=== PATIENT | female | born 1990 | race Caucasian/White ===

== ENCOUNTER 2018-10-13 06:15 | Emergency (ER) | payer OTHER ==
--- OUTSIDE RECORDS SUMMARY | 2018-10-13 06:16 | XMS REPORT | Encounter Summary ---
:1990 Author Reason for Visit Nurse Visit; Confirmation of Instructions 1. Urine test positive test, urine 2. screening CBC w/ auto diff HIV (1+2) Ab screen, serum culture, urine abo group + rh type, blood HBsAg (hepatitis B surface Ag), serum rubella Ab, titer, serum RPR (rapid plasma reagin), serum antibody screen, serum or plasma urinalysis, dipstick US, obstetric, maternal evaluation + anatomy 3. Uterine scar from previous surgery in , childbirth and the puerperium with problem Discussion Note: None recorded.Patient educational handouts: No information available. Plan of Care Reminders Provider Appointments OB Sono Sonogram 10/22/2018 3:30PM Lab In-House Results Test, Urine 10/06/2018 CBC W/ Auto [place] Diff 10/06/2018 [facility] (Lab) HIV (1+2) Ab [place] Screen, Serum 10/06/2018 [facility] (Lab) Culture, Urine [place] 10/06/2018 [facility] (Lab) Abo Group + Rh [place] Type, Blood 10/06/2018 [facility] (Lab) HBsAg [place] (Hepatitis B Surface 10/06/2018 [facility] Ag), [facility] (Lab) Rubella Ab, [place] Titer, Serum 10/06/2018 [facility] (Lab) RPR (Rapid [place] Plasma Reagin), Serum 10/06/2018 [facility] (Lab) Antibody [place] Screen, Serum or Plasma 10/06/2018 [facility] (Lab) Urinalysis, In-House Results Dipstick 10/06/2018 Referral None recorded. Procedures None recorded. Surgeries None recorded. Imaging US, Obstetric, In-House Results Maternal 10/06/2018 Evaluation + Anatomy Medications Name Start Date collagen (bovine) melatonin Medications Administered None recorded. Vitals Height Weight BMI Blood Pressure 5 ft 1 in 144 lbs 27.2 kg/m2 128/74 mm[Hg] Lab Results Date Name Specimen Result Interpretation Description Value Range Status Address 10/06/2018 Urinalysis, Leukocytes Negative In-House Dipstick Results: For Internal Use Only Nitrite negative In-House Results: For Internal Use Only Urobilinogen .2 In-House Results: For Internal Use Only Protein Negative In-House Results: For Internal Use Only Ph 5.5 In-House Results: For Internal Use Only Blood Negative In-House Results: For Internal Use Only Specific 1.020 In-House [place] Results: For Internal Use Only Ketone Negative In-House Results: For Internal Use Only Bilirubin Negative In-House Results: For Internal Use Only Glucose Negative In-House Results: For Internal Use Only Appearance Clear In-House Results: For Internal Use Only Color Yellow In-House Results: For Internal Use Only US, Obstetric, No observation In-House Maternal recorded. Results: Evaluation + For Anatomy Internal Use Only Test, Test positive In-House Urine Results: For Internal Use Only Allergies Code Code System Name Reaction Severity Status Onset 7052 RxNorm Morphine Hives Active Problems Name Status Onset Date Source Active 10/06/2018 Uterine Scar from Previous Surgery in , Active 10/07/2018 Childbirth and the Puerperium with Problem Procedures Date Name Performed by Remove Tonsils and Adenoids Information not available 10/06/2018 US, Obstetric, Maternal In-House Results Evaluation + Anatomy For Internal Use Only 34381 Vaccine List None recorded. Social History Smoking Status Former Smoker Past Encounters 10/06/2018 Urine Test Positive; Screening; Uterine Scar from Previous Surgery in , Childbirth and the Puerperium with Problem German Lucas MD: [address] [place] [address], [address], [place] [address], Ph. [phone] History of Present Illness None recorded. 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: Patient Constitutional: Constitutional: no fatigue, no fever, no significant weight gain, no significant weight loss Skin: Skin: no abnormal moles, no rashes Eyes: Eyes: no irritation, no vision changes ENMT: ENMT: no hearing loss, no ear pain, no nose/sinus problems, no sore throat, no snoring, no dry mouth, no mouth ulcers Respiratory: Respiratory: no dyspnea / shortness of breath, no cough, no sputum production, no hemoptysis, no wheezing Cardiovascular: Cardiovascular: no chest pain, no palpitations, no orthopnea Gastrointestinal: Gastrointestinal: no heartburn, no dysphagia, no nausea, no vomiting, no abdominal pain, no bowel movement changes, no diarrhea, no constipation, no rectal bleeding Genitourinary: Genitourinary: no hematuria, no abnormal bleeding, no flank pain, no trouble urinating, no incontinence, no rash, no lesion, no discharge, no vaginal odor, no vaginal itching Endocrine: Menstrual: no menstrual problems, no PMDD symptoms. Menopausal: no menopausal symptoms. Sexual: no sexual problems Musculoskeletal: Musculoskeletal: no muscle aches, no muscle weakness, no arthralgias/joint pain, no back pain Neurological: Neurologic: no headaches, no dizziness, no LOC, no weakness, no numbness, no seizures Psychological: Psych: no depression, no alcoholism, no sleep disturbances Physical Exam None recorded.
--- NOTE | 2018-10-13 07:35 | ER ---
Nurse's Notes [facility] Name: Hailee Guy Age: 28 yrs Sex: Female : 1990 Arrival Date: 10/13/2018 Time: 06:17 Bed 13 Private MD: Ashlyn Vences C Diagnosis: Pain in left ankle and joints of left foot; state Presentation: 10/13 06:28 Presenting complaint: Patient states: left ankle pain X1 day. swelling noted to left ak1 ankle. pt denies injury. Transition of care: patient was not received from another setting of care. Onset of symptoms was October 12, 2018. Risk Assessment: Do you want to hurt yourself or someone else? Patient reports no desire to harm self or others. Care prior to arrival: bin bandage applied to left ankle by [facility] prior to arrival. 06:28 Method Of Arrival: Wheelchair ak1 06:28 Acuity: TANISHA 4 ak1 06:32 Initial Sepsis Screen: Does the patient meet any 2 criteria? No. Patient's initial ak1 sepsis screen is negative. Does the patient have a suspected source of infection? No. Patient's initial sepsis screen is negative. Triage Assessment: 06:30 General: Appears uncomfortable, Behavior is calm, cooperative. Pain: Complains of pain ak1 in left lateral malleolus and left medial malleolus. EENT: No signs and/or symptoms were reported regarding the EENT system. Neuro: No deficits noted. Cardiovascular: No deficits noted. Respiratory: No deficits noted. GI: No signs and/or symptoms were reported involving the gastrointestinal system. : No signs and/or symptoms were reported regarding the genitourinary system. Derm: No signs and/or symptoms reported regarding the dermatologic system. Musculoskeletal: Range of motion: limited in left ankle. 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 - Social history:: Smoking status: Patient/guardian denies using tobacco. - Ebola Screening: : No symptoms or risks identified at this time. Screenin:32 Abuse screen: Denies threats or abuse. Denies injuries from another. Nutritional ak1 screening: No deficits noted. Tuberculosis screening: No symptoms or risk factors identified. Fall Risk None identified. Assessment: 06:28 General: Appears in no apparent distress. uncomfortable, Behavior is calm, cooperative, jb4 appropriate for age. Pain: Complains of pain in left lateral ankle, left medial ankle and anterior aspect of left ankle Pain radiates to left knee Pain currently is 10 out of 10 on a pain scale. Quality of pain is described as aching, sharp, shooting, stabbing, throbbing, Pain began 2 years ago Is intermittent. Neuro: Level of Consciousness is awake, alert, obeys commands, Oriented to person, place, time, situation. Cardiovascular: Patient's skin is warm and dry. Respiratory: Airway is patent Respiratory effort is even, unlabored, Respiratory pattern is regular, symmetrical. GI: No signs and/or symptoms were reported involving the gastrointestinal system. : No signs and/or symptoms were reported regarding the genitourinary system. EENT: No signs and/or symptoms were reported regarding the EENT system. Derm: Skin is intact, Skin is pink, warm \T\ dry. Musculoskeletal: Circulation, motion, and sensation intact. Range of motion: intact in left ankle Swelling present in left lateral ankle, left medial ankle and anterior aspect of left ankle. 08:21 Reassessment: PT D/C HOME VIA W/C WITH FAMILY, DX WITH SOFT TISSUE SWELLING OF LEFT bp ANKLE. Vital Signs: 06:30 BP 114 / 70; Pulse 85; Resp 16; Pulse Ox 99% on R/A; Weight 65.32 kg (R); Height 5 ft. ak1 4 in. (162.56 cm) (R); Pain 10/10; 06:30 Body Mass Index 24.72 (65.32 kg, 162.56 cm) ak1 ED Course: 06:17 Patient arrived in ED. am2 06:18 Ashlyn Vences FNP is Private Physician. am2 06:21 Praful Perez, RN is Primary Nurse. jb4 06:29 Triage completed. ak1 06:30 Arm band placed on Patient placed in an exam room, on a stretcher, on pulse oximetry, ak1 Patient notified of wait time. 06:32 Patient has correct armband on for positive identification. Bed in low position. Call ak1 light in reach. Side rails up X 1. Adult w/ patient. Pulse ox on. NIBP on. 06:33 Emily Stoddard FNP-C [facility]. snw 06:33 Richard Gordon MD is Attending Physician. snw 07:21 Extremity Venous Uni Ltd US In Process Unspecified. EDMS 07:50 Bin wrap to left ankle. bp 08:21 No provider procedures requiring assistance completed. Patient did not have IV access bp during this emergency room visit. Administered Medications: 07:42 CANCELLED (other intervention): Tylenol 650 mg PO once snw 07:55 Drug: Tylenol #3 (300 mg-30 mg) 1 tablet Route: PO; bp 08:10 Follow up: Response: Medication administered at discharge. bp Outcome: 07:34 Discharge ordered by . snw 08:22 Discharged to home via wheelchair, with family. bp 08:22 Condition: stable 08:22 Discharge instructions given to patient, Instructed on discharge instructions, follow up and referral plans. Demonstrated understanding of instructions, follow-up care, medications. 08:22 Patient left the ED. bp Signatures: Dispatcher [employer] EDMO Emily Stoddard FNP-C SHOE STAMPER-Csnw Tracy Rodrigez RN RN ak1 Praful Perez, RN RN [email or web address] Celestina Augustin Brian, RN RN bp
--- NOTE | 2018-10-13 07:35 | EDPHYS ---
Physician Documentation [facility] Name: Hailee Guy Age: 28 yrs Sex: Female : 1990 Arrival Date: 10/13/2018 Time: 06:17 Bed 13 Private MD: Ashlyn Vences C ED Physician Richard Gordon HPI: 10/13 06:40 This 28 yrs old Female presents to ER via Wheelchair with complaints of Ankle snw pain. 06:40 The patient presents with decreased range of motion, pain, swelling. The complaints snw affect the left medial ankle, anterior aspect of left ankle and dorsum of left foot. Context: The problem was sustained at home, resulted from an unknown cause, the patient can partially bear weight, the patient is able to ambulate, pt states area swelling is pretty normal for her x 3 years. Onset: The symptoms/episode began/occurred gradually, 3 year(s) ago, and became worse this morning. Associated signs and symptoms: Pertinent positives: swelling. 06:40 Modifying factors: the symptoms are aggravated by state. Treatment prior to snw arrival includes: no previous treatment. Severity of symptoms: At their worst the symptoms were moderate. The patient has experienced similar episodes in the past. It is unknown whether or not the patient has recently seen a physician. 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 - Social history:: Smoking status: Patient/guardian denies using tobacco. - Ebola Screening: : No symptoms or risks identified at this time. ROS: 06:40 Constitutional: Negative for fever, chills, and weight loss, Eyes: Negative for injury, snw pain, redness, and discharge, ENT: Negative for injury, pain, and discharge, Neck: Negative for injury, pain, and swelling, Cardiovascular: Negative for chest pain, palpitations, and edema, Respiratory: Negative for shortness of breath, cough, wheezing, and pleuritic chest pain, Abdomen/GI: Negative for abdominal pain, nausea, vomiting, diarrhea, and constipation, Back: Negative for injury and pain, : Negative for injury, bleeding, discharge, and swelling, Skin: Negative for injury, rash, and discoloration, Neuro: Negative for headache, weakness, numbness, tingling, and seizure. 06:40 MS/extremity: Positive for decreased range of motion, pain, swelling, of the left medial ankle, anterior aspect of left ankle and dorsum of left foot. Exam: 06:37 Constitutional: This is a well developed, well nourished patient who is awake, alert, snw and in no acute distress. Head/Face: Normocephalic, atraumatic. Eyes: Pupils equal round and reactive to light, extra-ocular motions intact. Lids and lashes normal. Conjunctiva and sclera are non-icteric and not injected. Cornea within normal limits. Periorbital areas with no swelling, redness, or edema. ENT: Nares patent. No nasal discharge, no septal abnormalities noted. Tympanic membranes are normal and external auditory canals are clear. Oropharynx with no redness, swelling, or masses, exudates, or evidence of obstruction, uvula midline. Mucous membranes moist. Neck: Trachea midline, no thyromegaly or masses palpated, and no cervical lymphadenopathy. Supple, full range of motion without nuchal rigidity, or vertebral point tenderness. No Meningismus. Chest/axilla: Normal chest wall appearance and motion. Nontender with no deformity. No lesions are appreciated. Cardiovascular: Regular rate and rhythm with a normal S1 and S2. No gallops, murmurs, or rubs. Normal PMI, no JVD. No pulse deficits. Respiratory: Lungs have equal breath sounds bilaterally, clear to auscultation and percussion. No rales, rhonchi or wheezes noted. No increased work of breathing, no retractions or nasal flaring. Abdomen/GI: Soft, non-tender, with normal bowel sounds. No distension or tympany. No guarding or rebound. No evidence of tenderness throughout. Gravid Back: No spinal tenderness. No costovertebral tenderness. Full range of motion. Skin: Warm, dry with normal turgor. Normal color with no rashes, no lesions, and no evidence of cellulitis. MS/ Extremity: Pulses equal, no cyanosis. Neurovascular intact. Full, range of motion except to left ankle. Ankle edematous, minimally pink in coloration to medial aspect. Tender on range of motion. (pt in second trimester of ) Neuro: Awake and alert, GCS 15, oriented to person, place, time, and situation. Cranial nerves II-XII grossly intact. Motor strength 5/5 in all extremities. Sensory grossly intact. Cerebellar exam normal. Normal gait. Vital Signs: 06:30 BP 114 / 70; Pulse 85; Resp 16; Pulse Ox 99% on R/A; Weight 65.32 kg (R); Height 5 ft. ak1 4 in. (162.56 cm) (R); Pain 10/10; 06:30 Body Mass Index 24.72 (65.32 kg, 162.56 cm) ak1 MDM: 06:43 Patient medically screened. snw 07:39 Data reviewed: vital signs, nurses notes. Data interpreted: Pulse oximetry: on room air snw is 99 %. Interpretation: normal. Counseling: I had a detailed discussion with the patient and/or guardian regarding: the historical points, exam findings, and any diagnostic results supporting the discharge/admit diagnosis, radiology results, the need for outpatient follow up, to return to the emergency department if symptoms worsen or persist or if there are any questions or concerns that arise at home. Special discussion: Based on the history and exam findings, there is no indication for further emergent testing or inpatient evaluation. I discussed with the patient/guardian the need to see the orthopedic surgeon for further evaluation of the symptoms. I discussed with the patient/guardian the need to see the primary care provider for further evaluation of the symptoms. 07:42 ED course: pt and family request pt be given narcotic. Discussed chronicity of problem snw and state. Pt states she just wants one dose now and will continue tylenol prn. 10/13 06:37 Order name: Extremity Venous Uni Ltd ; Complete Time: 08:18 snw 10/13 07:34 Order name: Bin wrap-joint; Complete Time: 08:10 snw Administered Medications: 07:42 CANCELLED (other intervention): Tylenol 650 mg PO once snw 07:55 Drug: Tylenol #3 (300 mg-30 mg) 1 tablet Route: PO; bp 08:10 Follow up: Response: Medication administered at discharge. bp Disposition: 10/13/18 07:35 Discharged to Home. Impression: Pain in left ankle and joints of left foot, state. - Condition is Stable. - Discharge Instructions: Joint Pain, Musculoskeletal Pain, Ankle Pain, Cryotherapy, Heat Therapy. - Medication Reconciliation Form, Thank You Letter, Antibiotic Education, Prescription Opioid Use, Family Work Release form. - Follow up: Private Physician; When: 1 - 2 days; Reason: Recheck today's complaints, Continuance of care, Re-evaluation by your physician. Follow up: Emergency Department; When: As needed; Reason: Worsening of condition. Signatures: Dispatcher [employer] EDEmily Loomis FNP-C MAJOR LEAGUE BASEBALL PLAYER-Tracy Wilkins, RN RN ak1 Darci Nicholas RN RN bp Corrections: (The following items were deleted from the chart) 07:42 07:34 Tylenol 650 mg PO once ordered. snw snw 08:22 07:35 10/13/2018 07:35 Discharged to Home. Impression: Pain in left ankle and joints of bp left foot; state. Condition is Stable. Forms are Medication Reconciliation Form, Thank You Letter, Antibiotic Education, Prescription Opioid Use. Follow up: Private Physician; When: 1 - 2 days; Reason: Recheck today's complaints, Continuance of care, Re-evaluation by your physician. Follow up: Emergency Department; When: As needed; Reason: Worsening of condition. snw
--- NOTE | 2018-10-13 08:16 | RAD REPORT ---
EXAM DESCRIPTION: US - Extremity Venous Uni Ltd - 10/13/2018 7:20 am CLINICAL HISTORY: SWELLING Leg swelling and edema. COMPARISON: No comparisons FINDINGS: Left lower extremity venous system was interrogated with Doppler technique. Normal flow, c ompressibility and augmentation was noted. There is no DVT present. IMPRESSION: No evidence of left lower extremity deep venous thrombosis.
[2018-10-13] MEDS ORDERED: CODEINE 30MG/APAP 300MG TAB ONE (08:17)
[2018-10-13 08:26] VITALS: BP 114/70; O2SAT 99
== END 2018-10-13 08:22 | disposition home or self-care (01) ==
LOC: ER 06:15
DX: O26.892 Other specified pregnancy related conditions, second trimester (principal); M25.572 Pain in left ankle and joints of left foot; Z3A.23 23 weeks gestation of pregnancy; Z88.5 Allergy status to narcotic agent
CPT/HCPCS: 93971; 99284

== ENCOUNTER 2021-04-30 17:12 | Emergency (ER) | payer OTHER ==
[2021-04-30 17:55] LABS: Absolute Lymphocytes (CBC) 2.1 K/uL (0.7-4.9); Basophils % 0.6 % (0-1.3); Hematocrit 37.8 % (36.0-45.0); MPV 7.4 fL (7.6-11.3); RBC Red Blood Cell Count 4.24 M/uL (3.86-4.86)
[2021-04-30] MEDS ORDERED: ONDANSETRON 4 MG/2 ML VIAL ONE (18:09)
[2021-04-30 18:14] LABS: ALT/SGPT 19 U/L (12-78); AST/SGOT 10 U/L (15-37); Albumin 4.6 g/dL (3.4-5.0); Alkaline Phosphatase 55 U/L (45-117); BUN Blood Urea Nitrogen 9 mg/dL (7-18); Bicarbonate 28 mmol/L (21-32); Bilirubin Direct < 0.1 mg/dL (0-0.2); Bilirubin Total 0.4 mg/dL (0.2-1.0); Glucose Level 85 mg/dL (74-106); Lipase 164 U/L (73-393); Potassium 3.7 mmol/L (3.5-5.1); Protein, Total 8.1 g/dL (6.4-8.2); Sodium Level 142 mmol/L (136-145)
[2021-04-30 18:14] LABS: Urine Blood Negative (Negative); Urine Glucose Negative (Negative); Urine Protein Negative (Negative); Urine Specific Gravity 1.025 (1.005-1.030)
--- NOTE | 2021-04-30 18:40 | RAD REPORT ---
EXAM DESCRIPTION: CTAbdomen Pelvis W Contrast - 04/30/2021 6:30 pm CLINICAL HISTORY: Abdominal pain. ABD PAIN COMPARISON: CT ABD PELVIS W CONTRAST dated 01/31/2015 TECHNIQUE: Biphasic CT imaging of the abdomen and pelvis was performed with 100 ml non-ionic IV cont rast. All CT scans are performed using dose optimization technique as appropriate and may include automated exposure control or mA/KV adjustment according to patient size. FINDINGS: The lung bases are clear. The liver, spleen, pancreas, adrenal glands and kidneys are within normal limits. No bowel obstruction, free air, free fluid or abscess. Mild sigmoid diverticulosis without diverticul itis. The appendix is normal. No evidence of significant lymphadenopathy. No suspicious bony findings. IMPRESSION: No acute intra-abdominal or pelvic finding.
--- NOTE | 2021-04-30 18:49 | ER ---
Nurse's Notes [facility] Name: Hailee Guy Age: 30 yrs Sex: Female : 1990 Arrival Date: 04/30/2021 Time: 17:13 Bed 12 Private MD: Adelfo Li Diagnosis: Abdominal pain, Generalized Presentation: 04/30 17:18 Chief complaint: Patient states: I have been nauseous, constipated, unable to urinate ld1 and feeling a lot of pain and pressure in the left side of my abdomen X 1 week. Coronavirus screen: At this time, the client does not indicate any symptoms associated with coronavirus-19. Ebola Screen: No symptoms or risks identified at this time. Initial Sepsis Screen: Does the patient meet any 2 criteria? No. Patient's initial sepsis screen is negative. Does the patient have a suspected source of infection? No. Patient's initial sepsis screen is negative. Risk Assessment: Do you want to hurt yourself or someone else? Patient reports no desire to harm self or others. Onset of symptoms was April 30, 2021. 17:18 Method Of Arrival: Ambulatory ld1 17:18 Acuity: TANISHA 3 ld1 Triage Assessment: 17:20 General: Appears in no apparent distress. comfortable, Behavior is calm, cooperative, ld1 appropriate for age. Pain: Complains of pain in left upper quadrant and left lower quadrant Pain does not radiate. Pain currently is 7 out of 10 on a pain scale. Quality of pain is described as burning, pressure, throbbing, Pain began X 1 week Is continuous. Neuro: Level of Consciousness is awake, alert, obeys commands, Oriented to person, place, time, situation. Cardiovascular: Capillary refill < 3 seconds Patient's skin is warm and dry. Respiratory: Airway is patent Respiratory effort is even, unlabored, Respiratory pattern is regular, symmetrical. GI: Abdomen is flat, non-distended, Reports lower abdominal pain, upper abdominal pain, nausea. CARDIAC CATH TECH: 17:20 LMP N/A - Tubal ligation ld1 Historical: - Allergies: 17:20 Morphine; ld1 17:20 [place]; ld1 - Home Meds: 17:20 Omeprazole Oral [Active]; ld1 - PMHx: 17:20 Sinusitis; ld1 - PSHx: 17:20 Tonsillectomy; Adenoid excision; ld1 - Immunization history:: Adult Immunizations up to date, Client reports receiving the 1st dose of the Covid vaccine. - Social history:: Smoking status: Patient denies any tobacco usage or history of. Patient/guardian denies using alcohol. Screenin:03 Abuse screen: Denies threats or abuse. Nutritional screening: Has had N/V for 3 or more ap3 days. Tuberculosis screening: No symptoms or risk factors identified. Fall Risk None identified. Assessment: 18:02 General: Appears in no apparent distress. Behavior is calm, cooperative. Pain: ap3 Complains of pain in abdomen. Neuro: Level of Consciousness is awake, alert, obeys commands, Oriented to person, place, time, situation, Appropriate for age. Cardiovascular: Patient's skin is warm and dry. Respiratory: Airway is patent Respiratory effort is even, unlabored, Respiratory pattern is regular, symmetrical. GI: Bowel sounds present X 4 quads. Abd is non tender Reports lower abdominal pain, upper abdominal pain, nausea. Vital Signs: 17:18 BP 124 / 91; Pulse 75; Resp 18; Temp 98.5(TE); Pulse Ox 100% on R/A; Weight 54.43 kg; ld1 Height 5 ft. 6 in. (167.64 cm); Pain 7/10; 18:18 BP 126 / 84; Pulse 73; Pulse Ox 100% on R/A; ap3 17:18 Body Mass Index 19.37 (54.43 kg, 167.64 cm) ld1 ED Course: 17:13 Patient arrived in ED. as 17:13 Adelfo Li DO is Private Physician. as 17:17 Apoorva Phelps FNP-C [facility]. kb 17:17 Jose Martin Avelar MD is Attending Physician. kb 17:20 Triage completed. ld1 17:20 Arm band placed on right wrist. EKG completed in triage. Results shown to . ld1 17:58 Celestina Lomas, [place] is Primary Nurse. ap3 18:03 Patient has correct armband on for positive identification. Bed in low position. Call ap3 light in reach. Pulse ox on. NIBP on. Door closed. Noise minimized. 18:30 CT Abd/Pelvis - IV Contrast Only In Process Unspecified. EDMS 18:54 No provider procedures requiring assistance completed. IV discontinued, intact, ap3 bleeding controlled, No redness/swelling at site. Pressure dressing applied. Administered Medications: 18:14 Drug: Zofran (Ondansetron) 4 mg Route: IVP; Site: right antecubital; ap3 05/01 18:53 Follow up: Response: No adverse reaction ap3 Outcome: 04/30 18:49 Discharge ordered by MD. mills 18:54 Discharged to home ambulatory. ap3 18:54 Condition: good 18:54 Discharge instructions given to patient, Instructed on discharge instructions, follow up and referral plans. Demonstrated understanding of instructions, follow-up care, medications, Prescriptions given X 1. 19:00 Patient left the ED. ap3 Signatures: Dispatcher [employer] EDApoorva Mccann, AIDAN-Dinh BERMUDEZ-Anna Pierre Amanda, RN RN ap3 Tricia Escamilla RN RN ld1
--- NOTE | 2021-04-30 18:50 | EDPHYS ---
Physician Documentation [facility] Name: Hailee Guy Age: 30 yrs Sex: Female : 1990 Arrival Date: 04/30/2021 Time: 17:13 Bed 12 Private MD: Guill[facility] ED Physician Jose Martin Avelar HPI: 04/30 18:47 This 30 yrs old Female presents to ER via Ambulatory with complaints of kb Abdominal Pain, Nausea. 18:47 The patient presents with abdominal pain that is diffuse. Onset: The symptoms/episode kb began/occurred 1 week(s) ago. The symptoms do not radiate. Associated signs and symptoms: Pertinent positives: nausea, Pertinent negatives: fever. The symptoms are described as constant. Modifying factors: The symptoms are alleviated by nothing, the symptoms are aggravated by nothing. Severity of pain: At its worst the pain was moderate in the emergency department the pain is unchanged. The patient has not experienced similar symptoms in the past. The patient has not recently seen a physician. 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 - Social history:: Smoking status: Patient denies any tobacco usage or history of. Patient/guardian denies using alcohol. ROS: 18:47 Constitutional: Negative for fever, chills, and weight loss. kb 18:47 Abdomen/GI: Positive for abdominal pain, nausea. 18:47 All other systems are negative. Exam: 18:47 Constitutional: This is a well developed, well nourished patient who is awake, alert, kb and in no acute distress. Head/Face: Normocephalic, atraumatic. ENT: Moist Mucous membranes Cardiovascular: Regular rate and rhythm with a normal S1 and S2. No gallops, murmurs, or rubs. No pulse deficits. Respiratory: Respirations even and unlabored. No increased work of breathing, no retractions or nasal flaring. Skin: Warm, dry with normal turgor. Normal color. MS/ Extremity: Pulses equal, no cyanosis. Neurovascular intact. Full, normal range of motion. Neuro: Awake and alert, GCS 15, oriented to person, place, time, and situation. Moves all extremities. Normal gait. Psych: Awake, alert, with orientation to person, place and time. Behavior, mood, and affect are within normal limits. 18:47 Abdomen/GI: Inspection: abdomen appears normal, Bowel sounds: normal, in all quadrants, Palpation: soft, in all quadrants, mild abdominal tenderness, in all quadrants. Vital Signs: 17:18 BP 124 / 91; Pulse 75; Resp 18; Temp 98.5(TE); Pulse Ox 100% on R/A; Weight 54.43 kg; ld1 Height 5 ft. 6 in. (167.64 cm); Pain 7/10; 18:18 BP 126 / 84; Pulse 73; Pulse Ox 100% on R/A; ap3 17:18 Body Mass Index 19.37 (54.43 kg, 167.64 cm) ld1 MDM: 17:17 Patient medically screened. kb 18:46 Data reviewed: vital signs, nurses notes. Data interpreted: Pulse oximetry: on room air kb is 100 %. Interpretation: normal. Counseling: I had a detailed discussion with the patient and/or guardian regarding: the historical points, exam findings, and any diagnostic results supporting the discharge/admit diagnosis, lab results, radiology results, the need for outpatient follow up, a family practitioner, to return to the emergency department if symptoms worsen or persist or if there are any questions or concerns that arise at home. 04/30 17:21 Order name: Basic Metabolic Panel; Complete Time: 18:15 kb 04/30 17:21 Order name: CBC with Diff; Complete Time: 17:57 kb 04/30 17:21 Order name: Hepatic Function; Complete Time: 18:15 kb 04/30 17:21 Order name: Lipase; Complete Time: 18:15 kb 04/30 18:13 Order name: Urine Dipstick-Ancillary; Complete Time: 18:15 EDMS 04/30 18:14 Order name: Urine --Ancillary (enter results) bd 04/30 17:21 Order name: IV Saline Lock; Complete Time: 18:02 kb 04/30 17:21 Order name: Labs collected and sent; Complete Time: 18:02 kb 04/30 17:21 Order name: Urine Dipstick-Ancillary (obtain specimen); Complete Time: 18:15 kb 04/30 17:21 Order name: Urine Test (obtain specimen); Complete Time: 18:15 kb 04/30 17:21 Order name: CT Abd/Pelvis - IV Contrast Only; Complete Time: 18:46 kb 04/30 18:14 Order name: Urine --Ancillary EDMS Administered Medications: 18:14 Drug: Zofran (Ondansetron) 4 mg Route: IVP; Site: right antecubital; ap3 05/01 18:53 Follow up: Response: No adverse reaction ap3 Disposition: 04/30 23:19 Co-signature as Attending Physician, Jose Martin Avelar MD I agree with the assessment and irina plan of care. Disposition Summary: 04/30/21 18:49 Discharge Ordered Location: Home kb Condition: Stable kb Diagnosis - Abdominal pain, Generalized kb Followup: kb - With: Emergency Department - When: As needed - Reason: Worsening of condition Followup: kb - With: Private Physician - When: 2 - 3 days - Reason: Recheck today's complaints, Continuance of care, Re-evaluation by your physician Discharge Instructions: - Discharge Summary Sheet kb - Abdominal Pain, Adult, [id number] kb Forms: - Medication Reconciliation Form kb - Thank You Letter kb - Antibiotic Education kb - Prescription Opioid Use kb Prescriptions: - Zofran 4 mg Oral Tablet - take 1 tablet by ORAL route every 6 hours As needed; 20 tablet; Refills: 0, kb Product Selection Permitted Signatures: Dispatcher [employer] EDMS Apoorva Phelps, AIDAN-C MANAGER ENGAGEMENT-Jose Martin Mosqueda MD MD cha Prokisch, Amanda, RN RN ap3 Tricia Escamilla, RN RN ld1
[2021-04-30 18:56] LABS: Urine Specific Gravity/Preg 1.025 (1.005-1.030)
[2021-04-30 19:04] VITALS: TEMP 98.5; O2SAT 100
[2021-04-30 19:05] VITALS: BP 126/84
== END 2021-04-30 19:00 | disposition home or self-care (01) ==
LOC: ER 17:12
DX: R10.84 Generalized abdominal pain (principal); Z88.5 Allergy status to narcotic agent
CPT/HCPCS: 85025; 80048; 36415; 81025; 80076; 81003; 83690; 74177; 96374; 99284; Q9967; J2405

== ENCOUNTER 2021-09-03 11:46 | Emergency (ER) | payer OTHER ==
--- OUTSIDE RECORDS SUMMARY | 2021-09-03 11:50 | XMS REPORT | Continuity of Care Document ---
:1990 Author Organization [facility] t Address [address] [place] [address] Care Team Providers Name Role Phone John LI Primary Care Physician Unavailable LUIZ Attending Clinician Unavailable John Li Attending Clinician Unavailable Only, Test Attending Clinician Unavailable Luiz MOCTEZUMA Attending Clinician Vignesh RAMIREZ Attending Clinician Unavailable Oscar WOLFE Attending Clinician Unavailable Vignesh Ramirez MD Attending Clinician Doctor Unassigned, Name Attending Clinician Unavailable G_Shayy Attending Clinician Unavailable LUIZ Admitting Clinician Unavailable Ro_Shayy Admitting Clinician Unavailable Payers Payer Name Policy Type Policy Number Effective Date Expiration Date [facility] [id number] 2015 CHOICE MEDICAID 00:00:00 [facility] [id number] 2018 CHOICE (MEDICAID 00:00:00 REPLACEMENT - HMO) Problems Condition Condition Condition Status Onset Resolution Last Treating Co mments Source Name Details Category Date Date Treatment Clinician Date Dysphagia, Dysphagia, Disease Active Overview : Univers unspecifie unspecifie 2-17 Formattin ity of d type d type 00:00: g of this [place] 00 note Medical might be Branch different from the original. Added automatic ally from request for surgery [id number] Anemia of Anemia of Problem Active [facility] [place] 6-11 da 00:00: Medical 00 Group Gastroesop Gastroesop Problem Active M [place] hageal hageal 5-07 da reflux Reflux 00:00: Medical disease Disease 00 Group without without esophagiti Esophagiti s s Mild Mild Problem Active [place] hyperemesi Hyperemesi 11-02 da s-not s-not 00:00: Medical delivered Delivered 00 Grou p Iron Iron Problem Active [place] deficiency Deficiency 507 da anemia of Anemia of 00:00: Medi jermaine 00 Grou p Uterine Uterine Problem Active [place] scar from Scar from 4-11 da previous Previous 00:00: Medica l surgery in Surgery in 00 Gr oup , , childbirth Childbirth and the and the puerperium Puer[place] with with problem Problem Chronic Chronic Disease Active Univers sinusitis sinusitis 12 ity of 00:00: [place] 00 Medical Branch Allergic Allergic Disease Active Unive rs rhinitis rhinitis 01-07 ity of 00:00: [place] 00 Medical Branch Anxiety Anxiety Disease Active Univers and and 01-07 ity of depression [place] [facility] [place] ADHD ADHD Disease Active Univers (attention (attention 01-07 it y of deficit deficit 00:00: [place] hyperactiv hyperactiv 00 Me dical ity ity Branch disorder) disorder) PTSD PTSD Disease Active Univers (post-trau (post-trau 01-07 it y of matic matic 00:00: [place] stress stress 00 Medical disorder) disorder) Bran ch Contracept Contracept Disease Active U nivers stvee steve -08 ity of management management [place] [facility] [place] Hiatal Hiatal Problem Active [place] [facility] Allergies, Adverse Reactions, Alerts Allergy Allergy Status Severity Reaction(s) Onset Inactive Treating Comm ents Source Name Type Date Date Clinician HYDROCOD DRUG Active Rash Univers ONE-ACET 7-12 ity of AMINOPHE 00:00: [place] N 00 Medical Branch Hydrocod Propensi Active Rash Univer s one-Acet ty to 712 ity of aminophe adverse 00:00: [place] n reaction 00 Medical s Branch Morphine Allergy Active Hives [place] to da [facility] Medical e Group Social History Social Habit Start Date Stop Date Quantity Comments Source Exposure to Not sure University of SARS-CoV-2 [place] Medical (event) Branch History of Cigarette Smoker Universi ty of tobacco use [facility] Alcohol intake 2021-08-28 2021-08-28 0 /d University of 00:00:00 00:00:00 [facility] Tobacco use and 2021-07-09 2021-07-09 Never used Universit y of exposure 00:00:00 00:00:00 [facility] Sex Ass[birth year] At [birth year] Universit y of 00:00:00 00:00:00 [facility] Smoking Status Start Date Stop Date Source Former Smoker Jacquelyn Vermaa l [facility] Current some day smoker 2021-07-09 00:00:00 [facility] Never smoker [facility] Medications Ordered Filled Start Stop Current Ordering Indication Dosage Frequency Signature Comments Components Source Medication Medication Date Date Medication? Clinician (SIG) Name Name barium 2021- No [id number] 100mL 100 mL, Un [place] sulfate 08-23 Oral, ity of (E-Z-HD 18:45: 18:38 ONCE, 1 [place] BARIUM) 98 00 :00 dose, On Medic al % oral Fri Branch suspension 08/23/21 at 100 mL 1245, Routine barium 2021- No [id number] 100mL 100 mL, Un [place] sulfate 08-23 Oral, ity of (LIQUID E-Z 18:45: 18:38 ONCE, 1 [place] PAQUE) 60 % 00 :00 dose, On Medi jermaine (w/v) oral Fri Branch suspension 08/23/21 at 100 mL 1245, Routine sod 2021- No [id number] 1{packe 1 Packet, Univers bicarb-citr -23 08-25 t} Oral, ity of ic 18:45: 18:38 ONCE, 1 [place] ac-simeth 00 :00 dose, On Medica l (E-Z-GAS Fri Branch II) 08/23/21 at 2.21-1.53 1245, gram/4 gram Routine packet 1 Packet cholecalcif Yes 1000U Take 1,000 Univers liseth, 2-16 Units by ity of vitamin D3, 13:00: mouth [place] (VITAMIN 21 daily. Medical D3) 25 mcg Branch (1,000 unit) tablet dicyclomine 2022-0 Yes 10mg Take 10 mg Univers 10 mg 2-16 by mouth 4 ity of capsule 13:00: (four) [place] 21 times Medical daily. Branch OREGANO OIL 2021-0 Yes Take by Un daquan ORAL 2-16 mouth. ity of 13:00: 21 Medical Branch cholecalcif 2-0 Yes 1000U Take 1,000 Univers liseth, 2-16 Units by ity of vitamin D3, 13:00: mouth [place] (VITAMIN 21 daily. Medical D3) 25 mcg Branch (1,000 unit) tablet dicyclomine 2-0 Yes 10mg Take 10 mg Univers 10 mg 2-16 by mouth 4 ity of capsule 13:00: (four) [place] 21 times Medical daily. Branch OREGANO OIL 2021-0 Yes Take by Un daquan ORAL 2-16 mouth. ity of 13:00: [place] 21 Medical Branch cholecalcif 2-0 Yes 1000U Take 1,000 Univers liseth, 2-16 Units by ity of vitamin D3, 13:00: mouth [place] (VITAMIN 21 daily. Medical D3) 25 mcg Branch (1,000 unit) tablet dicyclomine 2-0 Yes 10mg Take 10 mg Univers 10 mg 2-16 by mouth 4 ity of capsule 13:00: ([facility]) [place] 21 times Medical daily. Branch OREGANO OIL 2021-0 Yes Take by Un daquan ORAL 2-16 mouth. ity of 13:00: [place] 21 Medical Branch cholecalcif 2-0 Yes 1000U Take 1,000 Univers liseth, 2-16 Units by ity of vitamin D3, 13:00: mouth [place] (VITAMIN 21 daily. Medical D3) 25 mcg Branch (1,000 unit) tablet dicyclomine 2-0 Yes 10mg Take 10 mg Univers 10 mg 2-16 by mouth 4 ity of capsule 13:00: ([facility]) [place] 21 times Medical daily. Branch OREGANO OIL 2-0 Yes Take by Un daquan ORAL 2-16 mouth. ity of 13:00: [place] 21 Medical Branch cholecalcif 2-0 Yes 1000U Take 1,000 Univers liseth, 2-16 Units by ity of vitamin D3, 13:00: mouth [place] (VITAMIN 21 daily. Medical D3) 25 mcg Branch (1,000 unit) tablet dicyclomine 2022-0 Yes 10mg Take 10 mg Univers 10 mg 2-16 by mouth 4 ity of capsule 13:00: (four) [place] 21 times Medical daily. Branch OREGANO OIL 0 Yes Take by Un daquan ORAL 2-16 mouth. ity of 13:00: [place] [facility] Branch buPROPion 2021-0 Yes 75mg Take 75 mg Un daquan 75 mg 1-31 by mouth ity of tablet 00:00: daily. [place] [facility] Branch buPROPion 2021-0 Yes 75mg Take 75 mg Un daquan 75 mg 1-31 by mouth ity of tablet 00:00: daily. [place] [facility] Branch buPROPion 2021-0 Yes 75mg Take 75 mg Un daquan 75 mg 1-31 by mouth ity of tablet 00:00: daily. [place] [facility] buPROPion 2021-0 Yes 75mg Take 75 mg Un daquan 75 mg 1-31 by mouth ity of tablet 00:00: daily. [place] [facility] buPROPion 2021-0 Yes 75mg Take 75 mg Un daquan 75 mg 1-31 by mouth ity of tablet 00:00: daily. [place] [facility] Branch amitriptyli 2021-0 Yes TAKE 1/4 Un daquan ne 25 mg 1-19 TABLET(S) ity of tablet 00:00: BY MOUTH [place] [id number] ONCE A DAY Medical AT [facility]. amitriptyli 2021-0 Yes TAKE 1/4 Un daquan ne 25 mg 1-19 TABLET(S) ity of tablet 00:00: BY MOUTH [place] [address] ONCE A DAY Medical AT [facility]. amitriptyli 2021-0 Yes TAKE 1/4 Un daquan ne 25 mg 1-19 TABLET(S) ity of tablet 00:00: BY MOUTH [place] [address] ONCE A DAY [facility] amitriptyli 2021-0 Yes TAKE 1/4 Un daquan ne 25 mg 1-19 TABLET(S) ity of tablet 00:00: BY MOUTH [place] [address] ONCE A DAY Medical [facility] amitriptyli 2021-0 Yes TAKE 1/4 Un daquan ne 25 mg 1-19 TABLET(S) ity of tablet 00:00: BY MOUTH [place] [address] ONCE A DAY Medical [facility] MULTIVITAMI 2016-0 Yes 1{tbl} Take 1 Un daquan N ORAL 8-30 tablet by ity of 15:08: mouth [place] 00 daily. Medical Branch MULTIVITAMI 2016 Yes 1{tbl} Take 1 Un daquan N ORAL 8-30 tablet by ity of 15:08: mouth [place] 00 daily. Medical Branch MULTIVITAMI Yes 1{tbl} Take 1 Un daquan N ORAL 8-30 tablet by ity of 15:08: mouth [place] 00 daily. Medical Branch MULTIVITAMI Yes 1{tbl} Take 1 Un daquan N ORAL 8-30 tablet by ity of 15:08: mouth [place] 00 daily. Medical Branch MULTIVITAMI Yes 1{tbl} Take 1 Un daquan N ORAL 8-30 tablet by ity of 15:08: mouth [place] 00 daily. Medical Branch MULTIVITAMI Yes 1{tbl} Take 1 Un daquan N ORAL 8-30 tablet by ity of 15:08: mouth [place] 00 daily. Medical Branch MULTIVITAMI Yes 1{tbl} Take 1 Un daquan N ORAL 8-30 tablet by ity of 15:08: mouth [place] 00 daily. Medical Branch fluticasone Yes 2{spray Use 2 Un daquan 50 8-30 } Sprays in ity of mcg/actuati 00:00: each [place] on nasal 00 nostril Medical spray daily. Branch fluticasone Yes 2{spray Use 2 Un daquan 50 8-30 } Sprays in ity of mcg/actuati 00:00: each [place] on nasal 00 nostril Medical spray daily. Branch fluticasone 0 Yes 2{spray Use 2 Un daquan 50 8-30 } Sprays in ity of mcg/actuati 00:00: each [place] on nasal 00 nostril Medical spray daily. Branch fluticasone 0 Yes 2{spray Use 2 Un daquan 50 8-30 } Sprays in ity of mcg/actuati 00:00: each [place] on nasal 00 nostril Medical spray daily. Branch fluticasone 0 Yes 2{spray Use 2 Un daquan 50 8-30 } Sprays in ity of mcg/actuati 00:00: each [place] on nasal 00 nostril Medical spray daily. Branch fluticasone 0 Yes 2{spray Use 2 Un daquan 50 8-30 } Sprays in ity of mcg/actuati 00:00: each [place] on nasal 00 nostril Medical spray daily. Branch fluticasone Yes 2{spray Use 2 Un daquan 50 8-30 } Sprays in ity of mcg/actuati 00:00: each [place] on nasal 00 nostril Medical spray daily. Branch 1 1 No 1 [place] daily daily daily [facility] Immunizations Ordered Filled Immunization Date Status Comments [facility] e Immunization Name Name Varicella 2016-01-04 Completed University of (varivax)(chicken 00:00:00 [place] M edical pox) Branch [facility] 2016-01-04 Completed University of 00:00:00 [facility] Varicella 2016-01-04 Completed University of (varivax)(chicken 00:00:00 [place] M edical pox) Branch [facility] 2016-01-04 Completed University of 00:00:00 [facility] Varicella 2016-01-04 Completed University of (varivax)(chicken 00:00:00 [place] M edical pox) Branch [facility] 2016-01-04 Completed University of 00:00:00 [facility] Varicella 2016-01-04 Completed University of (varivax)(chicken 00:00:00 [place] M edical pox) Branch [facility] 2016-01-04 Completed University of 00:00:00 [facility] Varicella 2016-01-04 Completed University of (varivax)(chicken 00:00:00 [place] M edical pox) Branch [facility] 2016-01-04 Completed University of 00:00:00 [facility] Varicella 2016-01-04 Completed University of (varivax)(chicken 00:00:00 [place] M edical pox) Branch [facility] 2016-01-04 Completed University of 00:00:00 [facility] Varicella 2016-01-04 Completed University of (varivax)(chicken 00:00:00 [place] M edical pox) Branch [facility] 2016-01-04 Completed University of 00:00:00 [facility] Varicella 2015-11-22 Completed University of (varivax)(chicken 00:00:00 [place] M edical pox) Branch Varicella 2015-11-22 Completed University of (varivax)(chicken 00:00:00 [place] M edical pox) Branch Varicella 2015-11-22 Completed University of (varivax)(chicken 00:00:00 [place] M edical pox) Branch Varicella 2015-11-22 Completed University of (varivax)(chicken 00:00:00 [place] M edical pox) Branch Varicella 2015-11-22 Completed University of (varivax)(chicken 00:00:00 [place] M edical pox) Branch Varicella 2015-11-22 Completed University of (varivax)(chicken 00:00:00 [place] M edical pox) Branch Varicella 2015-11-22 Completed University of (varivax)(chicken 00:00:00 [place] M edical pox) Branch TDAP 2015-09-21 [facility] University of 00:00:00 [facility] TDAP 2015-09-21 Completed [facility] University of 00:00:00 [facility] Vital Signs Vital Name Observation Time Observation Value Comments Source BP Diastolic 2019-03-31 00:00:00 60 mm[Hg] [facility] Height 2019-03-31 00:00:00 61 [in_i] [facility] BMI (Body Mass 2019-03-31 00:00:00 24.6 kg/m2 [facility] Group BP Systolic 2019-03-31 00:00:00 110 mm[Hg] [facility] Body Weight 2019-03-31 00:00:00 130.2 [lb_av] [facility] BP Diastolic 2019-02-08 00:00:00 58 mm[Hg] [facility] Height 2019-02-08 00:00:00 61 [in_i] [facility] BMI (Body Mass 2019-02-08 00:00:00 26.3 kg/m2 [facility]) Group BP Systolic 2019-02-08 00:00:00 77 mm[Hg] [facility] Body Weight 2019-02-08 00:00:00 139 [lb_av] [facility] BP Diastolic 2019-02-01 00:00:00 83 mm[Hg] [facility] Height 2019-02-01 00:00:00 61 [in_i] [facility] BMI (Body Mass 2019-02-01 00:00:00 26.5 kg/m2 [facility]) Group BP Systolic 2019-02-01 00:00:00 126 mm[Hg] [facility] Body Weight 2019-02-01 00:00:00 140 [lb_av] [facility] BP Diastolic 2019-01-18 00:00:00 62 mm[Hg] [facility] Height 2019-01-18 00:00:00 61 [in_i] [facility] BMI (Body Mass 2019-01-18 00:00:00 26.5 kg/m2 [facility]) Group BP Systolic 2019-01-18 00:00:00 111 mm[Hg] [facility] Body Weight 2019-01-18 00:00:00 140.5 [lb_av] [facility] BP Diastolic 2019-01-13 00:00:00 68 mm[Hg] [facility] Height 2019-01-13 00:00:00 61 [in_i] [facility] BMI (Body Mass 2019-01-13 00:00:00 26.5 kg/m2 [facility] Group BP Systolic 2019-01-13 00:00:00 132 mm[Hg] [facility] Body Weight 2019-01-13 00:00:00 140 [lb_av] [facility] BP Diastolic 2019-01-04 00:00:00 67 mm[Hg] [facility] Height 2019-01-04 00:00:00 61 [in_i] [facility] BMI (Body Mass 2019-01-04 00:00:00 26.5 kg/m2 [facility] Group BP Systolic 2019-01-04 00:00:00 125 mm[Hg] [facility] Body Weight 2019-01-04 00:00:00 140 [lb_av] [facility] BP Diastolic 2018-12-07 00:00:00 66 mm[Hg] [facility] Height 2018-12-07 00:00:00 61 [in_i] [facility] BMI (Body Mass 2018-12-07 00:00:00 27.8 kg/m2 [facility] Group BP Systolic 2018-12-07 00:00:00 119 mm[Hg] [facility] Body Weight 2018-12-07 00:00:00 147 [lb_av] [facility] BP Diastolic 2018-11-02 00:00:00 63 mm[Hg] [facility] Height 2018-11-02 00:00:00 61 [in_i] [facility] BP Systolic 2018-11-02 00:00:00 107 mm[Hg] [facility] BP Diastolic 2018-10-06 00:00:00 74 mm[Hg] [facility] Height 2018-10-06 00:00:00 61 [in_i] [facility] BMI (Body Mass 2018-10-06 00:00:00 27.2 kg/m2 [facility] Group BP Systolic 2018-10-06 00:00:00 128 mm[Hg] [facility] Body Weight 2018-10-06 00:00:00 144 [lb_av] [facility] Procedures Procedure Date / Time Performing Clinician Source Performed [place] MODIFIED BARIUM 2021-08-28 17:13:54 Brandan Dee [facility] SWALLOW Medical Branch [place] BARIUM SWALLOW 2021-08-23 18:34:54 Brandan Dee [facility] ESOPHAGUS Medical Branch REFERRAL- 2021-07-20 06:01:00 Doctor Unassigned, [facility] REQUEST/RESPONSE [place] [facility] REFERRAL- 2021-07-02 06:01:00 Doctor Unassigned, [facility] REQUEST/RESPONSE [place] [facility] unlisted imaging order 2019-03-31 00:00:00 [facility] US, obstetric, limited 2019-02-01 00:00:00 [facility] unlisted imaging order 2019-01-13 00:00:00 [facility] US, obstetric, limited 2019-01-04 00:00:00 [facility] ULTRASOUND REPEAT 2018-12-07 00:00:00 [facility] XR, ankle 2018-12-07 00:00:00 Jacquelyn Merino dical Group US, obstetric, limited 2018-11-02 00:00:00 [facility] ULTRASOUND, 2018-10-06 00:00:00 [facility] UTERUS REAL TIME WITH Group IMAGE DOC, AND MATERNAL EVAL PLUS DETAILED ANATOMIC EXAMINATION, TRANSABDOMINAL APPROACH; SINGLE OR FIRST GESTATION Section 2015-11-20 00:00:00 [facility] Section 2013-09-29 00:00:00 [facility] Remove Tonsils and [facility] Adenoids Group Encounters Start End Encounter Admission Attending Care Care Encounter Source Date/Time Date/Time Type Type Clinicians Facility Department ID 2021-08-28 Outpatient Raman [facility]EE [facility] [id number] Univers 13:40:20 [facility] 2021-08-27 Outpatient Raman DEE [facility] VALERIE [id number] Univers 08:55:34 [facility] 2021-07-24 Outpatient Li, [facility] 14[facility]:07 Adelf[facility] [id number] [facility] 2021-07-24 Outpatient Li, [facility] 14:14:28 Adelfo [id number] [facility] 2021-07-24 Outpatient Li, [facility] 14:12:42 Adelfo [id number] [facility] 2021-07-24 Outpatient Li, [facility] 14:02:16 Adelfo [id number] [facility] 2021-07-24 Outpatient Li, [facility] 14:01:57 Adelf[facility] [id number] [facility] 2021-10-30 2021-10-30 [facility] [id number] Univers 14:30:00 14:30:00 BRANDAN [id number] ity [facility] 2021-09-02 2021-09-02 Laboratory Only, Adc Test [facility] [id number] Univers 13:30:00 13:45:00 Only DeeBrandan pitts ANMOL [id number] ity [facility] [id number] [facility] [id number] [facility] [address] 2021-09-02 2021-09-02 Outpatient R [facility] [id number] Univers 13:30:00 13:30:00 [id number] [facility] 2021-09-02 2021-09-02 [facility] [id number] Univers 13:30:00 13:30:00 BRANDAN [facility] 2021-08-29 2021-08-29 Outpatient R [facility] [id number] Univers 08:00:00 08:00:00 [id number] [facility] 2021-08-28 2021-08-28 [facility] [id number] Univers 10:33:24 23:59:00 BRANDAN [facility] 2021-08-28 2021-08-28 [facility] [id number] Univers 10:00:00 23:59:00 Encounter Brandan COREA [id number] ity [facility] [id number] [facility] [id number] [facility] 807 Branch 2021-08-28 2021-08-28 Outpatient R ASHLEY [facility] [id number] Univers 11:00:00 14:48:43 [facility] 2021-08-28 2021-08-28 Ancillary Jenny Moore [facility] [id number] Univers 11:00:00 14:48:43 Visit Narciso Ramirez [id number] ity [facility] [id number] [facility] [id number] Mi dical [facility] 145 Branch BUILDING 2021-08-28 2021-08-28 Outpatient R [facility] [id number] Univers 11:00:00 11:00:00 [id number] ity of [facility] 2021-08-23 2021-08-23 [facility] [id number] Univers 11:30:00 23:59:00 Encounter Brandan [facility] [id number] ity of [place] [id number] [place] VALADEZ [id number] [facility] 807 Branch ([facility]) 2021-08-23 2021-08-23 Outpatient R [facility] [id number] Univers 11:30:00 23:59:00 BRANDAN ity [facility] 2021-08-16 2021-08-16 Patient JED Dee [id number] Univers 00:00:00 00:00:00 Secure Msg Brandan [facility] [id number] ity of CLINICS [id number] [place] [id number] [facility] 071 Branch 2021-08-13 2021-08-13 [facility] [id number] 2021-08-02 2021-08-02 [facility] [id number] [facility] 2021-08-01 2021-08-01 [facility] [id number] [facility] 2021-07-31 2021-07-31 [facility] [id number] [facility] 2021-07-20 2021-07-20 Flora BEAVER [id number] Univers 00:00:00 00:00:00 Only Unassigned, AYDIN [id number] ity of [facility] [id number] [place] [id number] [place] [address] Branch 2021-07-16 2021-07-16 ambulatory [facility] [id number] [facility] 2021-07-02 2021-07-02 Orders Doctor BEAVER [id number] Univers 00:00:00 00:00:00 Only Unassigned, AYDIN [id number] [facility] [id number] [place] [id number] [place] [address] Branch 2021-06-05 2021-06-05 ambulatory [facility] [id number] [facility] 2021-06-05 2021-06-05 ambulatory [facility] [id number] [facility] 2021-06-05 2021-06-05 ambulatory [facility] [id number] [facility] 2021-06-05 2021-06-05 ambulatory [facility] [id number] [facility] 2021-06-05 2021-06-05 ambulatory [facility] [id number] [facility] 2021-06-05 2021-06-05 ambulatory [facility] [id number] [facility] 2021-06-05 2021-06-05 ambulatory [facility] [id number] [facility] 2021-06-03 2021-06-03 ambulatory [facility] [id number] [facility] 2021-06-03 2021-06-03 ambulatory [facility] [id number] [facility] 2021-05-18 2021-05-18 ambulatory [facility] [id number] [facility] 2021-05-18 2021-05-18 ambulatory [facility] [id number] [facility] 2021-05-18 2021-05-18 ambulatory [facility] [id number] [facility] 2021-05-16 2021-05-16 ambulatory [facility] [id number] [facility] 2021-05-10 2021-05-10 ambulatory [facility] [id number] [facility] 2021-05-10 2021-05-10 ambulatory [facility] [id number] [facility] 2021-05-09 2021-05-09 ambulatory [facility] [id number] [facility] 2021-05-08 2021-05-08 ambulatory [facility] [id number] [facility] 2021-05-08 2021-05-08 ambulatory [facility] [id number] [facility] 2021-05-08 2021-05-08 ambulatory [facility] [id number] [facility] 2021-05-08 2021-05-08 ambulatory [facility] [id number] [facility] 2021-05-07 2021-05-07 ambulatory [facility] [id number] [facility] 2021-05-04 2021-05-04 ambulatory [facility] [id number] [facility] 2021-05-04 2021-05-04 ambulatory [facility] [id number] [facility] 2021-05-04 2021-05-04 ambulatory [facility] [id number] [facility] 2021-04-15 2021-04-15 Outpatient [facility] [id number] [facility] 2020-05-16 2020-05-16 Outpatient G_Papelaina [facility] [id number] [place] 02:44:00 02:44:00 George coreas [facility] 2019-03-31 2019-03-31 David [facility] [place] - [id number] [place] 00:00:00 00:00:00 Uriel Gleason MD: Medical [facility] [address], [place] [address] , Ph. [phone] 2019-02-08 2019-02-08 German [facility] [place] - [id number] [place] 00:00:00 00:00:00 Discovery lyudmila Lucas MD: [address] [place] [id number] , Ph. [phone] 2019-02-01 2019-02-01 German [facility] [place] - [id number] [place] 00:00:00 00:00:00 Discovery lyudmila Lucas MD: [address] [place] [address] [place] [address] , Ph. [phone] 2019-01-18 2019-01-18 German [place] - [id number] [place] 00:00:00 00:00:00 Discovery lyudmila Lucas MD: [address] [place] [address], [place] [address] , Ph. [phone] 2019-01-13 2019-01-13 David [place] - [id number] [place] 00:00:00 00:00:00 Uriel Gleason MD: Medical Medica vignesh [address] [place] [address], General [address], [place] [address] , Ph. [phone] 2019-01-04 2019-01-04 German [place] - [id number] [place] 00:00:00 00:00:00 Discovery lyudmila Lucas MD: [address] [place] [address] , Ph. [phone] 2018-12-07 2018-12-07 Nikia [facility] [place] - [id number] [place] 00:00:00 00:00:00 Leobardo Grider [facility] vignesh MD: [address] [place] [address] [address] [address] , Ph. [phone] 2018-11-02 2018-11-02 [place] - [id number] [place] 00:00:00 00:00:00 Discovery lyudmila Lucas MD: [address] [place] [address], [place] [address] , Ph. [phone] 2018-10-06 2018-10-06 German [place] - [id number] [place] 00:00:00 00:00:00 Discovery lyudmila Lucas MD: [address] [place] [address] , Ph. [phone] Results Test Description Test Time Test Comments Results Result Comments Source Urinalysis macro (dipstick) panel - Urine 2019-02-08 16:11:1 3 Test Item Value Reference Range Interpretation Comme nts Leukocytes (test code = Leukocytes) Negative Nitrite (test code = Nitrite) negative Urobilinogen (test code = Urobilinogen) .2 Protein (test code = Protein) Negative pH (test code = pH) 7.0 Blood (test code = Blood) Negative Specific Maroa (test code = Specific Maroa) 1.015 Ketone (test code = Ketone) Negative Bilirubin (test code = Bilirubin) Negative Glucose (test code = Glucose) Negative Appearance (test code = Appearance) Clear Color (test code = Color) Yellow [facility] - [id number] 14:59:00 Test Item Value Reference Range Interpretation Comments Leukocytes (test code = Leukocytes) Negative Nitrite (test code = Nitrite) negative Urobilinogen (test code = 1 Urobilinogen) Protein (test code = Protein) Trace pH (test code = pH) 7.0 Blood (test code = Blood) Negative Specific Maroa (test code = 1.025 Specific Maroa) Ketone (test code = Ketone) Negative Bilirubin (test code = Bilirubin) Small Glucose (test code = Glucose) Negative Appearance (test code = Appearance) Clear Color (test code = Color) Yellow [facility] - [id number] 14:59:00 Test Item Value Reference Range Interpretation Comments Leukocytes (test code = Leukocytes) Negative Nitrite (test code = Nitrite) negative Urobilinogen (test code = 1 Urobilinogen) Protein (test code = Protein) Trace pH (test code = pH) 7.0 Blood (test code = Blood) Negative Specific Maroa (test code = 1.025 Specific Maroa) Ketone (test code = Ketone) Negative Bilirubin (test code = Bilirubin) Small Glucose (test code = Glucose) Negative Appearance (test code = Appearance) Clear Color (test code = Color) Yellow [facility] ([facility]) panel - [id number] 14:30:12 Test Item Value Reference Range Interpretation Comments Leukocytes (test code = Leukocytes) Negative Nitrite (test code = Nitrite) negative Urobilinogen (test code = 1 Urobilinogen) Protein (test code = Protein) Trace pH (test code = pH) 7.5 Blood (test code = Blood) Negative Specific Maroa (test code = 1.020 Specific Maroa) Ketone (test code = Ketone) Negative Bilirubin (test code = Bilirubin) Negative Glucose (test code = Glucose) Negative Appearance (test code = Appearance) Clear Color (test code = Color) Yellow [facility] panel - [id number] 14:30:12 Test Item Value Reference Range Interpretation Comments Leukocytes (test code = Leukocytes) Negative Nitrite (test code = Nitrite) negative Urobilinogen (test code = 1 Urobilinogen) Protein (test code = Protein) Trace pH (test code = pH) 7.5 Blood (test code = Blood) Negative Specific Maroa (test code = 1.020 Specific Maroa) Ketone (test code = Ketone) Negative Bilirubin (test code = Bilirubin) Negative Glucose (test code = Glucose) Negative Appearance (test code = Appearance) Clear Color (test code = Color) Yellow [facility]) panel - [id number] 14:30:12 Test Item Value Reference Range Interpretation Comments Leukocytes (test code = Leukocytes) Negative Nitrite (test code = Nitrite) negative Urobilinogen (test code = 1 Urobilinogen) Protein (test code = Protein) Trace pH (test code = pH) 7.5 Blood (test code = Blood) Negative Specific Maroa (test code = 1.020 Specific Maroa) Ketone (test code = Ketone) Negative Bilirubin (test code = Bilirubin) Negative Glucose (test code = Glucose) Negative Appearance (test code = Appearance) Clear Color (test code = Color) Yellow [facility] panel - [id number] 14:30:12 Test Item Value Reference Range Interpretation Comments Leukocytes (test code = Leukocytes) Negative Nitrite (test code = Nitrite) negative Urobilinogen (test code = 1 Urobilinogen) Protein (test code = Protein) Trace pH (test code = pH) 7.5 Blood (test code = Blood) Negative Specific Maroa (test code = 1.020 Specific Maroa) Ketone (test code = Ketone) Negative Bilirubin (test code = Bilirubin) Negative Glucose (test code = Glucose) Negative Appearance (test code = Appearance) Clear Color (test code = Color) Yellow [facility] Auto Differential panel - [id number] 01:15:00 Test Item Value Reference Range Interpretation Comments white blood count (test code = 8.8 K/uL 4.0-11.5 white blood count) red blood count (test code = red 3.58 M/uL 3.80-5.20 L blood count) hemoglobin (test code = 10.4 g/dL 10.5-15.7 L hemoglobin) hematocrit (test code = 32.8 % 34.0-50.0 L hematocrit) Erythrocyte mean corpuscular 91.6 fL 86-100 volume [Entitic volume] (test code = 23932-2) Erythrocyte mean corpuscular 29.1 pg 26.2-33.4 hemoglobin [Entitic mass] (test code = 57293-7) mean corpuscular HGB conc (test 31.7 g/dL 30-34 code = mean corpuscular HGB conc) red cell distribution width (test 12.9 % 12.0-15.5 code = red cell distribution width) platelet count (test code = 270 K/uL 165-450 platelet count) mean platelet volume (test code = 9.4 fL 9.4-12.6 mean platelet volume) Neutrophils.segmented/100 69.9 % 44.4-80.1 leukocytes in Blood (test code = 66894-3) Ig% (test code = Ig%) 0.3 % 0.0-0.4 lymphocyte% (test code = 19.9 % 10.0-50.0 lymphocyte%) Monocytes/100 leukocytes in Blood 7.7 % 3.6-12.0 by Automated count (test code = 5905-5) Eosinophils/100 leukocytes in 1.9 % 0.0-5.4 Blood by Automated count (test code = 713-8) Basophils/100 leukocytes in 0.3 % 0.1-1.2 Unspecified specimen (test code = 16030-7) absolute neutrophil count (test 6.12 K/uL 1.56-6.13 code = absolute neutrophil count) Ig# (test code = Ig#) 0.0 K/uL 0.0-0.03 Lymphocytes [#/volume] in 1.8 K/uL 1.18-3.74 Unspecified specimen by Automated count (test code = 47969-1) mono # (test code = mono #) 0.68 K/uL 0.24-0.86 eos # (test code = eos #) 0.17 K/uL 0.04-0.36 basophil # (test code = basophil 0.03 K/uL 0.01-0.08 #) NRBC% (test code = NRBC%) 0 /100 WBC 0-0.2 NRBC# (test code = NRBC#) 0 K/uL [facility] W Auto Differential panel - [id number] 01:15:00 Test Item Value Reference Range Interpretation Comments white blood count (test code = 8.8 K/uL 4.0-11.5 white blood count) red blood count (test code = red 3.58 M/uL 3.80-5.20 L blood count) hemoglobin (test code = 10.4 g/dL 10.5-15.7 L hemoglobin) hematocrit (test code = 32.8 % 34.0-50.0 L hematocrit) Erythrocyte mean corpuscular 91.6 fL 86-100 volume [Entitic volume] (test code = 49240-1) Erythrocyte mean corpuscular 29.1 pg 26.2-33.4 hemoglobin [Entitic mass] (test code = 40713-7) mean corpuscular HGB conc (test 31.7 g/dL 30-34 code = mean corpuscular HGB conc) red cell distribution width (test 12.9 % 12.0-15.5 code = red cell distribution width) platelet count (test code = 270 K/uL 165-450 platelet count) mean platelet volume (test code = 9.4 fL 9.4-12.6 mean platelet volume) Neutrophils.segmented/100 69.9 % 44.4-80.1 leukocytes in Blood (test code = 48412-1) Ig% (test code = Ig%) 0.3 % 0.0-0.4 lymphocyte% (test code = 19.9 % 10.0-50.0 lymphocyte%) Monocytes/100 leukocytes in Blood 7.7 % 3.6-12.0 by Automated count (test code = 5905-5) Eosinophils/100 leukocytes in 1.9 % 0.0-5.4 Blood by Automated count (test code = 713-8) Basophils/100 leukocytes in 0.3 % 0.1-1.2 Unspecified specimen (test code = 91137-8) absolute neutrophil count (test 6.12 K/uL 1.56-6.13 code = absolute neutrophil count) Ig# (test code = Ig#) 0.0 K/uL 0.0-0.03 Lymphocytes [#/volume] in 1.8 K/uL 1.18-3.74 Unspecified specimen by Automated count (test code = 40156-4) mono # (test code = mono #) 0.68 K/uL 0.24-0.86 eos # (test code = eos #) 0.17 K/uL 0.04-0.36 basophil # (test code = basophil 0.03 K/uL 0.01-0.08 #) NRBC% (test code = NRBC%) 0 /100 WBC 0-0.2 NRBC# (test code = NRBC#) 0 K/uL [facility] W Auto Differential panel - [id number] 00:00:00 Test Item Value Reference Range Interpretation Comments white blood count (test code = 8.8 K/uL 4.0-11.5 white blood count) red blood count (test code = red 3.58 M/uL 3.80-5.20 L blood count) hemoglobin (test code = 10.4 g/dL 10.5-15.7 L hemoglobin) hematocrit (test code = 32.8 % 34.0-50.0 L hematocrit) Erythrocyte mean corpuscular 91.6 fL 86-100 volume [Entitic volume] (test code = 24994-6) Erythrocyte mean corpuscular 29.1 pg 26.2-33.4 hemoglobin [Entitic mass] (test code = 34757-4) mean corpuscular HGB conc (test 31.7 g/dL 30-34 code = mean corpuscular HGB conc) red cell distribution width (test 12.9 % 12.0-15.5 code = red cell distribution width) platelet count (test code = 270 K/uL 165-450 platelet count) mean platelet volume (test code = 9.4 fL 9.4-12.6 mean platelet volume) Neutrophils.segmented/100 69.9 % 44.4-80.1 leukocytes in Blood (test code = 81386-6) Ig% (test code = Ig%) 0.3 % 0.0-0.4 lymphocyte% (test code = 19.9 % 10.0-50.0 lymphocyte%) Monocytes/100 leukocytes in Blood 7.7 % 3.6-12.0 by Automated count (test code = 5905-5) Eosinophils/100 leukocytes in 1.9 % 0.0-5.4 Blood by Automated count (test code = 713-8) Basophils/100 leukocytes in 0.3 % 0.1-1.2 Unspecified specimen (test code = 29526-3) absolute neutrophil count (test 6.12 K/uL 1.56-6.13 code = absolute neutrophil count) Ig# (test code = Ig#) 0.0 K/uL 0.0-0.03 Lymphocytes [#/volume] in 1.8 K/uL 1.18-3.74 Unspecified specimen by Automated count (test code = 91486-2) mono # (test code = mono #) 0.68 K/uL 0.24-0.86 eos # (test code = eos #) 0.17 K/uL 0.04-0.36 basophil # (test code = basophil 0.03 K/uL 0.01-0.08 #) NRBC% (test code = NRBC%) 0 /100 WBC 0-0.2 NRBC# (test code = NRBC#) 0 K/uL [facility] W Auto Differential panel - [id number] 00:00:00 Test Item Value Reference Range Interpretation Comments white blood count (test code = 8.8 K/uL 4.0-11.5 white blood count) red blood count (test code = red 3.58 M/uL 3.80-5.20 L blood count) hemoglobin (test code = 10.4 g/dL 10.5-15.7 L hemoglobin) hematocrit (test code = 32.8 % 34.0-50.0 L hematocrit) Erythrocyte mean corpuscular 91.6 fL 86-100 volume [Entitic volume] (test code = 21681-7) Erythrocyte mean corpuscular 29.1 pg 26.2-33.4 hemoglobin [Entitic mass] (test code = 30136-4) mean corpuscular HGB conc (test 31.7 g/dL 30-34 code = mean corpuscular HGB conc) red cell distribution width (test 12.9 % 12.0-15.5 code = red cell distribution width) platelet count (test code = 270 K/uL 165-450 platelet count) mean platelet volume (test code = 9.4 fL 9.4-12.6 mean platelet volume) Neutrophils.segmented/100 69.9 % 44.4-80.1 leukocytes in Blood (test code = 38821-5) Ig% (test code = Ig%) 0.3 % 0.0-0.4 lymphocyte% (test code = 19.9 % 10.0-50.0 lymphocyte%) Monocytes/100 leukocytes in Blood 7.7 % 3.6-12.0 by Automated count (test code = 5905-5) Eosinophils/100 leukocytes in 1.9 % 0.0-5.4 Blood by Automated count (test code = 713-8) Basophils/100 leukocytes in 0.3 % 0.1-1.2 Unspecified specimen (test code = 85162-5) absolute neutrophil count (test 6.12 K/uL 1.56-6.13 code = absolute neutrophil count) Ig# (test code = Ig#) 0.0 K/uL 0.0-0.03 Lymphocytes [#/volume] in 1.8 K/uL 1.18-3.74 Unspecified specimen by Automated count (test code = 56259-4) mono # (test code = mono #) 0.68 K/uL 0.24-0.86 eos # (test code = eos #) 0.17 K/uL 0.04-0.36 basophil # (test code = basophil 0.03 K/uL 0.01-0.08 #) NRBC% (test code = NRBC%) 0 /100 WBC 0-0.2 NRBC# (test code = NRBC#) 0 K/uL [facility] - [id number] 10:29:43 Test Item Value Reference Range Interpretation Comments Leukocytes (test code = Leukocytes) Negative Nitrite (test code = Nitrite) negative Urobilinogen (test code = .2 Urobilinogen) Protein (test code = Protein) Negative pH (test code = pH) 7.0 Blood (test code = Blood) Negative Specific Maroa (test code = 1.015 Specific Mar[place]) Ketone (test code = Ketone) Moderate Bilirubin (test code = Bilirubin) Small Glucose (test code = Glucose) Negative Appearance (test code = Appearance) Clear Color (test code = Color) Yellow [facility] panel - [id number] 10:29:43 Test Item Value Reference Range Interpretation Comments Leukocytes (test code = Leukocytes) Negative Nitrite (test code = Nitrite) negative Urobilinogen (test code = .2 Urobilinogen) Protein (test code = Protein) Negative pH (test code = pH) 7.0 Blood (test code = Blood) Negative Specific Mar[place] (test code = 1.015 Specific Mar[place]) Ketone (test code = Ketone) Moderate Bilirubin (test code = Bilirubin) Small Glucose (test code = Glucose) Negative Appearance (test code = Appearance) Clear Color (test code = Color) Yellow [facility] panel - [id number] 10:29:43 Test Item Value Reference Range Interpretation Comments Leukocytes (test code = Leukocytes) Negative Nitrite (test code = Nitrite) negative Urobilinogen (test code = .2 Urobilinogen) Protein (test code = Protein) Negative pH (test code = pH) 7.0 Blood (test code = Blood) Negative Specific Mar[place] (test code = 1.015 Specific Mar[place]) Ketone (test code = Ketone) Moderate Bilirubin (test code = Bilirubin) Small Glucose (test code = Glucose) Negative Appearance (test code = Appearance) Clear Color (test code = Color) Yellow [facility] panel - [id number] 10:29:43 Test Item Value Reference Range Interpretation Comments Leukocytes (test code = Leukocytes) Negative Nitrite (test code = Nitrite) negative Urobilinogen (test code = .2 Urobilinogen) Protein (test code = Protein) Negative pH (test code = pH) 7.0 Blood (test code = Blood) Negative Specific Mar[place] (test code = 1.015 Specific Mar[place]) Ketone (test code = Ketone) Moderate Bilirubin (test code = Bilirubin) Small Glucose (test code = Glucose) Negative Appearance (test code = Appearance) Clear Color (test code = Color) Yellow [facility] panel - [id number] 10:29:43 Test Item Value Reference Range Interpretation Comments Leukocytes (test code = Leukocytes) Negative Nitrite (test code = Nitrite) negative Urobilinogen (test code = .2 Urobilinogen) Protein (test code = Protein) Negative pH (test code = pH) 7.0 Blood (test code = Blood) Negative Specific Maroa (test code = 1.015 Specific Mar[place]) Ketone (test code = Ketone) Moderate Bilirubin (test code = Bilirubin) Small Glucose (test code = Glucose) Negative Appearance (test code = Appearance) Clear Color (test code = Color) [facility] - [id number] 00:00:00 Test Item Value Reference Range Interpretation Comments white blood count (test code = 11.3 K/uL 4.0-11.5 white blood count) red blood count (test code = red 3.35 M/uL 3.80-5.20 L blood count) Hemoglobin [Mass/volume] in Blood 10.3 g/dL 10.5-15.7 L (test code = 718-7) hematocrit (test code = hematocrit) 31.4 % 34.0-50.0 L Erythrocyte mean corpuscular volume 94.0 fL 78-98 [Entitic volume] (test code = 35846-1) Erythrocyte mean corpuscular 30.7 pg 26.2-33.4 hemoglobin [Entitic mass] (test code = 32229-0) mean corpuscular HGB conc (test 32.7 g/dL 31.5-36.2 code = mean corpuscular HGB conc) red cell distribution width (test 12.0 % 11.5-15.5 code = red cell distribution width) Platelets [#/volume] in Blood (test 239 K/uL 137-338 code = 75098-6) Platelet mean volume [Entitic 6.6 fL 8.4-11.8 L volume] in Blood (test code = 72771-5) Neutrophils.band form/100 70.5 % 44.4-80.1 leukocytes in Blood (test code = 40941-5) Lymphocytes/100 leukocytes in Body 20.9 % 10.0-50.0 fluid (test code = 64887-8) Monocytes/100 leukocytes in Blood 5.2 % 3.6-12.0 by Automated count (test code = 5905-5) Eosinophils/100 leukocytes in Blood 2.4 % 0.0-5.4 by Automated count (test code = 713-8) Basophils/100 leukocytes in 1.0 % 0.0-0.79 H Unspecified specimen (test code = 41933-7) [facility] Serum by [id number] 00:00:00 Test Item Value Reference Range Interpretation Comments Reagin Ab [Presence] in Serum by nonreactive nonreactive RPR (test code = 09174-6) [facility] [Presence] in [id number] 00:00:00HIV P24 AgHIV-1/2 [facility] HospitalBlood [facility] screen [Presence] in Serum or [id number] 00:00:00 Test Item Value Reference Range Interpretation Comments Blood group antibody screen negative [Presence] in Serum or Plasma (test code = 890-4) [facility] W Auto Differential panel - [id number] 00:00:00 Test Item Value Reference Range Interpretation Comments white blood count (test code = 11.3 K/uL 4.0-11.5 white blood count) red blood count (test code = red 3.35 M/uL 3.80-5.20 L blood count) Hemoglobin [Mass/volume] in Blood 10.3 g/dL 10.5-15.7 L (test code = 718-7) hematocrit (test code = hematocrit) 31.4 % 34.0-50.0 L Erythrocyte mean corpuscular volume 94.0 fL 78-98 [Entitic volume] (test code = 56924-8) Erythrocyte mean corpuscular 30.7 pg 26.2-33.4 hemoglobin [Entitic mass] (test code = 10825-3) mean corpuscular HGB conc (test 32.7 g/dL 31.5-36.2 code = mean corpuscular HGB conc) red cell distribution width (test 12.0 % 11.5-15.5 code = red cell distribution width) Platelets [#/volume] in Blood (test 239 K/uL 137-338 code = 31033-6) Platelet mean volume [Entitic 6.6 fL 8.4-11.8 L volume] in Blood (test code = 22689-5) Neutrophils.band form/100 70.5 % 44.4-80.1 leukocytes in Blood (test code = 45695-7) Lymphocytes/100 leukocytes in Body 20.9 % 10.0-50.0 fluid (test code = 27679-5) Monocytes/100 leukocytes in Blood 5.2 % 3.6-12.0 by Automated count (test code = 5905-5) Eosinophils/100 leukocytes in Blood 2.4 % 0.0-5.4 by Automated count (test code = 713-8) Basophils/100 leukocytes in 1.0 % 0.0-0.79 H Unspecified specimen (test code = 39310-6) [facility] [Presence] in Serum by [id number] 00:00:00 Test Item Value Reference Range Interpretation Comments Reagin Ab [Presence] in Serum by nonreactive nonreactive RPR (test code = 74758-8) [facility] [Presence] in [id number] 00:00:00HIV P24 AgHIV-1/2 [facility]MaSouth [facility] CenterBlood [facility] antibody screen [Presence] in Serum or [id number] 00:00:00 Test Item Value Reference Range Interpretation Comments Blood group antibody screen negative [Presence] in Serum or Plasma (test code = 890-4) [facility] Center[facility]ysis macro (dipstick) panel - [id number] 16:56:26 Test Item Value Reference Range Interpretation Comments Leukocytes (test code = Leukocytes) Negative Nitrite (test code = Nitrite) negative Urobilinogen (test code = .2 Urobilinogen) Protein (test code = Protein) Negative pH (test code = pH) 7.0 Blood (test code = Blood) Negative Specific Mar[place] (test code = 1.015 Specific Mar[place]) Ketone (test code = Ketone) Negative Bilirubin (test code = Bilirubin) Negative Glucose (test code = Glucose) Negative Appearance (test code = Appearance) Clear Color (test code = Color) Yellow [facility] Center[facility]ysis macro (dipstick) panel - [id number] 13:54:59 Test Item Value Reference Range Interpretation Comments Leukocytes (test code = Leukocytes) Negative Nitrite (test code = Nitrite) negative Urobilinogen (test code = .2 Urobilinogen) Protein (test code = Protein) Negative pH (test code = pH) 5.5 Blood (test code = Blood) Negative Specific Mar[place] (test code = 1.020 Specific Mar[place]) Ketone (test code = Ketone) Negative Bilirubin (test code = Bilirubin) Negative Glucose (test code = Glucose) Negative Appearance (test code = Appearance) Clear Color (test code = Color) Yellow [facility] (dipstick) panel - [id number] 13:54:59 Test Item Value Reference Range Interpretation Comments Leukocytes (test code = Leukocytes) Negative Nitrite (test code = Nitrite) negative Urobilinogen (test code = .2 Urobilinogen) Protein (test code = Protein) Negative pH (test code = pH) 5.5 Blood (test code = Blood) Negative Specific Mar[place] (test code = 1.020 Specific Mar[place]) Ketone (test code = Ketone) Negative Bilirubin (test code = Bilirubin) Negative Glucose (test code = Glucose) Negative Appearance (test code = Appearance) Clear Color (test code = Color) [facility] W Auto Differential panel - [id number] 00:00:00 Test Item Value Reference Range Interpretation Comments white blood count (test code = 13.1 K/uL 4.0-11.5 H white blood count) red blood count (test code = red 3.23 M/uL 3.80-5.20 L blood count) Hemoglobin [Mass/volume] in Blood 10.4 g/dL 10.5-15.7 L (test code = 718-7) hematocrit (test code = hematocrit) 30.4 % 34.0-50.0 L Erythrocyte mean corpuscular volume 94.1 fL 78-98 [Entitic volume] (test code = 67999-2) Erythrocyte mean corpuscular 32.0 pg 26.2-33.4 hemoglobin [Entitic mass] (test code = 58853-9) mean corpuscular HGB conc (test 34.1 g/dL 31.5-36.2 code = mean corpuscular HGB conc) red cell distribution width (test 11.7 % 11.5-15.5 code = red cell distribution width) Platelets [#/volume] in Blood (test 226 K/uL 137-338 code = 23621-2) Platelet mean volume [Entitic 6.0 fL 8.4-11.8 L volume] in Blood (test code = 15913-2) Neutrophils.band form/100 72.8 % 44.4-80.1 leukocytes in Blood (test code = 33179-3) Lymphocytes/100 leukocytes in Body 18.5 % 10.0-50.0 fluid (test code = 14386-8) Monocytes/100 leukocytes in Blood 3.7 % 3.6-12.04 by Automated count (test code = 5905-5) Eosinophils/100 leukocytes in Blood 4.3 % 0.0-5.41 by Automated count (test code = 713-8) Basophils/100 leukocytes in Blood 0.6 % 0.0-0.79 by Automated count (test code = 706-2) [facility] [Titer] in [id number] 00:00:00 Test Item Value Reference Range Interpretation Comments Rubella virus IgG Ab 8.80 [IU]/mL [Units/volume] in Serum by Immunoassay (test code = 5334-8) [facility] & Rh group [Type] in [id number] 00:00:00 Test Item Value Reference Range Interpretation Comments Rh [Type] in Blood (test code = 4+ 83984-0) ABO and Rh group panel - Blood A positive (test code = 18189-9) [facility] antibody screen [Presence] in Serum or Plasma 2018-10-06 00:00:00 Test Item Value Reference Range Interpretation Comments Blood group antibody screen negative [Presence] in Serum or Plasma (test code = 890-4) [facility] GroupHIV 1+2 Ab [Presence] in [id number] 00:00:00HIV P24 AgHIV-1/2 AbMat[facility] GroupBacteria identified in Urine by Culture 2018-10-06 00:00:00 Test Item Value Reference Range Interpretation Comments Bacteria identified in no growth at 2 days Urine by Culture (test code = 630-4) [facility] [Presence] in Serum by [id number] 00:00:00 Test Item Value Reference Range Interpretation Comments Reagin Ab [Presence] in Serum by nonreactive nonreactive RPR (test code = 73497-1) [facility] CenterHepatitis B virus surface Ag [Presence] in Serum 2018-10-06 00:00:00 Test Item Value Reference Range Interpretation Comments .hepatitis B surface antigen (test negative negative code = .hepatitis B surface antigen) [facility]
[2021-09-03] MEDS ORDERED: MAGNESIUM HYDROXIDE 8% 30 ML ONE (12:11)
[2021-09-03] MEDS ORDERED: PANTOPRAZOLE 40 MG INJ ONE (12:11)
[2021-09-03] MEDS ORDERED: MEPERIDINE HCL 25 MG/ML SYR ONE (12:11)
[2021-09-03] MEDS ORDERED: ONDANSETRON 4 MG/2 ML VIAL ONE (12:11)
[2021-09-03] MEDS ORDERED: LIDOCAINE VISCOUS 2% SOLN 15 ML UDC ONE (12:12)
[2021-09-03 12:13] LABS: Absolute Lymphocytes (CBC) 0.3 K/uL (0.7-4.9); Hematocrit 39.2 % (36.0-45.0); Lymphocytes % 2.1 % (15.3-44.8); MPV 7.3 fL (7.6-11.3); RBC Red Blood Cell Count 4.41 M/uL (3.86-4.86)
[2021-09-03 12:28] LABS: ALT/SGPT 30 U/L (12-78); AST/SGOT 21 U/L (15-37); Albumin 4.3 g/dL (3.4-5.0); Alkaline Phosphatase 61 U/L (45-117); BUN Blood Urea Nitrogen 9 mg/dL (7-18); Bicarbonate 26 mmol/L (21-32); Bilirubin Direct 0.1 mg/dL (0-0.2); Bilirubin Total 0.6 mg/dL (0.2-1.0); Glucose Level 112 mg/dL (74-106); Lipase 117 U/L (73-393); Potassium 3.6 mmol/L (3.5-5.1); Protein, Total 7.9 g/dL (6.4-8.2); Sodium Level 138 mmol/L (136-145)
[2021-09-03] MEDS ORDERED: NA CHLORIDE 0.9% 1,000 ML ONE (12:50)
[2021-09-03 12:51] LABS: Blood Morphology Comment NOT SEEN (NOT SEEN); Platelet Estimate ADEQ; White Blood Cell Scan OK (OK)
--- NOTE | 2021-09-03 13:54 | RAD REPORT ---
EXAM DESCRIPTION: CT - Abdomen Pelvis W Contrast - 09/03/2021 1:42 pm CLINICAL HISTORY: Abdominal pain COMPARISON: 2020 TECHNIQUE: Computed axial tomography of the abdomen pelvis was obtained. 100 cc Isovue-300 was admin istered intravenously. Oral contrast was not requested which limits evaluation of bowel and appendix. All CT scans are performed using dose optimization technique as appropriate and may include automated exposure control or mA/KV adjustment according to patient size. FINDINGS: The liver, spleen, pancreas, adrenal and kidneys appear unremarkable. There is no evidence of diverticulitis. Fluid throughout nondilated bowel Appendicolith within a nondilated appendix Mild gastric distention IMPRESSION: Fluid throughout nondilated bowel may indicate an enteritis Mild gastric distention
[2021-09-03] MEDS ORDERED: MORPHINE 4 MG/ML SYR ONE (14:05)
--- NOTE | 2021-09-03 14:19 | ER ---
Nurse's Notes [facility] Name: Hailee Guy Age: 30 yrs Sex: Female : 1990 Arrival Date: 09/03/2021 Time: 11:46 Bed 18 Private MD: Diagnosis: Gastritis, unspecified, without bleeding;Noninfective gastroenteritis and colitis, unspecified Presentation: 09/03 11:46 Chief complaint: Patient states: Abd pain, possible ulcers. Coronavirus screen: Client cb5 denies travel out of the [place] in the last 14 days. Client indicates they have traveled out of the [place] in the last 14 days. Ebola Screen: Patient negative for fever greater than or equal to 101.5 degrees Fahrenheit, and additional compatible Ebola Virus Disease symptoms Patient denies exposure to infectious person. Initial Sepsis Screen: Does the patient meet any 2 criteria? No. Patient's initial sepsis screen is negative. Does the patient have a suspected source of infection? No. Patient's initial sepsis screen is negative. Risk Assessment: Do you want to hurt yourself or someone else? Patient reports no desire to harm self or others. 11:46 Method Of Arrival: EMS: [facility] cb5 11:46 Acuity: TANISHA 3 cb5 Triage Assessment: 11:46 General: Appears uncomfortable. Pain: Complains of pain in abdomen Pain currently is 5 cb5 out of 10 on a pain scale. EENT: No deficits noted. Neuro: No deficits noted. Level of Consciousness is awake, alert, obeys commands, Oriented to person, place, time, situation, Appropriate for age. Cardiovascular: No deficits noted. Respiratory: No deficits noted. GI: Reports upper abdominal pain, epigastric pain, indigestion, intolerance of food, nausea, vomiting. : No deficits noted. Derm: No deficits noted. Musculoskeletal: No deficits noted. - Family history:: not pertinent. - Hospitalizations: : No recent hospitalization is reported. Screenin:05 Abuse screen: Denies threats or abuse. Denies injuries from another. Nutritional cb5 screening: No deficits noted. Tuberculosis screening: No symptoms or risk factors identified. 14:40 Fall Risk None identified. cb5 Assessment: 12:05 General: see triage assessment. cb5 13:35 General: Pt is in CT scan. cb5 Vital Signs: 11:46 BP 117 / 71; Pulse 78; Resp 16; Temp 98.6; Pulse Ox 98% ; Pain 2/10; cb5 12:25 BP 112 / 73; Pulse 97; Resp 16; Pulse Ox 100% ; Pain 3/10; cb5 14:02 BP 103 / 72; Pulse 97; Resp 16; Temp 98.6; Pulse Ox 98% ; Pain 5/10; cb5 ED Course: 11:46 Patient arrived in ED. ll1 11:52 Rolan Doll MD is Attending Physician. rn 11:55 Carolynn Bowser RN is Primary Nurse. cb5 11:59 Triage completed. cb5 12:05 Basic Metabolic Panel Sent. cs9 12:05 CBC with Diff Sent. cs9 12:05 Hepatic Function Sent. cs9 12:05 Lipase Sent. cs9 12:05 Bed in low position. Call light in reach. Side rails up X 1. cb5 13:42 CT Abd/Pelvis - IV Contrast Only In Process Unspecified. EDMS Administered Medications: 12:10 Drug: ProTONIX (pantoprazole) 40 mg Route: IVP; Site: right antecubital; cb5 12:10 Drug: Zofran (Ondansetron) 4 mg Route: IVP; Site: right antecubital; cb5 12:10 Drug: GI Cocktail without - (Maalox Suspension 30 ml, Lidocaine Liquid 2 % 15 cb5 ml) Route: PO; 12:10 Drug: Demerol (meperidine) 25 mg Route: IVP; Site: right antecubital; cb5 12:48 Drug: NS 0.9% 1000 ml Route: IV; Rate: 1000 ml; Site: right antecubital; cb5 14:02 Drug: morphine 4 mg Route: IVP; Site: left antecubital; cb5 14:07 Drug: Phenergan (promethazine) 12.5 mg Route: IVP; Site: left antecubital; cb5 Outcome: 14:18 Discharge ordered by . rn 14:40 Discharged to home ambulatory. cb5 14:40 Condition: stable 14:40 Discharge instructions given to patient. 14:41 Patient left the ED. cb5 Signatures: Dispatcher [employer] EDMS Rolan Doll MD MD rn Lewis, Lynsay, RN RN ll Margot Bahena cs9 Carolynn Bowser, [place] RN cb5
--- NOTE | 2021-09-03 14:19 | EDPHYS ---
Physician Documentation [facility] Name: Hailee Guy Age: 30 yrs Sex: Female : 1990 Arrival Date: 09/03/2021 Time: 11:46 Bed 18 Private MD: ED Physician Rolan Doll HPI: 09/03 12:11 This 30 yrs old Female presents to ER via EMS with complaints of abd pain. rn 12:11 The patient presents with abdominal pain in the epigastric area. Onset: The rn symptoms/episode began/occurred yesterday. The symptoms do not radiate. Associated signs and symptoms: Pertinent positives: nausea and vomiting, Pertinent negatives: blood in stools, fever, vomiting blood. The symptoms are described as sharp. Modifying factors: The symptoms are alleviated by nothing, the symptoms are aggravated by touching the area. Severity of pain: At its worst the pain was moderate in the emergency department the pain has improved. The patient has experienced similar episodes in the past. The patient has been recently seen by a physician:. Pt reports epigastric abd pain, has been going on for weeks but worse yesterday, + hx of gastritis/ulcer, takes omeprazole, has EGD scheduled for 2 days from now in [place]. No fever. No blood in emesis or stool. REports pain worse earlier after eating banana, now getting better. . - Family history:: not pertinent. - Hospitalizations: : No recent hospitalization is reported. ROS: 12:11 Constitutional: Negative for fever, chills, and weight loss, Eyes: Negative for injury, rn pain, redness, and discharge, Neck: Negative for injury, pain, and swelling, Cardiovascular: Negative for chest pain, palpitations, and edema, Respiratory: Negative for shortness of breath, cough, wheezing, and pleuritic chest pain, Abdomen/GI: + abd pain and vomiting Back: Negative for injury and pain, : Negative for injury, bleeding, discharge, and swelling, MS/Extremity: Negative for injury and deformity, Skin: Negative for injury, rash, and discoloration, Neuro: Negative for headache, weakness, numbness, tingling, and seizure. Exam: 12:11 Constitutional: This is a well developed, well nourished patient who is awake, alert, rn appears in pain Head/Face: Normocephalic, atraumatic. Eyes: Periorbital areas with no swelling, redness, or edema. Cardiovascular: Regular rate and rhythm. No pulse deficits. Respiratory: No increased work of breathing, no retractions or nasal flaring. Abdomen/GI: soft, + epigastric tenderness, no rebound, no masses Skin: Warm, dry MS/ Extremity: Pulses equal, no cyanosis. Neuro: Awake and alert, GCS 15 Vital Signs: 11:46 BP 117 / 71; Pulse 78; Resp 16; Temp 98.6; Pulse Ox 98% ; Pain 2/10; cb5 12:25 BP 112 / 73; Pulse 97; Resp 16; Pulse Ox 100% ; Pain 3/10; cb5 14:02 BP 103 / 72; Pulse 97; Resp 16; Temp 98.6; Pulse Ox 98% ; Pain 5/10; cb5 MDM: 11:52 Patient medically screened. rn 13:59 ED course: Pt feeling better, CT shows signs of gastritis/enteritis, no acute surgical elastic knitter hand frame findings, bloodwork ok, normal h/h, asking for water. Will reevaluate and re-medicate with pain meds, anticipate dc home as already has GI f/u and EGD scheduled. . 14:17 Differential diagnosis: appendicitis, cholecystitis, gastritis, gastroesophageal reflux rn disease, non-specific abd pain, pancreatitis, Peptic Ulcer Disease, Perf. Duodenal Ulcer, Perf. Gastric Ulcer. Data reviewed: vital signs, nurses notes, lab test result(s), radiologic studies, CT scan, and as a result, I will discharge patient. Counseling: I had a detailed discussion with the patient and/or guardian regarding: the historical points, exam findings, and any diagnostic results supporting the discharge/admit diagnosis, lab results, radiology results, the need for outpatient follow up, to return to the emergency department if symptoms worsen or persist or if there are any questions or concerns that arise at home. Response to treatment: the patient's symptoms have mildly improved after treatment, and as a result, I will discharge patient. Special discussion: Based on the patient's Hx, exam, and Dx evaluation, there is no indication for emergent surgery or inpatient Tx. It is understood by the patient/guardian that if the Sx's persist or worsen they need to return immediately for re-evaluation. I discussed with the patient/guardian in detail that at this point there is no indication for admission to the hospital. It is understood, however, that if the symptoms persist or worsen the patient needs to return immediately for re-evaluation. 09/03 11:52 Order name: Basic Metabolic Panel; Complete Time: 12:42 rn 09/03 11:52 Order name: CBC with Diff; Complete Time: 13:55 rn 09/03 11:52 Order name: Hepatic Function; Complete Time: 12:42 rn 09/03 11:52 Order name: Lipase; Complete Time: 12:42 rn 09/03 11:53 Order name: CT Abd/Pelvis - IV Contrast Only; Complete Time: 13:55 rn 09/03 12:15 Order name: CBC Smear Scan; Complete Time: 13:55 EDMS 09/03 11:52 Order name: IV Saline Lock; Complete Time: 12:05 rn 09/03 11:52 Order name: Labs collected and sent; Complete Time: 12:05 rn 09/03 11:53 Order name: Cardiac monitoring; Complete Time: 12:05 rn Administered Medications: 12:10 Drug: ProTONIX (pantoprazole) 40 mg Route: IVP; Site: right antecubital; cb5 12:10 Drug: Zofran (Ondansetron) 4 mg Route: IVP; Site: right antecubital; cb5 12:10 Drug: GI Cocktail without - (Maalox Suspension 30 ml, Lidocaine Liquid 2 % 15 cb5 ml) Route: PO; 12:10 Drug: Demerol (meperidine) 25 mg Route: IVP; Site: right antecubital; cb5 12:48 Drug: NS 0.9% 1000 ml Route: IV; Rate: 1000 ml; Site: right antecubital; cb5 14:02 Drug: morphine 4 mg Route: IVP; Site: left antecubital; cb5 14:07 Drug: Phenergan (promethazine) 12.5 mg Route: IVP; Site: left antecubital; cb5 Disposition Summary: 09/03/21 14:18 Discharge Ordered Location: Home rn Problem: new rn Symptoms: have improved rn Condition: Stable rn Diagnosis - Gastritis, unspecified, without bleeding rn - Noninfective gastroenteritis and colitis, unspecified rn Followup: rn - With: Private Physician - When: As needed - Reason: Recheck today's complaints, Re-evaluation by your physician Discharge Instructions: - Discharge Summary Sheet rn - Gastritis, Adult rn - Viral Gastroenteritis, Adult rn Forms: - Medication Reconciliation Form rn - Thank You Letter rn - Antibiotic 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
[2021-09-03 15:11] VITALS: TEMP 98.6
[2021-09-03 15:14] VITALS: BP 103/72; O2SAT 98
== END 2021-09-03 14:41 | disposition home or self-care (01) ==
LOC: ER 11:46
DX: K29.70 Gastritis, unspecified, without bleeding (principal); K52.9 Noninfective gastroenteritis and colitis, unspecified
CPT/HCPCS: 85025; 80048; 36415; 80076; 83690; 74177; Q9967; C9113; J2175; J7030; J2405; 99284

== ENCOUNTER 2022-03-15 18:28 | Emergency (ER) | payer OTHER ==
--- OUTSIDE RECORDS SUMMARY | 2022-03-15 18:33 | XMS REPORT | Continuity of Care Document ---
:1990 Author Organization [facility] t Address [address] [place] [address] Care Team Providers Name Role Phone Adelfo Li Primary Care Physician [phone] SENIA VINES Attending Clinician Unavailable JAVI EDGAR Attending Clinician Unavailable Adelfo Li Attending Clinician Unavailable Angie Clements LVN Attending Clinician Unavailable Mayco Dee MD Attending Clinician Chandni Bob PA-C Attending Clinician JAVI EDGAR Attending Clinician Unavailable Javi Edgar Attending Clinician G_Pappas Attending Clinician Unavailable G_Pappas Admitting Clinician Unavailable Payers Payer Name Policy Type Policy Number Effective Date Expiration Date Curtis chadhenry [facility] MEDICAID STAR [id number] 2021 00:00:00 [facility] [id number] 2018 CHOICE (MEDICAID 00:00:00 REPLACEMENT - HMO) Problems Condition Condition Condition Status Onset Resolution Last Treating Co mments Source Name Details Category Date Date Treatment Clinician Date Mold Mold Disease Active Univers exposure exposure 9-12 ity of 00:00: [place] 00 Medical Branch Pelvic Pelvic Disease Active Univers pain pain 9-12 ity of 00:00: Medical Branch Petechiae Petechiae Disease Active Uni vers 9-12 ity of 00:00: Medical Branch Hutchins Hutchins Disease Active Univers hemangioma hemangioma 9- it y of 00:00: Medical Branch Pruritus Pruritus Disease Active Unive rs -12 ity of 00:00: Medical Branch Need for Need for Disease Active Unive rs vaccinatio vaccinatio 03-10 it y of n n 00:00: Medical Branch Pityriasis Pityriasis Disease Active U nivers capitis capitis 8-12 ity of 00:00: Medical Branch POST OP POST OP Diagnosis Active 2022-01-06 Memoria LEFT ANKLE LEFT ANKLE 12-24 13:28:00 l Active 08:00: [place] 12/24/2021 00 SMR Norbert [facility] UNK UNK Diagnosis Active 2021-10-02 Mem oria Active 09-27 08:49:00 l 09/27/2021 00:00: [place]de vaughn [place] [id number] [place] ANKLE ANKLE Diagnosis Active 2021-10-03 [facility] oria ARTHROSCOP ARTHROSCOP 09-27 08:42:00 l Y Y 00:00: [place] /DEBRIDEME /DEBRIDEME 00 NT, NT, EXCISION EXCISION Active 09/27/2021 [facility] PVNS PVNS Disease Active [facility] (pigmented (pigmented 09-27 He alth villonodul villonodul 00:00: ar ar 00 synovitis) synovitis) Acute left Acute left Disease Active U T ankle pain ankle pain 09-27 He alth 00:00: 00 Dysphagia, Dysphagia, Disease Active Overview : Univers unspecifie unspecifie 2-17 Formattin ity of d type d type 00:00: g of this 00 note Medical might be Branch different from the original. Added automatic ally from request for surgery [id number] Anemia of Anemia of Problem Active Mat [facility]or 6-11 da 00:00: Medical 00 Group Gastroesop Gastroesop Problem Active M atagor hageal hageal 507 da reflux Reflux 00:00: Medical disease Disease 00 Group without without esophagiti Esophagiti s s Mild Mild Problem Active [facility] hyperemesi Hyperemesi 11-02 da s-not s-not 00:00: Medical delivered Delivered 00 Grou p Iron Iron Problem Active [place] deficiency Deficiency 07 da anemia of Anemia of 00:00: Medi jermaine 00 Grou p Uterine Uterine Problem Active [place] scar from Scar from 10-07 da previous Previous 00:00: Medica l surgery in Surgery in 00 Gr oup , , childbirth Childbirth and the and the puerperium Puerperium with with problem Problem Chronic Chronic Disease Active Univers sinusitis sinusitis 12 ity of 00:00: [place] 00 Medical Branch Allergic Allergic Disease Active Unive rs rhinitis rhinitis 01-07 ity of 00:00: [place] 00 Medical Branch Anxiety Anxiety Disease Active Univers and and 01-07 ity of depression [place] [facility] [place] ADHD ADHD Disease Active Univers (attention (attention 12 it y of deficit deficit 00:00: [place] hyperactiv hyperactiv 00 Me dical ity ity Branch disorder) disorder) PTSD PTSD Disease Active Univers (post-trau (post-trau -12 it y of matic matic 00:00: [place] stress stress 00 Medical disorder) disorder) Bran ch Contracept Contracept Disease Active U nivers steve steve 7-08 ity of management management [place] [facility] [place] Hiatal Hiatal Problem Active [place] her[facility] History of Past Illness Condition Condition Condition Status Onset Resolution Last Treating Co mments Source Name Details Category Date Date Treatment Clinician Date Villonodul Villonodu Problem 2021-10-07 2021-10-07 Memoria ar lar 10-03 09:29:53 09:29:53 l synovitis synovitis 13:03: Herm prsoper (pigmented (pigmented 00 ), left ), left ankle and ankle and foot foot 10/03/2021 10/07/2021 [facility] Allergies, Adverse Reactions, Alerts Allergy Allergy Status Severity Reaction(s) Onset Inactive Treating Comm ents Source Name Type Date Date Clinician Hydrocod Propensi Active Rash 2015- Univer s one-Acet ty to 7-12 ity of aminophe adverse 00:00: [place] n reaction Medical s Branch Morphine Allergy Active Hives [place] Social History Social Habit Start Date Stop Date Quantity Comments Source History of Cigarette Smoker Universi ty of tobacco use [facility] History [facility] Health Alcohol Std Drinks History [facility] Health Alcohol Binge History [facility] Health Alcohol Comment Exposure to 2022-03-03 2022-03-13 Not sure University of SARS-CoV-2 00:00:00 13:04:00 [facility] (event) [place] Tobacco use and 2022-02-05 2022-02-05 Smokeless tobacco Un iversity of exposure 00:00:00 00:00:00 non-user [facility] Social History 2021-09-30 2021-09-[address] [facility] [place] [place] 15:26:12 15:26:12 Tobacco Comment 2021-09-25 2021-09-25 vape-CBD [facility] 00:00:00 00:00:00 Alcohol intake 2021-09-25 2021-09-25 Lif[facility] 00:00:00 00:00:00 non-drinker (finding) History [facility] 2021-09-25 2021-09-25 1 [facility] Alcohol Frequency 00:00:00 00:00:00 Sex Ass[birth year] At [birth year] [facility] 00:00:00 00:00:00 Smoking Status Start Date Stop Date Source Former Smoker [facility] Occasional tobacco smoker 2022-02-05 00:00:00 Un iversity of [facility] Never smoked tobacco [facility] Medications Ordered Filled Start Stop Current Ordering Indication Dosage Frequency Signature Comments Components Source Medication Medication Date Date Medication? Clinician (SIG) Name Name triamcinolo Yes [id number] Apply to [facility] [place] ne 9-12 area(s) 2 ity of acetonide 00:00: (two) [place] 0.1 % cream 00 times Medical daily. Branch triamcinolo Yes [id number] Apply to [facility] [place] ne 9-12 area(s) 2 ity of acetonide 00:00: (two) [place] 0.1 % cream 00 times Medical daily. Branch triamcinolo 2022-0 Yes [id number] Apply to Univers ne 9-12 area(s) 2 ity of acetonide 00:00: (two) [place] 0.1 % cream 00 times Medical daily. Branch triamcinolo 2022-0 Yes [id number] Apply to Univers ne 9-12 area(s) 2 ity of acetonide 00:00: (two) [place] 0.1 % cream 00 times Medical daily. Branch ketoconazol 2022-0 Yes [id number] Apply to Univers e 2 % 8-12 area(s) ity of shampoo 00:00: once daily [place] 00 as needed Medical for Branch Itching. ketoconazol 2-0 Yes [id number] Apply to Univers e 2 % 8-12 area(s) ity of shampoo 00:00: once daily [place] 00 as needed Medical for Branch Itching. ketoconazol 2-0 Yes [id number] Apply to Univers e 2 % 8-12 area(s) ity of shampoo 00:00: once daily [place] 00 as needed Medical for Branch Itching. ketoconazol 2022-0 Yes [id number] Apply to Univers e 2 % 8-12 area(s) ity of shampoo 00:00: once daily [place] 00 as needed Medical for Branch Itching. Methylcellu 2022-0 Yes [id number] 17g Take 17 g Univers lose, with 8-10 by mouth ity o f Sugar, 00:00: daily. [place] ([facility]UC[facility], 00 Medical SUCROSE,) Branch powder Methylcellu 2022-0 Yes [id number] 17g Take 17 g Univers lose, with 8-10 by mouth ity o f Sugar, 00:00: daily. [place] ([employer], 00 Medical SUCROSE,) Branch powder Methylcellu 2022-0 Yes [id number] 17g Take 17 g Univers lose, with 8-10 by mouth ity o f Sugar, 00:00: daily. [place] ([employer], 00 Medical SUCROSE,) Branch powder Methylcellu 2022-0 Yes [id number] 17g Take 17 g Univers lose, with 8-10 by mouth ity o f Sugar, 00:00: daily. [place] ([employer], 00 Medical SUCROSE,) Branch powder elagolix Yes [id number] 1{tbl} Take 1 U nivers (ORILISSA) 8-09 tablet by ity of 200 mg Tab 00:00: mouth 2 [place] (two) Medical times Branch daily. norelgestro 2021-0 Yes [id number] 1{patch Apply 1 Univers min-ethinyl 8-09 } Patch to ity of estradiol 00:00: skin [place] ([facility]) 00 weekly. Medical 150-35 Branch mcg/24 hr patch elagolix 2021-0 Yes [id number] 1{tbl} Take 1 U nivers (ORILISSA) 8-09 tablet by ity of 200 mg Tab 00:00: mouth 2 [place] (two) Medical times Branch daily. norelgestro 2021-0 Yes [id number] 1{patch Apply 1 Univers min-ethinyl 8-09 } Patch to ity of estradiol 00:00: skin [place] ([facility]) 00 weekly. Medical 150-35 Branch mcg/24 hr patch elagolix 2021-0 Yes [id number] 1{tbl} Take 1 U nivers (ORILISSA) 8-09 tablet by ity of 200 mg Tab 00:00: mouth 2 [place] 00 (two) Medical times Branch daily. norelgestro 2021-0 Yes [id number] 1{patch Apply 1 Univers min-ethinyl 8-09 } Patch to ity of estradiol 00:00: skin [place] ([facility]) 00 weekly. Medical 150-35 Branch mcg/24 hr patch elagolix 2021-0 Yes [id number] 1{tbl} Take 1 U nivers (ORILISSA) 8-09 tablet by ity of 200 mg Tab 00:00: mouth 2 [place] 00 (two) Medical times Branch daily. norelgestro 2021-0 Yes [id number] 1{patch Apply 1 Univers min-ethinyl 8-09 } Patch to ity of estradiol 00:00: skin [place] (LANE) 00 weekly. Medical 150-35 Branch mcg/24 hr patch ANES No Notes: Memoria fentaNYL 4-07 (Same as: l 19:21: Sublimaze) [place] 00 Preservati ve free. ANES No Notes: Memoria HYDROmorpho 4-07 Same as: l ne 19:21: Dilaudid [place] ANE No Notes: Memoria flumazenil 4-07 (Same as: l 19:21: Romazicon) [place] 00 ANE No Notes: Memoria naloxone 4-07 Same as l 19:21: Narcan [place] ANE No Notes: SEE Memoria albuterol 4-07 RT l 0.083% 19:21: DOCUMENTAT Kaylynn nn inhalation 00 ION (Same solution as: Proventil) ANE No Notes: Memoria diphenhydrA 4-07 (Same as: l MINE 19:21: Benadryl) ANE No Notes: Memoria meperidine 4-07 (Same as: l 19:21: Demerol) "Use Precaution in Elderly, Seizure disorders, and Renal impairment " ANES No Notes: Memoria ondansetron 4-07 (Same as: l 19:21: Zofran) MEDICATION WASTE Product Size: 4 mg Product Wasted: ___ mg ANES No 6.25 mg, Memoria promethazin 4-07 Route: l e 19:21: IVPB, [place] 00 ONCE, Dosing Weight 49.864, kg, PRN Nausea & Vomiting, Start date: 10/03/21 14:21:00 CDT ANES No Notes: Memoria scopolamine 4-07 Remove old l 1 mg/72 hr 19:21: patch Clyde n transdermal 00 before film, applicatio extended n of new release patch Change patch every 72 hours (Same as: Transderm- Scop) ANES No Notes: Memoria fentaNYL 4-07 (Same as: l 19:21: Sublimaze) [place] 00 Preservati ve free. ANE No Notes: Memoria HYDROmorpho 4-07 Same as: l ne 19:21: Dilaudid [place] No Notes: Memoria flumazenil 4-07 (Same as: l 19:21: Romazicon) [place] ANES No Notes: Memoria naloxone 4-07 Same as l 19:21: Narcan [place] 00 ANES No Notes: SEE Memoria albuterol 4-07 RT l 0.083% 19:21: DOCUMENTAT Kaylynn nn inhalation 00 ION (Same solution as: Proventil) ANES No Notes: Memoria diphenhydrA 4-07 (Same as: l MINE 19:21: Benadryl) [place] S No Notes: Memoria meperidine 4-07 (Same as: l 19:21: Demerol) [place] "Use Precaution in Elderly, Seizure disorders, and Renal impairment " ANES No Notes: Memoria ondansetron 4-07 (Same as: l 19:21: Zofran) [place] 00 MEDICATION WASTE Product Size: 4 mg Product Wasted: ___ mg ANES No 6.25 mg, Memoria promethazin 4-07 Route: l e 19:21: IVPB, [place] 00 ONCE, Dosing Weight 49.864, kg, PRN Nausea & Vomiting, Start date: 10/03/21 14:21:00 CDT ANES No Notes: Memoria scopolamine 4-07 Remove old l 1 mg/72 hr 19:21: patch Clyde n transdermal 00 before film, applicatio extended n of new release patch Change patch every 72 hours (Same as: Transderm- Scop) ANE No Notes: Memoria hydrALAZINE 4-07 (Same as: l 19:21: Apresoline [place] 00 ) Push over 5 minutes ANES No Notes: Memoria oxyCODONE 5 4-07 (Same as: l mg 19:21: Roxicodone [place] immediate 00 ) release tablet ANES No Notes: Memoria hydrALAZINE 4-07 (Same as: l 19:21: Apresoline [place] 00 ) Push over 5 minutes ANES No Notes: Memoria oxyCODONE 5 4-07 (Same as: l mg 19:21: Roxicodone [place] immediate 00 ) release tablet ceFAZolin No Route: IV, Me moria (ANES) 4- Drug form: l 18:23: INJ, ONCE, [place] 00 Stop date: 10/03/21 13:23:00 CDT ondansetron 0 No Route: IV, Memoria (ANES) 4- Drug form: l 18:23: INJ, ONCE, Stop date: 10/03/21 13:23:00 CDT dexamethaso 2021-0 No Route: IV, Memoria ne (ANES) - Drug form: l 18:23: INJ, ONCE, Stop date: 10/03/21 13:23:00 CDT ceFAZolin No Route: IV, Me moria (ANES) 4- Drug form: l 18:23: INJ, ONCE, Stop date: 10/03/21 13:23:00 CDT ondansetron 0 No Route: IV, Memoria (ANES) 4- Drug form: l 18:23: INJ, ONCE, Stop date: 10/03/21 13:23:00 CDT dexamethaso 0 No Route: IV, Memoria ne (ANES) - Drug form: l 18:23: INJ, ONCE, Stop date: 10/03/21 13:23:00 CDT midazolam 2021-0 No Route: IV, Me moria (ANES) 4- Drug form: l 18:13: SOLN, ONCE, Stop date: 10/03/21 13:13:00 CDT fentaNYL 2021-0 No Route: IV, Mem oria (ANES) 4- Drug form: l 18:13: INJ, ONCE, Stop date: 10/03/21 13:13:00 CDT lidocaine 2021-0 No Route: IV, Me moria (ANES) 4- Drug form: l 18:13: INJ, ONCE, Stop date: 10/03/21 13:13:00 CDT propofol 2021-0 No Route: IV, Mem oria (ANES) 4- Drug form: l 18:13: INJ, ONCE, Stop date: 10/03/21 13:13:00 CDT midazolam No Route: IV, Me moria (ANES) - Drug form: l 18:13: SOLN, [place] 00 ONCE, Stop date: 10/03/21 13:13:00 CDT fentaNYL No Route: IV, Mem oria (ANES) 10-03 Drug form: l 18:13: INJ, ONCE, Stop date: 10/03/21 13:13:00 CDT lidocaine No Route: IV, Me moria (ANES) 4- Drug form: l 18:13: INJ, ONCE, Stop date: 10/03/21 13:13:00 CDT propofol No Route: IV, Mem oria (ANES) - Drug form: l 18:13: INJ, ONCE, Stop date: 10/03/21 13:13:00 CDT Lactated No Route: IV, Mem oria Ringers -07 Total l Injection 17:27: Volume: Kaylynn nn IV (ANES) 00 1,000, 1000 mL Start date: 10/03/21 12:27:00 CDT, Stop date: 10/03/21 13:27:00 CDT Lactated No Route: IV, Mem oria Ringers 4-07 Total l Injection 17:27: Volume: Kaylynn nn IV (ANES) 00 1,000, 1000 mL Start date: 10/03/21 12:27:00 CDT, Stop date: 10/03/21 13:27:00 CDT ondansetron Yes 1998 8mg [place] ODT 10-02 Health (Zofran-ODT 17:12: ) 37 disintegrat ing tablet 8 mg fluticasone Yes BID, 0 [place] lissette 93 mcg/inh 4-04 Refill(s) l nasal spray 15:45: Clyde n 00 fluticasone Yes BID, 0 [place] lissette 93 mcg/inh 4-04 Refill(s) l nasal spray 15:45: Clyde n 00 Fish Oil Yes PO, 0 Memoria 4-04 Refill(s) l 15:44: [place] 00 Milk 2022-0 Yes 0 Memoria Thistle 4-04 Refill(s) l 15:44: [place] 00 Fish Oil 0 Yes PO, 0 Memoria 4-04 Refill(s) l 15:44: [place] Milk 0 Yes 0 Memoria Thistle 4-04 Refill(s) l 15:44: [place] 00 trazodone 2021-0 Yes PO, Memoria 4-04 Bedtime, 0 l 15:43: Refill(s) [place] 00 trazodone 2021-0 Yes PO, Memoria 4-04 Bedtime, 0 l 15:43: Refill(s) [place] 00 fluticasone 0 Yes INSTILL UT (Flonase) 3-25 TWO (2) Health 50 MCG/ACT 00:00: SPRAY(S) nasal spray 00 INTO EACH NOSTRIL ONCE DAILY. fluticasone 0 Yes INSTILL UT (Flonase) 3-25 TWO (2) Health 50 MCG/ACT 00:00: SPRAY(S) nasal spray 00 INTO EACH NOSTRIL ONCE DAILY. traZODone Yes TAKE ONE UT (Desyrel) 3-18 (1) OR TWO Heal th 50 MG 00:00: (2) tablet 00 TABLET(S) BY MOUTH AT BEDTIME NEEDED FOR INSOMNIA. traZODone 0 Yes TAKE ONE UT (Desyrel) 3-18 (1) OR TWO Heal th 50 MG 00:00: (2) tablet 00 TABLET(S) BY MOUTH AT BEDTIME NEEDED FOR INSOMNIA. buPROPion Yes 75mg Take 75 mg UT (Wellbutrin 1-31 by mouth. Hea lth ) 75 MG 00:00: tablet 00 buPROPion 0 Yes 75mg Take 75 mg UT (Wellbutrin 1-31 by mouth. Hea lth ) 75 MG 00:00: tablet 00 1 1 No 1 [place] daily daily daily [facility] Immunizations Ordered Filled Immunization Date Status Comments [facility] e Immunization Name Name Influenza Virus 2022-03-10 Completed Universit y of Vaccine Quad IM, 00:00:00 [facility] dical Preserv and ABX Branch Free 6 MO-64 YRS Influenza Virus 2022-03-10 Completed Universit y of Vaccine Quad IM, 00:00:00 [facility] dical Preserv and ABX Branch Free 6 MO-64 YRS Influenza Virus 2022-03-10 Completed Universit y of Vaccine Quad IM, 00:00:00 [place] Me dical Preserv and ABX Branch Free 6 MO-64 YRS Influenza Virus 2022-03-10 Completed Universit y of Vaccine Quad IM, 00:00:00 [facility] dical Preserv and ABX Branch Free 6 MO-64 YRS Varicella 2016-01-04 Completed University of (varivax)(chicken 00:00:00 [place] M edical pox) Branch HPV9 2016-01-04 Completed University of 00:00:00 [facility] Varicella 2016-01-04 Completed University of (varivax)(chicken 00:00:00 [place] M edical pox) Branch [facility] 2016-01-04 Completed University of 00:00:00 [facility] Varicella 2016-01-04 Completed University of (varivax)(chicken 00:00:00 [place] M [place]ical pox) Branch HPV9 2016-01-04 Completed University of 00:00:00 [facility] Varicella 2016-01-04 Completed University of (varivax)(chicken 00:00:00 [place] M edical pox) Branch HPV9 2016-01-04 Completed University of 00:00:00 [facility] Varicella 2015-11-22 Completed University of (varivax)(chicken 00:00:00 [place] M edical pox) Branch Varicella 2015-11-22 Completed University of (varivax)(chicken 00:00:00 [place] M edical pox) Branch Varicella 2015-11-22 Completed University of (varivax)(chicken 00:00:00 [place] M [facility]ical pox) Branch Varicella 2015-11-22 Completed University of (varivax)(chicken 00:00:00 [place] M edical pox) Branch TDAP 2015-09-21 Completed University of 00:00:00 [facility] TDAP 2015-09-21 Completed University of 00:00:00 [facility] TDAP 2015-09-21 Completed University of 00:00:00 [facility] TDAP 2015-09-21 Completed University of 00:00:00 [facility] Vital Signs Vital Name Observation Time Observation Value Comments Source Systolic blood 2022-03-13 18:17:00 114 mm[Hg] Univer sity of pressure [facility] Diastolic blood 2022-03-13 18:17:00 79 mm[Hg] Unive rsity of [facility] Heart rate 2022-03-13 18:17:00 66 /min [facility] Body temperature 2022-03-13 18:17:00 37.06 [facility] rate 2022-03-13 18:17:00 18 /min [facility] Body height 2022-03-13 18:17:00 160 cm [facility] Body weight 2022-03-13 18:17:00 46.72 kg [facility] BMI 2022-03-13 18:17:00 18.25 kg/m2 [facility] Body height 2021-09-25 16:20:00 [facility] 2021-09-25 16:20:00 [facility]896 [facility] BMI 2021-09-25 16:20:00 20.12 kg[facility]m2 [facility] BP Diastolic 2019-03-31 00:00:00 60 mm[Hg] [facility] Height 2019-03-31 00:00:00 61 [in_i] [facility] BMI (Body Mass 2019-03-31 00:00:00 24.6 kg/m2 [facility] BP Systolic 2019-03-31 00:00:00 110 mm[Hg] [facility] Body Weight 2019-03-31 00:00:00 130.2 [lb_av] [facility] BP Diastolic 2019-02-08 00:00:00 58 mm[Hg] [facility] Height 2019-02-08 00:00:00 61 [in_i] [facility] BMI (Body Mass 2019-02-08 00:00:00 26.3 kg/m2 [facility]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) Group BP Systolic 2019-02-08 00:00:00 77 mm[Hg] [facility] Body Weight 2019-02-08 00:00:00 139 [lb_av] [facility] BP Diastolic 2019-02-01 00:00:00 83 mm[Hg] [facility] Height 2019-02-01 00:00:00 61 [in_i] [facility] BMI (Body Mass 2019-02-01 00:00:00 26.5 kg/m2 [facility] Medical Index) Group BP Systolic 2019-02-01 00:00:00 126 mm[Hg] [facility] Body Weight 2019-02-01 00:00:00 140 [lb_av] [facility] BP Diastolic 2019-01-18 00:00:00 62 mm[Hg] [facility] Height 2019-01-18 00:00:00 61 [in_i] [facility] BMI (Body Mass 2019-01-18 00:00:00 26.5 kg/m2 [facility] Medical Index) Group BP Systolic 2019-01-18 00:00:00 111 mm[Hg] [facility] Body Weight 2019-01-18 00:00:00 140.5 [lb_av] [facility] BP Diastolic 2019-01-13 00:00:00 68 mm[Hg] [facility] Height 2019-01-13 00:00:00 61 [in_i] [facility] BMI (Body Mass 2019-01-13 00:00:00 26.5 kg/m2 [facility] Medical Index) Group BP Systolic 2019-01-13 00:00:00 132 mm[Hg] [facility] Body Weight 2019-01-13 00:00:00 140 [lb_av] [facility] BP Diastolic 2019-01-04 00:00:00 67 mm[Hg] [facility] Height 2019-01-04 00:00:00 61 [in_i] [facility] BMI (Body Mass 2019-01-04 00:00:00 26.5 kg/m2 [facility] Medical Index) Group BP Systolic 2019-01-04 00:00:00 125 mm[Hg] [facility] Body Weight 2019-01-04 00:00:00 140 [lb_av] [facility] BP Diastolic 2018-12-07 00:00:00 66 mm[Hg] [facility] Height 2018-12-07 00:00:00 61 [in_i] [facility] BMI (Body Mass 2018-12-07 00:00:00 27.8 kg/m2 [facility] Medical Index) Group BP Systolic 2018-12-07 00:00:00 [...] BMI (Body Mass 2018-10-06 00:00:00 27.2 kg/m2 [facility] Medical Index) Group BP Systolic 2018-10-06 00:00:00 128 mm[Hg] [facility] Body Weight 2018-10-06 00:00:00 144 [lb_av] [facility] Systolic (mm Hg) 2021-10-03 20:45:00 [place] rial [place] Diastolic (mm Hg) 2021-10-03 20:45:00 Mem orial [place] Respitory Rate 2021-10-03 20:45:00 Memori al [place] Respitory Rate 2021-10-03 20:15:00 Memori al [place] Systolic (mm Hg) 2021-10-03 20:15:00 [place] rial [place] Diastolic (mm Hg) 2021-10-03 20:15:00 Mem orial [place] Respitory Rate 2021-10-03 20:00:00 Memori al [place] Systolic (mm Hg) 2021-10-03 20:00:00 [place] rial [place] Diastolic (mm Hg) 2021-10-03 20:00:00 [facility] orial [place] Height 2021-10-03 13:47:00 157.48 cm [facility] Weight 2021-10-03 13:47:00 [facility] BMI Calculated 2021-10-03 13:47:00 Jonh Butler Height 2021-09-30 15:17:00 [facility] 2021-09-30 15:17:00 [facility] BMI Calculated 2021-09-30 15:17:00 Jonh Butler Procedures Procedure Date / Time Performing Source Performed Clinician unlisted imaging order 2019-03-31 [place] 00:00:00 Medical Group US, obstetric, limited 2019-02-01 [place] 00:00:00 Medical Group unlisted imaging order 2019-01-13 [place] 00:00:00 Medical Group US, obstetric, limited 2019-01-04 [facility] 00:00:00 Medical Group ULTRASOUND REPEAT 2018-12-07 [place] 00:00:00 Medical Group XR, ankle 2018-12-07 [place] 00:00:00 Medical Group US, obstetric, limited 2018-11-02 [place] 00:00:00 Medical Group ULTRASOUND, UTERUS REAL 2018-10-06 [facility] TIME WITH IMAGE DOC, AND 00:00:00 M edical Group MATERNAL EVAL PLUS DETAILED ANATOMIC EXAMINATION, TRANSABDOMINAL APPROACH; SINGLE OR FIRST GESTATION Section 2015-11-20 [place] 00:00:00 Medical Group Section 2013-09-29 [facility] 00:00:00 Medical Group Remove Tonsils and Adenoids [facility]ogastroduodenoscopy [facility] Nasal operation [facility] Tonsillectomy and adenoidectomy [facility] Encounters Start End Encounter Admission Attending Care Care Encounter Source Date/Time Date/Time Type Type Clinicians Facility Department ID 2022-01-16 Outpatient [facility] [id number] [place] 12:04:39 [id number] [facility] 2022-01-14 Outpatient VINES, [facility] [id number] [place] 12:57:05 [facility] [place] [id number] [facility] 2022-01-02 Outpatient GAUVAIN, [facility] [id number] [place] 01:04:55 JAVI [id number] [facility] 2021-12-26 Outpatient Li, STLMLC [facility] [id number] [facility] 14:59:02 [facility] 2021-12-23 Outpatient GAUVAIN, [facility] [id number] [place] 14:34:28 [facility] [id number] [facility] 2021-12-16 Outpatient GAUVAIN, [facility] [id number] [place] 14:20:45 [facility] [id number] [facility] 2021-10-02 Outpatient [facility] [id number] [place] 12:11:[address] [place] [address] 2021-09-25 Outpatient GAUVAIN, [facility] [id number] [place] 11:12:00 [facility] [id number] [facility] 2021-09-23 Outpatient Li, STLMLC STLC [id number] Common 12:45:02 [facility] 2021-09-06 Outpatient GAUVAIN, [facility] [id number] [place] 09:08:18 [facility] 2021-07-24 Outpatient Li, STLMLC STLC [id number] Common 14:21:07 [facility] [address] [facility] 2021-07-24 Outpatient Li, STLMLC STLC [id number] Common 14:14:28 [facility] 70192 [facility] 2021-07-24 Outpatient Li, STLMLC STLMLC [id number] Common 14:12:42 [facility] 00094 [facility] 2021-07-24 Outpatient Li, STLMLC STLC [id number] Common 14:02:16 [facility] 459[address] [facility] 2021-07-24 Outpatient Li, STLMLC STLC [id number] Common 14:01:57 [facility] 624[address] [facility] 2022-03-14 2022-03-14 Patient Tyree [facility] [id number] Univers 00:00:00 00:00:00 Secure Msg Adams [facility] [id number] itchacha acosta [place] [id number] [place] as LINSEY?BLEA [phone] [address] MEDICAL OFFICE BUILDING 2022-03-14 2022-03-14 Patient Luiz, [facility] [id number] Univers 00:00:00 00:00:00 Secure Msg Mayco MACKEY [id number] ity of [facility] [phone] Mt halina DALEY 072 [facility] 2022-03-13 2022-03-13 Office Lisbeth [facility] [id number] Univers 13:30:00 14:04:01 Visit Chandni COREA [id number] i ty [id number] [phone] Mt dicmalathi NAL 134 [facility] 2022-02-11 2022-02-11 ambulatory STLMLC STLMLC [id number] Common 00:00:00 00:00:00 [facility] 2022-02-10 2022-02-10 ambulatory STLMLC STLMLC [id number] Common 00:00:00 00:00:00 [facility] 2022-02-06 2022-02-06 ambulatory STLMLC STLMLC [id number] Common 00:00:00 00:00:00 [facility] 2022-02-05 2022-02-05 ambulatory STLMLC STLMLC [id number] Common 00:00:00 00:00:00 [facility] 2022-02-05 2022-02-05 ambulatory STLMLC STLMLC [id number] Common 00:00:00 00:00:00 [facility] 2022-02-01 2022-02-01 ambulatory STLMLC STLMLC [id number] Common 00:00:00 00:00:00 [facility] 2022-01-29 2022-01-29 ambulatory STLMLC STLMLC [id number] Common 00:00:00 00:00:00 [facility] 2022-01-18 2022-01-18 ambulatory STLMLC STLMLC [id number] Common 00:00:00 00:00:00 [facility] 2022-01-17 2022-01-17 ambulatory STLMLC STLMLC [id number] Common 00:00:00 00:00:00 [facility] 2022-01-16 2022-01-16 ambulatory STLMLC STLMLC [id number] Common 00:00:00 00:00:00 [facility] 2022-01-16 2022-01-16 ambulatory STLMLC STLMLC [id number] Common 00:00:00 00:00:00 [facility] 2022-01-15 2022-01-15 ambulatory STLMLC STLMLC [id number] Common 00:00:00 00:00:00 [facility] 2022-01-13 2022-01-13 ambulatory STLMLC STLMLC [id number] Common 00:00:00 00:00:00 [facility] 2022-01-11 2022-01-11 ambulatory STLMLC STLMLC [id number] Common 00:00:00 00:00:00 [facility] 2022-01-11 2022-01-11 ambulatory STLMLC STLMLC [id number] Common 00:00:00 00:00:00 [facility] 2022-01-11 2022-01-11 ambulatory STLMLC STLMLC [id number] Common 00:00:00 00:00:00 [facility] 2022-01-02 2022-01-02 ambulatory STLMLC STLMLC [id number] Common 00:00:00 00:00:00 [facility] 2022-01-02 2022-01-02 ambulatory STLMLC STLMLC [id number] Common 00:00:00 00:00:00 [facility] 2022-01-02 2022-01-02 ambulatory STLMLC STLMLC [id number] Common 00:00:00 00:00:00 [facility] 2022-01-01 2022-01-01 ambulatory STLMLC STLMLC [id number] Common 00:00:00 00:00:00 [facility] 2021-12-31 2021-12-31 ambulatory STLMLC STLMLC [id number] Common 00:00:00 00:00:00 [facility] 2021-12-31 2021-12-31 ambulatory STLMLC STLMLC [id number] Common 00:00:00 00:00:00 [facility] 2021-12-31 2021-12-31 ambulatory STLMLC STLMLC [id number] Common 00:00:00 00:00:00 [facility] 2021-12-31 2021-12-31 ambulatory STLMLC STLMLC [id number] Common 00:00:00 00:00:00 [facility] 2021-12-31 2021-12-31 ambulatory STLMLC STLMLC [id number] Common 00:00:00 00:00:00 [facility] 2021-12-31 2021-12-31 ambulatory STLMLC STLMLC [id number] Common 00:00:00 00:00:00 [facility] 2021-12-26 2021-12-26 ambulatory STLMLC STLMLC [id number] Common 00:00:00 00:00:00 [facility] 2021-12-23 2021-12-23 Office MANNIE Edgar [facility] [id number] [place] 14:30:00 14:45:00 Visit Javi [place] [id number] H [facility] [id number] [phone] 5 2021-12-20 2021-12-20 ambulatory STLMLC STLMLC [id number] Common 00:00:00 00:00:00 [facility] 2021-12-19 2021-12-19 ambulatory STLMLC STLMLC [id number] Common 00:00:00 00:00:00 [facility] 2021-12-13 2021-12-13 ambulatory STLMLC STLMLC [id number] Common 00:00:00 00:00:00 [facility] 2021-12-12 2021-12-12 ambulatory STLMLC STLMLC [id number] Common 00:00:00 00:00:00 [facility] 2021-11-20 2021-11-20 ambulatory STLMLC STLMLC [id number] Common 00:00:00 00:00:00 [facility] 2021-11-19 2021-11-19 ambulatory STLMLC STLMLC [id number] Common 00:00:00 00:00:00 [facility] 2021-11-19 2021-11-19 ambulatory STLMLC STLMLC [id number] Common 00:00:00 00:00:00 [facility] 2021-11-19 2021-11-19 ambulatory STLMLC STLMLC [id number] Common 00:00:00 00:00:00 [facility] 2021-10-24 2021-10-24 ambulatory STLMLC STLMLC [id number] Common 00:00:00 00:00:00 [facility] 2021-10-24 2021-10-24 ambulatory STLMLC STLMLC [id number] Common 00:00:00 00:00:00 [facility] 2021-10-15 2021-10-15 ambulatory STLMLC STLMLC [id number] Common 00:00:00 00:00:00 [facility] 2021-10-03 2021-10-03 Day [facility] [id number] Memoria 13:33:00 20:45:00 Surgery r Weiner 00 l [facility] 2021-10-03 2021-10-03 Day [facility] [id number] Memoria 13:33:00 20:45:00 Surgery r Weiner 00 l [facility] 2021-10-03 2021-10-03 Outpatient GAUVAIN, MHBL MHBL [id number] MHBL 08:33:00 15:45:00 JAVI 2021-10-03 2021-10-03 Outpatient Gauvain, [facility]PL [facility]PL [id number] 08:33:00 15:45:00 Javi Almonte 2021-10-03 2021-10-03 Outpatient Gauvain, [facility] [id number] 08:33:00 15:45:00 Javi Almonte 2021-09-25 2021-09-25 Office MANNIE Edgar [facility] [id number] [place] 11:00:00 12:09:37 Visit Javi GRANDA [id number] H [facility] [id number] GUILLERMINA 0 [phone] 5 2021-09-20 2021-09-20 ambulatory STLMLC STLMLC [id number] Common 00:00:00 00:00:00 [facility] 2021-09-14 2021-09-14 ambulatory STLMLC STLMLC [id number] Common 00:00:00 00:00:00 [facility] 2021-09-14 2021-09-14 ambulatory STLMLC STLMLC [id number] Common 00:00:00 00:00:00 [facility] 2021-09-13 2021-09-13 ambulatory STLMLC STLMLC [id number] Common 00:00:00 00:00:00 [facility] 2021-09-12 2021-09-12 ambulatory STLMLC STLMLC [id number] Common 00:00:00 00:00:00 [facility] 2021-09-05 2021-09-05 ambulatory STLMLC STLMLC [id number] Common 00:00:00 00:00:00 [facility] 2021-09-03 2021-09-03 ambulatory STLMLC STLMLC [id number] Common 00:00:00 00:00:00 [facility] 2021-08-26 2021-08-26 ambulatory STLMLC STLMLC [id number] Common 00:00:00 00:00:00 [facility] 2021-08-13 2021-08-13 ambulatory STLMLC STLMLC [id number] Common 00:00:00 00:00:00 [facility] 2021-08-02 2021-08-02 ambulatory STLMLC STLMLC [id number] Common 00:00:00 00:00:00 [facility] 2021-08-01 2021-08-01 ambulatory STLMLC STLMLC [id number] Common 00:00:00 00:00:00 [facility] 2021-07-31 2021-07-31 ambulatory STLMLC STLMLC [id number] Common 00:00:00 00:00:00 [facility] 2021-07-16 2021-07-16 ambulatory STLMLC STLMLC [id number] Common 00:00:00 00:00:00 [facility] 2021-06-05 2021-06-05 ambulatory STLMLC STLMLC [id number] Common 00:00:00 00:00:00 [facility] 2021-06-05 2021-06-05 ambulatory STLMLC STLMLC [id number] Common 00:00:00 00:00:00 [facility] 2021-06-05 2021-06-05 ambulatory STLMLC STLMLC [id number] Common 00:00:00 00:00:00 [facility] 2021-06-05 2021-06-05 ambulatory STLMLC STLMLC [id number] Common 00:00:00 00:00:00 [facility] 2021-06-05 2021-06-05 ambulatory STLMLC STLMLC [id number] Common 00:00:00 00:00:00 [facility] 2021-06-05 2021-06-05 ambulatory STLMLC STLMLC [id number] Common 00:00:00 00:00:00 [facility] 2021-06-05 2021-06-05 ambulatory STLMLC STLMLC [id number] Common 00:00:00 00:00:00 [facility] 2021-06-03 2021-06-03 ambulatory STLMLC STLMLC [id number] Common 00:00:00 00:00:00 [facility] 2021-06-03 2021-06-03 ambulatory STLMLC STLMLC [id number] Common 00:00:00 00:00:00 [facility] 2021-05-182021-05-18 ambulatory STLMLC STLMLC [id number] Common 00:00:00 00:00:00 [facility] 2021-05-18 2021-05-18 ambulatory STLMLC STLMLC [id number] Common 00:00:00 00:00:00 [facility] 2021-05-18 2021-05-18 ambulatory STLMLC STLMLC [id number] Common 00:00:00 00:00:00 [facility] 2021-05-16 2021-05-16 ambulatory STLMLC STLMLC [id number] Common 00:00:00 00:00:00 [facility] 2021-05-10 2021-05-10 ambulatory STLMLC STLMLC [id number] Common 00:00:00 00:00:00 [facility] 2021-05-10 2021-05-10 ambulatory STLMLC STLMLC [id number] Common 00:00:00 00:00:00 [facility] 2021-05-09 2021-05-09 ambulatory STLMLC STLMLC [id number] Common 00:00:00 00:00:00 [facility] 2021-05-08 2021-05-08 ambulatory STLMLC STLMLC [id number] Common 00:00:00 00:00:00 [facility] 2021-05-08 2021-05-08 ambulatory STLMLC STLMLC [id number] Common 00:00:00 00:00:00 [facility] 2021-05-08 2021-05-08 ambulatory STLMLC STLMLC [id number] Common 00:00:00 00:00:00 [facility] 2021-05-08 2021-05-08 ambulatory STLMLC STLMLC [id number] Common 00:00:00 00:00:00 [facility] 2021-05-07 2021-05-07 ambulatory STLMLC STLMLC [id number] Common 00:00:00 00:00:00 [facility] 2021-05-04 2021-05-04 ambulatory STLMLC STLMLC [id number] Common 00:00:00 00:00:00 [facility] 2021-05-04 2021-05-04 ambulatory STLMLC STLMLC [id number] Common 00:00:00 00:00:00 [facility] 2021-05-04 2021-05-04 ambulatory STLMLC STLMLC [id number] Common 00:00:00 00:00:00 [facility] 2021-04-15 2021-04-15 Outpatient STLMLC STLMLC [id number] Common 00:00:00 00:00:00 [facility] 2020-05-16 2020-05-16 Outpatient G_Shayy [facility] [id number] [place] 02:44:00 02:44:00 1118 lyudmila [facility] 2019-03-31 2019-03-31 [place] [facility] [place] - [id number] [place] 00:00:00 00:00:00 Uriel Gleason MD: Medical Medica [address], [place] [address] , Ph. [phone] 2019-02-08 2019-02-08 German [facility] [place] - [id number] [place] 00:00:00 00:00:00 Discovery Shayy 0813 lyudmila MD: [address] [place] [address] [address], [place] [address] , Ph. [phone] 2019-02-01 2019-02-01 [place] - [id number] [place] 00:00:00 00:00:00 Discovery Shayy 0806 lyudmila MOCTEZUMA: [address] [place] [address] [address], [place] [address] , Ph. [phone] 2019-01-18 2019-01-18 [place] - [address] [place] 00:00:00 00:00:00 Discovery Shayy 0723 lyudmila MOCTEZUMA: [address] [place] [address] [address] [address] , Ph. [phone] 2019-01-13 2019-01-13 David [facility] [place] - [address] [place] 00:00:00 00:00:00 Uriel Cordova 0718 lyudmila Mcclendon MD: Medical Medica vignesh [address] [place] [address], General [address], [place] [address] , Ph. [phone] 2019-01-04 2019-01-04 German [facility] [place] - [address] [place] 00:00:00 00:00:00 Discovery Shayy 0709 lyudmila MD: [address] [place] [address] [address], [place] [address] , Ph. [phone] 2018-12-07 2018-12-07 Nikia [facility] [place] [place] [place] - [address] [place] 00:00:00 00:00:00 Leobardo Cordova 0611 Mario Grider [place] medellin MD: [address] [place] [address], [facility] [address] [address] , Ph. [phone] 2018-11-02 2018-11-02 German [facility] [place] - [address] [place] 00:00:00 00:00:00 Discovery Shayy 0507 da MD: [address] [place] [address] , Ph. [phone] 2018-10-06 2018-10-06 German [facility] [place] - [address] [place] 00:00:00 00:00:00 Discovery Shayy 0410 da MD: [address] [place] [address] , Ph. [phone] Results Test Description Test Time Test Comments Results Result Comments Source URINE CHEM 2021-10-03 15:05:00 Test Item Value Reference Range Interpretation Comme nts U Preg (test code = U Preg) Negative (10/03/21 10:05 AM) [facility] [id number] 15:05:00 Test Item Value Reference Range Interpretation Comments U Preg (test code = U Negative (10/03/21 10:05 Preg) AM) [id number] 13:47:00 Test Item Value Reference Range Interpretation Comments Coronavirus (COVID-19) Not Detected (10/03/21 JOANNE (test code = 8:47 AM) Coronavirus (COVID-19) JOANNE) [facility] [id number] 13:47:00 Test Item Value Reference Range Interpretation Comments Coronavirus (COVID-19) Not Detected (10/03/21 JOANNE (test code = 8:47 AM) Coronavirus (COVID-19) JOANNE) [facility] (dipstick) panel - [id number] 16:11:13 Test Item Value Reference Range Interpretation Comments Leukocytes (test code = Leukocytes) Negative Nitrite (test code = Nitrite) negative Urobilinogen (test code = .2 Urobilinogen) Protein (test code = Protein) Negative pH (test code = pH) 7.0 Blood (test code = Blood) Negative Specific [place] (test code = 1.015 Specific [place]) Ketone (test code = Ketone) Negative Bilirubin (test code = Bilirubin) Negative Glucose (test code = Glucose) Negative Appearance (test code = Appearance) Clear Color (test code = Color) Yellow [facility] (dipstick) panel - [id number] 14:59:00 Test Item Value Reference Range Interpretation Comments Leukocytes (test code = Leukocytes) Negative Nitrite (test code = Nitrite) negative Urobilinogen (test code = 1 Urobilinogen) Protein (test code = Protein) Trace pH (test code = pH) 7.0 Blood (test code = Blood) Negative Specific [place] (test code = 1.025 Specific [place]) Ketone (test code = Ketone) Negative Bilirubin (test code = Bilirubin) Small Glucose (test code = Glucose) Negative Appearance (test code = Appearance) Clear Color (test code = Color) Yellow [facility] panel - [id number] 14:59:00 Test Item Value Reference Range Interpretation Comments Leukocytes (test code = Leukocytes) Negative Nitrite (test code = Nitrite) negative Urobilinogen (test code = 1 Urobilinogen) Protein (test code = Protein) Trace pH (test code = pH) 7.0 Blood (test code = Blood) Negative Specific [place] (test code = 1.025 Specific [place]) Ketone (test code = Ketone) Negative Bilirubin (test code = Bilirubin) Small Glucose (test code = Glucose) Negative Appearance (test code = Appearance) Clear Color (test code = Color) Yellow [facility] (dipstick) panel - [id number] 14:30:12 Test Item Value Reference Range Interpretation Comments Leukocytes (test code = Leukocytes) Negative Nitrite (test code = Nitrite) negative Urobilinogen (test code = 1 Urobilinogen) Protein (test code = Protein) Trace pH (test code = pH) 7.5 Blood (test code = Blood) Negative Specific [place] (test code = 1.020 Specific [place]) Ketone (test code = Ketone) Negative Bilirubin (test code = Bilirubin) Negative Glucose (test code = Glucose) Negative Appearance (test code = Appearance) Clear Color (test code = Color) Yellow [facility] (dipstick) panel - [id number] 14:30:12 Test Item Value Reference Range Interpretation Comments Leukocytes (test code = Leukocytes) Negative Nitrite (test code = Nitrite) negative Urobilinogen (test code = 1 Urobilinogen) Protein (test code = Protein) Trace pH (test code = pH) 7.5 Blood (test code = Blood) Negative Specific [place] (test code = 1.020 Specific [place]) Ketone (test code = Ketone) Negative Bilirubin (test code = Bilirubin) Negative Glucose (test code = Glucose) Negative Appearance (test code = Appearance) Clear Color (test code = Color) Yellow [facility] (dipstick) panel - [id number] 14:30:12 Test Item Value Reference Range Interpretation Comments Leukocytes (test code = Leukocytes) Negative Nitrite (test code = Nitrite) negative Urobilinogen (test code = 1 Urobilinogen) Protein (test code = Protein) Trace pH (test code = pH) 7.5 Blood (test code = Blood) Negative Specific [place] (test code = 1.020 Specific [place]) Ketone (test code = Ketone) Negative Bilirubin (test code = Bilirubin) Negative Glucose (test code = Glucose) Negative Appearance (test code = Appearance) Clear Color (test code = Color) Yellow [facility] (dipstick) panel - [id number] 14:30:12 Test Item Value Reference Range Interpretation Comments Leukocytes (test code = Leukocytes) Negative Nitrite (test code = Nitrite) negative Urobilinogen (test code = 1 Urobilinogen) Protein (test code = Protein) Trace pH (test code = pH) 7.5 Blood (test code = Blood) Negative Specific [place] (test code = 1.020 Specific [place]) Ketone (test code = Ketone) Negative Bilirubin (test code = Bilirubin) Negative Glucose (test code = Glucose) Negative Appearance (test code = Appearance) Clear Color (test code = Color) [facility] - [id number] 01:15:00 Test Item Value Reference Range Interpretation Comments white blood count (test code = 8.8 K/uL 4.0-11.5 white blood count) red blood count (test code = red 3.58 M/uL 3.80-5.20 L blood count) hemoglobin (test code = 10.4 g/dL 10.5-15.7 L hemoglobin) hematocrit (test code = 32.8 % 34.0-50.0 L hematocrit) Erythrocyte mean corpuscular 91.6 fL 86-100 volume [Entitic volume] (test code = 80049-7) Erythrocyte mean corpuscular 29.1 pg 26.2-33.4 hemoglobin [Entitic mass] (test code = 36668-9) mean corpuscular HGB conc (test 31.7 g/dL 30-34 code = mean corpuscular HGB conc) red cell distribution width (test 12.9 % 12.0-15.5 code = red cell distribution width) platelet count (test code = 270 K/uL 165-450 platelet count) mean platelet volume (test code = 9.4 fL 9.4-12.6 mean platelet volume) Neutrophils.segmented/100 69.9 % 44.4-80.1 leukocytes in Blood (test code = 96191-5) Ig% (test code = Ig%) 0.3 % 0.0-0.4 lymphocyte% (test code = 19.9 % 10.0-50.0 lymphocyte%) Monocytes/100 leukocytes in Blood 7.7 % 3.6-12.0 by Automated count (test code = 5905-5) Eosinophils/100 leukocytes in 1.9 % 0.0-5.4 Blood by Automated count (test code = 713-8) Basophils/100 leukocytes in 0.3 % 0.1-1.2 Unspecified specimen (test code = 01786-0) absolute neutrophil count (test 6.12 K/uL 1.56-6.13 code = absolute neutrophil count) Ig# (test code = Ig#) 0.0 K/uL 0.0-0.03 Lymphocytes [#/volume] in 1.8 K/uL 1.18-3.74 Unspecified specimen by Automated count (test code = 98231-6) mono # (test code = mono #) 0.68 K/uL 0.24-0.86 eos # (test code = eos #) 0.17 K/uL 0.04-0.36 basophil # (test code = basophil 0.03 K/uL 0.01-0.08 #) NRBC% (test code = NRBC%) 0 /100 WBC 0-0.2 NRBC# (test code = NRBC#) 0 K/uL [facility] W Auto Differential panel - [id number] 01:15:00 Test Item Value Reference Range Interpretation Comments white blood count (test code = 8.8 K/uL 4.0-11.5 white blood count) red blood count (test code = red 3.58 M/uL 3.80-5.20 L blood count) hemoglobin (test code = 10.4 g/dL 10.5-15.7 L hemoglobin) hematocrit (test code = 32.8 % 34.0-50.0 L hematocrit) Erythrocyte mean corpuscular 91.6 fL 86-100 volume [Entitic volume] (test code = 23747-1) Erythrocyte mean corpuscular 29.1 pg 26.2-33.4 hemoglobin [Entitic mass] (test code = 66465-3) mean corpuscular HGB conc (test 31.7 g/dL 30-34 code = mean corpuscular HGB conc) red cell distribution width (test 12.9 % 12.0-15.5 code = red cell distribution width) platelet count (test code = 270 K/uL 165-450 platelet count) mean platelet volume (test code = 9.4 fL 9.4-12.6 mean platelet volume) Neutrophils.segmented/100 69.9 % 44.4-80.1 leukocytes in Blood (test code = 24492-7) Ig% (test code = Ig%) 0.3 % 0.0-0.4 lymphocyte% (test code = 19.9 % 10.0-50.0 lymphocyte%) Monocytes/100 leukocytes in Blood 7.7 % 3.6-12.0 by Automated count (test code = 5905-5) Eosinophils/100 leukocytes in 1.9 % 0.0-5.4 Blood by Automated count (test code = 713-8) Basophils/100 leukocytes in 0.3 % 0.1-1.2 Unspecified specimen (test code = 35098-6) absolute neutrophil count (test 6.12 K/uL 1.56-6.13 code = absolute neutrophil count) Ig# (test code = Ig#) 0.0 K/uL 0.0-0.03 Lymphocytes [#/volume] in 1.8 K/uL 1.18-3.74 Unspecified specimen by Automated count (test code = 04361-3) mono # (test code = mono #) 0.68 K/uL 0.24-0.86 eos # (test code = eos #) 0.17 K/uL 0.04-0.36 basophil # (test code = basophil 0.03 K/uL 0.01-0.08 #) NRBC% (test code = NRBC%) 0 /100 WBC 0-0.2 NRBC# (test code = NRBC#) 0 K/uL [facility] W Auto Differential panel - [id number] 00:00:00 Test Item Value Reference Range Interpretation Comments white blood count (test code = 8.8 K/uL 4.0-11.5 white blood count) red blood count (test code = red 3.58 M/uL 3.80-5.20 L blood count) hemoglobin (test code = 10.4 g/dL 10.5-15.7 L hemoglobin) hematocrit (test code = 32.8 % 34.0-50.0 L hematocrit) Erythrocyte mean corpuscular 91.6 fL 86-100 volume [Entitic volume] (test code = 95139-2) Erythrocyte mean corpuscular 29.1 pg 26.2-33.4 hemoglobin [Entitic mass] (test code = 97256-9) mean corpuscular HGB conc (test 31.7 g/dL 30-34 code = mean corpuscular HGB conc) red cell distribution width (test 12.9 % 12.0-15.5 code = red cell distribution width) platelet count (test code = 270 K/uL 165-450 platelet count) mean platelet volume (test code = 9.4 fL 9.4-12.6 mean platelet volume) Neutrophils.segmented/100 69.9 % 44.4-80.1 leukocytes in Blood (test code = 88925-7) Ig% (test code = Ig%) 0.3 % 0.0-0.4 lymphocyte% (test code = 19.9 % 10.0-50.0 lymphocyte%) Monocytes/100 leukocytes in Blood 7.7 % 3.6-12.0 by Automated count (test code = 5905-5) Eosinophils/100 leukocytes in 1.9 % 0.0-5.4 Blood by Automated count (test code = 713-8) Basophils/100 leukocytes in 0.3 % 0.1-1.2 Unspecified specimen (test code = 68830-9) absolute neutrophil count (test 6.12 K/uL 1.56-6.13 code = absolute neutrophil count) Ig# (test code = Ig#) 0.0 K/uL 0.0-0.03 Lymphocytes [#/volume] in 1.8 K/uL 1.18-3.74 Unspecified specimen by Automated count (test code = 24476-6) mono # (test code = mono #) 0.68 K/uL 0.24-0.86 eos # (test code = eos #) 0.17 K/uL 0.04-0.36 basophil # (test code = basophil 0.03 K/uL 0.01-0.08 #) NRBC% (test code = NRBC%) 0 /100 WBC 0-0.2 NRBC# (test code = NRBC#) 0 K/uL [facility] W Auto Differential panel - [id number] 00:00:00 Test Item Value Reference Range Interpretation Comments white blood count (test code = 8.8 K/uL 4.0-11.5 white blood count) red blood count (test code = red 3.58 M/uL 3.80-5.20 L blood count) hemoglobin (test code = 10.4 g/dL 10.5-15.7 L hemoglobin) hematocrit (test code = 32.8 % 34.0-50.0 L hematocrit) Erythrocyte mean corpuscular 91.6 fL 86-100 volume [Entitic volume] (test code = 46602-4) Erythrocyte mean corpuscular 29.1 pg 26.2-33.4 hemoglobin [Entitic mass] (test code = 28151-2) mean corpuscular HGB conc (test 31.7 g/dL 30-34 code = mean corpuscular HGB conc) red cell distribution width (test 12.9 % 12.0-15.5 code = red cell distribution width) platelet count (test code = 270 K/uL 165-450 platelet count) mean platelet volume (test code = 9.4 fL 9.4-12.6 mean platelet volume) Neutrophils.segmented/100 69.9 % 44.4-80.1 leukocytes in Blood (test code = 91161-1) Ig% (test code = Ig%) 0.3 % 0.0-0.4 lymphocyte% (test code = 19.9 % 10.0-50.0 lymphocyte%) Monocytes/100 leukocytes in Blood 7.7 % 3.6-12.0 by Automated count (test code = 5905-5) Eosinophils/100 leukocytes in 1.9 % 0.0-5.4 Blood by Automated count (test code = 713-8) Basophils/100 leukocytes in 0.3 % 0.1-1.2 Unspecified specimen (test code = 12587-5) absolute neutrophil count (test 6.12 K/uL 1.56-6.13 code = absolute neutrophil count) Ig# (test code = Ig#) 0.0 K/uL 0.0-0.03 Lymphocytes [#/volume] in 1.8 K/uL 1.18-3.74 Unspecified specimen by Automated count (test code = 29016-5) mono # (test code = mono #) 0.68 K/uL 0.24-0.86 eos # (test code = eos #) 0.17 K/uL 0.04-0.36 basophil # (test code = basophil 0.03 K/uL 0.01-0.08 #) NRBC% (test code = NRBC%) 0 /100 WBC 0-0.2 NRBC# (test code = NRBC#) 0 [facility] - [id number] 10:29:43 Test Item Value Reference Range Interpretation Comments Leukocytes (test code = Leukocytes) Negative Nitrite (test code = Nitrite) negative Urobilinogen (test code = .2 Urobilinogen) Protein (test code = Protein) Negative pH (test code = pH) 7.0 Blood (test code = Blood) Negative Specific [place] (test code = 1.015 Specific [place]) Ketone (test code = Ketone) Moderate Bilirubin (test code = Bilirubin) Small Glucose (test code = Glucose) Negative Appearance (test code = Appearance) Clear Color (test code = Color) Yellow [facility]dip[facility] panel - [id number] 10:29:43 Test Item Value Reference Range Interpretation Comments Leukocytes (test code = Leukocytes) Negative Nitrite (test code = Nitrite) negative Urobilinogen (test code = .2 Urobilinogen) Protein (test code = Protein) Negative pH (test code = pH) 7.0 Blood (test code = Blood) Negative Specific [place] (test code = 1.015 Specific [place]) Ketone (test code = Ketone) Moderate Bilirubin (test code = Bilirubin) Small Glucose (test code = Glucose) Negative Appearance (test code = Appearance) Clear Color (test code = Color) Yellow [facility]dip[facility] panel - [id number] 10:29:43 Test Item Value Reference Range Interpretation Comments Leukocytes (test code = Leukocytes) Negative Nitrite (test code = Nitrite) negative Urobilinogen (test code = .2 Urobilinogen) Protein (test code = Protein) Negative pH (test code = pH) 7.0 Blood (test code = Blood) Negative Specific [place] (test code = 1.015 Specific [place]) Ketone (test code = Ketone) Moderate Bilirubin (test code = Bilirubin) Small Glucose (test code = Glucose) Negative Appearance (test code = Appearance) Clear Color (test code = Color) Yellow [facility]dipstick) panel - [id number] 10:29:43 Test Item Value Reference Range Interpretation Comments Leukocytes (test code = Leukocytes) Negative Nitrite (test code = Nitrite) negative Urobilinogen (test code = .2 Urobilinogen) Protein (test code = Protein) Negative pH (test code = pH) 7.0 Blood (test code = Blood) Negative Specific [place] (test code = 1.015 Specific [place]) Ketone (test code = Ketone) Moderate Bilirubin (test code = Bilirubin) Small Glucose (test code = Glucose) Negative Appearance (test code = Appearance) Clear Color (test code = Color) Yellow [facility]dipstick) panel - [id number] 10:29:43 Test Item Value Reference Range Interpretation Comments Leukocytes (test code = Leukocytes) Negative Nitrite (test code = Nitrite) negative Urobilinogen (test code = .2 Urobilinogen) Protein (test code = Protein) Negative pH (test code = pH) 7.0 Blood (test code = Blood) Negative Specific [place] (test code = 1.015 Specific [place]) Ketone (test code = Ketone) Moderate Bilirubin (test code = Bilirubin) Small Glucose (test code = Glucose) Negative Appearance (test code = Appearance) Clear Color (test code = Color) [facility] W Auto Differential panel - [id number] 00:00:00 Test Item Value Reference Range Interpretation [...] fL 78-98 [Entitic volume] (test code = 89724-0) Erythrocyte mean corpuscular 30.7 pg 26.2-33.4 hemoglobin [Entitic mass] (test code = 01916-7) mean corpuscular HGB conc (test 32.7 g/dL 31.5-36.2 code = mean corpuscular HGB conc) red cell distribution width (test 12.0 % 11.5-15.5 code = red cell distribution width) Platelets [#/volume] in Blood (test 239 K/uL 137-338 code = 82474-4) Platelet mean volume [Entitic 6.6 fL 8.4-11.8 L volume] in Blood (test code = 04142-5) Neutrophils.band form/100 70.5 % 44.4-80.1 leukocytes in Blood (test code = 42741-6) Lymphocytes/100 leukocytes in Body 20.9 % 10.0-50.0 fluid (test code = 74877-3) Monocytes/100 leukocytes in Blood 5.2 % 3.6-12.0 by Automated count (test code = 5905-5) Eosinophils/100 leukocytes in Blood 2.4 % 0.0-5.4 by Automated count (test code = 713-8) Basophils/100 leukocytes in 1.0 % 0.0-0.79 H Unspecified specimen (test code = 11011-4) [facility] HospitalReagin [facility] [Presence] in Serum by [id number] 00:00:00 Test Item Value Reference Range Interpretation Comments Reagin Ab [Presence] in Serum by nonreactive nonreactive RPR (test code = 36572-1) [facility] HospitalHIV 1+2 Ab [Presence] in [id number] 00:00:00HIV P24 AgHIV-1/2 AbMataYalobusha [facility] HospitalBlood group antibody screen [Presence] in Serum or [id number] 00:00:00 Test Item Value Reference Range Interpretation Comments Blood group antibody screen negative [Presence] in Serum or Plasma (test code = 890-4) [facility] HospitalCB [facility] Auto Differential panel - [id number] 00:00:00 Test Item Value Reference Range Interpretation [...] fL 78-98 [Entitic volume] (test code = 68285-5) Erythrocyte mean corpuscular 30.7 pg 26.2-33.4 hemoglobin [Entitic mass] (test code = 27348-3) mean corpuscular HGB conc (test 32.7 g/dL 31.5-36.2 code = mean corpuscular HGB conc) red cell distribution width (test 12.0 % 11.5-15.5 code = red cell distribution width) Platelets [#/volume] in Blood (test 239 K/uL 137-338 code = 99264-8) Platelet mean volume [Entitic 6.6 fL 8.4-11.8 L volume] in Blood (test code = 52949-4) Neutrophils.band form/100 70.5 % 44.4-80.1 leukocytes in Blood (test code = 58134-8) Lymphocytes/100 leukocytes in Body 20.9 % 10.0-50.0 fluid (test code = 40533-2) Monocytes/100 leukocytes in Blood 5.2 % 3.6-12.0 by Automated count (test code = 5905-5) Eosinophils/100 leukocytes in Blood 2.4 % 0.0-5.4 by Automated count (test code = 713-8) Basophils/100 leukocytes in 1.0 % 0.0-0.79 H Unspecified specimen (test code = 26701-6) [facility] GroupReagin Ab [Presence] in Serum by [id number] 00:00:00 Test Item Value Reference Range Interpretation Comments Reagin Ab [Presence] in Serum by nonreactive nonreactive RPR (test code = 37447-0) [facility] GroupHIV 1+2 Ab [Presence] in [id number] 00:00:00HIV P24 AgHIV-1/2 AbMataYalobusha General HospitalBlood group antibody screen [Presence] in Serum or [id number] 00:00:00 Test Item Value Reference Range Interpretation Comments Blood group antibody screen negative [Presence] in Serum or Plasma (test code = 890-4) [facility] HospitalUr[facility]ysis macro (dipstick) panel - [id number] 16:56:26 Test Item Value Reference Range Interpretation Comments Leukocytes (test code = Leukocytes) Negative Nitrite (test code = Nitrite) negative Urobilinogen (test code = .2 Urobilinogen) Protein (test code = Protein) Negative pH (test code = pH) 7.0 Blood (test code = Blood) Negative Specific [place] (test code = 1.015 Specific [place]) Ketone (test code = Ketone) Negative Bilirubin (test code = Bilirubin) Negative Glucose (test code = Glucose) Negative Appearance (test code = Appearance) Clear Color (test code = Color) Yellow [facility] HospitalUrinalysis macro (dipstick) panel - [id number] 13:54:59 Test Item Value Reference Range Interpretation Comments Leukocytes (test code = Leukocytes) Negative Nitrite (test code = Nitrite) negative Urobilinogen (test code = .2 Urobilinogen) Protein (test code = Protein) Negative pH (test code = pH) 5.5 Blood (test code = Blood) Negative Specific [place] (test code = 1.020 Specific [place]) Ketone (test code = Ketone) Negative Bilirubin (test code = Bilirubin) Negative Glucose (test code = Glucose) Negative Appearance (test code = Appearance) Clear Color (test code = Color) Yellow [facility] HospitalUrinalysis macro (dipstick) panel - [id number] 13:54:59 Test Item Value Reference Range Interpretation Comments Leukocytes (test code = Leukocytes) Negative Nitrite (test code = Nitrite) negative Urobilinogen (test code = .2 Urobilinogen) Protein (test code = Protein) Negative pH (test code = pH) 5.5 Blood (test code = Blood) Negative Specific [place] (test code = 1.020 Specific [place]) Ketone (test code = Ketone) Negative Bilirubin (test code = Bilirubin) Negative Glucose (test code = Glucose) Negative Appearance (test code = Appearance) Clear Color (test code = Color) Yellow [facility] W Auto Differential panel - [id number] 00:00:00 Test Item Value Reference Range Interpretation [...] fL 78-98 [Entitic volume] (test code = 89895-1) Erythrocyte mean corpuscular 32.0 pg 26.2-33.4 hemoglobin [Entitic mass] (test code = 99583-4) mean corpuscular HGB conc (test 34.1 g/dL 31.5-36.2 code = mean corpuscular HGB conc) red cell distribution width (test 11.7 % 11.5-15.5 code = red cell distribution width) Platelets [#/volume] in Blood (test 226 K/uL 137-338 code = 96608-1) Platelet mean volume [Entitic 6.0 fL 8.4-11.8 L volume] in Blood (test code = 46720-2) Neutrophils.band form/100 72.8 % 44.4-80.1 leukocytes in Blood (test code = 55953-6) Lymphocytes/100 leukocytes in Body 18.5 % 10.0-50.0 fluid (test code = 41019-1) Monocytes/100 leukocytes in Blood 3.7 % 3.6-12.04 by Automated count (test code = 5905-5) Eosinophils/100 leukocytes in Blood 4.3 % 0.0-5.41 by Automated count (test code = 713-8) Basophils/100 leukocytes in Blood 0.6 % 0.0-0.79 by Automated count (test code = 706-2) [facility] HospitalRubella virus Ab [Titer] in [id number] 00:00:00 Test Item Value Reference Range Interpretation Comments Rubella virus IgG Ab 8.80 [IU]/mL [Units/volume] in Serum by Immunoassay (test code = 5334-8) [facility] GroupABO & Rh group [Type] in [id number] 00:00:00 Test Item Value Reference Range Interpretation Comments Rh [Type] in Blood (test code = 4+ 33462-3) ABO and Rh group panel - Blood A positive (test code = 65162-7) [facility] HospitalBlood [facility] antibody screen [Presence] in Serum or Plasma 2018-10-06 00:00:00 Test Item Value Reference Range Interpretation Comments Blood group antibody screen negative [Presence] in Serum or Plasma (test code = 890-4) [facility] HospitalHIV 1+2 Ab [Presence] in [id number] 00:00:00HIV P24 AgHIV-1/2 AbMataYalobusha General HospitalBacteria identified in Urine by Culture 2018-10-06 00:00:00 Test Item Value Reference Range Interpretation Comments Bacteria identified in no growth at 2 days Urine by Culture (test code = 630-4) [facility] HospitalReagin Ab [Presence] in Serum by [id number] 00:00:00 Test Item Value Reference Range Interpretation Comments Reagin Ab [Presence] in Serum by nonreactive nonreactive RPR (test code = 48136-2) [facility] HospitalHepatitis B virus surface Ag [Presence] in Serum 2018-10-06 00:00:00 Test Item Value Reference Range Interpretation Comments .hepatitis B surface antigen (test negative negative code = .hepatitis B surface antigen) [facility]
[2022-03-15 19:43] LABS: Urine Blood Negative (Negative); Urine Glucose Negative (Negative); Urine Protein Negative (Negative); Urine Specific Gravity >=1.030 (1.005-1.030); Urine pH 5.5 (5.0-7.0)
[2022-03-15 19:45] LABS: Absolute Lymphocytes (CBC) 2.2 K/uL (0.7-4.9); Hematocrit 35.2 % (36.0-45.0); Lymphocytes % 32.2 % (15.3-44.8); MCV 87.9 fL (80-100); MPV 7.5 fL (7.6-11.3)
--- NOTE | 2022-03-15 20:03 | RAD REPORT ---
EXAM DESCRIPTION: Nicol Single View03/15/2022 7:49 pm CLINICAL HISTORY: Chest pain COMPARISON: none FINDINGS: The lungs appear clear of acute infiltrate. The heart is normal size IMPRESSION: No acute abnormalities displayed
[2022-03-15 20:12] LABS: ALT/SGPT 22 U/L (12-78); Albumin 4.3 g/dL (3.4-5.0); Alkaline Phosphatase 46 U/L (45-117); BUN Blood Urea Nitrogen 7 mg/dL (7-18); Bicarbonate 28 mmol/L (21-32); Bilirubin Total 0.6 mg/dL (0.2-1.0); Glomerular Filtration Rate 120 ml/min (=/>90); Glucose Level 84 mg/dL (74-106); Sodium Level 139 mmol/L (136-145)
[2022-03-15 20:13] LABS: AST/SGOT 34 U/L (15-37); Bilirubin Direct < 0.1 mg/dL (0-0.2); Magnesium 2.1 mg/dL (1.8-2.4); Potassium 4.6 mmol/L (3.5-5.1); Troponin High Sensitivity < 3.0 pg/mL (<58.9)
[2022-03-15] MEDS ORDERED: KETOROLAC 30 MG/ML INJ ONE (21:02)
[2022-03-15] MEDS ORDERED: ALBUTEROL 2.5 MG/3 ML NEB SOL ONE (22:20)
--- NOTE | 2022-03-15 22:55 | ER ---
Nurse's Notes [facility] Name: Hailee Guy Age: 31 yrs Sex: Female : 1990 Arrival Date: 03/15/2022 Time: 18:29 Bed 6 Private MD: Diagnosis: Chest pain, unspecified Presentation: 03/15 18:34 Chief complaint: SOB and intermittent left sided chest pain x 1 week. Coronavirus hb screen: Client presents with at least one sign or symptom that may indicate coronavirus-19. Standard/surgical mask placed on the client. Provider contacted for isolation considerations. Ebola Screen: No symptoms or risks identified at this time. Initial Sepsis Screen: Does the patient meet any 2 criteria? No. Patient's initial sepsis screen is negative. Does the patient have a suspected source of infection? No. Patient's initial sepsis screen is negative. Risk Assessment: Do you want to hurt yourself or someone else? Patient reports no desire to harm self or others. Onset of symptoms was March 09, 2022. 18:34 Method Of Arrival: Ambulatory hb 18:34 Acuity: TANISHA 3 hb Triage Assessment: 22:58 General: Appears uncomfortable, Behavior is calm, cooperative. Pain: Denies pain. ll3 Cardiovascular: Patient's skin is warm and dry. Rhythm is sinus rhythm. Respiratory: Reports shortness of breath the patient has mild shortness of breath. Respiratory: Reports shortness of breath cough that is Respiratory effort is even, unlabored, Respiratory pattern is regular, symmetrical. Historical: - Allergies: 18:36 Morphine; hb 18:36 [place]; hb - PMHx: 18:36 Sinusitis; hb - PSHx: 18:36 Adenoid excision; Tonsillectomy; hb Screenin:57 Abuse screen: Denies threats or abuse. Denies injuries from another. Nutritional ll3 screening: No deficits noted. Tuberculosis screening: No symptoms or risk factors identified. Fall Risk None identified. Assessment: 22:56 Reassessment: No changes from previously documented assessment. Patient and/or family ll3 updated on plan of care and expected duration. Pain level reassessed. Patient is alert, oriented x 3, equal unlabored respirations, skin warm/dry/pink. 22:57 Pain: Denies pain. Pain: Pain began. Cardiovascular: Rhythm is sinus rhythm. ll3 Respiratory: Airway is patent Respiratory effort is even, unlabored, Respiratory pattern is regular, symmetrical, Vital Signs: 18:34 BP 134 / 91; Pulse 78; Resp 18; Temp 97.8; Pulse Ox 100% on R/A; Pain 3/10; hb 22:56 BP 120 / 82; Pulse 82; Resp 16; Pulse Ox 100% on R/A; ll3 ED Course: 18:29 Patient arrived in ED. as 18:36 Triage completed. hb 18:36 Arm band placed on. hb 18:50 Jose Martin Thomson PA is PHCP. cp 18:50 Savita Ward MD is Attending Physician. cp 19:32 Inserted saline lock: 20 gauge in right antecubital area, using aseptic technique. oe Blood collected. 19:51 XRAY Chest (1 view) In Process Unspecified. EDMS 22:57 Patient has correct armband on for positive identification. Bed in low position. Call ll3 light in reach. Side rails up X 1. Client placed on continuous cardiac and pulse oximetry monitoring. NIBP monitoring applied. 22:57 No provider procedures requiring assistance completed. Patient maintains SpO2 ll3 saturation greater than 95% on room air. 23:29 IV discontinued, intact, bleeding controlled, No redness/swelling at site. Pressure ll3 dressing applied. Administered Medications: 21:00 Drug: Ketorolac 15 mg Route: IVP; Site: right antecubital; kl 23:30 Follow up: Response: No adverse reaction ll3 22:15 Drug: Albuterol 2.5 mg Route: Inhalation; ll3 23:30 Follow up: Response: No adverse reaction; Marked relief of symptoms ll3 Medication: 22:58 VIS not applicable for this client. ll3 Outcome: 22:54 Discharge ordered by . cp 23:29 Discharged to home ambulatory. ll3 23:29 Condition: stable 23:29 Discharge instructions given to patient, Instructed on discharge instructions, follow up and referral plans. medication usage, Demonstrated understanding of instructions, follow-up care, medications, Prescriptions given X 2. 23:31 Patient left the ED. ll3 Signatures: Dispatcher [employer] EDMS Mary Jorge RN RN kl Martinez, Amelia as Jose Martin Thomson PA PA cp Baxter, Heather, RN RN Tam Almanza oe Loubet, Lynsea, RN RN ll3 Corrections: (The following items were deleted from the chart) 18:45 18:34 BP 134 / 91; Pulse 78bpm; Resp 06bpm; Pulse Ox 100% RA; Temp 97.8F; Pain 3/10; hb hb
--- NOTE | 2022-03-15 22:55 | EDPHYS ---
Physician Documentation [facility] Name: Hailee Guy Age: 31 yrs Sex: Female : 1990 Arrival Date: 03/15/2022 Time: 18:29 Bed 6 Private MD: ED Physician Savita Ward HPI: 03/15 19:00 This 31 yrs old Female presents to ER via Ambulatory with complaints of Shortness Of cp Breath. 19:00 The patient or guardian reports chest pain that is located primarily in the anterior cp chest wall, left. 19:00 The pain does not radiate. Associated signs and symptoms: Pertinent positives: cp shortness of breath, Pertinent negatives: productive cough, diaphoresis, dizziness, fever, vomiting. Severity of symptoms: in the emergency department the symptoms are unchanged despite home interventions. The chest pain is described as sharp. Duration: The patient or guardian reports a single episode, that is still ongoing, and unchanged. Historical: - Allergies: 18:36 Morphine; hb 18:36 Downing; hb - PMHx: 18:36 Sinusitis; hb - PSHx: 18:36 Adenoid excision; Tonsillectomy; hb ROS: 19:05 Constitutional: Negative for body aches, chills, fever, poor PO intake. cp 19:05 Cardiovascular: Positive for chest pain, of the left side of chest, palpitations, cp Negative for edema. 19:05 Respiratory: Positive for shortness of breath, Negative for cough, wheezing. 19:05 Abdomen/GI: Negative for abdominal pain, nausea, vomiting, and diarrhea. cp 19:05 Eyes: Negative for injury, pain, redness, and discharge. cp 19:05 Back: Negative for pain at rest, pain with movement. cp 19:05 Neuro: Negative for altered mental status, headache, numbness, syncope, weakness. 19:05 All other systems are negative. cp Exam: 19:10 Constitutional: The patient appears in no acute distress, alert, awake, non-toxic, well cp developed, well nourished. 19:10 Head/Face: Normocephalic, atraumatic. cp 19:10 Eyes: Periorbital structures: appear normal, Conjunctiva: normal, no exudate, no injection, Sclera: no appreciated abnormality, Lids and lashes: appear normal, bilaterally. 19:10 ENT: External ear(s): are unremarkable, Nose: is normal, Mouth: Lips: moist, Oral mucosa: pink and intact, moist, Posterior pharynx: Airway: no evidence of obstruction, patent, swelling, is not appreciated, erythema, is not appreciated, exudate, is not appreciated. 19:10 Neck: ROM/movement: is normal, is supple, without pain, no range of motions limitations. 19:10 Chest/axilla: Inspection: normal. 19:10 Cardiovascular: Rate: normal, Rhythm: regular, Heart sounds: murmur, not appreciated, Edema: is not appreciated, JVD: is not appreciated. 19:10 Respiratory: the patient does not display signs of respiratory distress, Respirations: normal, no use of accessory muscles, no retractions, labored breathing, is not present, Breath sounds: are clear throughout, decreased breath sounds, are not appreciated, stridor, is not appreciated, wheezing: is not appreciated. 19:10 Abdomen/GI: Inspection: abdomen appears normal, Palpation: abdomen is soft and non-tender, in all quadrants. 19:10 Back: pain, is absent, ROM is normal. 19:10 Skin: no rash present. 19:10 Neuro: Orientation: to person, place \T\ time. Mentation: is normal, Motor: moves all fours, strength is normal, Sensation: is normal. 19:18 ECG was reviewed by the Attending Physician. Vital Signs: 18:34 BP 134 / 91; Pulse 78; Resp 18; Temp 97.8; Pulse Ox 100% on R/A; Pain 3/10; hb 22:56 BP 120 / 82; Pulse 82; Resp 16; Pulse Ox 100% on R/A; ll3 MDM: 18:52 Patient medically screened. cp 19:00 Differential diagnosis: asthma, Bronchitis abnormal EKG, acute pericarditis, anxiety, cp chest wall pain, cholecystitis, Cholelithiasis costochondritis, pleurisy, Myocardial Infarction pneumonia, Pneumothorax. 22:54 Data reviewed: vital signs, nurses notes, lab test result(s), EKG, radiologic studies, cp plain films. 22:54 Test interpretation: by ED physician or midlevel provider: ECG, plain radiologic cp studies. Special discussion: Based on the patient's history, exam, and Dx evaluation, there is no indication for emergent intervention or inpatient Tx. It is understood by the patient/guardian that if the Sx's persist or worsen they need to return immediately for re-evaluation. ED course: VSS. Patient reports symptoms improved after breathing treatment. Reports concern about mold exposure at home. Patient appears non-toxic and no signs of respiratory distress. Will discharge to home and recommend f/u with pcp. 03/15 18:57 Order name: Basic Metabolic Panel; Complete Time: 20:22 cp 03/15 18:57 Order name: CBC with Diff; Complete Time: 20:13 cp 03/15 20:13 Interpretation: Normal except: HCT 35.2; MPV 7.5. cp 03/15 18:57 Order name: D-Dimer; Complete Time: 20:13 cp 03/15 18:57 Order name: LFT's; Complete Time: 20:22 cp 03/15 20:22 Interpretation: Normal except: GLOB 3.7. cp 03/15 18:57 Order name: Magnesium; Complete Time: 20:22 cp 03/15 18:57 Order name: Troponin HS; Complete Time: 20:22 cp 03/15 20:22 Interpretation: Reviewed. cp 03/15 18:57 Order name: XRAY Chest (1 view); Complete Time: 20:13 cp 03/15 18:57 Order name: EKG; Complete Time: 18:58 cp 03/15 18:57 Order name: Cardiac monitoring; Complete Time: 19:32 cp 03/15 18:57 Order name: EKG - Nurse/Tech; Complete Time: 19:32 cp 03/15 19:43 Order name: Urine Dipstick-Ancillary; Complete Time: 20:13 EDMS 03/15 18:57 Order name: IV Saline Lock; Complete Time: 19:32 cp 03/15 18:57 Order name: Labs collected and sent; Complete Time: 19:33 cp 03/15 18:57 Order name: O2 Per Protocol; Complete Time: 20:11 cp 03/15 18:57 Order name: O2 Sat Monitoring; Complete Time: 20:11 cp 03/15 18:57 Order name: Urine Dipstick-Ancillary (obtain specimen); Complete Time: 20:11 cp 03/15 18:57 Order name: Urine Test (obtain specimen); Complete Time: 20:11 cp EC:18 Rate is 61 beats/min. Rhythm is regular. ND interval is normal. QRS interval is normal. cp QT interval is normal. T waves are Inverted in lead aVR. Interpreted by me. Reviewed by me. Administered Medications: 21:00 Drug: Ketorolac 15 mg Route: IVP; Site: right antecubital; 23:30 Follow up: Response: No adverse reaction 3 22:15 Drug: Albuterol 2.5 mg Route: Inhalation; 3 23:30 Follow up: Response: No adverse reaction; Marked relief of symptoms ll3 Disposition Summary: 03/15/22 22:54 Discharge Ordered Location: Home cp Problem: new cp Symptoms: have improved cp Condition: Stable cp Diagnosis - Chest pain, unspecified cp Followup: cp - With: Private Physician - When: 2 - 3 days - Reason: Recheck today's complaints Discharge Instructions: - Discharge Summary Sheet cp - Nonspecific Chest Pain, Adult cp Forms: - Medication Reconciliation Form cp - Thank You Letter cp - Antibiotic Education cp - Prescription Opioid Use cp Prescriptions: - Xopenex HFA 45 mcg/actuation Inhalation HFA aerosol inhaler - inhale 1 puff by INHALATION route every 4 hours; 1 Inhaler; Refills: 0, Product cp Selection Permitted - Medrol (Ulises) 4 mg Oral Tablets, Dose Pack - take 1 tablet by ORAL route as directed - follow package instructions; 1 cp packet; Refills: 0, Product Selection Permitted Addendum: 03/17/2022 15:32 STAFF ATTESTATION STATEMENT: I was immediately available onsite in the emergency s d2 department for consultation in the care of this patient. I did not see or examine this patient. Savita Ward MD. Signatures: Dispatcher [employer] Mary Wyatt RN RN Jose Martin Flores PA PA cp Baxter, Heather, RN RN hb Loubet, Lynsea, RN RN ll3 Savita Ward MD MD sd2
--- NOTE | 2022-03-16 15:55 | EKG ---
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
[2022-03-17 09:29] VITALS: TEMP 97.8; O2SAT 100
[2022-03-17 09:31] VITALS: BP 120/82
== END 2022-03-15 23:31 | disposition home or self-care (01) ==
LOC: ER 18:28
DX: R07.89 Other chest pain (principal); R06.02 Shortness of breath
CPT/HCPCS: 36415; 71045; 80048; 80076; 81003; 83735; 84484; 85025; 85379; 93005; 96374; 99285

== ENCOUNTER 2023-03-18 08:19 | Emergency (ER) | payer OTHER ==
--- OUTSIDE RECORDS SUMMARY | 2023-03-18 08:32 | XMS REPORT | Continuity of Care Document ---
:1990 Author Organization [facility] t Address [address] [place] [place] [address] Care Team Providers Name Role Phone Adelfo Li Primary Care Physician [phone] Adelfo Li Attending Clinician Unavailable JAVI EDGAR Attending Clinician Unavailable BRANDAN DE LA GARZA Attending Clinician Unavailable MARIANELA PANIAGUA Attending Clinician Unavailable MARIANELA PANIAGUA Attending Clinician Unavailable EMMANUELLE COLBERT Attending Clinician Unavailable BALTAZAR ALEXANDRA Attending Clinician Unavailable AJCKY VINES Attending Clinician Unavailable MATT RAJPUT Attending Clinician Unavailable ANUPAMA HURLEY Attending Clinician Unavailable MADALYN FALLON Attending Clinician Unavailable Madalyn Baker Attending Clinician Doctor Unassigned, [place] Attending Clinician Unavailable Matt Ward Attending Clinician [facility] Attending Clinician Unavailable DEL BROWNING Attending Clinician Unavailable Jacky Vines MD Attending Clinician Brandan De La Garza MD Attending Clinician Draw, Clc-Bls Lab Attending Clinician Unavailable Call, Clc Apa Phone Attending Clinician Unavailable UYEN CORBIN Attending Clinician Unavailable SERGIO STEINER Attending Clinician Unavailable LASHELL LANDRY Attending Clinician Unavailable Lashell Landry PA-C Attending Clinician TAO KHAN Attending Clinician Unavailable NARCISO RAMIREZ Attending Clinician Unavailable Angie Clements LVN Attending Clinician Unavailable KENDRICK GATES Attending Clinician Unavailable Jolene Davila RN Attending Clinician Unavailable Adina Philip PT Attending Clinician Unavailable Narciso Ramirez MD Attending Clinician Pob, Adc Lab Main Attending Clinician Unavailable Del Ribeiro MD Attending Clinician DEL RIBEIRO Attending Clinician Unavailable Too Raphael MD Attending Clinician TOO RAPHAEL Attending Clinician Unavailable POP JOHN Attending Clinician Unavailable Avril Avila Attending Clinician Manny Oleary MD Attending Clinician BHAKTI NARAYANAN Attending Clinician Unavailable Bhakti Zuleta Attending Clinician Mirella Barbosa Attending Clinician Unavailable JELENA KING Attending Clinician Unavailable Enid Perez MD Attending Clinician Jelena King MD Attending Clinician JAVI EDGAR Attending Clinician Unavailable Javi Edgar Attending Clinician Only, [facility] Test Attending Clinician Unavailable DEBBIE ARNDT Attending Clinician Unavailable Debbie Arndt MD Attending Clinician Ronda Sandhu MD Attending Clinician CAYDEN SEBASTIAN Attending Clinician Unavailable CAYDEN SEBASTIAN Attending Clinician Unavailable Cayden Sebastian DO Attending Clinician Only, [facility] Test Attending Clinician Unavailable Jenny Jacob Attending Clinician Unavailable Lanny Whitmore RN Attending Clinician Unavailable Uyen Corbin MD Attending Clinician Romaine Lifadi Lopez Attending Clinician LAINE WELLER Attending Clinician Unavailable Rohit Attending Clinician Unavailable BRANDAN DE LA GARZA Admitting Clinician Unavailable MATT RAJPUT Admitting Clinician Unavailable JACKY VINES Admitting Clinician Unavailable Jacky Vines MD Admitting Clinician LASHELL LANDRY Admitting Clinician Unavailable DEL RIBEIRO Admitting Clinician Unavailable Brandan De La Garza MD Admitting Clinician DEBBIE ARNDT Admitting Clinician Unavailable CAYDEN SEBASTIAN Admitting Clinician Unavailable Rohit Admitting Clinician Unavailable Payers Payer Name Policy Type Policy Number Effective Date Expiration Date S delmy [facility] MEDICAID STAR [id number] 2021 00:00:00 [facility] [id number] 2015 [facility] MEDICAID 00:00:00 MEDICAID MC [id number] 2021 Common 00:00:[address] [facility] MEDICAID MC [id number] 2021 Common 00:00:[address] [facility] MEDICAID MC [id number] 2021 Common 00:00:[address] [facility] MEDICAID MC [id number] 2021 Common 00:00:[address] [facility] MEDICAID MC [id number] 2021 Common 00:00:[address] [facility] MEDICAID MC [id number] 2021 Common 00:00:[address] [facility] MEDICAID MC [id number] 2021 Common 00:00:[address] [facility] MEDICAID MC [id number] 2021 Common 00:00:[address] [facility] MEDICAID MC [id number] 2021 Common 00:00:[address] [facility] MEDICAID MC [id number] 2021 Common 00:00:[address] [facility] MEDICAID MC [id number] 2021 Common 00:00:[address] [facility] MEDICAID MC [id number] 2021 Common 00:00:[address] [facility] MEDICAID MC [id number] 2021 Common 00:00: [facility] MEDICAID MC [id number] 2021 Common 00:00:[address] [facility] MEDICAID MC [id number] 2021 Common 00:00: [facility] MEDICAID MC [id number] 2021 Common 00:00:00 [facility] [id number] 2018 CHOICE (MEDICAID 00:00:00 REPLACEMENT - HMO) Problems Condition Condition Condition Status Onset Resolution Last Treating Co mments Source Name Details Category Date Date Treatment Clinician Date Cervicalgi Cervicalgi Disease Active 2021-06 U nivers a a 1-02 ity of 00:00: [place] 00 Medical Branch Urethral Urethral Disease Active 2021-06 Unive rs pain pain 0-26 ity of 00:00: 00 Medical Branch Dysuria Dysuria Disease Active 2021-06 Univers 0-26 ity of 00:00: 00 Medical Branch Concern Concern Disease Active 2021-06 Univers about about 0-26 [place] infectious [place] disease disease 00 Medical without without Branch diagnosis diagnosis Abdominal Abdominal Disease Active 2021-06 Overview: Univers pain, pain, 0-21 Formattin ity of right right 00:00: g of this [place] lower lower 00 note Medical quadrant quadrant might be Bran ch different from the original. Added automatic ally from request for surgery [id number] Abdominal Abdominal Disease Active 2021-06 Overview: Univers pain, pain, 0-21 Formattin ity of right right 00:00: g of this [place] upper upper 00 note Medical quadrant quadrant might be Bran ch different from the original. Added automatic ally from request for surgery [id number] Mold Mold Disease Active Univers exposure exposure 9-12 ity of 00:00: [place] 00 Medical Branch Pelvic Pelvic Disease Active Univers pain pain 9-12 ity of 00:00: 00 Medical Branch Petechiae Petechiae Disease Active Uni vers 9-12 ity of 00:00: 00 Medical Branch Hutchins Hutchins Disease Active Univers hemangioma hemangioma 03-10 it y of 00:00: 00 Medical Branch Pruritus Pruritus Disease Active Unive rs 9-12 ity of 00:00: Medical Branch Need for Need for Disease Active Unive rs vaccinatio vaccinatio 12 it y of n n 00:00: Medical Branch Pityriasis Pityriasis Disease Active U nivers capitis capitis 12 ity of 00:00: Medical Branch POST OP POST OP Diagnosis Active 2022-01-06 Memoria LEFT ANKLE LEFT ANKLE 12-24 13:28:00 l Active 08:00: [place] 12/24/2021 00 SMR [facility] PVNS PVNS Disease Active [place] (pigmented (pigmented 09-27 He alth villonodul villonodul 00:00: ar ar 00 synovitis) synovitis) Acute left Acute left Disease Active U T ankle pain ankle pain 09-27 He alth 00:00: 00 UNK UNK Diagnosis Active 2021-10-02 Mem oria Active 09-27 08:49:00 l 09/27/2021 00:00: [place] [address] [place] ANKLE ANKLE Diagnosis Active 2021-10-03 [facility] oria ARTHROSCOP ARTHROSCOP 09-27 08:42:00 l Y Y 00:00: [place] /DEBRIDEME /DEBRIDEME 00 NT, NT, EXCISION EXCISION Active 09/27/2021 [facility] [place] Anemia of Anemia of Problem Active [place] 6 da 00:00: Medical 00 Group Mild Mild Problem Active [place] hyperemesi Hyperemesi 507 da s-not s-not 00:00: Medical delivered Delivered 00 Grou p Iron Iron Problem Active [place] deficiency Deficiency 5-07 da anemia of Anemia of 00:00: Medi jermaine 00 Grou p Uterine Uterine Problem Active [place] scar from Scar from 4-11 da previous Previous 00:00: Medica l surgery in Surgery in 00 Gr oup , , childbirth Childbirth and the and the puerperium [place] with with problem Problem Chronic Chronic Disease Active Univers sinusitis sinusitis 01-07 ity of 00:00: [place] 00 Medical Branch Anxiety Anxiety Disease Active Univers and and 01-07 it[place] of depression depression [place] ADHD ADHD Disease Active Univers (attention (attention 01-07 it y of deficit deficit 00:00: [place] hyperactiv hyperactiv 00 Me dical ity ity Branch disorder) disorder) PTSD PTSD Disease Active Univers (post-trau (post-trau 01-07 it y of matic matic 00:00: [place] stress stress 00 Medical disorder) disorder) Bran ch Contracept Contracept Disease Active U nivers steve steve 01-03 ity of management management [place] [id number] SANAM Problem Common (generaliz Spirit ed anxiety - CHI disorder) [facility] [id number] Moderate Problem Commo n major Spirit depression - CHI , single [facility] [id number] Dysphagia, Problem Com mon unspecifie Spirit d type - CHI [facility] [id number] GERD Problem Common without Spirit esophagiti - CHI s [facility] [id number] Unable to Problem Comm on concentrat Spirit e - [facility] [id number] Mixed Problem Common hyperlipid Spirit emia - CH[facility] 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 - CH[facility] [id number] Anxiety Problem Common Spirit - [facility] [id number] Allergic Problem Commo n rhinitis, Spirit [facility] y, Medical unspecifie Center d trigger Hiatal Hiatal Problem Active [place] hernia [facility] History of Past Illness Condition Condition Condition Status Onset Resolution Last Treating Co mments Source Name Details Category Date Date Treatment Clinician Date Villonodul Villonodu Problem 2021-10-07 2021-10-07 Memoria ar lar 10-03 09:29:53 09:29:53 l synovitis synovitis 13:03: Herm prosper (pigmented (pigmented 00 ), left ), left ankle and ankle and foot foot 10/03/2021 10/07/2021 [facility] Allergies, Adverse Reactions, Alerts Allergy Allergy Status Severity Reaction(s) Onset Inactive Treating Comm ents Source Name Type Date Date Clinician HYDROCOD DRUG Active Rash 2015-0 Univers ONE-ACET 7-12 ity of AMINOPHE 00:00: [place] N 00 Medical Branch Hydrocod Propensi Active Rash 2015-0 Univer s one-Acet ty to 12 ity of aminophe adverse 00:00: [place] n reaction 00 Medical s Branch NO KNOWN Drug Active Univers ALLERGIE Class ity of S [facility] Morphine Allergy Active Hives [place] to [facility] Medical e Group morphine morphine Active Unknown Commo n Spirit - [facility] Social History Social Habit Start Date Stop Date Quantity Comments Source Sex Assigned At Common Sp betsey - [facility] History of Cigarette Smoker [facility] ty of tobacco use [facility] History [facility] Alcohol Std Drinks History [facility] Alcohol Binge Exposure to 2022-07-22 2022-08-01 Not sure University SARS-CoV-2 00:00:00 11:31:00 [facility] (event) Branch Tobacco use and 2022-05-07 2022-05-07 Smokeless tobacco Un iversity of exposure 00:00:00 00:00:00 non-user [facility] Alcohol Comment 2022-03-26 2022-03-26 Drank when I was [facility] 00:00:00 00:00:00 younger. Don't drink at all now. Tobacco Comment 2022-03-26 2022-03-26 Grew up with many [facility] 00:00:00 00:00:00 smoking family members Alcohol intake 2022-03-26 2022-03-26 Ex-drinker [facility] 00:00:00 00:00:00 (finding) Social History 2021-09-30 2021-09-30 [facility] shima 15:26:12 15:26:12 History SDMN 2021-09-25 2021-09-25 1 [facility] Alcohol Frequency 00:00:00 00:00:00 Smoking Status Start Date Stop Date Source Ex-smoker 2022-05-07 00:00:00 2022-05-07 [facility] 00:00:00 Medical Branch Occasional tobacco 2022-02-05 00:00:00 [facility] [place] smoker Medical Branch Never smoked tobacco [facility] Medications Ordered Filled Start Stop Current Ordering Indication Dosage Frequency Signature Comments Components Source Medication Medication Date Date Medication? Clinician (SIG) Name Name tiZANidine Yes [id number] 2mg Take 1 U nivers 2 mg 2-03 capsule by ity of capsule 00:00: mouth in [place] 00 the Medical morning Branch and 1 capsule at noon and 1 capsule in the evening. tiZANidine Yes [id number] 2mg Take 1 U nivers 2 mg 2-03 capsule by ity of capsule 00:00: mouth in [place] 00 the Medical morning Branch and 1 capsule at noon and 1 capsule in the evening. No known 2021-06 No No known Unive rs medications 2-28 medication it y of 14:02: s [place] 10 [facility] No known 2021-06 No No known Unive rs medications 2-19 medication it y of 16:44: s [address] ONDANSETRON 2021-06 Yes [id number] TAKE ONE Univers 4 mg tablet 2-15 (1) ity of 00:00: TABLET(S) [place] BY MOUTH Medical EVERY Branch EIGHT HOURS NEEDED FOR NAUSEA AND VOMITING OR IF UNRESPONSI VE TO PROMETHAZI NE. ONDANSETRON 2021-06 Yes [id number] TAKE ONE Univers 4 mg tablet 2-15 (1) ity of 00:00: TABLET(S) [place] BY MOUTH Medical EVERY Branch EIGHT HOURS NEEDED FOR NAUSEA AND VOMITING OR IF UNRESPONSI VE TO PROMETHAZI NE. ONDANSETRON 2021-06 Yes [id number] TAKE ONE Univers 4 mg tablet 2-15 (1) ity of 00:00: TABLET(S) [place] BY MOUTH [facility] EVERY Branch EIGHT HOURS NEEDED FOR NAUSEA AND VOMITING OR IF UNRESPONSI VE TO PROMETHAZI NE. ONDANSETRON 2021-06 Yes [id number] TAKE ONE Univers 4 mg tablet 2-15 (1) ity of 00:00: TABLET(S) [place] 00 BY MOUTH Medical EVERY Branch EIGHT HOURS NEEDED FOR NAUSEA AND VOMITING OR IF UNRESPONSI VE TO PROMETHAZI NE. ONDANSETRON 2021-06 Yes [id number] TAKE ONE Univers 4 mg tablet 2-15 (1) ity of 00:00: TABLET(S) [place] BY MOUTH Medical EVERY Branch EIGHT HOURS NEEDED FOR NAUSEA AND VOMITING OR IF UNRESPONSI VE TO PROMETHAZI NE. ONDANSETRON 2021-06 Yes [id number] TAKE ONE Univers 4 mg tablet 2-15 (1) ity of 00:00: TABLET(S) [place] 00 BY MOUTH Medical EVERY Branch EIGHT HOURS NEEDED FOR NAUSEA AND VOMITING OR IF UNRESPONSI VE TO PROMETHAZI NE. ONDANSETRON 2021-06 Yes [id number] TAKE ONE Univers 4 mg tablet 2-15 (1) ity of 00:00: TABLET(S) [place] 00 BY MOUTH Medical EVERY Branch EIGHT HOURS NEEDED FOR NAUSEA AND VOMITING OR IF UNRESPONSI VE TO PROMETHAZI NE. ONDANSETRON 2021-06 Yes [id number] TAKE ONE Univers 4 mg tablet 2-15 (1) ity of 00:00: TABLET(S) [place] 00 BY MOUTH Medical EVERY Branch EIGHT HOURS NEEDED FOR NAUSEA AND VOMITING OR IF UNRESPONSI VE TO PROMETHAZI NE. ONDANSETRON 2021-06 Yes [id number] TAKE ONE Univers 4 mg tablet 2-15 (1) ity of 00:00: TABLET(S) [place] 00 BY MOUTH Medical EVERY Branch EIGHT HOURS NEEDED FOR NAUSEA AND VOMITING OR IF UNRESPONSI VE TO PROMETHAZI NE. ONDANSETRON 2021-06 Yes [id number] TAKE ONE Univers 4 mg tablet 2-15 (1) ity of 00:00: TABLET(S) [place] 00 BY MOUTH Medical EVERY Branch EIGHT HOURS NEEDED FOR NAUSEA AND VOMITING OR IF UNRESPONSI VE TO PROMETHAZI NE. ONDANSETRON 2021-06 Yes [id number] TAKE ONE Univers 4 mg tablet 2-15 (1) ity of 00:00: TABLET(S) [place] 00 BY MOUTH Medical EVERY Branch EIGHT HOURS NEEDED FOR NAUSEA AND VOMITING OR IF UNRESPONSI VE TO PROMETHAZI NE. ONDANSETRON 2021-06 Yes [id number] TAKE ONE Univers 4 mg tablet 2-15 (1) ity of 00:00: TABLET(S) [place] 00 BY MOUTH Medical EVERY Branch EIGHT HOURS NEEDED FOR NAUSEA AND VOMITING OR IF UNRESPONSI VE TO PROMETHAZI NE. ONDANSETRON 2021-06 Yes [id number] TAKE ONE Univers 4 mg tablet 2-15 (1) ity of 00:00: TABLET(S) [place] 00 BY MOUTH Medical EVERY Branch EIGHT HOURS NEEDED FOR NAUSEA AND VOMITING OR IF UNRESPONSI VE TO PROMETHAZI NE. ONDANSETRON 2021-06 Yes [id number] TAKE ONE Univers 4 mg tablet 2-15 (1) ity of 00:00: TABLET(S) [place] 00 BY MOUTH Medical EVERY Branch EIGHT HOURS NEEDED FOR NAUSEA AND VOMITING OR IF UNRESPONSI VE TO PROMETHAZI NE. ONDANSETRON 2021-06 Yes [id number] TAKE ONE Univers 4 mg tablet 2-15 (1) ity of 00:00: TABLET(S) [place] 00 BY MOUTH Medical EVERY Branch EIGHT HOURS NEEDED FOR NAUSEA AND VOMITING OR IF UNRESPONSI VE TO PROMETHAZI NE. ONDANSETRON 2021-06 Yes [id number] TAKE ONE Univers 4 mg tablet 2-15 (1) ity of 00:00: TABLET(S) [place] 00 BY MOUTH Medical EVERY Branch EIGHT HOURS NEEDED FOR NAUSEA AND VOMITING OR IF UNRESPONSI VE TO PROMETHAZI NE. ONDANSETRON 2021-06 Yes [id number] TAKE ONE Univers 4 mg tablet 2-15 (1) ity of 00:00: TABLET(S) [place] 00 BY MOUTH Medical EVERY Branch EIGHT HOURS NEEDED FOR NAUSEA AND VOMITING OR IF UNRESPONSI VE TO PROMETHAZI NE. ONDANSETRON 2021-06 Yes [id number] TAKE ONE Univers 4 mg tablet 2-15 (1) ity of 00:00: TABLET(S) [place] 00 BY MOUTH Medical EVERY Branch EIGHT HOURS NEEDED FOR NAUSEA AND VOMITING OR IF UNRESPONSI VE TO PROMETHAZI NE. ONDANSETRON 2021-06 Yes [id number] TAKE ONE Univers 4 mg tablet 2-15 (1) ity of 00:00: TABLET(S) [place] 00 BY MOUTH Medical EVERY Branch EIGHT HOURS NEEDED FOR NAUSEA AND VOMITING OR IF UNRESPONSI VE TO PROMETHAZI NE. lactated 2021-06 Yes 1000mL at 75 Univer s ringers IV 2-06 mL/hr, ity of infusion 15:30: 1,000 mL, [place] 1,000 [place] 00 IV Medical Infusion, Branch CONTINUOUS , Starting on Thu06/03/22 at 0930, Until Discontinu ed, Routine, PACU HYDROcodone 2021-06- No 1{tbl} 1 tablet, Univers -acetaminop 2-12 08- Oral, ity of hen (NORCO 15:30: 15:36 ONCE, 1 [place] 5) 5-325 mg 00 :00 dose, On Medi jermaine tablet 1 Thu Branch tablet 06/03/22 at 0930, Routine, PACU HYDROcodone 2021-06 1{tbl} 1 tablet, Univers -acetaminop 2-06 12-06 Oral, ity of hen (NORCO 15:30: 15:36 ONCE, 1 [place] 5) 5-325 mg 00 :00 dose, On Medi jermaine tablet 1 Tue Branch tablet 06/03/22 at 0930, Routine, PACU lactated 2021-06 No 1000mL at 75 Unive rs ringers IV 2-06 12-06 mL/hr, ity of infusion 15:30: 19:15 1,000 mL, [place] as 1,000 mL 00 :05 IV Medical Infusion, Branch CONTINUOUS , Starting on Thu06/03/22 at 0930, Until Thu06/03/22 at 1315, Routine, PACU HYDROcodone 2021-06 Yes 1{tbl} 1 tablet, Univers -acetaminop 2-06 Oral, PRN, it y of hen (NORCO) 15:15: 1 dose, [place] 10-325 mg 36 Starting Medica l tablet 1 on Tue Branch tablet 06/03/22 at 0915, Until Discontinu ed, Routine, Pain (scale 7-10), DSU Recovery HYDROcodone 2021-06 Yes 1{tbl} 1 tablet, Univers -acetaminop 2-06 Oral, PRN, it y of hen (NORCO 15:15: 1 dose, [place] 5) 5-325 mg 36 Starting Medi jermaine tablet 1 on e Branch tablet 06/03/22 at 0915, Until Discontinu ed, Routine, Pain (scale 4-6), DSU Recovery ibuprofen 2021-06 Yes 800mg 800 mg, Univ ers (IBU) 2-06 Oral, PRN, ity of tablet 800 15:15: 1 dose, [place] mg 36 Starting Medical on Tue Branch 06/03/22 at 0915, Until Discontinu ed, Routine, Pain (scale 1-3), DSU Recovery HYDROcodone 2021-06 1{tbl} 1 tablet, Univers -acetaminop 2-06 12-06 Oral, PRN, i ty of hen (NORCO) 15:15: 19:15 1 dose, [place] 10-325 mg 36 :05 Starting Medica [facility]22 at 0915, Until Thu06/03/22 at 1315, Routine, Pain (scale 7-10), DSU Recovery HYDROcodone 2021-06 1{tbl} 1 tablet, Univers -acetaminop 2 12-06 Oral, PRN, i ty of hen (NORCO 15:15: 19:15 1 dose, [place] 5) 5-325 mg 36 :05 Starting Medi jermaine tablet [address] [facility] tablet 06/03/22 at 0915, Until Thu06/03/22 at 1315, Routine, Pain (scale 4-6), DSU Recovery ibuprofen 2021-06 No 800mg 800 mg, Uni vers (IBU) 08-04 Oral, PRN, ity of tablet 800 15:15: 19:15 1 dose, [place] mg 36 :05 Starting Medical on Thu Branch 06/03/22 at 0915, Until Thu06/03/22 at 1315, Routine, Pain (scale 1-3), DSU Recovery morpHINE (4 2021-06 Yes 4mg 4 mg, Slow Univers mg/mL) 2 IV Push, ity of injection 4 15:15: Q5MIN PRN, [place] mg 33 2 doses, Medical Starting Branch on Thu06/03/22 at 0915, Until Discontinu ed, Routine, Pain (scale 7-10), PACU FENTanyl PF 2021-06 Yes 25ug 25 mcg, Uni vers (SUBLIMAZE 2- Slow IV ity of (PF)) 15:15: Push, [place] injection 33 Q5MIN PRN, Medi jermaine 25 mcg 4 doses, Branch Starting on Thu06/03/22 at 0915, Until Discontinu ed, Routine, Pain (scale 4-6), PACU ondansetron 2021-06 No 4mg 4 mg, Slow Univers (ZOFRAN 08-04 12-06 IV Push, ity of (PF)) 15:15: 15:36 PRN, 1 [place] injection 4 33 :00 dose, Medical mg Starting Branch on Thu06/03/22 at 0915, Until Thu06/03/22 at 0936, Routine, Nausea and Vomiting (N/V), PACU morpHINE (4 2021-06- No 4mg 4 mg, Slow Univers mg/mL) 08-04 IV Push, ity of injection 4 15:15: 19:15 Q5MIN PRN, [place] mg 33 :05 2 doses, Medical Starting Branch on Thu06/03/22 at 0915, Until Thu06/03/22 at 1315, Routine, Pain (scale 7-10), PACU FENTanyl PF 2021-06 No 25ug 25 mcg, Un da[place] (SUBLIMAZE 08-04 Slow IV ity o f (PF)) 15:15: 19:15 Push, [place] injection 33 :05 Q5MIN PRN, Medi jermaine 25 mcg 4 doses, Branch Starting on Thu06/03/22 at 0915, Until Thu06/03/22 at 1315, Routine, Pain (scale 4-6), PACU ondansetron 2021-06 No 4mg 4 mg, Slow Univers (ZOFRAN 08-04 IV Push, ity of (PF)) 15:15: 15:36 PRN, 1 [place] injection 4 33 :00 dose, Medical mg Starting Branch on Thu06/03/22 at 0915, Until Thu06/03/22 at 0936, Routine, Nausea and Vomiting (N/V), PACU bupivacaine 2021-06 No PRN, Unive rs (preserv 08-04 Starting ity of free) 14:10: 15:13 on Thu [place] (SENSORCAIN 00 :20 06/03/22 at [place] dicct E MPF) 0.25 0810, Branch % (2.5 Until Tue mg/mL) 06/03/22 at injection 0913, Routine, Intra-op gabapentin 2021-06 No 300mg 300 mg, Un [place] (NEURONTIN) 08-04 Oral, ity of capsule 300 12:00: 12:19 ONCE, 1 [place] mg 00 :00 dose, On Medical Tue Branch 06/03/22 at 0600, Routine, DSU Pre-op celecoxib 2021-06- No 400mg 400 mg, Uni vers (CELEBREX) 08-04 Oral, ity of capsule 400 12:00: 12:19 ONCE, 1 [place] mg 00 :00 dose, On Medical Tue Branch 06/03/22 at 0600, Routine, DSU Pre-op acetaminoph 2021-06- No 1000mg 1,000 mg, Univers en 08-04 Oral, ity of (TYLENOL) 12:00: 12:19 ONCE, 1 [place] tablet 00 :00 dose, On Medical 1,000 mg e Branch 06/03/22 at 0600, Routine, DSU Pre-op gabapentin 2021-06- No 300mg 300 mg, Un [place] (NEURONTIN) 08-04 Oral, ity of capsule 300 12:00: 12:19 ONCE, 1 [place] mg 00 :00 dose, On Medical [facility] 06/03/22 at 0600, Routine, DSU Pre-op celecoxib 2021-06- No 400mg 400 mg, Uni vers (CELEBREX) 08-04 Oral, ity of capsule 400 12:00: 12:19 ONCE, 1 [place] mg 00 :00 dose, On Medical [facility] 06/03/22 at 0600, Routine, DSU Pre-op acetaminoph 2021-06- No 1000mg 1,000 mg, Univers en 08-04 Oral, ity of (TYLENOL) 12:00: 12:19 ONCE, 1 [place] tablet 00 :00 dose, On Medical 1,000 mg [facility] 06/03/22 at 0600, Routine, DSU Pre-op No known 2021-06 No No known Unive rs medications 2-06 medication it y of 07:05: [address] No known 2021-06 No No known Unive rs medications 2-06 medication it y of 07:05: [address] No known 2021-06 No No known Unive rs medications 2-06 medication it y of 07:05: [address] No known 2021-06 No No known Unive rs medications 2-06 medication it y of 07:05: [address] Magnesium 2021-06 Yes 330mg Take 330 Uni vers 250 mg Tab 2-02 mg by ity of 11:35: mouth. [address] Magnesium 2021-06 Yes 330mg Take 330 Uni vers 250 mg Tab 2-02 mg by ity of 11:35: mouth. [place] [address] Medical Branch Magnesium 2021-06 Yes 330mg Take 330 Uni vers 250 mg Tab 2-02 mg by ity of 11:35: mouth. [place] [address] Medical [place] Magnesium 2021-06 Yes 330mg Take 330 Uni vers 250 mg Tab 2-02 mg by ity of 11:35: mouth. [address] Branch chlorhexidi 2021-06 Yes [id number] Apply to Univers ne 4 % 2-02 area(s) ity of external 00:00: once daily [place] liquid 00 as needed Medical for Wound Branch care. ondansetron 2021-06 Yes [id number] 4mg Take 1 Univers (ZOFRAN) 4 2-02 tablet by ity of mg tablet 00:00: mouth [place] 00 every 8 Medical (eight) Branch hours as needed for Nausea and Vomiting (N/V) or N/V unresponsi ve to [facility]. docusate 2021-06 Yes [id number] 100mg Take 1 U nivers (COLACE) 2-02 capsule by ity o f 100 mg 00:00: mouth in [place] capsule 00 the Medical morning Branch and 1 capsule in the evening. chlorhexidi 2021-06 Yes [id number] Apply to [facility] ne 4 % 2-02 area(s) ity of external 00:00: once daily [place] as liquid 00 as needed Medical for Wound Branch care. ondansetron 2021-06 Yes [id number] 4mg Take 1 [facility] (ZOFRAN) 4 2-02 tablet by ity of mg tablet 00:00: mouth [place] 00 every 8 Medical (eight) Branch hours as needed for Nausea and Vomiting (N/V) or N/V unresponsi ve to [facility]. docusate 2021-06 Yes [id number] 100mg Take 1 [facility] (COLACE) 2-02 capsule by ity o f 100 mg 00:00: mouth in [place] capsule 00 the Medical morning Branch and 1 capsule in the evening. chlorhexidi 2021-06 Yes [id number] Apply to [facility] ne 4 % 2-02 area(s) ity of external 00:00: once daily [place] liquid 00 as needed Medical for Wound Branch care. ondansetron 2021-06 Yes [id number] 4mg Take 1 [facility] (ZOFRAN) 4 2-02 tablet by ity of mg tablet 00:00: mouth [place] 00 every 8 Medical (eight) Branch hours as needed for Nausea and Vomiting (N/V) or N/V unresponsi ve to [facility]. docusate 2021-06 Yes [id number] 100mg Take 1 [facility] (COLACE) 2-02 capsule by ity o f 100 mg 00:00: mouth in [place] capsule 00 the Medical morning Branch and 1 capsule in the evening. chlorhexidi 2021-06 Yes [id number] Apply to [facility] 4 % 2-02 area(s) ity of external 00:00: once daily [place] liquid 00 as needed Medical for Wound Branch care. ondansetron 2021-06 Yes [id number] 4mg Take 1 [facility] (ZOFRAN) 4 2-02 tablet by ity of mg tablet 00:00: mouth [place] 00 every 8 Medical (eight) Branch hours as needed for Nausea and Vomiting (N/V) or N/V unresponsi ve to [facility]. docusate 2021-06 Yes [id number] 100mg Take 1 [facility] (COLACE) 2-02 capsule by ity o f 100 mg 00:00: mouth in [place] capsule 00 the Medical morning Branch and 1 capsule in the evening. traMADoL 50 2021-06- No [id number] 50mg Take 1 [facility] vers mg tablet 2- 12-10 tablet by ity of 00:00: 05:59 mouth [place] 00 :00 every 6 Medical (six) Branch hours as needed for Pain (scale 4-6) for up to 7 days. Indication s: acute pain acetaminoph 2021-06- No 4647 1{tbl} Take 1 [facility] en-codeine 2- 12-10 tablet by ity of (TYLENOL-CO 00:00: 05:59 [place] DEINE #3) 00 :00 every 4 Medical 300-30 mg (four) Branch tablet hours as needed for Pain (scale 7-10) for up to 7 days. Indication s: acute pain traMADoL 50 2021-06- No 4647 50mg Take 1 [facility] vers mg tablet 2- 12-10 tablet by ity of 00:00: 05:59 mouth [place] 00 :00 every 6 Medical (six) Branch hours as needed for Pain (scale 4-6) for up to 7 days. Indication s: acute pain acetaminoph 2021-06 No 4647 1{tbl} Take 1 [facility] en-codeine 2-02 12-10 tablet by ity of (TYLENOL-CO 00:00: 05:59 [place] DE[place] #3) 00 :00 every 4 Medical 300-30 mg (four) Branch tablet hours as needed for Pain (scale 7-10) for up to 7 days. Indication s: acute pain traMADoL 50 2021-06 No 4647 50mg Take 1 [facility] vers mg tablet 2- 12-10 tablet by ity of 00:00: 05:59 mouth [place] 00 :00 every 6 Medical (six) Branch hours as needed for Pain (scale 4-6) for up to 7 days. Indication s: acute pain acetaminoph 2021-06 No 4647 1{tbl} Take 1 [facility] en-codeine 2-02 12-10 tablet by ity of (TYLENOL-CO 00:00: 05:59 [place] DEINE #3) 00 :00 every 4 Medical 300-30 mg (four) Branch tablet hours as needed for Pain (scale 7-10) for up to 7 days. Indication s: acute pain traMADoL 50 2021-06 No 4647 50mg Take 1 [facility] vers mg tablet 2- 12-10 tablet by ity of 00:00: 05:59 mouth [place] 00 :00 every 6 Medical (six) Branch hours as needed for Pain (scale 4-6) for up to 7 days. Indication s: acute pain acetaminoph 2021-06 No 4647 1{tbl} Take 1 [facility] en-codeine 2-02 12-10 tablet by ity of (TYLENOL-CO 00:00: 05:59 mouth [place] DEINE #3) 00 :00 every 4 Medical 300-30 mg (four) Branch tablet hours as needed for Pain (scale 7-10) for up to 7 days. Indication s: acute pain ketoconazol 2021-06 Yes [id number] Apply to [facility] e 2 % 06-30 area(s) ity of shampoo 00:00: once daily [place] 00 as needed Medical for Branch Itching. ketoconazol 2021-06 Yes [id number] Apply to [facility] e 2 % 1-02 area(s) ity of shampoo 00:00: once daily [place] 00 as needed Medical for Branch Itching. ketoconazol 2021-06 Yes [id number] Apply to [facility] e 2 % 1-02 area(s) ity of shampoo 00:00: once daily [place] 00 as needed Medical for Branch Itching. ketoconazol 2021-06 Yes [id number] Apply to [facility] e 2 % 1-02 area(s) ity of shampoo 00:00: once daily [place] 00 as needed Medical for Branch Itching. ketoconazol 2021-06 Yes [id number] Apply to [facility] e 2 % 1-02 area(s) ity of shampoo 00:00: once daily [place] 00 as needed Medical for Branch Itching. ketoconazol 2021-06 Yes [id number] Apply to [facility] e 2 % 1-02 area(s) ity of shampoo 00:00: once daily [place] 00 as needed Medical for Branch Itching. ketoconazol 2021-06 Yes [id number] Apply to [facility] e 2 % 1-02 area(s) ity of shampoo 00:00: once daily [place] 00 as needed Medical for Branch Itching. ketoconazol 2021-06 Yes [id number] Apply to [facility] e 2 % 1-02 area(s) ity of shampoo 00:00: once daily [place] 00 as needed Medical for Branch Itching. ketoconazol 2021-06 Yes [id number] Apply to [facility] e 2 % 1-02 area(s) ity of shampoo 00:00: once daily [place] 00 as needed Medical for Branch Itching. ketoconazol 2021-06 Yes [id number] Apply to [facility] e 2 % 1-02 area(s) ity of shampoo 00:00: once daily [place] 00 as needed Medical for Branch Itching. ketoconazol 2021-06 Yes [id number] Apply to [facility] e 2 % 1-02 area(s) ity of shampoo 00:00: once daily [place] 00 as needed Medical for Branch Itching. ketoconazol 2021-06 Yes [id number] Apply to [facility] e 2 % 1-02 area(s) ity of shampoo 00:00: once daily [place] 00 as needed Medical for Branch Itching. ketoconazol 2021-06 Yes [id number] Apply to [facility] e 2 % 1-02 area(s) ity of shampoo 00:00: once daily [place] 00 as needed Medical for Branch Itching. ketoconazol 2021-06 Yes [id number] Apply to [facility] e 2 % 1-02 area(s) ity of shampoo 00:00: once daily [place] 00 as needed Medical for Branch Itching. ketoconazol 2021-06 Yes [id number] Apply to [facility] e 2 % 1-02 area(s) ity of shampoo 00:00: once daily [place] 00 as needed Medical for Branch Itching. ketoconazol 2021-06 Yes [id number] Apply to [facility] e 2 % 1-02 area(s) ity of shampoo 00:00: once daily [place] 00 as needed Medical for Branch Itching. ketoconazol 2021-06 Yes [id number] Apply to [facility] e 2 % 1-02 area(s) ity of shampoo 00:00: once daily [place] 00 as needed Medical for Branch Itching. ketoconazol 2021-06 Yes [id number] Apply to [facility] e 2 % 1-02 area(s) ity of shampoo 00:00: once daily [place] 00 as needed Medical for Branch Itching. ketoconazol 2021-06 Yes [id number] Apply to [facility] e 2 % 1-02 area(s) ity of shampoo 00:00: once daily [place] 00 as needed Medical for Branch Itching. ketoconazol 2021-06 Yes [id number] Apply to [facility] e 2 % 1-02 area(s) ity of shampoo 00:00: once daily [place] 00 as needed Medical for Branch Itching. ketoconazol 2021-06 Yes [id number] Apply to [facility] e 2 % 1-02 area(s) ity of shampoo 00:00: once daily [place] 00 as needed Medical for Branch Itching. ketoconazol 2021-06 Yes [id number] Apply to [facility] e 2 % -02 area(s) ity of shampoo 00:00: once daily [place] 00 as needed Medical for Branch Itching. ketoconazol 2021-06 Yes [id number] Apply to [facility] e 2 % 02 area(s) ity of shampoo 00:00: once daily [place] 00 as needed Medical for Branch Itching. ketoconazol 2021-06- No [id number] Apply to [facility] e 2 % -02 - area(s) ity of shampoo 00:00: 00:00 once daily [place] 00 :00 as needed Medical for Branch Itching. buPROPion 0 Yes 75mg 75 mg. Univer s 75 mg 9-27 ity of tablet 00:00: [place] [facility] buPROPion 0 Yes 75mg 75 mg. Univer s 75 mg 9-27 ity of tablet 00:00: [place] [facility] buPROPion 2021-0 Yes 75mg 75 mg. Univer s 75 mg 9-27 ity of tablet 00:00: [place] 00 Medical Branch buPROPion 2021-0 Yes 75mg 75 mg. Univer s 75 mg 9-27 ity of tablet 00:00: [place] 00 Medical Branch buPROPion 2021-0 Yes 75mg 75 mg. Univer s 75 mg 9-27 ity of tablet 00:00: [place] 00 Medical Branch buPROPion 2021-0 Yes 75mg 75 mg. Univer s 75 mg 9-27 ity of tablet 00:00: [place] 00 Medical Branch buPROPion 2021-0 Yes 75mg 75 mg. Univer s 75 mg 9-27 ity of tablet 00:00: [place] 00 Medical Branch buPROPion 2021-0 Yes 75mg 75 mg. Univer s 75 mg 9-27 ity of tablet 00:00: [place] 00 Medical Branch buPROPion 2021-0 2021- No 75mg 75 mg. Unive rs 75 mg 9-27 06-03 ity of tablet 00:00: 00:00 [place] 00 :00 Medical Branch triamcinolo 2021-0 Yes [id number] Apply to [facility] ne 9-12 area(s) 2 ity of acetonide 00:00: (two) [place] 0.1 % cream 00 times Medical daily. Branch triamcinolo 2022-0 Yes [id number] Apply to [facility] ne 9-12 area(s) 2 ity of acetonide 00:00: (two) [place] 0.1 % cream 00 times Medical daily. Branch triamcinolo 2022-0 Yes [id number] Apply to [facility] ne 9-12 area(s) 2 ity of acetonide 00:00: (two) [place] 0.1 % cream 00 times Medical daily. Branch triamcinolo 2022-0 Yes [id number] Apply to [facility] ne 9-12 area(s) 2 ity of acetonide 00:00: (two) [place] 0.1 % cream 00 times Medical daily. Branch triamcinolo 2022-0 Yes [id number] Apply to [facility] ne 9-12 area(s) 2 ity of acetonide 00:00: (two) [place] 0.1 % cream 00 times Medical daily. Branch triamcinolo 2022-0 Yes [id number] Apply to [facility] ne 9-12 area(s) 2 ity of acetonide 00:00: (two) [place] 0.1 % cream 00 times Medical daily. Branch triamcinolo 2022-0 Yes [id number] Apply to [facility] ne 9-12 area(s) 2 ity of acetonide 00:00: (two) [place] 0.1 % cream 00 times Medical daily. Branch triamcinolo 2022-0 Yes [id number] Apply to [facility] ne 9-12 area(s) 2 ity of acetonide 00:00: (two) [place] 0.1 % cream 00 times Medical daily. Branch triamcinolo 2022-0 Yes [id number] Apply to [facility] ne 9-12 area(s) 2 ity of acetonide 00:00: (two) [place] 0.1 % cream 00 times Medical daily. Branch triamcinolo 2022-0 Yes [id number] Apply to [facility] ne 9-12 area(s) 2 ity of acetonide 00:00: (two) [place] 0.1 % cream 00 times Medical daily. Branch triamcinolo 2022-0 Yes [id number] Apply to [facility] ne 9-12 area(s) 2 ity of acetonide 00:00: (two) [place] 0.1 % cream 00 times Medical daily. Branch triamcinolo 2022-0 Yes [id number] Apply to [facility] ne 9-12 area(s) 2 ity of acetonide 00:00: (two) [place] 0.1 % cream 00 times Medical daily. Branch triamcinolo 2022-0 Yes [id number] Apply to [facility] ne 9-12 area(s) 2 ity of acetonide 00:00: (two) [place] 0.1 % cream 00 times Medical daily. Branch triamcinolo 2022-0 Yes [id number] Apply to [facility] ne 9-12 area(s) 2 ity of acetonide 00:00: (two) [place] 0.1 % cream 00 times Medical daily. Branch triamcinolo 2022-0 Yes [id number] Apply to [facility] ne 9-12 area(s) 2 ity of acetonide 00:00: (two) [place] 0.1 % cream 00 times Medical daily. Branch triamcinolo 2022-0 Yes [id number] Apply to [facility] ne 9-12 area(s) 2 ity of acetonide 00:00: (two) [place] 0.1 % cream 00 times Medical daily. Branch triamcinolo 2022-0 Yes [id number] Apply to [facility] ne 9-12 area(s) 2 ity of acetonide 00:00: (two) [place] 0.1 % cream 00 times Medical daily. Branch triamcinolo 2022-0 Yes [id number] Apply to [facility] ne 9-12 area(s) 2 ity of acetonide 00:00: (two) [place] 0.1 % cream 00 times Medical daily. Branch triamcinolo 2022-0 Yes [id number] Apply to [facility] ne 9-12 area(s) 2 ity of acetonide 00:00: (two) [place] 0.1 % cream 00 times Medical daily. Branch triamcinolo 2022-0 Yes [id number] Apply to [facility] ne 9-12 area(s) 2 ity of acetonide 00:00: (two) [place] 0.1 % cream 00 times Medical daily. Branch triamcinolo 2022-0 Yes [id number] Apply to [facility] ne 9-12 area(s) 2 ity of acetonide 00:00: (two) [place] 0.1 % cream 00 times Medical daily. Branch triamcinolo 2022-0 Yes [id number] Apply to [facility] ne 9-12 area(s) 2 ity of acetonide 00:00: (two) [place] 0.1 % cream 00 times Medical daily. Branch triamcinolo 2022-0 Yes [id number] Apply to [facility] ne 9-12 area(s) 2 ity of acetonide 00:00: (two) [place] 0.1 % cream 00 times Medical daily. Branch triamcinolo 2022-0 Yes [id number] Apply to [facility] ne 9-12 area(s) 2 ity of acetonide 00:00: (two) [place] 0.1 % cream 00 times Medical daily. Branch triamcinolo 2022-0 Yes [id number] Apply to [facility] ne 9-12 area(s) 2 ity of acetonide 00:00: (two) [place] 0.1 % cream 00 times Medical daily. Branch triamcinolo 2022-0 Yes [id number] Apply to [facility] ne 9-12 area(s) 2 ity of acetonide 00:00: (two) [place] 0.1 % cream 00 times Medical daily. Branch triamcinolo 2022-0 Yes [id number] Apply to [facility] ne 9-12 area(s) 2 ity of acetonide 00:00: (two) [place] 0.1 % cream 00 times Medical daily. Branch triamcinolo 2022-0 Yes [id number] Apply to [facility] ne 9-12 area(s) 2 ity of acetonide 00:00: (two) [place] 0.1 % cream 00 times Medical daily. Branch triamcinolo 2022-0 Yes [id number] Apply to [facility] ne 9-12 area(s) 2 ity of acetonide 00:00: (two) [place] 0.1 % cream 00 times Medical daily. Branch triamcinolo 2022-0 Yes [id number] Apply to [facility] ne 9-12 area(s) 2 ity of acetonide 00:00: (two) [place] 0.1 % cream 00 times Medical daily. Branch triamcinolo 2022-0 Yes [id number] Apply to [facility] ne 9-12 area(s) 2 ity of acetonide 00:00: (two) [place] 0.1 % cream 00 times Medical daily. Branch triamcinolo 2022-0 Yes [id number] Apply to [facility] ne 9-12 area(s) 2 ity of acetonide 00:00: (two) [place] 0.1 % cream 00 times Medical daily. Branch triamcinolo 2022-0 Yes [id number] Apply to [facility] ne 9-12 area(s) 2 ity of acetonide 00:00: (two) [place] 0.1 % cream 00 times Medical daily. Branch triamcinolo 2022-0 Yes [id number] Apply to [facility] ne 9-12 area(s) 2 ity of acetonide 00:00: (two) [place] 0.1 % cream 00 times Medical daily. Branch triamcinolo 2022-0 Yes [id number] Apply to [facility] ne 9-12 area(s) 2 ity of acetonide 00:00: (two) [place] 0.1 % cream 00 times Medical daily. Branch triamcinolo 2022-0 Yes [id number] Apply to [facility] ne 9-12 area(s) 2 ity of acetonide 00:00: (two) [place] 0.1 % cream 00 times Medical daily. Branch triamcinolo 2022-0 Yes [id number] Apply to [facility] ne 9-12 area(s) 2 ity of acetonide 00:00: (two) [place] 0.1 % cream 00 times Medical daily. Branch triamcinolo 2022-0 Yes [id number] Apply to [facility] ne 9-12 area(s) 2 ity of acetonide 00:00: (two) [place] 0.1 % cream 00 times Medical daily. Branch triamcinolo 2022-0 Yes [id number] Apply to [facility] ne 9-12 area(s) 2 ity of acetonide 00:00: (two) [place] 0.1 % cream 00 times Medical daily. Branch triamcinolo 2022-0 Yes [id number] Apply to [facility] ne 9-12 area(s) 2 ity of acetonide 00:00: (two) [place] 0.1 % cream 00 times Medical daily. Branch triamcinolo 2022-0 Yes [id number] Apply to [facility] ne 9-12 area(s) 2 ity of acetonide 00:00: (two) [place] 0.1 % cream 00 times Medical daily. Branch triamcinolo 2022-0 Yes [id number] Apply to [facility] ne 9-12 area(s) 2 ity of acetonide 00:00: (two) [place] 0.1 % cream 00 times Medical daily. Branch triamcinolo 2022-0 Yes [id number] Apply to [facility] ne 9-12 area(s) 2 ity of acetonide 00:00: (two) [place] 0.1 % cream 00 times Medical daily. Branch triamcinolo 2022-0 Yes [id number] Apply to [facility] ne 9-12 area(s) 2 ity of acetonide 00:00: (two) [place] 0.1 % cream 00 times Medical daily. Branch triamcinolo 2022-0 Yes [id number] Apply to [facility] ne 9-12 area(s) 2 ity of acetonide 00:00: (two) [place] 0.1 % cream 00 times Medical daily. Branch triamcinolo 2022-0 Yes [id number] Apply to [facility] ne 9-12 area(s) 2 ity of acetonide 00:00: (two) [place] 0.1 % cream 00 times Medical daily. Branch triamcinolo 2022-0 Yes [id number] Apply to [facility] ne 9-12 area(s) 2 ity of acetonide 00:00: (two) [place] 0.1 % cream 00 times Medical daily. Branch triamcinolo 2022-0 Yes [id number] Apply to [facility] ne 9-12 area(s) 2 ity of acetonide 00:00: (two) [place] 0.1 % cream 00 times Medical daily. Branch triamcinolo 2022-0 Yes [id number] Apply to [facility] ne 9-12 area(s) 2 ity of acetonide 00:00: (two) [place] 0.1 % cream 00 times Medical daily. Branch triamcinolo 2022-0 Yes [id number] Apply to [facility] ne 9-12 area(s) 2 ity of acetonide 00:00: (two) [place] 0.1 % cream 00 times Medical daily. Branch triamcinolo 2022-0 Yes [id number] Apply to [facility] ne 9-12 area(s) 2 ity of acetonide 00:00: (two) [place] 0.1 % cream 00 times Medical daily. Branch triamcinolo 2022-0 Yes [id number] Apply to [facility] ne 9-12 area(s) 2 ity of acetonide 00:00: (two) [place] 0.1 % cream 00 times Medical daily. Branch triamcinolo 2022-0 Yes [id number] Apply to [facility] ne 9-12 area(s) 2 ity of acetonide 00:00: (two) [place] 0.1 % cream 00 times Medical daily. Branch triamcinolo 2022-0 Yes [id number] Apply to [facility] ne 9-12 area(s) 2 ity of acetonide 00:00: (two) [place] 0.1 % cream 00 times Medical daily. Branch triamcinolo 2022-0 Yes [id number] Apply to [facility] ne 9-12 area(s) 2 ity of acetonide 00:00: (two) [place] 0.1 % cream 00 times Medical daily. Branch triamcinolo 2022-0 Yes [id number] Apply to [facility] ne 9-12 area(s) 2 ity of acetonide 00:00: (two) [place] 0.1 % cream 00 times Medical daily. Branch triamcinolo 2022-0 Yes [id number] Apply to [facility] ne 9-12 area(s) 2 ity of acetonide 00:00: (two) [place] 0.1 % cream 00 times Medical daily. Branch triamcinolo 2022-0 Yes [id number] Apply to [facility] ne 9-12 area(s) 2 ity of acetonide 00:00: (two) [place] 0.1 % cream 00 times Medical daily. Branch triamcinolo 2022-0 Yes [id number] Apply to [facility] ne 9-12 area(s) 2 ity of acetonide 00:00: (two) [place] 0.1 % cream 00 times Medical daily. Branch triamcinolo 2022-0 Yes [id number] Apply to [facility] ne 9-12 area(s) 2 ity of acetonide 00:00: (two) [place] 0.1 % cream 00 times Medical daily. Branch triamcinolo 2022-0 Yes [id number] Apply to [facility] ne 9-12 area(s) 2 ity of acetonide 00:00: (two) [place] 0.1 % cream 00 times Medical daily. Branch triamcinolo 2022-0 Yes [id number] Apply to [facility] ne 9-12 area(s) 2 ity of acetonide 00:00: (two) [place] 0.1 % cream 00 times Medical daily. Branch triamcinolo 2-0 Yes [id number] Apply to [facility] ne 9-12 area(s) 2 ity of acetonide 00:00: (two) [place] 0.1 % cream 00 times Medical daily. Branch triamcinolo 2022-0 Yes [id number] Apply to [facility] ne 9-12 area(s) 2 ity of acetonide 00:00: (two) [place] 0.1 % cream 00 times Medical daily. Branch triamcinolo 2022-0 Yes [id number] Apply to [facility] ne 9-12 area(s) 2 ity of acetonide 00:00: (two) [place] 0.1 % cream 00 times Medical daily. Branch triamcinolo 2-0 Yes [id number] Apply to [facility] ne 9-12 area(s) 2 ity of acetonide 00:00: (two) [place] 0.1 % cream 00 times Medical daily. Branch triamcinolo 2-0 Yes [id number] Apply to [facility] ne 9-12 area(s) 2 ity of acetonide 00:00: (two) [place] 0.1 % cream 00 times Medical daily. Branch triamcinolo 2021-0 Yes [id number] Apply to [facility] ne 9-12 area(s) 2 ity of acetonide 00:00: (two) [place] 0.1 % cream 00 times Medical daily. Branch triamcinolo 2021-0 2022- No [id number] Apply to [facility] ne 9-12 12-06 area(s) 2 ity of acetonide 00:00: 00:00 (two) [place] 0.1 % cream 00 :00 times Medical daily. Branch triamcinolo 2022-0 2022- No [id number] Apply to [facility] ne 9-12 12-06 area(s) 2 ity of acetonide 00:00: 00:00 (two) [place] 0.1 % cream 00 :00 times Medical daily. Branch triamcinolo 2022-0 2022- No [id number] Apply to [facility] ne 9-12 12-06 area(s) 2 ity of acetonide 00:00: 00:00 (two) [place] 0.1 % cream 00 :00 times Medical daily. Branch ketoconazol 2-0 Yes [id number] Apply to [facility] e 2 % 8-12 area(s) ity of shampoo 00:00: once daily [place] 00 as needed [facility] for Branch Itching. ketoconazol 2021-0 Yes [id number] Apply to [facility] e 2 % 8-12 area(s) ity of shampoo 00:00: once daily [place] 00 as needed [facility] for Branch Itching. ketoconazol 2021-0 Yes [id number] Apply to [facility] e 2 % 8-12 area(s) ity of shampoo 00:00: once daily [place] 00 as needed Medical for Branch Itching. ketoconazol 2021-0 Yes [id number] Apply to [facility] e 2 % 8-12 area(s) ity of shampoo 00:00: once daily [place] 00 as needed Medical for Branch Itching. ketoconazol 2021-0 Yes [id number] Apply to [facility] e 2 % 8-12 area(s) ity of shampoo 00:00: once daily [place] 00 as needed Medical for Branch Itching. ketoconazol 2021-0 Yes [id number] Apply to [facility] e 2 % 8-12 area(s) ity of shampoo 00:00: once daily [place] 00 as needed Medical for Branch Itching. ketoconazol 2021-0 Yes [id number] Apply to [facility] e 2 % 8-12 area(s) ity of shampoo 00:00: once daily [place] 00 as needed Medical for Branch Itching. ketoconazol 2021-0 Yes [id number] Apply to [facility] e 2 % 8-12 area(s) ity of shampoo 00:00: once daily [place] 00 as needed Medical for Branch Itching. ketoconazol 2021-0 Yes [id number] Apply to [facility] e 2 % 8-12 area(s) ity of shampoo 00:00: once daily [place] 00 as needed Medical for Branch Itching. ketoconazol 202-0 Yes [id number] Apply to [facility] e 2 % 8-12 area(s) ity of shampoo 00:00: once daily [place] 00 as needed Medical for Branch Itching. ketoconazol 2022-0 Yes [id number] Apply to [facility] e 2 % 8-12 area(s) ity of shampoo 00:00: once daily [place] 00 as needed Medical for Branch Itching. ketoconazol 2021-0 Yes [id number] Apply to [facility] e 2 % 8-12 area(s) ity of shampoo 00:00: once daily [place] 00 as needed Medical for Branch Itching. ketoconazol 2021-0 Yes [id number] Apply to [facility] e 2 % 8-12 area(s) ity of shampoo 00:00: once daily [place] 00 as needed Medical for Branch Itching. ketoconazol 2021-0 Yes [id number] Apply to [facility] e 2 % 8-12 area(s) ity of shampoo 00:00: once daily [place] 00 as needed Medical for Branch Itching. ketoconazol 2021-0 Yes [id number] Apply to [facility] e 2 % 8-12 area(s) ity of shampoo 00:00: once daily [place] 00 as needed Medical for Branch Itching. ketoconazol 2021-0 Yes [id number] Apply to [facility] e 2 % 8-12 area(s) ity of shampoo 00:00: once daily [place] 00 as needed Medical for Branch Itching. ketoconazol 2021-0 Yes [id number] Apply to [facility] e 2 % 8-12 area(s) ity of shampoo 00:00: once daily [place] 00 as needed Medical for Branch Itching. ketoconazol 2021-0 Yes [id number] Apply to [facility] e 2 % 8-12 area(s) ity of shampoo 00:00: once daily [place] 00 as needed Medical for Branch Itching. ketoconazol 2021-0 Yes [id number] Apply to [facility] e 2 % 8-12 area(s) ity of shampoo 00:00: once daily [place] 00 as needed Medical for Branch Itching. ketoconazol 2021-0 Yes [id number] Apply to [facility] e 2 % 8-12 area(s) ity of shampoo 00:00: once daily [place] 00 as needed Medical for Branch Itching. ketoconazol 2021-0 Yes [id number] Apply to [facility] e 2 % 8-12 area(s) ity of shampoo 00:00: once daily [place] 00 as needed Medical for Branch Itching. ketoconazol 2021-0 Yes [id number] Apply to [facility] e 2 % 8-12 area(s) ity of shampoo 00:00: once daily [place] 00 as needed Medical for Branch Itching. ketoconazol 2021-0 Yes [id number] Apply to [facility] e 2 % 8-12 area(s) ity of shampoo 00:00: once daily [place] 00 as needed Medical for Branch Itching. ketoconazol 2021-0 Yes [id number] Apply to [facility] e 2 % 8-12 area(s) ity of shampoo 00:00: once daily [place] 00 as needed Medical for Branch Itching. ketoconazol 2021-0 Yes [id number] Apply to [facility] e 2 % 8-12 area(s) ity of shampoo 00:00: once daily [place] 00 as needed Medical for Branch Itching. ketoconazol 2021-0 Yes [id number] Apply to [facility] e 2 % 8-12 area(s) ity of shampoo 00:00: once daily [place] 00 as needed Medical for Branch Itching. ketoconazol 2021-0 Yes [id number] Apply to [facility] e 2 % 8-12 area(s) ity of shampoo 00:00: once daily [place] 00 as needed Medical for Branch Itching. ketoconazol 2021-0 Yes [id number] Apply to [facility] e 2 % 8-12 area(s) ity of shampoo 00:00: once daily [place] 00 as needed Medical for Branch Itching. ketoconazol 2021-0 Yes [id number] Apply to [facility] e 2 % 8-12 area(s) ity of shampoo 00:00: once daily [place] 00 as needed Medical for Branch Itching. ketoconazol 2021-0 Yes [id number] Apply to [facility] e 2 % 8-12 area(s) ity of shampoo 00:00: once daily [place] 00 as needed Medical for Branch Itching. ketoconazol 2021-0 Yes [id number] Apply to [facility] e 2 % 8-12 area(s) ity of shampoo 00:00: once daily [place] 00 as needed Medical for Branch Itching. ketoconazol 2021-0 Yes [id number] Apply to [facility] e 2 % 8-12 area(s) ity of shampoo 00:00: once daily [place] 00 as needed Medical for Branch Itching. ketoconazol 2021-0 Yes [id number] Apply to [facility] e 2 % 8-12 area(s) ity of shampoo 00:00: once daily [place] 00 as needed Medical for Branch Itching. ketoconazol 2021-0 Yes [id number] Apply to [facility] e 2 % 8-12 area(s) ity of shampoo 00:00: once daily [place] 00 as needed Medical for Branch Itching. ketoconazol 2021-0 Yes [id number] Apply to [facility] e 2 % 8-12 area(s) ity of shampoo 00:00: once daily [place] 00 as needed Medical for Branch Itching. ketoconazol 2021-0 Yes [id number] Apply to [facility] e 2 % 8-12 area(s) it[facility] shampoo [place] [facility] [place] [facility] for [facility] Itching. ketoconazol 2021-0 Yes [id number] Apply to [facility] e 2 % 8-12 area(s) ity of shampoo 00:00: [place] [facility] as [place] [facility] for [facility] Itching. ketoconazol 2021-0 Yes [id number] Apply to [facility] e 2 % 8-12 area(s) ity of shampoo 00:00: once daily [place] [facility] as needed [facility] for [facility] Itching. ketoconazol 2021-0 Yes [id number] Apply to [facility] e 2 % 8-12 area(s) ity of shampoo 00:00: once daily [place] [facility] as needed [facility] for [facility] Itching. ketoconazol 2021-0 Yes [id number] Apply to [facility] e 2 % 8-12 area(s) ity of shampoo 00:00: once daily [place] [facility] as needed [facility] for [facility] Itching. ketoconazol 2021-0 Yes [id number] Apply to [facility] e 2 % 8-12 area(s) ity of shampoo 00:00: once daily [place] [facility] as needed [facility] for [facility] Itching. ketoconazol 2-0 Yes [id number] Apply to [facility] e 2 % 8-12 area(s) ity of shampoo 00:00: once daily [place] [facility] as needed [facility] for [facility] Itching. ketoconazol 2-0 Yes [id number] Apply to [facility] e 2 % 8-12 area(s) ity of shampoo 00:00: once daily [place] [facility] as needed [facility] for [facility] Itching. ketoconazol 2021-0 Yes [id number] Apply to [facility] e 2 % 8-12 area(s) ity of shampoo 00:00: once daily [place] [facility] as needed [facility] for [facility] Itching. ketoconazol 2021-0 Yes [id number] Apply to [facility] e 2 % 8-12 area(s) ity of shampoo 00:00: once daily [place] [facility] as needed [facility] for [facility] Itching. ketoconazol 2021-0 Yes [id number] Apply to [facility] e 2 % 8-12 area(s) ity of shampoo 00:00: once daily [place] [facility] as needed [facility] for [facility] Itching. ketoconazol 2021-0 Yes [id number] Apply to [facility] e 2 % 8-12 area(s) ity of shampoo 00:00: once daily [place] [facility] as needed [facility] for [facility] Itching. ketoconazol 2021-0 Yes [id number] Apply to [facility] e 2 % 8-12 area(s) ity of shampoo 00:00: once daily [place] [facility] as needed [facility] for [facility] Itching. ketoconazol 2021-0 Yes [id number] Apply to [facility] e 2 % 8-12 area(s) ity of shampoo 00:00: once daily [place] 00 as needed [facility] for [facility] Itching. ketoconazol 2021-0 Yes [id number] Apply to [facility] e 2 % 8-12 area(s) ity of shampoo 00:00: once daily [place] [facility] as needed [facility] for [facility] Itching. ketoconazol 2021-0 Yes [id number] Apply to [facility] e 2 % 8-12 area(s) ity of shampoo 00:00: once daily [place] [facility] as needed [facility] for [facility] Itching. ketoconazol 2021-0 Yes [id number] Apply to [facility] e 2 % 8-12 area(s) ity of shampoo 00:00: once daily [place] [facility] as needed [facility] for [facility] Itching. ketoconazol 2021-0 Yes [id number] Apply to [facility] e 2 % 8-12 area(s) ity of shampoo 00:00: once daily [place] [facility] as needed [facility] for [facility] Itching. ketoconazol 2021-0 Yes [id number] Apply to [facility] e 2 % 8-12 area(s) ity of shampoo 00:00: once daily [place] 00 as needed [facility] for [facility] Itching. ketoconazol 2021-0 Yes [id number] Apply to [facility] e 2 % 8-12 area(s) ity of shampoo 00:00: once daily [place] [facility] as needed [facility] for [facility] Itching. ketoconazol 2021-0 Yes [id number] Apply to [facility] e 2 % 8-12 area(s) ity of shampoo 00:00: once daily [place] [facility] as needed [facility] for [facility] Itching. ketoconazol 2021-0 Yes [id number] Apply to [facility] e 2 % 8-12 area(s) ity of shampoo 00:00: once daily [place] [facility] as needed [facility] for [facility] Itching. ketoconazol 2021-0 Yes [id number] Apply to [facility] e 2 % 8-12 area(s) ity of shampoo 00:00: once daily [place] as needed [facility] for [facility] Itching. ketoconazol 2021-0 Yes [id number] Apply to [facility] e 2 % 8-12 area(s) ity of shampoo 00:00: once daily [place] 00 as needed [facility] for [facility] Itching. ketoconazol 2021-0 Yes [id number] Apply to [facility] e 2 % 8-12 area(s) ity of shampoo 00:00: once daily [place] 00 as needed [facility] for [facility] Itching. ketoconazol 2021-0 Yes [id number] Apply to [facility] e 2 % 8-12 area(s) ity of shampoo 00:00: once daily [place] [facility] as needed [facility] for [facility] Itching. ketoconazol 2021-0 Yes [id number] Apply to [facility] e 2 % 8-12 area(s) ity of shampoo 00:00: once daily [place] [facility] as needed [facility] for [facility] Itching. ketoconazol 2021-0 Yes [id number] Apply to [facility] e 2 % 8-12 area(s) ity of shampoo 00:00: once daily [place] as needed [facility] for [facility] Itching. ketoconazol 2021-0 Yes [id number] Apply to [facility] e 2 % 8-12 area(s) ity of shampoo 00:00: once daily [place] 00 as needed [facility] for [facility] Itching. ketoconazol 2021-0 Yes [id number] Apply to [facility] e 2 % 8-12 area(s) ity of shampoo 00:00: once daily [place] 00 as needed [facility] for [facility] Itching. ketoconazol 2021-0 Yes [id number] Apply to [facility] e 2 % 8-12 area(s) ity of shampoo 00:00: once daily [place] as needed [facility] for [facility] Itching. ketoconazol 2021-0 Yes [id number] Apply to [facility] e 2 % 8-12 area(s) ity of shampoo 00:00: once daily [place] as needed [facility] for [facility] Itching. ketoconazol 2021-0 Yes [id number] Apply to [facility] e 2 % 8-12 area(s) ity of shampoo 00:00: once daily [place] as needed [facility] for [facility] Itching. ketoconazol 2021-0 2021- No [id number] Apply to [facility] e 2 % 8-12 12-06 area(s) ity of shampoo 00:00: 00:00 once daily [place] 00 :00 as needed Medical for Branch Itching. ketoconazol 2021-0 2022- No [id number] Apply to [facility] e 2 % 8-12 12-06 area(s) ity of shampoo 00:00: 00:00 once daily [place] 00 :00 as needed Medical for Branch Itching. ketoconazol 2021-0 2022- No [id number] Apply to [facility] e 2 % 8-12 12-06 area(s) ity of shampoo 00:00: 00:00 once daily [place] 00 :00 as needed Medical for Branch Itching. Methylcellu 2021-0 Yes [id number] 17g Take 17 g Univers lose, with 8-10 by mouth ity o f Sugar, 00:00: daily. [place] ([facility], 00 Medical SUCROSE,) Branch powder Methylcellu 2-0 Yes [id number] 17g Take 17 g Univers lose, with 8-10 by mouth ity o f Sugar, 00:00: daily. [place] ([facility], 00 Medical SUCROSE,) Branch powder Methylcellu 2022-0 Yes [id number] 17g Take 17 g [facility] lose, with 8-10 by mouth ity o f Sugar, 00:00: daily. [place] ([facility], 00 Medical SUCROSE,) Branch powder Methylcellu 2022-0 Yes [id number] 17g Take 17 g [facility] lose, with 8-10 by mouth ity o f Sugar, 00:00: daily. [place] ([facility], 00 Medical SUCROSE,) Branch powder Methylcellu 2022-0 Yes [id number] 17g Take 17 g [facility] lose, with 8-10 by mouth ity o f Sugar, 00:00: daily. [place] ([facility], 00 Medical SUCROSE,) Branch powder Methylcellu 2022-0 Yes [id number] 17g Take 17 g Univers lose, with 8-10 by mouth ity o f Sugar, 00:00: daily. [place] ([facility], 00 Medical SUCROSE,) Branch powder Methylcellu 2022-0 Yes [id number] 17g Take 17 g Univers lose, with 8-10 by mouth ity o f Sugar, 00:00: daily. [place] ([facility], 00 Medical SUCROSE,) Branch powder Methylcellu 2022-0 Yes [id number] 17g Take 17 g Univers lose, with 8-10 by mouth ity o f Sugar, 00:00: daily. [place] ([facility], 00 Medical SUCROSE,) Branch powder Methylcellu 2022-0 Yes [id number] 17g Take 17 g Univers lose, with 8-10 by mouth ity o f Sugar, 00:00: daily. [place] ([facility], 00 Medical SUCROSE,) Branch powder Methylcellu 2022-0 Yes [id number] 17g Take 17 g Univers lose, with 8-10 by mouth ity o f Sugar, 00:00: daily. [place] ([facility], 00 Medical SUCROSE,) Branch powder Methylcellu 2022-0 Yes [id number] 17g Take 17 g [facility] lose, with 8-10 by mouth ity o f Sugar, 00:00: daily. [place] ([facility], 00 Medical SUCROSE,) Branch powder Methylcellu 2022-0 Yes [id number] 17g Take 17 g [facility] lose, with 8-10 by mouth ity o f Sugar, 00:00: daily. [place] ([facility], 00 Medical SUCROSE,) Branch powder Methylcellu 2022-0 Yes [id number] 17g Take 17 g [facility] lose, with 8-10 by mouth ity o f Sugar, 00:00: daily. [place] ([facility], 00 Medical SUCROSE,) Branch powder Methylcellu 2022-0 Yes [id number] 17g Take 17 g [facility] lose, with 8-10 by mouth ity o f Sugar, 00:00: daily. [place] ([facility], 00 Medical SUCROSE,) Branch powder Methylcellu 2022-0 Yes [id number] 17g Take 17 g [facility] lose, with 8-10 by mouth ity o f Sugar, 00:00: daily. [place] ([facility], 00 Medical SUCROSE,) Branch powder Methylcellu 2022-0 Yes [id number] 17g Take 17 g [facility] lose, with 8-10 by mouth ity o f Sugar, 00:00: daily. [place] ([facility], 00 Medical SUCROSE,) Branch powder Methylcellu 2022-0 Yes [id number] 17g Take 17 g [facility] lose, with 8-10 by mouth ity o f Sugar, 00:00: daily. [place] ([facility], 00 Medical SUCROSE,) Branch powder Methylcellu 2022-0 Yes [id number] 17g Take 17 g [facility] lose, with 8-10 by mouth ity o f Sugar, 00:00: daily. [place] ([facility], 00 Medical SUCROSE,) Branch powder Methylcellu 2022-0 Yes [id number] 17g Take 17 g Univers lose, with 8-10 by mouth ity o f Sugar, 00:00: daily. [place] ([facility], 00 Medical SUCROSE,) Branch powder Methylcellu 2022-0 Yes [id number] 17g Take 17 g Univers lose, with 8-10 by mouth ity o f Sugar, 00:00: daily. [place] ([facility], 00 Medical SUCROSE,) Branch powder Methylcellu 2022-0 Yes [id number] 17g Take 17 g Univers lose, with 8-10 by mouth ity o f Sugar, 00:00: daily. [place] ([facility], 00 Medical SUCROSE,) Branch powder Methylcellu 2022-0 Yes [id number] 17g Take 17 g [facility] lose, with 8-10 by mouth ity o f Sugar, 00:00: daily. [place] ([facility], 00 Medical SUCROSE,) Branch powder Methylcellu 2022-0 Yes [id number] 17g Take 17 g [facility] lose, with 8-10 by mouth ity o f Sugar, 00:00: daily. [place] ([facility], 00 Medical SUCROSE,) Branch powder Methylcellu 2022-0 Yes [id number] 17g Take 17 g [facility] lose, with 8-10 by mouth ity o f Sugar, 00:00: daily. [place] ([facility], 00 Medical SUCROSE,) Branch powder Methylcellu 2022-0 Yes [id number] 17g Take 17 g [facility] lose, with 8-10 by mouth ity o f Sugar, 00:00: daily. [place] ([facility], 00 Medical SUCROSE,) Branch powder Methylcellu 2022-0 Yes [id number] 17g Take 17 g [facility] lose, with 8-10 by mouth ity o f Sugar, 00:00: daily. [place] ([facility], 00 Medical SUCROSE,) Branch powder Methylcellu 2022-0 Yes [id number] 17g Take 17 g [facility] lose, with 8-10 by mouth ity o f Sugar, 00:00: daily. [place] ([facility], 00 Medical SUCROSE,) Branch powder Methylcellu 2022-0 Yes [id number] 17g Take 17 g [facility] lose, with 8-10 by mouth ity o f Sugar, 00:00: daily. [place] ([facility], 00 Medical SUCROSE,) Branch powder Methylcellu 2022-0 Yes [id number] 17g Take 17 g Univers lose, with 8-10 by mouth ity o f Sugar, 00:00: daily. [place] ([facility], 00 Medical SUCROSE,) Branch powder Methylcellu 2022-0 Yes [id number] 17g Take 17 g [facility] lose, with 8-10 by mouth ity o f Sugar, 00:00: daily. [place] ([facility], 00 Medical SUCROSE,) Branch powder Methylcellu 2022-0 Yes [id number] 17g Take 17 g Univers lose, with 8-10 by mouth ity o f Sugar, 00:00: daily. [place] ([facility], 00 Medical SUCROSE,) Branch powder Methylcellu 2022-0 Yes [id number] 17g Take 17 g Univers lose, with 8-10 by mouth ity o f Sugar, 00:00: daily. [place] ([facility], 00 Medical SUCROSE,) Branch powder Methylcellu 2022-0 Yes [id number] 17g Take 17 g [facility] lose, with 8-10 by mouth ity o f Sugar, 00:00: daily. [place] ([facility], 00 Medical SUCROSE,) Branch powder Methylcellu 2022-0 Yes [id number] 17g Take 17 g Univers lose, with 8-10 by mouth ity o f Sugar, 00:00: daily. [place] ([facility], 00 Medical SUCROSE,) Branch powder Methylcellu 2022-0 Yes [id number] 17g Take 17 g Univers lose, with 8-10 by mouth ity o f Sugar, 00:00: daily. [place] ([facility], 00 Medical SUCROSE,) Branch powder Methylcellu 2022-0 Yes [id number] 17g Take 17 g Univers lose, with 8-10 by mouth ity o f Sugar, 00:00: daily. [place] ([facility], 00 Medical SUCROSE,) Branch powder Methylcellu 2022-0 Yes [id number] 17g Take 17 g [facility] lose, with 8-10 by mouth ity o f Sugar, 00:00: daily. [place] ([facility], 00 Medical SUCROSE,) Branch powder Methylcellu 2022-0 Yes [id number] 17g Take 17 g Univers lose, with 8-10 by mouth ity o f Sugar, 00:00: daily. [place] ([facility], 00 Medical SUCROSE,) Branch powder Methylcellu 2022-0 Yes [id number] 17g Take 17 g [facility] lose, with 8-10 by mouth ity o f Sugar, 00:00: daily. [place] ([facility], 00 Medical SUCROSE,) Branch powder Methylcellu 2022-0 Yes [id number] 17g Take 17 g [facility] lose, with 8-10 by mouth ity o f Sugar, 00:00: daily. [place] ([facility], 00 Medical SUCROSE,) Branch powder Methylcellu 2022-0 Yes [id number] 17g Take 17 g Univers lose, with 8-10 by mouth ity o f Sugar, 00:00: daily. [place] ([facility], 00 Medical SUCROSE,) Branch powder Methylcellu 2022-0 Yes [id number] 17g Take 17 g Univers lose, with 8-10 by mouth ity o f Sugar, 00:00: daily. [place] ([facility], 00 Medical SUCROSE,) Branch powder Methylcellu 2022-0 Yes [id number] 17g Take 17 g [facility] lose, with 8-10 by mouth ity o f Sugar, 00:00: daily. [place] ([facility], 00 Medical SUCROSE,) Branch powder Methylcellu 2022-0 Yes [id number] 17g Take 17 g Univers lose, with 8-10 by mouth ity o f Sugar, 00:00: daily. [place] ([facility], 00 Medical SUCROSE,) Branch powder Methylcellu 2022-0 Yes [id number] 17g Take 17 g Univers lose, with 8-10 by mouth ity o f Sugar, 00:00: daily. [place] ([facility], 00 Medical SUCROSE,) Branch powder Methylcellu 2022-0 Yes [id number] 17g Take 17 g Univers lose, with 8-10 by mouth ity o f Sugar, 00:00: daily. [place] ([facility], 00 Medical SUCROSE,) Branch powder Methylcellu 2022-0 Yes [id number] 17g Take 17 g Univers lose, with 8-10 by mouth ity o f Sugar, 00:00: daily. [place] ([facility], 00 Medical SUCROSE,) Branch powder Methylcellu 2022-0 Yes [id number] 17g Take 17 g Univers lose, with 8-10 by mouth ity o f Sugar, 00:00: daily. [place] ([facility], 00 Medical SUCROSE,) Branch powder Methylcellu 2022-0 Yes [id number] 17g Take 17 g Univers lose, with 8-10 by mouth ity o f Sugar, 00:00: daily. [place] ([facility], 00 Medical SUCROSE,) Branch powder Methylcellu 2022-0 Yes [id number] 17g Take 17 g Univers lose, with 8-10 by mouth ity o f Sugar, 00:00: daily. [place] ([facility], 00 Medical SUCROSE,) Branch powder Methylcellu 2022-0 Yes [id number] 17g Take 17 g Univers lose, with 8-10 by mouth ity o f Sugar, 00:00: daily. [place] ([facility], 00 Medical SUCROSE,) Branch powder Methylcellu 2022-0 Yes [id number] 17g Take 17 g Univers lose, with 8-10 by mouth ity o f Sugar, 00:00: daily. [place] ([facility], 00 Medical SUCROSE,) Branch powder Methylcellu 2022-0 Yes [id number] 17g Take 17 g Univers lose, with 8-10 by mouth ity o f Sugar, 00:00: daily. [place] ([facility], 00 Medical SUCROSE,) Branch powder Methylcellu 2022-0 Yes [id number] 17g Take 17 g Univers lose, with 8-10 by mouth ity o f Sugar, 00:00: daily. [place] ([facility], 00 Medical SUCROSE,) Branch powder Methylcellu 2022-0 Yes [id number] 17g Take 17 g Univers lose, with 8-10 by mouth ity o f Sugar, 00:00: daily. [place] ([facility], 00 Medical SUCROSE,) Branch powder Methylcellu 2022-0 Yes [id number] 17g Take 17 g Univers lose, with 8-10 by mouth ity o f Sugar, 00:00: daily. [place] ([facility], 00 Medical SUCROSE,) Branch powder Methylcellu 2022-0 Yes [id number] 17g Take 17 g Univers lose, with 8-10 by mouth ity o f Sugar, 00:00: daily. [place] ([facility], 00 Medical SUCROSE,) Branch powder Methylcellu 2022-0 Yes [id number] 17g Take 17 g Univers lose, with 8-10 by mouth ity o f Sugar, 00:00: daily. [place] ([facility], 00 Medical SUCROSE,) Branch powder Methylcellu 2022-0 Yes [id number] 17g Take 17 g Univers lose, with 8-10 by mouth ity o f Sugar, 00:00: daily. [place] ([facility], 00 Medical SUCROSE,) Branch powder Methylcellu 2022-0 Yes [id number] 17g Take 17 g Univers lose, with 8-10 by mouth ity o f Sugar, 00:00: daily. [place] ([facility], 00 Medical SUCROSE,) Branch powder Methylcellu 2022-0 Yes [id number] 17g Take 17 g Univers lose, with 8-10 by mouth ity o f Sugar, 00:00: daily. [place] ([facility], 00 Medical SUCROSE,) Branch powder Methylcellu 2022-0 Yes [id number] 17g Take 17 g Univers lose, with 8-10 by mouth ity o f Sugar, 00:00: daily. [place] ([facility], 00 Medical SUCROSE,) Branch powder Methylcellu 2022-0 Yes [id number] 17g Take 17 g Univers lose, with 8-10 by mouth ity o f Sugar, 00:00: daily. [place] ([facility], 00 Medical SUCROSE,) Branch powder Methylcellu 2022-0 Yes [id number] 17g Take 17 g Univers lose, with 8-10 by mouth ity o f Sugar, 00:00: daily. [place] ([facility], 00 Medical SUCROSE,) Branch powder Methylcellu 2022-0 Yes [id number] 17g Take 17 g Univers lose, with 8-10 by mouth ity o f Sugar, 00:00: daily. [place] ([facility], 00 Medical SUCROSE,) Branch powder Methylcellu 2022-0 Yes [id number] 17g Take 17 g Univers lose, with 8-10 by mouth ity o f Sugar, 00:00: daily. [place] ([facility], 00 Medical SUCROSE,) Branch powder Methylcellu 2022-0 Yes [id number] 17g Take 17 g Univers lose, with 8-10 by mouth ity o f Sugar, 00:00: daily. [place] ([facility], 00 Medical SUCROSE,) Branch powder Methylcellu 2022-0 Yes [id number] 17g Take 17 g Univers lose, with 8-10 by mouth ity o f Sugar, 00:00: daily. [place] ([facility], 00 Medical SUCROSE,) Branch powder Methylcellu 2022-0 2022- No [id number] 17g Take 17 g Univers lose, with 8-10 12-06 by mouth ity of Sugar, 00:00: 00:00 daily. [place] ([facility], 00 :00 Medical SUCROSE,) Branch powder Methylcellu 2022-0 2022- No [id number] 17g Take 17 g Univers lose, with 8-10 12-06 by mouth ity of Sugar, 00:00: 00:00 daily. [place] ([facility], 00 :00 Medical SUCROSE,) Branch powder Methylcellu 2021- No [id number] 17g Take 17 g Univers lose, with 8-10 12-06 by mouth ity of Sugar, 00:00: 00:00 daily. [place] ([facility], 00 :00 Medical SUCROSE,) Branch powder elagolix 0 Yes [id number] 1{tbl} Take 1 [facility] ([facility]) 8-09 tablet by ity of 200 mg Tab 00:00: mouth 2 [place] (two) Medical times Branch daily. norelgestro Yes [id number] 1{patch Apply 1 [facility] min-ethinyl 8-09 } Patch to ity of estradiol 00:00: skin [place] ([facility]) 00 weekly. Medical 150-35 Branch mcg/24 hr patch elagolix 0 Yes [id number] 1{tbl} Take 1 [facility] ([facility]) 8-09 tablet by ity of 200 mg Tab 00:00: mouth 2 [place] 00 (two) Medical times Branch daily. norelgestro 2021- Yes [id number] 1{patch Apply 1 [facility] min-ethinyl 8-09 } Patch to ity of estradiol 00:00: skin [place] ([facility]) 00 weekly. Medical 150-35 Branch mcg/24 hr patch elagolix 2021-0 Yes [id number] 1{tbl} Take 1 [facility] ([facility]) 8-09 tablet by ity of 200 mg Tab 00:00: mouth 2 [place] 00 (two) Medical times Branch daily. norelgestro 2021-0 Yes [id number] 1{patch Apply 1 [facility] min-ethinyl 8-09 } Patch to ity of estradiol 00:00: skin [place] ([facility]) 00 weekly. Medical 150-35 Branch mcg/24 hr patch elagolix 2021-0 Yes [id number] 1{tbl} Take 1 [facility] ([facility]) 8-09 tablet by ity of 200 mg Tab 00:00: mouth 2 [place] 00 (two) Medical times Branch daily. norelgestro 2021-0 Yes [id number] 1{patch Apply 1 [facility] min-ethinyl 8-09 } Patch to ity of estradiol 00:00: skin [place] ([facility]) weekly. Medical 150-35 Branch mcg/24 hr patch elagolix 2022-0 Yes [id number] 1{tbl} Take 1 [facility] ([facility]) 8-09 tablet by ity of 200 mg Tab 00:00: mouth 2 [place] 00 (two) Medical times Branch daily. norelgestro 2022-0 Yes [id number] 1{patch Apply 1 [facility] min-ethinyl 8-09 } Patch to ity of estradiol 00:00: skin [place] ([facility]) 00 weekly. Medical 150-35 Branch mcg/24 hr patch elagolix 2022-0 Yes [id number] 1{tbl} Take 1 [facility] ([facility]) 8-09 tablet by ity of 200 mg Tab 00:00: mouth 2 [place] 00 (two) Medical times Branch daily. norelgestro 2022-0 Yes [id number] 1{patch Apply 1 [facility] min-ethinyl 8-09 } Patch to ity of estradiol 00:00: [facility] ([facility]) 00 weekly. Medical 150-35 Branch mcg/24 hr patch elagolix 2022-0 Yes [id number] 1{tbl} Take 1 [facility] ([facility]ISSA) 8-09 tablet by ity of 200 mg Tab 00:00: mouth 2 [place] 00 (two) Medical times Branch daily. norelgestro 2022-0 Yes [id number] 1{patch Apply 1 [facility] min-ethinyl 8-09 } Patch to ity of estradiol 00:00: skin [place] ([facility]) weekly. Medical 150-35 Branch mcg/24 hr patch elagolix 2022-0 Yes [id number] 1{tbl} Take 1 [facility] ([facility]ISSA) 8-09 tablet by ity of 200 mg Tab 00:00: mouth 2 [place] 00 (two) Medical times Branch daily. norelgestro 2022-0 Yes [id number] 1{patch Apply 1 [facility] min-ethinyl 8-09 } Patch to ity of estradiol 00:00: skin [place] ([facility]) 00 weekly. Medical 150-35 Branch mcg/24 hr patch elagolix 2022-0 Yes [id number] 1{tbl} Take 1 [facility] ([facility]ISSA) 8-09 tablet by ity of 200 mg Tab 00:00: mouth 2 [place] 00 (two) Medical times Branch daily. norelgestro 2022-0 Yes [id number] 1{patch Apply 1 [facility] min-ethinyl 8-09 } Patch to ity of estradiol 00:00: skin [place] ([facility]) 00 weekly. Medical 150-35 Branch mcg/24 hr patch elagolix 2022-0 Yes [id number] 1{tbl} Take 1 [facility] ([facility]ISSA) 8-09 tablet by ity of 200 mg Tab 00:00: mouth 2 [place] (two) Medical times Branch daily. norelgestro 2022-0 Yes [id number] 1{patch Apply 1 [facility] min-ethinyl 8-09 } Patch to ity of estradiol 00:00: skin [place] ([facility]) 00 weekly. Medical 150-35 Branch mcg/24 hr patch elagolix 202-0 Yes [id number] 1{tbl} Take 1 [facility] ([facility]ISSA) 8-09 tablet by ity of 200 mg Tab 00:00: mouth [place] 00 (two) Medical times Branch daily. norelgestro 2022-0 Yes [id number] 1{patch Apply 1 [facility] min-ethinyl 8-09 } Patch to ity of estradiol 00:00: skin [place] ([facility]) 00 weekly. Medical 150-35 Branch mcg/24 hr patch elagolix 2022-0 Yes [id number] 1{tbl} Take 1 [facility] ([facility]ISSA) 8-09 tablet by ity of 200 mg Tab 00:00: mouth 2 [place] 00 (two) Medical times Branch daily. norelgestro 2022-0 Yes [id number] 1{patch Apply 1 [facility] min-ethinyl 8-09 } Patch to ity of estradiol 00:00: skin [place] ([facility]) 00 weekly. Medical 150-35 Branch mcg/24 hr patch elagolix 2022-0 Yes [id number] 1{tbl} Take 1 [facility] ([facility]ISSA) 8-09 tablet by ity of 200 mg Tab 00:00: mouth 2 [place] (two) Medical times Branch daily. norelgestro 2022-0 Yes [id number] 1{patch Apply 1 [facility] min-ethinyl 8-09 } Patch to ity of estradiol 00:00: skin [place] ([facility]) 00 weekly. Medical 150-35 Branch mcg/24 hr patch elagolix 2022-0 Yes [id number] 1{tbl} Take 1 [facility] ([facility]ISSA) 8-09 tablet by ity of 200 mg Tab 00:00: mouth [place] (two) Medical times Branch daily. norelgestro 2022-0 Yes [id number] 1{patch Apply 1 [facility] min-ethinyl 8-09 } Patch to ity of estradiol 00:00: skin [place] ([facility]) 00 weekly. Medical 150-35 Branch mcg/24 hr patch elagolix 2022-0 Yes [id number] 1{tbl} Take 1 [facility] ([facility]ISSA) 8-09 tablet by ity of 200 mg Tab 00:00: mouth [place] (two) Medical times Branch daily. norelgestro 2-0 Yes [id number] 1{patch Apply 1 [facility] min-ethinyl 8-09 } Patch to ity of estradiol 00:00: skin [place] ([facility]) 00 weekly. Medical 150-35 Branch mcg/24 hr patch elagolix 2021-0 Yes [id number] 1{tbl} Take 1 [facility] ([facility]ISSA) 8-09 tablet by ity of 200 mg Tab 00:00: mouth [place] (two) Medical times Branch daily. norelgestro 2022-0 Yes [id number] 1{patch Apply 1 [facility] min-ethinyl 8-09 } Patch to ity of estradiol 00:00: skin [place] ([facility]) 00 weekly. Medical 150-35 Branch mcg/24 hr patch elagolix 2022-0 Yes [id number] 1{tbl} Take 1 [facility] (ORILISSA) 8-09 tablet by ity of 200 mg Tab 00:00: mouth [place] (two) Medical times Branch daily. norelgestro 2022-0 Yes [id number] 1{patch Apply 1 [facility] min-ethinyl 8-09 } Patch to ity of estradiol 00:00: skin [place] ([facility]) weekly. Medical 150-35 Branch mcg/24 hr patch elagolix 2022-0 Yes [id number] 1{tbl} Take 1 [facility] ([facility]ILISSA) 8-09 tablet by ity of 200 mg Tab 00:00: mouth [place] (two) Medical times Branch daily. norelgestro 2022-0 Yes [id number] 1{patch Apply 1 [facility] min-ethinyl 8-09 } Patch to ity of estradiol 00:00: skin [place] ([facility]) weekly. Medical 150-35 Branch mcg/24 hr patch elagolix 2022-0 Yes [id number] 1{tbl} Take 1 [facility] ([facility]ISSA) 8-09 tablet by ity of 200 mg Tab 00:00: mouth [place] (two) Medical times Branch daily. norelgestro 2022-0 Yes [id number] 1{patch Apply 1 [facility] min-ethinyl 8-09 } Patch to ity of estradiol 00:00: skin [place] ([facility]) weekly. Medical 150-35 Branch mcg/24 hr patch elagolix 2022-0 Yes [id number] 1{tbl} Take 1 [facility] ([facility]ISSA) 8-09 tablet by ity of 200 mg Tab 00:00: mouth [place] (two) Medical times Branch daily. norelgestro 2022-0 Yes [id number] 1{patch Apply 1 [facility] min-ethinyl 8-09 } Patch to ity of estradiol 00:00: skin [place] ([facility]) weekly. Medical 150-35 Branch mcg/24 hr patch elagolix 2022-0 Yes [id number] 1{tbl} Take 1 [facility] ([facility]ILISSA) 8-09 tablet by ity of 200 mg Tab 00:00: mouth [place] (two) Medical times Branch daily. norelgestro 2022-0 Yes [id number] 1{patch Apply 1 [facility] min-ethinyl 8-09 } Patch to ity of estradiol 00:00: skin [place] ([facility]) 00 weekly. Medical 150-35 Branch mcg/24 hr patch elagolix 2022-0 Yes [id number] 1{tbl} Take 1 [facility] (ORILISSA) 8-09 tablet by ity of 200 mg Tab 00:00[place] [facility] times [facility] daily. norelgestro 2022-0 Yes [id number] 1{patch Apply 1 [facility] min-ethinyl 8-09 } Patch to ity of estradiol 00:00: skin [place] (LANE) 00 weekly. Medical 150-35 Branch mcg/24 hr patch elagolix 2022-0 Yes [id number] 1{tbl} Take 1 [facility] (ORILISSA) 8-09 tablet by ity of 200 mg Tab 00:00: [place] (two) Medical times [facility] daily. norelgestro 2022-0 Yes [id number] 1{patch Apply 1 [facility] min-ethinyl 8-09 } Patch to ity of estradiol 00:00: skin [place] (LAN) 00 weekly. Medical 150-35 Branch mcg/24 hr patch elagolix 2022-0 Yes [id number] 1{tbl} Take 1 [facility] (ORILISSA) 8-09 tablet by ity of 200 mg Tab 00:00: [place] (two) Medical times Branch daily. norelgestro 2022-0 Yes [id number] 1{patch Apply 1 [facility] min-ethinyl 8-09 } Patch to ity of estradiol 00:00: skin [place] (LANE) 00 weekly. Medical 150-35 Branch mcg/24 hr patch elagolix 2022-0 Yes [id number] 1{tbl} Take 1 [facility] (ORILISSA) 8-09 tablet by ity of 200 mg Tab 00:00: [place] (two) Medical times Branch daily. norelgestro 2022-0 Yes [id number] 1{patch Apply 1 [facility] min-ethinyl 8-09 } Patch to ity of estradiol 00:00: skin [place] (LANE) 00 weekly. Medical 150-35 Branch mcg/24 hr patch elagolix 2022-0 Yes [id number] 1{tbl} Take 1 [facility] (ORILISSA) 8-09 tablet by ity of 200 mg Tab 00:00: [place] (two) Medical times Branch daily. norelgestro 2022-0 Yes [id number] 1{patch Apply 1 [facility] min-ethinyl 8-09 } Patch to ity of estradiol 00:00: skin [place] () 00 weekly. Medical 150-35 Branch mcg/24 hr patch elagolix 2022-0 Yes [id number] 1{tbl} Take 1 [facility] (ORILISSA) 8-09 tablet by ity of 200 mg Tab 00:00: [place] (two) Medical times Branch daily. norelgestro 2022-0 Yes [id number] 1{patch Apply 1 [facility] min-ethinyl 8-09 } Patch to ity of estradiol 00:00: skin [place] () 00 weekly. Medical 150-35 Branch mcg/24 hr patch elagolix 2021-0 Yes [id number] 1{tbl} Take 1 [facility] (ORILISSA) 8-09 tablet by ity of 200 mg Tab 00:00: [place] (two) Medical times Branch daily. norelgestro 2-0 Yes [id number] 1{patch Apply 1 [facility] min-ethinyl 8-09 } Patch to ity of estradiol 00:00: skin [place] ([facility]) 00 weekly. Medical 150-35 Branch mcg/24 hr patch elagolix 2021-0 Yes [id number] 1{tbl} Take 1 [facility] (ORILISSA) 8-09 tablet by ity of 200 mg Tab 00:00: [place] (two) Medical times Branch daily. norelgestro 2022-0 Yes [id number] 1{patch Apply 1 [facility] min-ethinyl 8-09 } Patch to ity of estradiol 00:00: skin [place] (LAN) 00 weekly. Medical 150-35 Branch mcg/24 hr patch elagolix 2022-0 Yes [id number] 1{tbl} Take 1 [facility] (ORILISSA) 8-09 tablet by ity of 200 mg Tab 00:00: [place] (two) Medical times Branch daily. norelgestro 2022-0 Yes [id number] 1{patch Apply 1 [facility] min-ethinyl 8-09 } Patch to ity of estradiol 00:00: skin [place] ([facility]) 00 weekly. Medical 150-35 Branch mcg/24 hr patch elagolix 2022-0 Yes [id number] 1{tbl} Take 1 [facility] (ORILISSA) 8-09 tablet by ity of 200 mg Tab 00:00: [place] (two) Medical times Branch daily. norelgestro 2022-0 Yes [id number] 1{patch Apply 1 [facility] min-ethinyl 8-09 } Patch to ity of estradiol 00:00: skin [place] ([facility]) weekly. Medical 150-35 Branch mcg/24 hr patch elagolix 2022-0 Yes [id number] 1{tbl} Take 1 [facility] nivers (ORILISSA) 8-09 tablet by ity of 200 mg Tab 00:00: [place] (two) Medical times Branch daily. norelgestro 2022-0 Yes [id number] 1{patch Apply 1 [facility] min-ethinyl 8-09 } Patch to ity of estradiol 00:00: [facility] ([facility]) weekly. Medical 150-35 Branch mcg/24 hr patch elagolix 2022-0 Yes [id number] 1{tbl} Take 1 [facility] nivers (ORILISSA) 8-09 tablet by ity of 200 mg Tab 00:00: [place] (two) Medical times Branch daily. norelgestro 2022-0 Yes [id number] 1{patch Apply 1 [facility] min-ethinyl 8-09 } Patch to ity of estradiol 00:00: [facility] ([facility]) weekly. Medical 150-35 Branch mcg/24 hr patch elagolix 2022-0 Yes [id number] 1{tbl} Take 1 [facility] nivers (ORILISSA) 8-09 tablet by ity of 200 mg Tab 00:00: [place] (two) Medical times Branch daily. norelgestro 2022-0 Yes [id number] 1{patch Apply 1 [facility] min-ethinyl 8-09 } Patch to ity of estradiol 00:00: skin [place] ([facility]) 00 weekly. Medical 150-35 Branch mcg/24 hr patch elagolix 2022-0 Yes [id number] 1{tbl} Take 1 [facility] (ORILISSA) 8-09 tablet by ity of 200 mg Tab 00:00: [place] (two) Medical times Branch daily. norelgestro 2022-0 Yes [id number] 1{patch Apply 1 [facility] min-ethinyl 8-09 } Patch to ity of estradiol 00:00: skin [place] (LAN) 00 weekly. Medical 150-35 Branch mcg/24 hr patch elagolix 2022-0 Yes [id number] 1{tbl} Take 1 [facility] (ORILISSA) 8-09 tablet by ity of 200 mg Tab 00:00: [place] (two) Medical times Branch daily. norelgestro 2022-0 Yes [id number] 1{patch Apply 1 [facility] min-ethinyl 8-09 } Patch to ity of estradiol 00:00: skin [place] (LANE) 00 weekly. Medical 150-35 Branch mcg/24 hr patch elagolix 2022-0 Yes [id number] 1{tbl} Take 1 [facility] (ORILISSA) 8-09 tablet by ity of 200 mg Tab 00:00: [place] (two) Medical times Branch daily. norelgestro 2022-0 Yes [id number] 1{patch Apply 1 [facility] min-ethinyl 8-09 } Patch to ity of estradiol 00:00: skin [place] (LANE) 00 weekly. Medical 150-35 Branch mcg/24 hr patch elagolix 2022-0 Yes [id number] 1{tbl} Take 1 [facility] (ORILISSA) 8-09 tablet by ity of 200 mg Tab 00:00: [place] (two) Medical times Branch daily. norelgestro 2022-0 Yes [id number] 1{patch Apply 1 [facility] min-ethinyl 8-09 } Patch to ity of estradiol 00:00: skin [place] (LANE) 00 weekly. Medical 150-35 Branch mcg/24 hr patch elagolix 2022-0 Yes [id number] 1{tbl} Take 1 [facility] (ORILISSA) 8-09 tablet by ity of 200 mg Tab 00:00: [place] 00 (two) Medical times Branch daily. norelgestro 2022-0 Yes [id number] 1{patch Apply 1 [facility] min-ethinyl 8-09 } Patch to ity of estradiol 00:00: skin [place] ([facility]) 00 weekly. Medical 150-35 Branch mcg/24 hr patch elagolix Yes [id number] 1{tbl} Take 1 [facility] (ORILISSA) 8-09 tablet by ity of 200 mg Tab 00:00: [place] 00 (two) Medical times Branch daily. elagolix Yes [id number] 1{tbl} Take 1 [facility] (ORILISSA) 8-09 tablet by ity of 200 mg Tab 00:00: [place] 00 (two) Medical times Branch daily. elagolix Yes [id number] 1{tbl} Take 1 [facility] (ORILISSA) 8-09 tablet by ity of 200 mg Tab 00:00: [place] 00 (two) Medical times Branch daily. elagolix Yes [id number] 1{tbl} Take 1 [facility] (ORILISSA) 8-09 tablet by ity of 200 mg Tab 00:00: [place] 00 (two) Medical times Branch daily. elagolix Yes [id number] 1{tbl} Take 1 [facility] (ORILISSA) 8-09 tablet by ity of 200 mg Tab 00:00: [place] 00 (two) Medical times Branch daily. elagolix Yes [id number] 1{tbl} Take 1 [facility] (ORILISSA) 8-09 tablet by ity of 200 mg Tab 00:00: [place] 00 (two) Medical times Branch daily. elagolix Yes [id number] 1{tbl} Take 1 [facility] (ORILISSA) 8-09 tablet by ity of 200 mg Tab 00:00: mouth [place] 00 (two) Medical times Branch daily. elagolix Yes [id number] 1{tbl} Take 1 [facility] (ORILISSA) 8-09 tablet by ity of 200 mg Tab 00:00: [place] 00 (two) Medical times Branch daily. elagolix Yes [id number] 1{tbl} Take 1 [facility] (ORILISSA) 8-09 tablet by ity of 200 mg Tab 00:00: [place] 00 (two) Medical times Branch daily. elagolix Yes [id number] 1{tbl} Take 1 [facility] (ORILISSA) 8-09 tablet by ity of 200 mg Tab 00:00: [place] 00 (two) Medical times Branch daily. elagolix Yes [id number] 1{tbl} Take 1 [facility] (ORILISSA) 8-09 tablet by ity of 200 mg Tab 00:00: [place] 00 (two) Medical times Branch daily. elagolix Yes [id number] 1{tbl} Take 1 [facility] (ORILISSA) 8-09 tablet by ity of 200 mg Tab 00:00: [place] 00 (two) Medical times Branch daily. elagolix Yes [id number] 1{tbl} Take 1 [facility] (ORILISSA) 8-09 tablet by ity of 200 mg Tab 00:00: mouth [place] 00 (two) Medical times Branch daily. elagolix Yes [id number] 1{tbl} Take 1 [facility] (ORILISSA) 8-09 tablet by ity of 200 mg Tab 00:00: mouth [place] 00 (two) Medical times Branch daily. elagolix Yes [id number] 1{tbl} Take 1 [facility] (ORILISSA) 8-09 tablet by ity of 200 mg Tab 00:00: mouth [place] 00 (two) Medical times Branch daily. elagolix Yes [id number] 1{tbl} Take 1 [facility] (ORILISSA) 8-09 tablet by ity of 200 mg Tab 00:00: [place] 00 (two) Medical times Branch daily. elagolix Yes [id number] 1{tbl} Take 1 [facility] (ORILISSA) 8-09 tablet by ity of 200 mg Tab 00:00: [place] 00 (two) Medical times Branch daily. elagolix Yes [id number] 1{tbl} Take 1 [facility] (ORILISSA) 8-09 tablet by ity of 200 mg Tab 00:00: mouth [place] 00 (two) Medical times Branch daily. elagolix Yes [id number] 1{tbl} Take 1 [facility] (ORILISSA) 8-09 tablet by ity of 200 mg Tab 00:00: [place] 00 (two) Medical times Branch daily. elagolix Yes [id number] 1{tbl} Take 1 [facility] (ORILISSA) 8-09 tablet by ity of 200 mg Tab 00:00: [place] 00 (two) Medical times Branch daily. elagolix Yes [id number] 1{tbl} Take 1 [facility] (ORILISSA) 8-09 tablet by ity of 200 mg Tab 00:00: mouth [place] 00 (two) Medical times Branch daily. elagolix Yes [id number] 1{tbl} Take 1 [facility] (ORILISSA) 8-09 tablet by ity of 200 mg Tab 00:00: mouth [place] 00 (two) Medical times Branch daily. elagolix Yes [id number] 1{tbl} Take 1 [facility] (ORILISSA) 8-09 tablet by ity of 200 mg Tab 00:00: mouth [place] 00 (two) Medical times Branch daily. elagolix Yes [id number] 1{tbl} Take 1 [facility] (ORILISSA) 8-09 tablet by ity of 200 mg Tab 00:00: mouth [place] 00 (two) Medical times Branch daily. elagolix Yes [id number] 1{tbl} Take 1 [facility] (ORILISSA) 8-09 tablet by ity of 200 mg Tab 00:00: [place] 00 (two) Medical times Branch daily. elagolix Yes [id number] 1{tbl} Take 1 [facility] (ORILISSA) 8-09 tablet by ity of 200 mg Tab 00:00: [place] 00 (two) Medical times Branch daily. elagolix Yes [id number] 1{tbl} Take 1 [facility] (ORILISSA) - tablet by ity of 200 mg Tab 00:00: [place] 00 (two) Medical times Branch daily. elagolix Yes [id number] 1{tbl} Take 1 [facility] (ORILISSA) - tablet by ity of 200 mg Tab 00:00: mouth [place] 00 (two) Medical times Branch daily. elagolix Yes [id number] 1{tbl} Take 1 [facility] (ORILISSA) - tablet by ity of 200 mg Tab 00:00: [place] 00 (two) Medical times Branch daily. elagolix 2021- No [id number] 1{tbl} Take 1 [facility] (ORILISSA) 02-04 tablet by ity of 200 mg Tab 00:00: 00:00 mouth [place] 00 :00 (two) Medical times Branch daily. elagolix 2021- No [id number] 1{tbl} Take 1 [facility] (ORILISSA) 02-04 tablet by ity of 200 mg Tab 00:00: 00:00 mouth [place] 00 :00 (two) Medical times Branch daily. elagolix 2021- No [id number] 1{tbl} Take 1 [facility] (ORILISSA) 02-04 tablet by ity of 200 mg Tab 00:00: 00:00 mouth 2 [place] 00 :00 (two) Medical times Branch daily. norelgestro 2021- No [id number] 1{patch Apply 1 [facility] min-ethinyl 02-04 } Patch to ity of estradiol 00:00: 00:00 skin [place] ([facility]) 00 :00 weekly. Medical 150-35 Branch mcg/24 hr patch norelgestro 2021- No [id number] 1{patch Apply 1 [facility] min-ethinyl 02-04 } Patch to ity of estradiol 00:00: 00:00 [facility] [place] [facility] 00 :00 weekly. Medical 150-35 Branch mcg/24 hr patch norelgestro 2021-0 2021- No [id number] 1{patch Apply 1 [facility] min-ethinyl 02-04 } Patch to ity of estradiol 00:00: 00:00 [facility] [place] [facility] 00 :00 weekly. Medical 150-35 Branch mcg/24 hr patch norelgestro 2021-0 2021- No [id number] 1{patch Apply 1 [facility] min-ethinyl 02-04 } Patch to ity of estradiol 00:00: 00:00 [facility] [place] [facility] 00 :00 weekly. Medical 150-35 Branch mcg/24 hr patch norelgestro 2021-0 2021- No [id number] 1{patch Apply 1 [facility] min-ethinyl 02-04 } Patch to ity of estradiol 00:00: 00:00 [facility] [place] [facility] 00 :00 weekly. Medical 150-35 Branch mcg/24 hr patch norelgestro 2021-0 2021- No [id number] 1{patch Apply 1 [facility] min-ethinyl 02-04 } Patch to ity of estradiol 00:00: 00:00 [facility] [place] [facility] 00 :00 weekly. Medical 150-35 Branch mcg/24 hr patch Cyclobenzap Cyclobenzap 2021- No 1{table QD Cyclobenza rine HCl 5 rine HCl 5 10-25 t_at_be darion HCl MG MG 00:00: 00:00 dtime_a 5 MG 00 :00 s_neede d} Cyclobenzap Cyclobenzap 2021- No 1{table QD Cyclobenza rine HCl 5 rine HCl 5 10-25- t_at_be darion HCl MG MG 00:00: 00:00 dtime_a 5 MG 00 :00 s_neede d} Cyclobenzap Cyclobenzap 2021- No 1{table QD Cyclobenza rine HCl 5 rine HCl 5 10-25 t_at_be darion HCl MG MG 00:00: 00:00 dtime_a 5 MG 00 :00 s_neede d} Cyclobenzap Cyclobenzap 2021- No 1{table QD Cyclobenza rine HCl 5 rine HCl 5 10-25- t_at_be darion HCl MG MG 00:00: 00:00 dtime_a 5 MG 00 :00 s_neede d} Cyclobenzap Cyclobenzap 2021- No 1{table QD Cyclobenza rine HCl 5 rine HCl 5 10-25 t_at_be darion HCl MG MG 00:00: 00:00 dtime_a 5 MG 00 :00 s_neede d} Cyclobenzap Cyclobenzap 2021- No 1{table QD Cyclobenza rine HCl 5 rine HCl 5 10-25 t_at_be darion HCl MG MG 00:00: 00:00 dtime_a 5 MG 00 :00 s_neede d} Cyclobenzap Cyclobenzap 2021- No 1{table QD Cyclobenza rine HCl 5 rine HCl 5 10-25 t_at_be darion HCl MG MG 00:00: 00:00 dtime_a 5 MG 00 :00 s_neede d} Cyclobenzap Cyclobenzap 2021- No 1{table QD Cyclobenza rine HCl 5 rine HCl 5 10-25 t_at_be darion HCl MG MG 00:00: 00:00 dtime_a 5 MG 00 :00 s_neede d} ANE No Notes: [facility] fentaNYL 4-07 (Same as: l 19:21: Sublimaze) Preservati ve free. No Notes: [facility] HYDROmorpho 4-07 Same as: l ne 19:21: Dilaudid No Notes: [facility] flumazenil 4-07 (Same as: l 19:21: Romazicon) No Notes: [facility] naloxone 4-07 Same as l 19:21: Narcan No Notes: SEE [facility] albuterol 4-07 RT l 0.083% 19:21: DOCUMENTAT [place] inhalation 00 ION (Same solution as: Proventil) ANES No Notes: [facility] diphenhydrA 4-07 (Same as: l MINE 19:21: Benadryl) No Notes: [facility] meperidine 4-07 (Same as: l 19:21: Demerol) "Use Precaution in Elderly, Seizure disorders, and Renal impairment " ANES No Notes: [facility] ondansetron 4-07 (Same as: l 19:21: Zofran) MEDICATION WASTE Product Size: 4 mg Product Wasted: ___ mg ANES No 6.25 mg, [facility] promethazin 4-07 Route: l e 19:21: IVPB, 00 ONCE, Dosing Weight 49.864, kg, PRN Nausea & Vomiting, Start date: 10/03/21 14:21:00 CDT ANES No Notes: [facility] scopolamine 4-07 Remove old l 1 mg/72 hr 19:21: patch [place] transdermal 00 before film, applicatio extended n of new release patch Change patch every 72 hours (Same as: Transderm- Scop) ANE No Notes: [facility] hydrALAZINE 4-07 (Same as: l 19:21: Apresoline ) Push over 5 minutes ANES No Notes: [facility] oxyCODONE 5 4-07 (Same as: l mg 19:21: Roxicodone [place] immediate ) release tablet ANES No Notes: [facility] fentaNYL 4-07 (Same as: l 19:21: Sublimaze) Preservati ve free. ANE No Notes: [facility] HYDROmorpho 4-07 Same as: l ne 19:21: Dilaudid [place] No Notes: [facility] flumazenil 4-07 (Same as: l 19:21: Romazicon) 00 ANES No Notes: [facility] naloxone 4-07 Same as l 19:21: Narcan ANE No Notes: SEE [facility] albuterol 4-07 RT l 0.083% 19:21: DOCUMENTAT [place] inhalation 00 ION (Same solution as: Proventil) ANES No Notes: [facility] diphenhydrA 4-07 (Same as: l MINE 19:21: Benadryl) [place] 00 S No Notes: [facility] meperidine 4-07 (Same as: l 19:21: Demerol) "Use Precaution in Elderly, Seizure disorders, and Renal impairment " ANES No Notes: [facility] ondansetron 4-07 (Same as: l 19:21: Zofran) MEDICATION WASTE Product Size: 4 mg Product Wasted: ___ mg ANES No 6.25 mg, [facility] promethazin 4-07 Route: l e 19:21: IVPB, 00 ONCE, Dosing Weight 49.864, kg, PRN Nausea & Vomiting, Start date: 10/03/21 14:21:00 CDT ANES No Notes: [facility] scopolamine 4-07 Remove old l 1 mg/72 hr 19:21: patch [place] transdermal 00 before film, applicatio extended n of new release patch Change patch every 72 hours (Same as: Transderm- Scop) ANE No Notes: [facility] hydrALAZINE 4-07 (Same as: l 19:21: Apresoline ) Push over 5 minutes ANES No Notes: [facility] oxyCODONE 5 4-07 (Same as: l mg 19:21: Roxicodone [place] immediate 00 ) release tablet ANES No Notes: [facility] fentaNYL 4-07 (Same as: l 19:21: Sublimaze) 00 Preservati ve free. ANE No Notes: [facility] HYDROmorpho 4-07 Same as: l ne 19:21: Dilaudid [place] 00 No Notes: [facility] flumazenil 4-07 (Same as: l 19:21: Romazicon) [place] 00 ANES No Notes: [facility] naloxone 4-07 Same as l 19:21: Narcan [place] 00 S No Notes: SEE [facility] albuterol 4-07 RT l 0.083% 19:21: DOCUMENTAT [place] inhalation 00 ION (Same solution as: Proventil) ANES No Notes: [facility] diphenhydrA 4-07 (Same as: l MINE 19:21: Benadryl) [place] ANES No Notes: [facility] meperidine 4-07 (Same as: l 19:21: Demerol) "Use Precaution in Elderly, Seizure disorders, and Renal impairment " ANES No Notes: [facility] ondansetron 4-07 (Same as: l 19:21: Zofran) MEDICATION WASTE Product Size: 4 mg Product Wasted: ___ mg ANES No 6.25 mg, [facility] promethazin 4-07 Route: l e 19:21: IVPB, [place] 00 ONCE, Dosing Weight 49.864, kg, PRN Nausea & Vomiting, Start date: 10/03/21 14:21:00 CDT ANES No Notes: [facility] scopolamine 4-07 Remove old l 1 mg/72 hr 19:21: patch [place] transdermal 00 before film, applicatio extended n of new release patch Change patch every 72 hours (Same as: Transderm- Scop) ANE No Notes: [facility] hydrALAZINE 4-07 (Same as: l 19:21: Apresoline ) Push over 5 minutes ANES No Notes: [facility] oxyCODONE 5 4-07 (Same as: l mg 19:21: Roxicodone immediate 00 ) release tablet ANES No Notes: [facility] fentaNYL 4-07 (Same as: l 19:21: Sublimaze) Preservati ve free. ANES No Notes: [facility] HYDROmorpho 4-07 Same as: l ne 19:21: Dilaudid [place] 00 ANES No Notes: [facility] flumazenil 4-07 (Same as: l 19:21: Romazicon) ANES No Notes: [facility] naloxone 4-07 Same as l 19:21: Narcan [place] ANES No Notes: SEE [facility] albuterol 4-07 RT l 0.083% 19:21: DOCUMENTAT [place] inhalation 00 ION (Same solution as: Proventil) ANES No Notes: [facility] diphenhydrA 4-07 (Same as: l MINE 19:21: Benadryl) [place] ANES No Notes: [facility] meperidine 4-07 (Same as: l 19:21: Demerol) "Use Precaution in Elderly, Seizure disorders, and Renal impairment " ANES No Notes: [facility] ondansetron 4-07 (Same as: l 19:21: Zofran) MEDICATION WASTE Product Size: 4 mg Product Wasted: ___ mg ANES No 6.25 mg, [facility] promethazin 4-07 Route: l e 19:21: IVPB, ONCE, Dosing Weight 49.864, kg, PRN Nausea & Vomiting, Start date: 10/03/21 14:21:00 CDT ANES No Notes: [facility] scopolamine 4-07 Remove old l 1 mg/72 hr 19:21: patch [place] transdermal 00 before film, applicatio extended n of new release patch Change patch every 72 hours (Same as: Transderm- Scop) ANE No Notes: [facility] hydrALAZINE 4-07 (Same as: l 19:21: Apresoline ) Push over 5 minutes ANES No Notes: [facility] oxyCODONE 5 4-07 (Same as: l mg 19:21: Roxicodone [place] immediate 00 ) release tablet ANES No Notes: [facility] fentaNYL 4-07 (Same as: l 19:21: Sublimaze) Preservati ve free. ANES No Notes: [facility] HYDROmorpho 4-07 Same as: l ne 19:21: Dilaudid [place] 00 ANES No Notes: [facility] flumazenil 4-07 (Same as: l 19:21: Romazicon) [place] 00 ANES No Notes: [facility] naloxone 4-07 Same as l 19:21: Narcan [place] ANES No Notes: SEE [facility] albuterol 4-07 RT l 0.083% 19:21: DOCUMENTAT [place] nn inhalation 00 ION (Same solution as: Proventil) ANES No Notes: [facility] diphenhydrA 4-07 (Same as: l MINE 19:21: Benadryl) [place] S No Notes: [facility] meperidine 4-07 (Same as: l 19:21: Demerol) "Use Precaution in Elderly, Seizure disorders, and Renal impairment " ANES No Notes: [facility] ondansetron 4-07 (Same as: l 19:21: Zofran) MEDICATION WASTE Product Size: 4 mg Product Wasted: ___ mg ANES No 6.25 mg, [facility] promethazin 4-07 Route: l e 19:21: IVPB, 00 ONCE, Dosing Weight 49.864, kg, PRN Nausea & Vomiting, Start date: 10/03/21 14:21:00 CDT ANES No Notes: [facility] scopolamine 4-07 Remove old l 1 mg/72 hr 19:21: patch [place] transdermal 00 before film, applicatio extended n of new release patch Change patch every 72 hours (Same as: Transderm- Scop) ANE No Notes: [facility] hydrALAZINE 4-07 (Same as: l 19:21: Apresoline 00 ) Push over 5 minutes ANES No Notes: [facility] oxyCODONE 5 4-07 (Same as: l mg 19:21: Roxicodone [place] immediate 00 ) release tablet ANES No Notes: [facility] fentaNYL 4-07 (Same as: l 19:21: Sublimaze) 00 Preservati ve free. ANES No Notes: [facility] HYDROmorpho 4-07 Same as: l ne 19:21: Dilaudid [place] 00 ANE No Notes: [facility] flumazenil 4-07 (Same as: l 19:21: Romazicon) ANES No Notes: [facility] naloxone 4-07 Same as l 19:21: Narcan [place] No Notes: SEE [facility] albuterol 4-07 RT l 0.083% 19:21: DOCUMENTAT [place] nn inhalation 00 ION (Same solution as: Proventil) ANES No Notes: [facility] diphenhydrA 4-07 (Same as: l MINE 19:21: Benadryl) S No Notes: [facility] meperidine 4-07 (Same as: l 19:21: Demerol) "Use Precaution in Elderly, Seizure disorders, and Renal impairment " ANES No Notes: [facility] ondansetron 4-07 (Same as: l 19:21: Zofran) MEDICATION WASTE Product Size: 4 mg Product Wasted: ___ mg ANES No 6.25 mg, [facility] promethazin 4-07 Route: l e 19:21: IVPB, ONCE, Dosing Weight 49.864, kg, PRN Nausea & Vomiting, Start date: 10/03/21 14:21:00 CDT No Notes: [facility] scopolamine 4-07 Remove old l 1 mg/72 hr 19:21: patch [place] transdermal 00 before film, applicatio extended n of new release patch Change patch every 72 hours (Same as: Transderm- Scop) ANE No Notes: [facility] fentaNYL 4-07 (Same as: l 19:21: Sublimaze) Preservati ve free. ANE No Notes: [facility] HYDROmorpho 4-07 Same as: l ne 19:21: Dilaudid No Notes: [facility] flumazenil 4-07 (Same as: l 19:21: Romazicon) ANES No Notes: [facility] naloxone 4-07 Same as l 19:21: Narcan [place] 00 ANES No Notes: SEE [facility] albuterol 4-07 RT l 0.083% 19:21: DOCUMENTAT [place] nn inhalation 00 ION (Same solution as: Proventil) ANES No Notes: [facility] diphenhydrA 4-07 (Same as: l MINE 19:21: Benadryl) [place] 00 ANES No Notes: [facility] meperidine 4-07 (Same as: l 19:21: Demerol) [place] "Use Precaution in Elderly, Seizure disorders, and Renal impairment " ANES No Notes: [facility] ondansetron 4-07 (Same as: l 19:21: Zofran) [place] 00 MEDICATION WASTE Product Size: 4 mg [...] Roxicodone [place] immediate 00 ) release tablet ANES No Notes: [facility] hydrALAZINE 4-07 (Same as: l 19:21: Apresoline [place] 00 ) Push over 5 minutes ANES No Notes: [facility] oxyCODONE 5 4-07 (Same as: l mg 19:21: Roxicodone [place] immediate 00 ) release tablet ANES No Notes: [facility] fentaNYL 4-07 (Same as: l 19:21: Sublimaze) [place] 00 Preservati ve free. ANES No Notes: [facility] HYDROmorpho 4-07 Same as: l ne 19:21: Dilaudid [place] ANE No Notes: [facility] flumazenil 4-07 (Same as: l 19:21: Romazicon) [place] ANES No Notes: [facility] naloxone 4-07 Same as l 19:21: Narcan [place] ANES No Notes: SEE [facility] albuterol 4-07 RT l 0.083% 19:21: DOCUMENTAT [place] nn inhalation 00 ION (Same solution as: Proventil) ANES No Notes: [facility] diphenhydrA 4-07 (Same as: l MINE 19:21: Benadryl) [place] No Notes: [facility] meperidine 4-07 (Same as: [...] as: Transderm- Scop) ANES No Notes: [facility] hydrALAZINE 4-07 (Same as: l 19:21: Apresoline ) Push over 5 minutes ANES No Notes: Memoria oxyCODONE 5 4-07 (Same as: l mg 19:21: Roxicodone [place] immediate ) release tablet ANES No Notes: Memoria fentaNYL 4-07 (Same as: l 19:21: Sublimaze) [place] 00 Preservati ve free. ANES No Notes: [facility]oria HYDROmorpho 4-07 Same as: l ne 19:21: Dilaudid [place] No Notes: Memoria flumazenil 4-07 (Same as: l 19:21: Romazicon) [place] 00 ANES No Notes: Memoria naloxone 4-07 Same as l 19:21: Narcan [place] No Notes: SEE [facility] albuterol 4-07 RT l 0.083% 19:21: DOCUMENTAT Kaylynn nn inhalation 00 ION (Same solution as: Proventil) ANES No Notes: [facility] diphenhydrA 4-07 (Same as: l MINE 19:21: Benadryl) [place] No Notes: Memoria meperidine 4-07 (Same as: l 19:21: Demerol) "Use Precaution in Elderly, Seizure disorders, and Renal impairment " ANES No Notes: [facility] ondansetron 4-07 (Same as: l 19:21: Zofran) MEDICATION WASTE Product Size: 4 mg Product Wasted: ___ mg ANES No 6.25 mg, [facility] promethazin 4-07 Route: l e 19:21: IVPB, [place] 00 ONCE, Dosing Weight 49.864, kg, PRN Nausea & Vomiting, Start date: 10/03/21 14:21:00 CDT ANES No Notes: [facility] scopolamine 4-07 Remove old l 1 mg/72 hr 19:21: patch [place] transdermal 00 before film, applicatio extended n of new release patch Change patch every 72 hours (Same as: Transderm- [place]) ANES No Notes: [facility] hydrALAZINE 4-07 (Same as: l 19:21: Apresoline [place] 00 ) Push over 5 minutes ANES No Notes: [facility] oxyCODONE 5 4-07 (Same as: l mg 19:21: Roxicodone [place] immediate 00 ) release tablet ANES No Notes: [facility] fentaNYL 4-07 (Same as: l 19:21: Sublimaze) [place] 00 Preservati ve free. ANES No Notes: [facility] HYDROmorpho 4-07 Same as: l ne 19:21: Dilaudid [place] ANES No Notes: [facility] flumazenil 4-07 (Same as: l 19:21: Romazicon) [place] ANES No Notes: [facility] naloxone 4-07 Same as l 19:21: Narcan [place] S No Notes: SEE [facility] albuterol 4-07 RT l 0.083% 19:21: DOCUMENTAT [place] nn inhalation 00 ION (Same solution as: Proventil) ANES No Notes: [facility] diphenhydrA 4-07 (Same as: l MINE 19:21: Benadryl) [place] ANES No Notes: [facility] meperidine 4-07 (Same as: l 19:21: Demerol) "Use Precaution in Elderly, Seizure disorders, and Renal impairment " ANES No Notes: [facility] ondansetron 4-07 (Same as: l 19:21: Zofran) MEDICATION WASTE Product Size: 4 mg Product Wasted: ___ mg ANES No 6.25 mg, [facility] promethazin 4-07 Route: l e 19:21: IVPB, [place] 00 ONCE, Dosing Weight 49.864, kg, PRN Nausea & Vomiting, Start date: 10/03/21 14:21:00 CDT ANES No Notes: [facility] scopolamine 4-07 Remove old l 1 mg/72 hr 19:21: patch [place] transdermal 00 before film, applicatio extended n of new release patch Change patch every 72 hours (Same as: Transderm- [place]) ANES No Notes: [facility] hydrALAZINE 4-07 (Same as: l 19:21: Apresoline [place] ) Push over 5 minutes ANES No Notes: [facility] oxyCODONE 5 4-07 (Same as: l mg 19:21: Roxicodone [place] immediate ) release tablet ceFAZolin No Route: IV, Me moria (ANES) 10-03 Drug form: l 18:23: INJ, ONCE, Stop date: 10/03/21 13:23:00 CDT ondansetron No Route: IV, [facility] (ANES) 10-03 Drug form: l 18:23: INJ, ONCE, Stop date: 10/03/21 13:23:00 CDT dexamethaso 2021-0 No Route: IV, Memoria ne (ANES) 10-03 Drug form: l 18:23: INJ, ONCE, Stop date: 10/03/21 13:23:00 CDT ceFAZolin 2021-0 No Route: IV, Me moria (ANES) 10-03 Drug form: l 18:23: INJ, ONCE, Stop date: 10/03/21 13:23:00 CDT ondansetron 0 No Route: IV, [facility] (ANES) 10-03 Drug form: l 18:23: INJ, ONCE, Stop date: 10/03/21 13:23:00 CDT dexamethaso 2021-0 No Route: IV, Memoria ne (ANES) 10-03 Drug form: l 18:23: INJ, ONCE, Stop date: 10/03/21 13:23:00 CDT ceFAZolin 2021-0 No Route: IV, Me moria (ANES) 10-03 Drug form: l 18:23: INJ, ONCE, Stop date: 10/03/21 13:23:00 CDT ondansetron 2021-0 No Route: IV, [facility] (ANES) 10-03 Drug form: l 18:23: INJ, ONCE, Stop date: 10/03/21 13:23:00 CDT dexamethaso 2021-0 No Route: IV, Memoria ne (ANES) 10-03 Drug form: l 18:23: INJ, ONCE, Stop date: 10/03/21 13:23:00 CDT ceFAZolin 2021-0 No Route: IV, Me moria (ANES) - Drug form: l 18:23: INJ, ONCE, Stop date: 10/03/21 13:23:00 CDT ondansetron 2021-0 No Route: IV, [facility] (ANES) 10-03 Drug form: l 18:23: INJ, ONCE, Stop date: 10/03/21 13:23:00 CDT dexamethaso 2021-0 No Route: IV, Memoria ne (ANES) 10-03 Drug form: l 18:23: INJ, ONCE, Stop date: 10/03/21 13:23:00 CDT ceFAZolin 2021-0 No Route: IV, Me moria (ANES) 10-03 Drug form: l 18:23: INJ, ONCE, Stop date: 10/03/21 13:23:00 CDT ondansetron 2021-0 No Route: IV, [facility] (ANES) 10-03 Drug form: l 18:23: INJ, ONCE, Stop date: 10/03/21 13:23:00 CDT dexamethaso 2021-0 No Route: IV, Memoria ne (ANES) 10-03 Drug form: l 18:23: INJ, ONCE, Stop date: 10/03/21 13:23:00 CDT ceFAZolin 2021-0 No Route: IV, Me moria (ANES) 10-03 Drug form: l 18:23: INJ, ONCE, Stop date: 10/03/21 13:23:00 CDT ondansetron 2021-0 No Route: IV, [facility] (ANES) 4 Drug form: l 18:23: INJ, ONCE, Stop date: 10/03/21 13:23:00 CDT dexamethaso 2021-0 No Route: IV, Memoria ne (ANES) 10-03 Drug form: l 18:23: INJ, ONCE, Stop date: 10/03/21 13:23:00 CDT ceFAZolin 2021-0 No Route: IV, Me moria (ANES) 4- Drug form: l 18:23: INJ, ONCE, Stop date: 10/03/21 13:23:00 CDT ondansetron 2021-0 No Route: IV, [facility] (ANES) - Drug form: l 18:23: INJ, ONCE, Stop date: 10/03/21 13:23:00 CDT dexamethaso 2021-0 No Route: IV, Memoria ne (ANES) 10-03 Drug form: l 18:23: INJ, ONCE, Stop date: 10/03/21 13:23:00 CDT ceFAZolin 2021-0 No Route: IV, Me moria (ANES) 10-03 Drug form: l 18:23: INJ, ONCE, Stop date: 10/03/21 13:23:00 CDT ondansetron 2021-0 No Route: IV, [facility] (ANES) 10-03 Drug form: l 18:23: INJ, ONCE, Stop date: 10/03/21 13:23:00 CDT dexamethaso 2021-0 No Route: IV, Memoria ne (ANES) 10-03 Drug form: l 18:23: INJ, ONCE, Stop date: 10/03/21 13:23:00 CDT ceFAZolin 2021-0 No Route: IV, Me moria (ANES) 10-03 Drug form: l 18:23: INJ, ONCE, Stop date: 10/03/21 13:23:00 CDT ondansetron 2021-0 No Route: IV, [facility] (ANES) 4- Drug form: l 18:23: INJ, ONCE, Stop date: 10/03/21 13:23:00 CDT dexamethaso 2021-0 No Route: IV, Memoria ne (ANES) - Drug form: l 18:23: INJ, ONCE, Stop date: 10/03/21 13:23:00 CDT ceFAZolin 2021-0 No Route: IV, Me moria (ANES) - Drug form: l 18:23: INJ, ONCE, Stop date: 10/03/21 13:23:00 CDT ondansetron 2021-0 No Route: IV, [facility] (ANES) 4- Drug form: l 18:23: INJ, ONCE, [place] 00 Stop date: 10/03/21 13:23:00 CDT dexamethaso 2021-0 No Route: IV, Memoria ne (ANES) - Drug form: l 18:23: INJ, ONCE, Stop date: 10/03/21 13:23:00 CDT midazolam 2021-0 No Route: IV, Me moria (ANES) 4- Drug form: l 18:13: SOLN, [place] ONCE, Stop date: 10/03/21 13:13:00 CDT fentaNYL 2021-0 No Route: IV, Mem oria (ANES) - Drug form: l 18:13: INJ, ONCE, Stop date: 10/03/21 13:13:00 CDT lidocaine 2021-0 No Route: IV, Me moria (ANES) 4- Drug form: l 18:13: INJ, ONCE, [place] 00 Stop date: 10/03/21 13:13:00 CDT propofol 2021-0 No Route: IV, Mem oria (ANES) 10-03 Drug form: l 18:13: INJ, ONCE, Stop date: 10/03/21 13:13:00 CDT midazolam 2021-0 No Route: IV, Me moria (ANES) 4- Drug form: l 18:13: SOLN, [place] ONCE, Stop date: 10/03/21 13:13:00 CDT fentaNYL 2021-0 No Route: IV, Mem oria (ANES) 4- Drug form: l 18:13: INJ, ONCE, [place] 00 Stop date: 10/03/21 13:13:00 CDT lidocaine 2021-0 No Route: IV, Me moria (ANES) 4- Drug form: l 18:13: INJ, ONCE, [place] 00 Stop date: 10/03/21 13:13:00 CDT propofol 2021-0 No Route: IV, Mem oria (ANES) 4- Drug form: l 18:13: INJ, ONCE, [place] 00 Stop date: 10/03/21 13:13:00 CDT midazolam 2021-0 No Route: IV, Me moria (ANES) 4- Drug form: l 18:13: SOLN, [place] 00 ONCE, Stop date: 10/03/21 13:13:00 CDT fentaNYL 2021-0 No Route: IV, Mem oria (ANES) 4- Drug form: l 18:13: INJ, ONCE, [place] 00 Stop date: 10/03/21 13:13:00 CDT lidocaine 2-0 No Route: IV, Me moria (ANES) 4- Drug form: l 18:13: INJ, ONCE, [place] 00 Stop date: 10/03/21 13:13:00 CDT propofol 2-0 No Route: IV, Mem oria (ANES) 4- Drug form: l 18:13: INJ, ONCE, [place] 00 Stop date: 10/03/21 13:13:00 CDT midazolam 202-0 No Route: IV, Me moria (ANES) 4- Drug form: l 18:13: SOLN, [place] 00 ONCE, Stop date: 10/03/21 13:13:00 CDT fentaNYL 2021-0 No Route: IV, Mem o[facility] (ANES) 4- Drug form: l 18:13: INJ, ONCE, [place] 00 Stop date: 10/03/21 13:13:00 CDT lidocaine 2021-0 No Route: IV, Me moria (ANES) 4- Drug form: l 18:13: INJ, ONCE, [place] 00 Stop date: 10/03/21 13:13:00 CDT propofol 2022-0 No Route: IV, Mem oria (ANES) 4- Drug form: l 18:13: INJ, ONCE, [place] 00 Stop date: 10/03/21 13:13:00 CDT midazolam 2022-0 No Route: IV, Me moria (ANES) 4-07 Drug form: l 18:13: SOLN, [place] 00 ONCE, Stop date: 10/03/21 13:13:00 CDT midazolam 2022-0 No Route: IV, Me moria (ANES) 4-07 Drug form: l 18:13: SOLN, [place] 00 ONCE, Stop date: 10/03/21 13:13:00 CDT fentaNYL 202-0 No Route: IV, Mem oria (ANES) 4- Drug form: l 18:13: INJ, ONCE, [place] 00 Stop date: 10/03/21 13:13:00 CDT lidocaine 2-0 No Route: IV, Me moria (ANES) 4- Drug form: l 18:13: INJ, ONCE, [place] 00 Stop date: 10/03/21 13:13:00 CDT propofol 2-0 No Route: IV, Mem oria (ANES) 4- Drug form: l 18:13: INJ, ONCE, [place] 00 Stop date: 10/03/21 13:13:00 CDT fentaNYL 2022-0 No Route: IV, Mem oria (ANES) 4- Drug form: l 18:13: INJ, ONCE, [place] 00 Stop date: 10/03/21 13:13:00 CDT lidocaine 2022-0 No Route: IV, Me mor[place] (ANES) 4- Drug form: l 18:13: INJ, ONCE, Stop date: 10/03/21 13:13:00 CDT propofol 2022-0 No Route: IV, Mem oria (ANES) 4- Drug form: l 18:13: INJ, ONCE, Stop date: 10/03/21 13:13:00 CDT midazolam 2-0 No Route: IV, Me moria (ANES) 4-07 Drug form: l 18:13: SOLN, ONCE, Stop date: 10/03/21 13:13:00 CDT fentaNYL 2-0 No Route: IV, Mem oria (ANES) 4- Drug form: l 18:13: INJ, ONCE, [place] 00 Stop date: 10/03/21 13:13:00 CDT lidocaine 2022-0 No Route: IV, Me moria (ANES) 4-07 Drug form: l 18:13: INJ, ONCE, [place] 00 Stop date: 10/03/21 13:13:00 CDT propofol 2022-0 No Route: IV, Mem oria (ANES) 4-07 Drug form: l 18:13: INJ, ONCE, [place] 00 Stop date: 10/03/21 13:13:00 CDT midazolam 2022-0 No Route: IV, Me moria (ANES) 4- Drug form: l 18:13: SOLN, [place] 00 ONCE, Stop date: 10/03/21 13:13:00 CDT fentaNYL 2022-0 No Route: IV, Mem oria (ANES) 4- Drug form: l 18:13: INJ, ONCE, [place] 00 Stop date: 10/03/21 13:13:00 CDT lidocaine 2022-0 No Route: IV, Me moria (ANES) 4- Drug form: l 18:13: INJ, ONCE, [place] 00 Stop date: 10/03/21 13:13:00 CDT propofol 2022-0 No Route: IV, Mem oria (ANES) 4- Drug form: l 18:13: INJ, ONCE, [place] 00 Stop date: 10/03/21 13:13:00 CDT midazolam 2022-0 No Route: IV, Me mor[place] (ANES) 4- Drug form: l 18:13: SOLN, [place] 00 ONCE, Stop date: 10/03/21 13:13:00 CDT fentaNYL 2022-0 No Route: IV, Mem o[facility] (ANES) 4- Drug form: l 18:13: INJ, ONCE, [place] 00 Stop date: 10/03/21 13:13:00 CDT lidocaine 2022-0 No Route: IV, Me moria (ANES) 4-07 Drug form: l 18:13: INJ, ONCE, [place] Stop date: 10/03/21 13:13:00 CDT propofol 2022-0 No Route: IV, Mem oria (ANES) 4- Drug form: l 18:13: INJ, ONCE, [place] Stop date: 10/03/21 13:13:00 CDT midazolam 2022-0 No Route: IV, Me mor[place] (ANES) 4-07 Drug form: l 18:13: SOLN, [place] 00 ONCE, Stop date: 10/03/21 13:13:00 CDT fentaNYL 2022-0 No Route: IV, Mem oria (ANES) 4-07 Drug form: l 18:13: INJ, ONCE, [place] 00 Stop date: 10/03/21 13:13:00 CDT lidocaine 2021-0 No Route: IV, Me mor[place] (ANES) 4-07 Drug form: l 18:13: INJ, ONCE, Stop date: 10/03/21 13:13:00 CDT propofol 2021-0 No Route: IV, Mem oria (ANES) 4-07 Drug form: l 18:13: INJ, ONCE, [place] 00 Stop date: 10/03/21 13:13:00 CDT Lactated 2021-0 No Route: IV, Mem oria [place] 4-07 Total l Injection 17:27: Volume: Kaylynn nn IV (ANES) 00 1,000, 1000 mL Start date: 10/03/21 12:27:00 CDT, Stop date: 10/03/21 13:27:00 CDT Lactated 2021-0 No Route: IV, Mem oria [place] 4-07 Total l Injection 17:27: Volume: Kaylynn nn IV (ANES) 00 1,000, 1000 mL Start date: 10/03/21 12:27:00 CDT, Stop date: 10/03/21 13:27:00 CDT Lactated 2021-0 No Route: IV, Mem oria [place] 4-07 Total l Injection 17:27: Volume: Kaylynn nn IV (ANES) 00 1,000, 1000 mL Start date: 10/03/21 12:27:00 CDT, Stop date: 10/03/21 13:27:00 CDT Lactated 2021-0 No Route: IV, Mem oria [place] 4-07 Total l Injection 17:27: Volume: Kaylynn nn IV (ANES) 00 1,000, 1000 mL Start date: 10/03/21 12:27:00 CDT, Stop date: 10/03/21 13:27:00 CDT Lactated 2021-0 No Route: IV, Mem oria [place] 4-07 Total l Injection 17:27: Volume: Kaylynn nn IV (ANES) 00 1,000, 1000 mL Start date: 10/03/21 12:27:00 CDT, Stop date: 10/03/21 13:27:00 CDT Lactated 2021-0 No Route: IV, Mem oria [place] 4-07 Total l Injection 17:27: Volume: Kaylynn nn IV (ANES) 00 1,000, 1000 mL Start date: 10/03/21 12:27:00 CDT, Stop date: 10/03/21 13:27:00 CDT Lactated 2021-0 No Route: IV, Mem oria [place] 4-07 Total l Injection 17:27: Volume: Kaylynn nn IV (ANES) 00 1,000, 1000 mL Start date: 10/03/21 12:27:00 CDT, Stop date: 10/03/21 13:27:00 CDT Lactated 2021-0 No Route: IV, Mem oria [place] 4-07 Total l Injection 17:27: Volume: Kaylynn nn IV (ANES) 00 1,000, 1000 mL Start date: 10/03/21 12:27:00 CDT, Stop date: 10/03/21 13:27:00 CDT Lactated 2021-0 No Route: IV, Mem oria [place] 4-07 Total l Injection 17:27: Volume: Kaylynn nn IV (ANES) 00 1,000, 1000 mL Start date: 10/03/21 12:27:00 CDT, Stop date: 10/03/21 13:27:00 CDT Lactated 2021-0 No Route: IV, Mem oria Ring[place] 4-07 Total l Injection 17:27: Volume: Kaylynn nn IV (ANES) 00 1,000, 1000 mL Start date: 10/03/21 12:27:00 CDT, Stop date: 10/03/21 13:27:00 CDT ondansetron 2021-0 Yes 1997 8mg [facility] ODT 4-06 [facility] (Zofran-ODT 17:12: ) 37 disintegrat ing tablet 8 mg ondansetron 2021-0 Yes 1997 8mg [facility] ODT 4-06 [facility] (Zofran-ODT 17:12: ) 37 disintegrat ing tablet 8 mg fluticasone 2021-0 Yes BID, 0 [place] lissette 93 mcg/inh 4-04 Refill(s) l nasal spray 15:45: [place] 00 fluticasone 2-0 Yes BID, 0 [place] lissette 93 mcg/inh 4-04 Refill(s) l nasal spray 15:45: [place] 00 fluticasone 2-0 Yes BID, 0 [place] lissette 93 mcg/inh 4-04 Refill(s) l nasal spray 15:45: [place] 00 fluticasone 2-0 Yes BID, 0 [place] lissette 93 mcg/inh 4-04 Refill(s) l nasal spray 15:45: [place] 00 fluticasone 2021-0 Yes BID, 0 [place] lissette 93 mcg/inh 4-04 Refill(s) l nasal spray 15:45: [place] 00 fluticasone 2-0 Yes BID, 0 [place] lissette 93 mcg/inh 4-04 Refill(s) l nasal spray 15:45: [place] 00 fluticasone 2021-0 Yes BID, 0 [place] lissette 93 mcg/inh 4-04 Refill(s) l nasal spray 15:45: [place] 00 fluticasone 2021-0 Yes BID, 0 [place] lissette 93 mcg/inh 4-04 Refill(s) l nasal spray 15:45: [place] 00 fluticasone 2021-0 Yes BID, 0 [place] lissette 93 mcg/inh 4-04 Refill(s) l nasal spray 15:45: [place] 00 fluticasone 2021-0 Yes BID, 0 [place] lissette 93 mcg/inh 4-04 Refill(s) l nasal spray 15:45: [place] 00 Fish Oil 2021-0 Yes PO, 0 [facility] 4-04 Refill(s) l 15:44: [place] 00 Milk 2021-0 Yes 0 [facility] Thistle 4-04 Refill(s) l 15:44: [place] 00 Fish Oil 2021-0 Yes PO, 0 [facility] 4-04 Refill(s) l 15:44: [place] 00 Milk 2021-0 Yes 0 [facility] Thistle 4-04 Refill(s) l 15:44: [place] 00 Fish Oil 2021-0 Yes PO, 0 [facility] 4-04 Refill(s) l 15:44: [place] 00 Milk 2021-0 Yes 0 [facility] Thistle 4-04 Refill(s) l 15:44: [place] 00 Fish Oil 2021-0 Yes PO, 0 [facility] 4-04 Refill(s) l 15:44: [place] 00 Milk 2022-0 Yes 0 [facility] Thistle 4-04 Refill(s) l 15:44: [place] 00 Fish Oil 0 Yes PO, 0 [facility] 4-04 Refill(s) l 15:44: [place] 00 Milk 0 Yes 0 [facility] Thistle 4-04 Refill(s) l 15:44: [place] 00 Fish Oil 0 Yes PO, 0 [facility] 4-04 Refill(s) l 15:44: [place] 00 Milk 0 Yes 0 [facility] Thistle 4-04 Refill(s) l 15:44: [place] 00 Fish Oil 0 Yes PO, 0 [facility] 4-04 Refill(s) l 15:44: [place] Milk 0 Yes 0 [facility] Thistle 4-04 Refill(s) l 15:44: [place] Fish Oil 0 Yes PO, 0 [facility] 4-04 Refill(s) l 15:44: [place] Milk 0 Yes 0 [facility] Thistle 4-04 Refill(s) l 15:44: [place] Fish Oil 0 Yes PO, 0 [facility] 4-04 Refill(s) l 15:44: [place] Milk 0 Yes 0 [facility] Thistle 4-04 Refill(s) l 15:44: [place] 00 Fish Oil 0 Yes PO, 0 [facility] 4-04 Refill(s) l 15:44: [place] Milk 0 Yes 0 [facility] Thistle 4-04 Refill(s) l 15:44: [place] trazodone 2021-0 Yes PO, [facility] 4-04 Bedtime, 0 l 15:43: Refill(s) [place] trazodone 2021-0 Yes PO, [facility] 4-04 Bedtime, 0 l 15:43: Refill(s) [place] trazodone 2021-0 Yes PO, [facility] 4-04 Bedtime, 0 l 15:43: Refill(s) [place] trazodone 2021-0 Yes PO, [facility] 4-04 Bedtime, 0 l 15:43: Refill(s) [place] trazodone 2021-0 Yes PO, [facility] 4-04 Bedtime, 0 l 15:43: Refill(s) [place] 00 trazodone 2021-0 Yes PO, [facility] 4-04 Bedtime, 0 l 15:43: Refill(s) [place] trazodone 2021-0 Yes PO, [facility] 4-04 Bedtime, 0 l 15:43: Refill(s) [place] 00 trazodone 2021-0 Yes PO, [facility] 4-04 Bedtime, 0 l 15:43: Refill(s) [place] 00 trazodone 2021-0 Yes PO, [facility] 4-04 Bedtime, 0 l 15:43: Refill(s) [place] 00 trazodone 2021-0 Yes PO, [facility] 4-04 Bedtime, 0 l 15:43: Refill(s) [place] 00 fluticasone 0 Yes INSTILL [facility] (Flonase) 3-25 TWO (2) Health 50 MCG/ACT 00:00: SPRAY(S) nasal spray 00 INTO EACH NOSTRIL ONCE DAILY. fluticasone 0 Yes INSTILL [facility] (Flonase) 3-25 TWO (2) Health 50 MCG/ACT 00:00: SPRAY(S) nasal spray 00 INTO EACH NOSTRIL ONCE DAILY. fluticasone 2021-0 Yes INSTILL [facility] (Flonase) 3-25 TWO (2) [...] ) 75 MG 00:00: tablet 00 buPROPion 2021-0 Yes 75mg Take 75 mg [facility] (Wellbutrin 1-31 by mouth. Hea lth ) 75 MG 00:00: tablet 00 buPROPion 2-0 Yes 75mg Take 75 mg UT (Wellbutrin 1-31 by mouth. Hea lth ) 75 MG 00:00: tablet 00 Amitriptyli Amitriptyli 2020-06 No QD Amitriptyl ne HCl 25 ne HCl 25 1-21 ine HCl 25 MG MG 00:00: MG 00 Amitriptyli Amitriptyli 2020-06 No QD Amitriptyl ne HCl 25 ne HCl 25 1-21 ine HCl 25 MG MG 00:00: MG 00 Amitriptyli Amitriptyli 2020-06 No QD Amitriptyl ne HCl 25 ne HCl 25 1-21 ine HCl 25 MG MG 00:00: MG 00 Amitriptyli Amitriptyli 2020-06 No QD Amitriptyl ne HCl 25 ne HCl 25 1-21 ine HCl 25 MG MG 00:00: MG 00 Amitriptyli Amitriptyli 2020-06 No QD Amitriptyl ne HCl 25 ne HCl 25 1-21 ine HCl 25 MG MG 00:00: MG 00 Amitriptyli Amitriptyli 2020-06 No QD Amitriptyl ne HCl 25 ne HCl 25 1-21 ine HCl 25 MG MG 00:00: MG 00 Amitriptyli Amitriptyli 2020-06 No QD Amitriptyl ne HCl 25 ne HCl 25 1-21 ine HCl 25 MG MG 00:00: MG 00 Amitriptyli Amitriptyli 2020-06 No QD Amitriptyl ne HCl 25 ne HCl 25 1-21 ine HCl 25 MG MG 00:00: MG 00 Amitriptyli Amitriptyli 2020-06 No QD Amitriptyl ne HCl 25 ne HCl 25 1-21 ine HCl 25 MG MG 00:00: MG 00 Amitriptyli Amitriptyli 2020-06 No QD Amitriptyl ne HCl 25 ne HCl 25 1-21 ine HCl 25 MG MG 00:00: MG 00 Amitriptyli Amitriptyli 2020-06 No QD Amitriptyl ne HCl 25 ne HCl 25 1-21 ine HCl 25 MG MG 00:00: MG 00 Amitriptyli Amitriptyli 2020-06 No QD Amitriptyl ne HCl 25 ne HCl 25 1-21 ine HCl 25 MG MG 00:00: MG 00 Amitriptyli Amitriptyli 2020-06 No QD Amitriptyl ne HCl 25 ne HCl 25 1-21 ine HCl 25 MG MG 00:00: MG 00 Amitriptyli Amitriptyli 2020-06 No QD Amitriptyl ne HCl 25 ne HCl 25 1-21 ine HCl 25 MG MG 00:00: MG 00 Amitriptyli Amitriptyli 2020-06 No QD Amitriptyl ne HCl 25 ne HCl 25 1-21 ine HCl 25 MG MG 00:00: MG 00 Amitriptyli Amitriptyli 2020-06 No QD Amitriptyl ne HCl 25 ne HCl 25 1-21 ine HCl 25 MG MG 00:00: MG 00 Amitriptyli Amitriptyli 2020-06 No QD Amitriptyl ne HCl 25 ne HCl 25 1-21 ine HCl 25 MG MG 00:00: MG 00 Amitriptyli Amitriptyli 2020-06 No QD Amitriptyl ne HCl 25 ne HCl 25 1-21 ine HCl 25 MG MG 00:00: MG 00 Amitriptyli Amitriptyli 2020-06 No QD Amitriptyl ne HCl 25 ne HCl 25 1-21 ine HCl 25 MG MG 00:00: MG 00 Amitriptyli Amitriptyli 2020-06 No QD Amitriptyl ne HCl 25 ne HCl 25 1-21 ine HCl 25 MG MG 00:00: MG 00 Amitriptyli Amitriptyli 2020-06 No QD Amitriptyl ne HCl 25 ne HCl 25 1-21 ine HCl 25 MG MG 00:00: MG 00 Amitriptyli Amitriptyli 2020-06 No QD Amitriptyl ne HCl 25 ne HCl 25 1-21 ine HCl 25 MG MG 00:00: MG 00 Amitriptyli Amitriptyli 2020-06 No QD Amitriptyl ne HCl 25 ne HCl 25 1-21 ine HCl 25 MG MG 00:00: MG 00 Amitriptyli Amitriptyli 2020-06 No QD Amitriptyl ne HCl 25 ne HCl 25 1-21 ine HCl 25 MG MG 00:00: MG 00 Amitriptyli Amitriptyli 2020-06 No QD Amitriptyl ne HCl 25 ne HCl 25 1-21 ine HCl 25 MG MG 00:00: MG 00 Dicyclomine Dicyclomine 2020-06- No 1{capsu TID HCl 10 MG HCl 10 MG 1-10 12-10 les_as_ 00:00: 00:00 needed} 00 :00 Dicyclomine Dicyclomine 2020-06- No 1{capsu TID Dicyclomin HCl 10 MG HCl 10 MG 1-10 12-10 les_as_ e HCl 10 00:00: 00:00 needed} MG 00 :00 Dicyclomine Dicyclomine 2020-06- No 1{capsu TID Dicyclomin HCl 10 MG HCl 10 MG 1-10 12-10 les_as_ e HCl 10 00:00: 00:00 needed} MG 00 :00 Dicyclomine Dicyclomine 2020-06- No 1{capsu TID Dicyclomin HCl 10 MG HCl 10 MG 1-10 12-10 les_as_ e HCl 10 00:00: 00:00 needed} MG 00 :00 Dicyclomine Dicyclomine 2020-061- No 1{capsu TID Dicyclomin HCl 10 MG HCl 10 MG 1-10 12-10 les_as_ e HCl 10 00:00: 00:00 needed} MG 00 :00 Dicyclomine Dicyclomine 2020-061- No 1{capsu TID Dicyclomin HCl 10 MG HCl 10 MG 1-10 12-10 les_as_ e HCl 10 00:00: 00:00 needed} MG 00 :00 Dicyclomine Dicyclomine 2020-061- No 1{capsu TID HCl 10 MG HCl 10 MG 1-10 12-10 les_as_ 00:00: 00:00 needed} 00 :00 Dicyclomine Dicyclomine 2020-06- No 1{capsu TID Dicyclomin HCl 10 MG HCl 10 MG 1-10 12-10 les_as_ e HCl 10 00:00: 00:00 needed} MG 00 :00 Dicyclomine Dicyclomine 2020-06- No 1{capsu TID Dicyclomin HCl 10 MG HCl 10 MG 1-10 12-10 les_as_ e HCl 10 00:00: 00:00 needed} MG 00 :00 Dicyclomine Dicyclomine 2020-06- No 1{capsu TID Dicyclomin HCl 10 MG HCl 10 MG 1-10 12-10 les_as_ e HCl 10 00:00: 00:00 needed} MG 00 :00 Dicyclomine Dicyclomine 2020-06- No 1{capsu TID Dicyclomin HCl 10 MG HCl 10 MG 1-10 12-10 les_as_ e HCl 10 00:00: 00:00 needed} MG 00 :00 Dicyclomine Dicyclomine 2020-06- No 1{capsu TID Dicyclomin HCl 10 MG HCl 10 MG 1-10 12-10 les_as_ e HCl 10 00:00: 00:00 needed} MG 00 :00 Dicyclomine Dicyclomine 2020-06- No 1{capsu TID Dicyclomin HCl 10 MG HCl 10 MG 1-10 12-10 les_as_ e HCl 10 00:00: 00:00 needed} MG 00 :00 Dicyclomine Dicyclomine 2020-06- No 1{capsu TID Dicyclomin HCl 10 MG HCl 10 MG 1-10 12-10 les_as_ e HCl 10 00:00: 00:00 needed} MG 00 :00 Dicyclomine Dicyclomine 2020-06- No 1{capsu TID Dicyclomin HCl 10 MG HCl 10 MG 1-10 12-10 les_as_ e HCl 10 00:00: 00:00 needed} MG 00 :00 Dicyclomine Dicyclomine 2020-06- No 1{capsu TID Dicyclomin HCl 10 MG HCl 10 MG 1-10 12-10 les_as_ e HCl 10 00:00: 00:00 needed} MG 00 :00 Dicyclomine Dicyclomine 2020-06- No 1{capsu TID Dicyclomin HCl 10 MG HCl 10 MG 10 12 les_as_ e HCl 10 00:00: 00:00 needed} MG 00 :00 Dicyclomine Dicyclomine 2020-06- No 1{capsu TID Dicyclomin HCl 10 MG HCl 10 MG 10 12-10 les_as_ e HCl 10 00:00: 00:00 needed} MG 00 :00 Dicyclomine Dicyclomine 2020-06- No 1{capsu TID Dicyclomin HCl 10 MG HCl 10 MG 07-08 12 les_as_ e HCl 10 00:00: 00:00 needed} MG 00 :00 Ondansetron Ondansetron 2020-06 No 1{table QD Ondansetro 4 MG 4 MG 07-07 t_ n 4 MG 00:00: e_tongu e_and_a llow_to _dissol ve} Ondansetron Ondansetron 2020-06 No 1{table Ondansetro 4 MG 4 MG 07-07 t_ n 4 MG 00:00: e_tongu e_and_a llow_to _dissol ve} Ondansetron Ondansetron 2020-06 No 1{table 4 MG 4 MG 07-07 t 00:00: e_tongu e_and_a llow_to _dissol ve} Ondansetron Ondansetron 2020-06 No 1{table 4 MG 4 MG 07-07 t_ 00:00: e_tongu 00 e_and_a llow_to _dissol ve} Ondansetron Ondansetron 2020-06 No 1{table Ondansetro 4 MG 4 MG 07-07 t_ n 4 MG 00:00: e_tongu 00 e_and_a llow_to _dissol ve} Ondansetron Ondansetron 2020-06 No 1{table Ondansetro 4 MG 4 MG 07-07 t_ n 4 MG 00:00: e_tongu 00 e_and_a llow_to _dissol ve} Ondansetron Ondansetron 2020-06 No 1{table Ondansetro 4 MG 4 MG - t_ n 4 MG 00:00: e_tongu 00 e_and_a llow_to _dissol ve} Ondansetron Ondansetron 2020-06 No 1{table Ondansetro 4 MG 4 MG 07-07 t_ n 4 MG 00:00: e_tongu 00 e_and_a llow_to _dissol ve} Ondansetron Ondansetron 2020-06 No 1{table Ondansetro 4 MG 4 MG 07-07 t n 4 MG 00:00: e_tongu 00 e_and_a llow_to _dissol ve} Ondansetron Ondansetron 2020-06 No 1{table 4 MG 4 MG 07-07 t 00:00: e_tongu 00 e_and_a llow_to _dissol ve} Ondansetron Ondansetron 2020-06 No 1{table Ondansetro 4 MG 4 MG 07-07 t n 4 MG 00:00: e_tongu 00 e_and_a llow_to _dissol ve} Ondansetron Ondansetron 2020-06 No 1{table QD Ondansetro 4 MG 4 MG 07-07 t n 4 MG 00:00: e_tongu 00 e_and_a llow_to _dissol ve} Ondansetron Ondansetron 2020-06 No 1{table QD Ondansetro 4 MG 4 MG 07-07 t n 4 MG 00:00: e_tongu 00 e_and_a llow_to _dissol ve} Ondansetron Ondansetron 2020-06 No 1{table QD Ondansetro 4 MG 4 MG 07-07 t n 4 MG 00:00: e_tongu 00 e_and_a llow_to _dissol ve} Ondansetron Ondansetron 2020-06 No 1{table QD Ondansetro 4 MG 4 MG 07-07 t_on n 4 MG 00:00: e_tongu 00 e_and_a llow_to _dissol ve} Ondansetron Ondansetron 2020-06 No 1{table QD Ondansetro 4 MG 4 MG 07-07 t_ n 4 MG 00:00: e_tongu 00 e_and_a llow_to _dissol ve} Ondansetron Ondansetron 2020-06 No 1{table QD Ondansetro 4 MG 4 MG 07-07 t_ n 4 MG 00:00: e_tongu 00 e_and_a llow_to _dissol ve} Ondansetron Ondansetron 2020-06 No 1{table QD Ondansetro 4 MG 4 MG 07-07 t_ n 4 MG 00:00: e_tongu 00 e_and_a llow_to _dissol ve} Ondansetron Ondansetron 2020-06 No 1{table QD Ondansetro 4 MG 4 MG 07-07 t_ n 4 MG 00:00: e_tongu 00 e_and_a llow_to _dissol ve} Ondansetron Ondansetron 2020-06 No 1{table QD Ondansetro 4 MG 4 MG 07-07 t n 4 MG 00:00: e_tongu 00 e_and_a llow_to _dissol ve} Ondansetron Ondansetron 2020-06 No 1{table QD Ondansetro 4 MG 4 MG 07-07 t_on n 4 MG 00:00: e_tongu 00 e_and_a llow_to _dissol ve} Ondansetron Ondansetron 2020-06 No 1{table QD Ondansetro 4 MG 4 MG 07-07 t_onth n 4 MG 00:00: e_tongu 00 e_and_a llow_to _dissol ve} Ondansetron Ondansetron 2020-06 No 1{table QD Ondansetro 4 MG 4 MG 07-07 t_on_th n 4 MG 00:00: e_tongu 00 e_and_a llow_to _dissol ve} Ondansetron Ondansetron 2020-06 No 1{table QD Ondansetro 4 MG 4 MG 07-07 t_on_th n 4 MG 00:00: e_tongu 00 e_and_a llow_to _dissol ve} Ondansetron Ondansetron 2020-06 No 1{table QD Ondansetro 4 MG 4 MG 07-07 t_on_th n 4 MG 00:00: e_tongu 00 e_and_a llow_to _dissol ve} Ondansetron Ondansetron 2020-06 No 1{table QD Ondansetro 4 MG 4 MG 07-07 t_on n 4 MG 00:00: e_tongu 00 e_and_a llow_to _dissol ve} Ondansetron Ondansetron 2020-06 No 1{table QD Ondansetro 4 MG 4 MG 07-07 t_on n 4 MG 00:00: e_tongu 00 e_and_a llow_to _dissol ve} Ondansetron Ondansetron 2020-06 No 1{table QD Ondansetro 4 MG 4 MG 07-07 t_on n 4 MG 00:00: e_tongu 00 e_and_a llow_to _dissol ve} Ondansetron Ondansetron 2020-06 No 1{table QD Ondansetro 4 MG 4 MG 07-07 t_onth n 4 MG 00:00: e_tongu 00 e_and_a llow_to _dissol ve} Ondansetron Ondansetron 2020-06 No 1{table QD Ondansetro 4 MG 4 MG 07-07 t_on_th n 4 MG 00:00: e_tongu 00 e_and_a llow_to _dissol ve} Ondansetron Ondansetron 2020-06 No 1{table QD Ondansetro 4 MG 4 MG 07-07 t_on_th n 4 MG 00:00: e_tongu 00 e_and_a llow_to _dissol ve} Ondansetron Ondansetron 2020-06 No 1{table QD Ondansetro 4 MG 4 MG - t_on n 4 MG 00:00: e_tongu 00 e_and_a llow_to _dissol ve} Ondansetron Ondansetron 2020-06 No 1{table QD Ondansetro 4 MG 4 MG - t_ n 4 MG 00:00: e_tongu 00 e_and_a llow_to _dissol ve} Ondansetron Ondansetron 2020-06 No 1{table QD Ondansetro 4 MG 4 MG 07-07 t_ n 4 MG 00:00: e_tongu 00 e_and_a llow_to _dissol ve} Ondansetron Ondansetron 2020-06 No 1{table QD Ondansetro 4 MG 4 MG 07-07 t_ n 4 MG 00:00: e_tongu 00 e_and_a llow_to _dissol ve} Ondansetron Ondansetron 2020-06 No 1{table QD Ondansetro 4 MG 4 MG 07-07 t_ n 4 MG 00:00: e_tongu 00 e_and_a llow_to _dissol ve} Ondansetron Ondansetron 2020-06 No 1{table QD Ondansetro 4 MG 4 MG 07-07 t_ n 4 MG 00:00: e_tongu 00 e_and_a llow_to _dissol ve} Ondansetron Ondansetron 2020-06 No 1{table QD Ondansetro 4 MG 4 MG - t_onth n 4 MG 00:00: e_tongu 00 e_and_a llow_to _dissol ve} Ondansetron Ondansetron 2020-06 No 1{table QD Ondansetro 4 MG 4 MG - t_on n 4 MG 00:00: e_tongu 00 e_and_a llow_to _dissol ve} Ondansetron Ondansetron 2020-06 No 1{table QD Ondansetro 4 MG 4 MG 07-07 t_on n 4 MG 00:00: e_tongu 00 e_and_a llow_to _dissol ve} Ondansetron Ondansetron 2020-06 No 1{table QD Ondansetro 4 MG 4 MG 07-07 t_ n 4 MG 00:00: e_tongu 00 e_and_a llow_to _dissol ve} Ondansetron Ondansetron 2020-06 No 1{table QD Ondansetro 4 MG 4 MG 07-07 t_ n 4 MG 00:00: e_tongu 00 e_and_a llow_to _dissol ve} Ondansetron Ondansetron 2020-06 No 1{table QD Ondansetro 4 MG 4 MG 07-07 t_ n 4 MG 00:00: e_tongu 00 e_and_a llow_to _dissol ve} Ondansetron Ondansetron 2020-06 No 1{table QD Ondansetro 4 MG 4 MG 07-07 t_ n 4 MG 00:00: e_tongu 00 e_and_a llow_to _dissol ve} Ondansetron Ondansetron 2020-06 No 1{table QD Ondansetro 4 MG 4 MG 07-07 t n 4 MG 00:00: e_tongu 00 e_and_a llow_to _dissol ve} Ondansetron Ondansetron 2020-06 No 1{table QD Ondansetro 4 MG 4 MG 07-07 t_on n 4 MG 00:00: e_tongu 00 e_and_a llow_to _dissol ve} Ondansetron Ondansetron 2020-06 No 1{table QD Ondansetro 4 MG 4 MG 07-07 t_onth n 4 MG 00:00: e_tongu 00 e_and_a llow_to _dissol ve} Ondansetron Ondansetron 2020-06 No 1{table QD Ondansetro 4 MG 4 MG 07-07 t_on_th n 4 MG 00:00: e_tongu 00 e_and_a llow_to _dissol ve} Ondansetron Ondansetron 2020-06 No 1{table QD Ondansetro 4 MG 4 MG 07-07 t_on_th n 4 MG 00:00: e_tongu 00 e_and_a llow_to _dissol ve} Ondansetron Ondansetron 2020-06 No 1{table QD Ondansetro 4 MG 4 MG 07-07 t_on_th n 4 MG 00:00: e_tongu 00 e_and_a llow_to _dissol ve} Ondansetron Ondansetron 2020-06 No 1{table QD Ondansetro 4 MG 4 MG 07-07 t_on n 4 MG 00:00: e_tongu 00 e_and_a llow_to _dissol ve} Ondansetron Ondansetron 2020-06 No 1{table QD Ondansetro 4 MG 4 MG 07-07 t_on n 4 MG 00:00: e_tongu 00 e_and_a llow_to _dissol ve} Ondansetron Ondansetron 2020-06 No 1{table QD Ondansetro 4 MG 4 MG 07-07 t_on n 4 MG 00:00: e_tongu 00 e_and_a llow_to _dissol ve} Ondansetron Ondansetron 2020-06 No 1{table QD Ondansetro 4 MG 4 MG 07-07 t_onth n 4 MG 00:00: e_tongu 00 e_and_a llow_to _dissol ve} Ondansetron Ondansetron 2020-06 No 1{table QD Ondansetro 4 MG 4 MG 07-07 t_on_th n 4 MG 00:00: e_tongu 00 e_and_a llow_to _dissol ve} Ondansetron Ondansetron 2020-06 No 1{table QD Ondansetro 4 MG 4 MG 07-07 t_on_th n 4 MG 00:00: e_tongu 00 e_and_a llow_to _dissol ve} Ondansetron Ondansetron 2020-06 No 1{table QD Ondansetro 4 MG 4 MG - t_on n 4 MG 00:00: e_tongu 00 e_and_a llow_to _dissol ve} Ondansetron Ondansetron 2020-06 No 1{table QD Ondansetro 4 MG 4 MG - t_ n 4 MG 00:00: e_tongu 00 e_and_a llow_to _dissol ve} Ondansetron Ondansetron 2020-06 No 1{table QD Ondansetro 4 MG 4 MG 07-07 t_ n 4 MG 00:00: e_tongu 00 e_and_a llow_to _dissol ve} Ondansetron Ondansetron 2020-06 No 1{table QD Ondansetro 4 MG 4 MG 07-07 t_ n 4 MG 00:00: e_tongu 00 e_and_a llow_to _dissol ve} Ondansetron Ondansetron 2020-06 No 1{table QD Ondansetro 4 MG 4 MG 07-07 t_ n 4 MG 00:00: e_tongu 00 e_and_a llow_to _dissol ve} Ondansetron Ondansetron 2020-06 No 1{table QD Ondansetro 4 MG 4 MG 07-07 t_ n 4 MG 00:00: e_tongu 00 e_and_a llow_to _dissol ve} Ondansetron Ondansetron 2020-06 No 1{table QD Ondansetro 4 MG 4 MG - t_onth n 4 MG 00:00: e_tongu 00 e_and_a llow_to _dissol ve} Ondansetron Ondansetron 2020-06 No 1{table QD Ondansetro 4 MG 4 MG - t_on n 4 MG 00:00: e_tongu 00 e_and_a llow_to _dissol ve} Ondansetron Ondansetron 2020-06 No 1{table QD Ondansetro 4 MG 4 MG 07-07 t_on n 4 MG 00:00: e_tongu 00 e_and_a llow_to _dissol ve} Ondansetron Ondansetron 2020-06 No 1{table QD Ondansetro 4 MG 4 MG 07-07 t_ n 4 MG 00:00: e_tongu 00 e_and_a llow_to _dissol ve} Ondansetron Ondansetron 2020-06 No 1{table QD Ondansetro 4 MG 4 MG 07-07 t_ n 4 MG 00:00: e_tongu 00 e_and_a llow_to _dissol ve} Ondansetron Ondansetron 2020-06 No 1{table QD Ondansetro 4 MG 4 MG 07-07 t_ n 4 MG 00:00: e_tongu 00 e_and_a llow_to _dissol ve} Ondansetron Ondansetron 2020-06 No 1{table QD Ondansetro 4 MG 4 MG 07-07 t_ n 4 MG 00:00: e_tongu 00 e_and_a llow_to _dissol ve} Ondansetron Ondansetron 2020-06 No 1{table QD Ondansetro 4 MG 4 MG 07-07 t n 4 MG 00:00: e_tongu 00 e_and_a llow_to _dissol ve} Ondansetron Ondansetron 2020-06 No 1{table QD Ondansetro 4 MG 4 MG 07-07 t_on n 4 MG 00:00: e_tongu 00 e_and_a llow_to _dissol ve} Ondansetron Ondansetron 2020-06 No 1{table QD Ondansetro 4 MG 4 MG 07-07 t_onth n 4 MG 00:00: e_tongu 00 e_and_a llow_to _dissol ve} Ondansetron Ondansetron 2020-06 No 1{table QD Ondansetro 4 MG 4 MG 07-07 t_on_th n 4 MG 00:00: e_tong 00 e_and_a llow_to _dissol ve} Ondansetron Ondansetron 2020-06 No 1{table QD Ondansetro 4 MG 4 MG 07-07 t_on_th n 4 MG 00:00: e_tong 00 e_and_a llow_to _dissol ve} Ondansetron Ondansetron 2020-06 No 1{table QD Ondansetro 4 MG 4 MG 07-07 t_on_th n 4 MG 00:00: e_tong 00 e_and_a llow_to _dissol ve} Buprenorphi Buprenorphi No Buprenorph ne ne ine Omeprazole Omeprazole No Omeprazole 1 1 No 1 [place] daily daily daily [facility] Vitamin D Vitamin D No Vitamin D Buprenorphi Buprenorphi No Buprenorph ne ne ine Omeprazole Omeprazole No Omeprazole Omeprazole Omeprazole No Omeprazole Vitamin D Vitamin D No Vitamin D Omeprazole Omeprazole No Omeprazole Vitamin D Vitamin D No Vitamin D Omeprazole Omeprazole No Omeprazole Vitamin D Vitamin D No Vitamin D Vitamin D Vitamin D No Vitamin D Omeprazole Omeprazole No Omeprazole Vitamin D Vitamin D No Omeprazole Omeprazole No Vitamin D Vitamin D No Omeprazole Omeprazole No Vitamin D Vitamin D No Vitamin D Omeprazole Omeprazole No Omeprazole Vitamin D Vitamin D No Vitamin D Omeprazole Omeprazole No Omeprazole Vitamin D Vitamin D No Vitamin D Omeprazole Omeprazole No Omeprazole Vitamin D Vitamin D No Vitamin D Omeprazole Omeprazole No Omeprazole Vitamin D Vitamin D No Vitamin D Omeprazole Omeprazole No Omeprazole Vitamin D Vitamin D No Omeprazole Omeprazole No Omeprazole Omeprazole No Omeprazole Vitamin D Vitamin D No Vitamin D Vitamin D Vitamin D No Vitamin D Omeprazole Omeprazole No Omeprazole Vitamin D Vitamin D No Vitamin D Omeprazole Omeprazole No Omeprazole Vitamin D Vitamin D No Vitamin D Omeprazole Omeprazole No Omeprazole Vitamin D Vitamin D No Vitamin D Omeprazole Omeprazole No Omeprazole Vitamin D Vitamin D No Vitamin D Omeprazole Omeprazole No Omeprazole Vitamin D Vitamin D No Vitamin D Omeprazole Omeprazole No Omeprazole Vitamin D Vitamin D No Vitamin D Omeprazole Omeprazole No Omeprazole Vitamin D Vitamin D No Vitamin D Omeprazole Omeprazole No Omeprazole Vitamin D Vitamin D No Vitamin D Omeprazole Omeprazole No Omeprazole Vitamin D Vitamin D No Vitamin D Omeprazole Omeprazole No Omeprazole Vitamin D Vitamin D No Vitamin D Omeprazole Omeprazole No Omeprazole Omeprazole Omeprazole No Omeprazole Vitamin D Vitamin D No Vitamin D Omeprazole Omeprazole No Omeprazole Vitamin D Vitamin D No Vitamin D Omeprazole Omeprazole No Omeprazole Vitamin D Vitamin D No Vitamin D Omeprazole Omeprazole No Omeprazole Vitamin D Vitamin D No Vitamin D Omeprazole Omeprazole No Omeprazole Vitamin D Vitamin D No Vitamin D Omeprazole Omeprazole No Omeprazole Vitamin D Vitamin D No Vitamin D Buprenorphi Buprenorphi No Buprenorph ne ne ine Omeprazole Omeprazole No Omeprazole Vitamin D Vitamin D No Vitamin D Buprenorphi Buprenorphi No Buprenorph ne ne ine Omeprazole Omeprazole No Omeprazole Vitamin D Vitamin D No Vitamin D Buprenorphi Buprenorphi No Buprenorph ne ne ine Omeprazole Omeprazole No Omeprazole Vitamin D Vitamin D No Vitamin D Buprenorphi Buprenorphi No Buprenorph ne ne ine Omeprazole Omeprazole No Omeprazole Vitamin D Vitamin D No Vitamin D Buprenorphi Buprenorphi No Buprenorph ne ne ine Omeprazole Omeprazole No Omeprazole Vitamin D Vitamin D No Vitamin D Buprenorphi Buprenorphi No Buprenorph ne ne ine Omeprazole Omeprazole No Omeprazole Vitamin D Vitamin D No Vitamin D Buprenorphi Buprenorphi No Buprenorph ne ne ine Omeprazole Omeprazole No Omeprazole Vitamin D Vitamin D No Vitamin D Buprenorphi Buprenorphi No Buprenorph ne ne ine Omeprazole Omeprazole No Omeprazole Vitamin D Vitamin D No Vitamin D Omeprazole Omeprazole No Omeprazole Vitamin D Vitamin D No Vitamin D Buprenorphi Buprenorphi No Buprenorph ne ne ine Vitamin D Vitamin D No Vitamin D Omeprazole Omeprazole No Omeprazole Buprenorphi Buprenorphi No Buprenorph ne ne ine Vitamin D Vitamin D No Vitamin D Omeprazole Omeprazole No Omeprazole Buprenorphi Buprenorphi No Buprenorph ne ne ine Vitamin D Vitamin D No Vitamin D Buprenorphi Buprenorphi No Buprenorph ne ne ine Omeprazole Omeprazole No Omeprazole Vitamin D Vitamin D No Vitamin D Buprenorphi Buprenorphi No Buprenorph ne ne ine Omeprazole Omeprazole No Omeprazole Vitamin D Vitamin D No Vitamin D Buprenorphi Buprenorphi No Buprenorph ne ne ine Omeprazole Omeprazole No Omeprazole Vitamin D Vitamin D No Vitamin D Buprenorphi Buprenorphi No Buprenorph ne ne ine Omeprazole Omeprazole No Omeprazole Vitamin D Vitamin D No Vitamin D Buprenorphi Buprenorphi No Buprenorph ne ne ine Omeprazole Omeprazole No Omeprazole Vitamin D Vitamin D No Vitamin D Buprenorphi Buprenorphi No Buprenorph ne ne ine Omeprazole Omeprazole No Omeprazole Vitamin D Vitamin D No Vitamin D Buprenorphi Buprenorphi No Buprenorph ne ne ine Omeprazole Omeprazole No Omeprazole Vitamin D Vitamin D No Vitamin D Buprenorphi Buprenorphi No Buprenorph ne ne ine Omeprazole Omeprazole No Omeprazole Vitamin D Vitamin D No Vitamin D Buprenorphi Buprenorphi No Buprenorph ne ne ine Omeprazole Omeprazole No Omeprazole Vitamin D Vitamin D No Vitamin D Buprenorphi Buprenorphi No Buprenorph ne ne ine Omeprazole Omeprazole No Omeprazole Vitamin D Vitamin D No Vitamin D Buprenorphi Buprenorphi No Buprenorph ne ne ine Omeprazole Omeprazole No Omeprazole Vitamin D Vitamin D No Vitamin D Buprenorphi Buprenorphi No Buprenorph ne ne ine Omeprazole Omeprazole No Omeprazole Vitamin D Vitamin D No Vitamin D Buprenorphi Buprenorphi No Buprenorph ne ne ine Omeprazole Omeprazole No Omeprazole Vitamin D Vitamin D No Vitamin D Buprenorphi Buprenorphi No Buprenorph ne ne ine Omeprazole Omeprazole No Omeprazole Vitamin D Vitamin D No Vitamin D Buprenorphi Buprenorphi No Buprenorph ne ne ine Omeprazole Omeprazole No Omeprazole Vitamin D Vitamin D No Vitamin D Buprenorphi Buprenorphi No Buprenorph ne ne ine Omeprazole Omeprazole No Omeprazole Vitamin D Vitamin D No Vitamin D Buprenorphi Buprenorphi No Buprenorph ne ne ine Omeprazole Omeprazole No Omeprazole Vitamin D Vitamin D No Vitamin D Buprenorphi Buprenorphi No Buprenorph ne ne ine Omeprazole Omeprazole No Omeprazole Vitamin D Vitamin D No Vitamin D Buprenorphi Buprenorphi No Buprenorph ne ne ine Omeprazole Omeprazole No Omeprazole Vitamin D Vitamin D No Vitamin D Buprenorphi Buprenorphi No Buprenorph ne ne ine Omeprazole Omeprazole No Omeprazole Vitamin D Vitamin D No Vitamin D Buprenorphi Buprenorphi No Buprenorph ne ne ine Omeprazole Omeprazole No Omeprazole Vitamin D Vitamin D No Vitamin D Buprenorphi Buprenorphi No Buprenorph ne ne ine Omeprazole Omeprazole No Omeprazole Vitamin D Vitamin D No Vitamin D Buprenorphi Buprenorphi No Buprenorph ne ne ine Omeprazole Omeprazole No Omeprazole Vitamin D Vitamin D No Vitamin D Buprenorphi Buprenorphi No Buprenorph ne ne ine Omeprazole Omeprazole No Omeprazole Vitamin D Vitamin D No Vitamin D Buprenorphi Buprenorphi No Buprenorph ne ne ine Omeprazole Omeprazole No Omeprazole Vitamin D Vitamin D No Vitamin D Buprenorphi Buprenorphi No Buprenorph ne ne ine Omeprazole Omeprazole No Omeprazole Vitamin D Vitamin D No Vitamin D Buprenorphi Buprenorphi No Buprenorph ne ne ine Omeprazole Omeprazole No Omeprazole Vitamin D Vitamin D No Vitamin D Buprenorphi Buprenorphi No Buprenorph ne ne ine Omeprazole Omeprazole No Omeprazole Vitamin D Vitamin D No Vitamin D Buprenorphi Buprenorphi No Buprenorph ne ne ine Omeprazole Omeprazole No Omeprazole Vitamin D Vitamin D No Vitamin D Buprenorphi Buprenorphi No Buprenorph ne ne ine Omeprazole Omeprazole No Omeprazole Vitamin D Vitamin D No Vitamin D Buprenorphi Buprenorphi No Buprenorph ne ne ine Omeprazole Omeprazole No Omeprazole Vitamin D Vitamin D No Vitamin D Buprenorphi Buprenorphi No Buprenorph ne ne ine Omeprazole Omeprazole No Omeprazole Vitamin D Vitamin D No Vitamin D Buprenorphi Buprenorphi No Buprenorph ne ne ine Omeprazole Omeprazole No Omeprazole Vitamin D Vitamin D No Vitamin D Buprenorphi Buprenorphi No Buprenorph ne ne ine Omeprazole Omeprazole No Omeprazole Vitamin D Vitamin D No Vitamin D Buprenorphi Buprenorphi No Buprenorph ne ne ine Omeprazole Omeprazole No Omeprazole Vitamin D Vitamin D No Vitamin D Vital Signs Vital Name Observation Time Observation Value Comments Source Systolic blood 2022-08-01 17:37:00 115 mm[Hg] [facility] Diastolic blood 2022-08-01 17:37:00 78 mm[Hg] [facility] Heart rate 2022-08-01 17:37:00 83 /min [facility] Body temperature 2022-08-01 17:37:00 36.72 Jennifer [facility] Body height 2022-08-01 17:37:00 160 cm [facility] Body weight 2022-08-01 17:37:00 50.485 kg [facility] BMI 2022-08-01 17:37:00 19.72 kg/m2 [facility] Oxygen saturation in 2022-08-01 17:37:00 99 /min [facility] blood by [facility]xim[facility] Systolic blood 2022-06-25 19:46:00 111 mm[Hg] [facility] Diastolic blood 2022-06-25 19:46:00 70 mm[Hg] [facility] Heart rate 2022-06-25 19:46:00 82 /min [facility] Body temperature 2022-06-25 19:46:00 36.78 Jennifer [facility] Body height 2022-06-25 19:46:00 160 cm [facility] Body weight 2022-06-25 19:46:00 48.807 kg [facility] BMI 2022-06-25 19:46:00 19.06 kg/m2 [facility] Systolic blood 2022-06-16 22:36:00 114 mm[Hg] [facility] Diastolic blood 2022-06-16 22:36:00 75 mm[Hg] [facility] Heart rate 2022-06-16 22:36:00 71 /min [facility] Body temperature 2022-06-16 22:36:00 37.06 Jennifer [facility] Body height 2022-06-16 22:36:00 160 cm [facility] Body weight 2022-06-16 22:36:00 48.535 kg [facility] BMI 2022-06-16 22:36:00 18.95 kg/m2 [facility] Respiratory rate 2022-06-03 15:22:00 16 /min [facility] Systolic blood 2022-06-03 15:07:00 111 mm[Hg] [facility] Diastolic blood 2022-06-03 15:07:00 73 mm[Hg] [facility] Heart rate 2022-06-03 15:07:00 61 /min [facility] Body temperature 2022-06-03 15:07:00 36.11 Jennifer [facility] Oxygen saturation in 2022-06-03 15:07:00 100 /min [facility] by [place] [facility] Body height 2022-06-03 12:08:00 160 cm [facility] Body weight 2022-06-03 12:08:00 48.9 kg [facility] BMI 2022-06-03 12:08:00 19.10 kg/m2 [facility] Respiratory rate 2022-06-03 15:22:00 16 /min [facility] Systolic blood 2022-06-03 15:07:00 111 mm[Hg] [facility] Diastolic blood 2022-06-03 15:07:00 73 mm[Hg] [facility] Heart rate 2022-06-03 15:07:00 61 /min [facility] Body temperature 2022-06-03 15:07:00 36.11 Jennifer [facility] Oxygen saturation in 2022-06-03 15:07:00 100 /min [facility]ial blood by [place] [facility] Body height 2022-06-03 12:08:00 160 cm [facility] Body weight 2022-06-03 12:08:00 48.9 kg [facility] BMI 2022-06-03 12:08:00 19.10 kg/m2 [facility] Systolic blood 2022-05-30 17:32:00 117 mm[Hg] [facility] Diastolic blood 2022-05-30 17:32:00 73 mm[Hg] [facility] Heart rate 2022-05-30 17:32:00 60 /min [facility] Body height 2022-05-30 17:32:00 160 cm [facility] Body weight 2022-05-30 17:32:00 48.535 kg [facility] BMI 2022-05-30 17:32:00 18.95 kg/m2 [facility] Body height 2022-05-30 13:12:00 160 cm [facility] Body weight 2022-05-30 13:12:00 48.127 kg [facility] BMI 2022-05-30 13:12:00 18.79 kg/m2 [facility] Systolic blood 2022-05-07 15:39:00 105 mm[Hg] [facility] Diastolic blood 2022-05-07 15:39:00 61 mm[Hg] [facility] Heart rate 2022-05-07 15:39:00 77 /min [facility] Body temperature 2022-05-07 15:39:00 37.17 Jennifer [facility] Body height 2022-05-07 15:39:00 160 cm [facility] Body weight 2022-05-07 15:39:00 48.127 kg [facility] BMI 2022-05-07 15:39:00 18.79 kg/m2 [facility] Systolic blood 2022-04-30 15:07:00 110 mm[Hg] [facility] Diastolic blood 2022-04-30 15:07:00 77 mm[Hg] [facility] Heart rate 2022-04-30 15:07:00 78 /min [facility] Body temperature 2022-04-30 15:07:00 36.89 Jennifer [facility] Body height 2022-04-30 15:07:00 160 cm [facility] Body weight 2022-04-30 15:07:00 46.72 kg [facility] BMI 2022-04-30 15:07:00 18.25 kg/m2 [facility] Oxygen saturation in 2022-04-30 15:07:00 100 /min [facility] Arterial blood by [facility]ermaine [facility] Branch Systolic blood 2022-04-23 19:03:00 113 mm[Hg] [facility] Diastolic blood 2022-04-23 19:03:00 73 mm[Hg] [facility] Heart rate 2022-04-23 19:03:00 72 /min [facility] Body temperature 2022-04-23 19:03:00 36.56 Jennifer [facility] Body height 2022-04-23 19:03:00 160 cm [facility] Body weight 2022-04-23 19:03:00 46.539 kg [facility] BMI 2022-04-23 19:03:00 18.17 kg/m2 [facility] Oxygen saturation in 2022-04-23 19:03:00 97 /min [facility] Arterial blood by [facility] Systolic blood 2022-04-18 15:00:00 120 mm[Hg] [facility] Diastolic blood 2022-04-18 15:00:00 82 mm[Hg] [facility] Heart rate 2022-04-18 15:00:00 75 /min [facility] Body height 2022-04-18 15:00:00 160 cm [facility] Body weight 2022-04-18 15:00:00 46.267 kg [facility] BMI 2022-04-18 15:00:00 18.07 kg/m2 [facility] Systolic blood 2022-03-24 15:26:00 110 mm[Hg] [facility] Diastolic blood 2022-03-24 15:26:00 72 mm[Hg] [facility] Heart rate 2022-03-24 15:26:00 96 /min [facility] Body temperature 2022-03-24 15:26:00 36.67 Jennifer [facility] Respiratory rate 2022-03-24 15:26:00 18 /min [facility] ersity [facility] Body height 2022-03-24 15:26:00 160 cm [facility] Body weight 2022-03-24 15:26:00 48.081 kg [facility] BMI 2022-03-24 15:26:00 18.78 kg/m2 [facility] Systolic blood 2022-03-13 18:17:00 114 mm[Hg] [facility] Diastolic blood 2022-03-13 18:17:00 79 mm[Hg] [facility] Heart rate 2022-03-13 18:17:00 66 /min [facility] Body temperature 2022-03-13 18:17:00 37.06 [facility] Respiratory rate 2022-03-13 18:17:00 18 /min [facility] 2022-03-13 18:17:00 160 cm [facility] Body weight 2022-03-13 18:17:00 46.72 kg [facility] BMI 2022-03-13 18:17:00 18.25 kg/m2 [facility] height 2021-10-15 14:00:00 66 [in_i] [facility] weight 2021-10-15 14:00:00 106 [lb_av] [facility] temperature 2021-10-15 14:00:00 98 [degF] [facility] bmi 2021-10-15 14:00:00 17.11 kg/m2 [facility] Body height 2021-09-25 16:20:00 [facility] 2021-09-25 16:20:00 49[facility]896 [facility] BMI 2021-09-25 16:20:00 20.12 kg/m2 [facility] height 2021-08-26 14:30:00 66 [in_i] [facility] weight 2021-08-26 14:30:00 114 [lb_av] [facility] temperature 2021-08-26 14:30:00 98.0 [degF] [facility] bmi 2021-08-26 14:30:00 18.4 kg/m2 [facility] blood pressure 2021-08-26 14:30:00 110 mm[Hg] [facility] blood pressure 2021-08-26 14:30:00 68 mm[Hg] [facility] height 2021-07-16 14:50:00 66 [in_i] [facility] weight 2021-07-16 14:50:00 112 [lb_av] [facility] temperature 2021-07-16 14:50:00 97 [degF] [facility] bmi 2021-07-16 14:50:00 18.08 kg/m2 [facility] height 2021-06-03 13:00:00 66 [in_i] [facility] weight 2021-06-03 13:00:00 114.7 [lb_av] [facility] temperature 2021-06-03 13:00:00 98.3 [degF] [facility] bmi 2021-06-03 13:00:00 18.51 kg/m2 [facility] blood pressure 2021-06-03 13:00:00 100 mm[Hg] [facility] blood pressure 2021-06-03 13:00:00 60 mm[Hg] [facility] height 2021-05-16 11:20:00 66 [in_i] [facility] weight 2021-05-16 11:20:00 122 [lb_av] [facility] temperature 2021-05-16 11:20:00 98 [degF] Common [facility] bmi 2021-05-16 11:20:00 19.69 kg/m2 [facility] height 2021-04-15 15:30:00 66 [in_i] [facility] weight 2021-04-15 15:30:00 121.8 [lb_av] [facility] temperature 2021-04-15 15:30:00 98.1 [degF] [facility] bmi 2021-04-15 15:30:00 19.66 kg/m2 [facility] oximetry 2021-04-15 15:30:00 99 % [facility] respiratory rate 2021-04-15 15:30:00 16 /min Comm on [facility] blood pressure 2021-04-15 15:30:00 97 mm[Hg] Common [facility] - systolic [facility] blood pressure 2021-04-15 15:30:00 54 mm[Hg] Common [facility] - diastolic [facility] BP Diastolic 2019-03-31 00:00:00 60 mm[Hg] [facility] Height 2019-03-31 00:00:00 61 [in_i] [facility] BMI (Body Mass 2019-03-31 00:00:00 24.6 kg/m2 [facility] Medical Index) Group BP Systolic 2019-03-31 00:00:00 110 mm[Hg] [facility] Body Weight 2019-03-31 00:00:00 130.2 [lb_av] [facility] BP Diastolic 2019-02-08 00:00:00 58 mm[Hg] [facility] Height 2019-02-08 00:00:00 61 [in_i] [facility] BMI (Body Mass 2019-02-08 00:00:00 26.3 kg/m2 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) Group BP Systolic 2019-02-08 00:00:00 77 mm[Hg] [facility] Body Weight 2019-02-08 00:00:00 139 [lb_av] [facility] BP Diastolic 2019-02-01 00:00:00 83 mm[Hg] [facility] Height 2019-02-01 00:00:00 61 [in_i] [facility] BMI (Body Mass 2019-02-01 00:00:00 26.5 kg/m2 [facility] Index) Group BP Systolic 2019-02-01 00:00:00 126 mm[Hg] [facility] Body Weight 2019-02-01 00:00:00 140 [lb_av] [facility] BP Diastolic 2019-01-18 00:00:00 62 mm[Hg] [facility] Height 2019-01-18 00:00:00 61 [in_i] [facility] BMI (Body Mass 2019-01-18 00:00:00 26.5 kg/m2 [facility]) Group BP Systolic 2019-01-18 00:00:00 111 mm[Hg] [facility] Body Weight 2019-01-18 00:00:00 140.5 [lb_av] [facility] BP Diastolic 2019-01-13 00:00:00 68 mm[Hg] [facility] Height 2019-01-13 00:00:00 61 [in_i] [facility] BMI (Body Mass 2019-01-13 00:00:00 26.5 kg/m2 [facility] Index) Group BP Systolic 2019-01-13 00:00:00 132 mm[Hg] [facility] Body Weight 2019-01-13 00:00:00 140 [lb_av] [facility] BP Diastolic 2019-01-04 00:00:00 67 mm[Hg] [facility] Height 2019-01-04 00:00:00 61 [in_i] [facility] BMI (Body Mass 2019-01-04 00:00:00 26.5 kg/m2 [facility]) Group BP Systolic 2019-01-04 00:00:00 125 mm[Hg] [facility] Body Weight 2019-01-04 00:00:00 140 [lb_av] [facility] BP Diastolic 2018-12-07 00:00:00 66 mm[Hg] [facility] Height 2018-12-07 00:00:00 61 [in_i] [facility] BMI (Body Mass 2018-12-07 00:00:00 27.8 kg/m2 [facility]) Group BP Systolic 2018-12-07 [...] BMI (Body Mass 2018-10-06 00:00:00 27.2 kg/m2 [facility]) Group BP Systolic 2018-10-06 00:00:00 128 mm[Hg] [facility] Body Weight 2018-10-06 00:00:00 144 [lb_av] [facility] Systolic (mm Hg) 2021-10-03 20:45:00 [place] rial [place] Diastolic (mm Hg) 2021-10-03 20:45:00 Mem orial [place] Respitory Rate 2021-10-03 20:45:00 Memori al [place] Respitory Rate 2021-10-03 20:15:00 Memori al [place] Systolic (mm Hg) 2021-10-03 20:15:00 [place] rial [place] Diastolic (mm Hg) 2021-10-03 20:15:00 Mem orial [place] Respitory Rate 2021-10-03 20:00:00 Memori al [place] Systolic (mm Hg) 2021-10-03 20:00:00 [place] rial [place] Diastolic (mm Hg) 2021-10-03 20:00:00 Mem orial [place] Height 2021-10-03 13:47:00 157.48 cm [facility] [place] Weight 2021-10-03 13:47:00 [facility] [place] BMI Calculated 2021-10-03 13:47:00 Jonh servin [place] Height 2021-09-30 15:17:00 157.48 cm [facility] [place] Weight 2021-09-30 15:17:00 [facility] [place] BMI Calculated 2021-09-30 15:17:00 Jonh al [place] Procedures Procedure Date / Time Performing Source Performed Clinician ASSIGNMENT OF BENEFITS 2022-08-01 Doctor Universit y of 17:31:56 Unassigned, No [facility] US ABDOMEN LIMITED 2022-07-04 Matt Rajput Anthony of 20:17:29 [facility] ASSIGNMENT OF BENEFITS 2022-07-04 Doctor Universit y of 19:30:18 Unassigned, No [facility] SURGICAL PATHOLOGY EXAM 2022-06-03 Jasmyn [facility] ty of 14:43:[address] [facility] DIAGNOSTIC LAPAROSCOPY 2022-06-03 Jasmyn [facility] y of 13:17:[address] [facility] [place] LAPAROSCOPIC SALPINGECTOMY 2022-06-03 Jasmyn [facility] rsity of 13:17:[address] [facility] [place] HB ABO GROUPING 2022-06-03 [facility] of 12:34:00 [facility] HB ABO GROUPING 2022-06-03 [facility] of 12:34:00 [facility] BASIC METABOLIC PANEL (NA, K, CL, 2022-06-03 Jasmyn [facility] of CO2, GLUCOSE, BUN, CREATININE, CA) 12:33:[address] [facility] [place] CBC WITH DIFF 2022-06-03 Vines, [facility] of 12:33:[address] [facility] [place] BASIC METABOLIC PANEL (NA, K, CL, 2022-06-03 Jasmyn [facility] of CO2, GLUCOSE, BUN, CREATININE, CA) 12:33:[address] [facility] [place] CBC WITH DIFF 2022-06-03 Vines, [facility] of 12:33:[address] [facility] [place] POCT TEST 2022-06-03 [facility] 12:25:00 [facility] POCT TEST 2022-06-03 [facility] of 12:25:00 [facility] DISCLOSURE AND CONSENT, MEDICAL 2022-05-30 [facility] of AND SURGICAL PROCEDURES 06:01:00 Unassigned, No [facility] Branch BI BREAST CYST ASPIRATION LEFT 2022-05-15 Lashell Landry U niversity of 19:43:00 [facility] US PELVIS COMPLETE WITH 2022-05-03 Jacky V[facility] ty of TRANSVAGINAL 16:35:[address] [facility] [place] POCT URINALYSIS 2022-04-23 Madalyn Fallon Anthony of 00:00:00 [facility] BI ULTRASOUND BREAST COMPLETE 2022-04-21 Lashell Landry Un iversity of BILATERAL 17:49:00 [facility] BI DIAGNOSTIC TOMOSYNTHESIS 2022-04-21 Lashell Landry Univ ersity of BILATERAL 17:20:00 [facility] INSURANCE CORRESPONDENCE 2022-04-16 Doctor [facility] of 05:01:00 Unassigned, No [facility] CONSENT/REFUSAL FOR DIAGNOSIS AND 2022-04-02 [facility] of TREATMENT 14:56:31 Unassigned, No [facility] ASSIGNMENT OF BENEFITS 2022-04-02 [facility] y of 14:56:19 Unassigned, No [facility] unlisted imaging order 2019-03-31 [facility] 00:00:00 Group US, obstetric, limited 2019-02-01 [facility] 00:00:00 Group unlisted imaging order 2019-01-13 [facility] 00:00:00 Group US, obstetric, limited 2019-01-04 [facility] 00:00:00 Group ULTRASOUND REPEAT 2018-12-07 [facility] jermaine 00:00:00 Group XR, ankle 2018-12-07 [facility] 00:00:00 Group US, obstetric, limited 2018-11-02 [facility] 00:00:00 Group ULTRASOUND, UTERUS REAL 2018-10-06 [facility] TIME WITH IMAGE DOC, AND 00:00:00 G roup MATERNAL EVAL PLUS DETAILED ANATOMIC EXAMINATION, TRANSABDOMINAL APPROACH; SINGLE OR FIRST GESTATION Section 2015-11-20 [facility] 00:00:00 Group Section 2013-09-29 [facility] 00:00:00 Group section Jonathan vaughn EGD - Esophagogastroduodenoscopy [facility] Nasal operation [facility] Tonsillectomy and adenoidectomy [facility] Remove Tonsils and Adenoids [facility] Encounters Start End Encounter Admission Attending Care Care Encounter Source Date/Time Date/Time Type Type Clinicians Facility Department ID 2021-12-26 Outpatient Li, [facility] [id number] Common 14:59:02 Adelfo [facility] 2021-09-23 Outpatient Li, [facility] [id number] Common 12:45:02 Adelfo [facility] 2021-09-06 Outpatient JAZLYN [facility] [id number] [place] 09:08:18 [facility] 2021-08-27 Outpatient Raman [facility] [id number] Univers 08:55:34 [facility] 2021-08-19 Outpatient Raman [facility] [id number] Univers 07:22:45 BRANDAN [facility] 2021-08-15 Outpatient Raman [facility] [id number] Univers 10:07:37 [facility] 2021-07-24 Outpatient Li, [facility] [id number] Common 14:21:07 Adelfo [id number] [facility] 2021-07-24 Outpatient Li, [facility] [id number] Common 14:14:28 Adelfo [id number] [facility] 2021-07-24 Outpatient Li, [facility] [id number] Common 14:12:42 Adelfo [id number] [facility] 2021-07-24 Outpatient Li, [facility] [id number] Common 14:02:16 Adelfo [id number] [facility] 2021-07-24 Outpatient Li, [facility] [id number] Common 14:01:57 Adelfo [id number] [facility] 2023-03-04 2023-03-04 Outpatient R MARIANELA PANIAGUA [facility] [id number] Univers 10:30:00 10:30:00 MARIANELA PANIAGUA [facility] 2022-10-13 2022-10-13 Outpatient R JASMYN [facility] [id number] Univers 11:00:00 11:00:00 RICO italia [facility] 2022-08-01 2022-08-01 Outpatient R VASYL [facility] [id number] Univers 11:30:00 12:05:01 MADALYNKIM echavarria [facility] 2022-08-01 2022-08-01 Office Vasyl [facility] 1.2.840.114 [id number] Univers 11:30:00 12:05:01 Visit MV [employer] 350.1.13.10 it y of [place] 4.2.7.2.686 Scott as LINSEY?BLEA [id number] [address] MEDICAL OFFICE BUILDING 2022-08-01 2022-08-01 Orders Doctor SARANYA 1.2.840.114 [id number] Univers 00:00:00 00:00:00 Only Unassigned, AYDIN 350.1.13.10 ity [facility] 4.2.7.2.686 [place] as [id number] [address] 2022-07-29 2022-07-29 Outpatient R VASYL [facility] [id number] Univers 13:30:00 13:30:00 MADALYN italia [facility] 2022-07-21 2022-07-21 Outpatient R MARIANELA PANIAGUA [facility] [id number] Univers 13:00:00 13:00:00 MARIANELA PANIAGUA [facility] 2022-07-21 2022-07-21 Outpatient R MARIANELA PANIAGUA [facility] [id number] Univers 10:00:00 10:00:00 MARIANELA PANIAGUA [facility] 2022-07-10 2022-07-10 [facility] 1.2.840.114 [id number] Univers 00:00:00 00:00:00 Secure Msg MV [employer] 350.1.13.10 ity of [place] [facility] 4.2.7.2.686 [place] LINSEY?BLEA [phone] [place] halina PECK [address] [place] [address] MEDICAL OFFICE BUILDING 2022-07-04 2022-07-04 Outpatient R ATIYA [facility] [id number] Univers 13:30:42 23:59:00 MATT ity [facility] 2022-07-04 2022-07-04 Hospital [facility] 1.2.840.114 [id number] Univers 13:30:42 23:59:00 Encounter Matt COREA 350.1.13.10 ity of [place].2.[place] [id number] [facility] [address] 2022-07-04 2022-07-04 Orders Doctor SARANYA 1.2.840.114 [id number] Univers 00:00:00 00:00:00 Only Unassigned, AYDIN 350.1.13.10 ity of [place] [facility] 4.2.7.2.686 [place] as [id number] [facility] [address] 2022-07-02 2022-07-02 Outpatient R MARIANELA PANIAGUA [facility] [id number] Univers 13:30:00 13:30:00 MARIANELA PANIAGUA itchacha [facility] 2022-06-25 2022-06-25 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 [facility] UNIVERSIT 1.2.840.114 [id number] Univers 15:00:00 15:15:00 Visit Matt Rajput 350.1.13.10 ity of CL[place]ICS 4[place]2.[place].2.[place] [id number] [facility] [address] 2022-06-25 2022-06-25 Office Atiya, [facility] [id number] Univers 14:00:00 15:00:00 Visit Matt MCCULLOUGH 350.1.13.10 i ty of CL[place].2.[place] [id number] [facility] [address] 2022-06-25 2022-06-25 Outpatient R ATIYA [facility] [id number] Univers 14:00:00 14:00:00 MATT [facility] 2022-06-18 2022-06-18 Outpatient [facility] [id number] Univers 09:15:00 09:15:00 DEL [facility] 2022-06-16 2022-06-[address] [facility] [id number] Univers 16:20:00 16:40:00 Visit [facility] 350.1.13.10 i ty of [facility] 4.2.7.2.[place] [id number] [address] 2022-06-16 2022-06-16 Out[facility] [id number] Univers 16:20:00 16:20:00 [facility] 2022-06-12 2022-06-12 Refill [facility] [id number] Univers 00:00:00 00:00:00 [facility] HEALTH 350.1.13.10 i ty of [facility] 4.2.7.2.[place] [id number] [address] 2022-06-12 2022-06-12 Patient Frederic [facility] 1.2.840.114 [id number] Univers 00:00:00 00:00:00 Secure [place] Brandan [facility] 350.1.13.10 ity of [facility] 4.2.7.2.[place] [id number] [place] [address] 2022-06-06 2022-06-06 Outpatient R JASMYN [facility] [id number] Univers 16:00:00 16:00:00 [facility] 2022-06-06 2022-06-[address] [facility] 1.2.840.114 [id number] Univers 00:00:00 00:00:00 [facility] HEALTH 350.1.13.10 i ty of [facility] 4.2.7.2.[place] [id number] [address] 2022-06-04 2022-06-04 Outpatient Raman BROWNING [facility] [id number] Univers 11:15:00 11:15:00 DEL ity [facility] 2022-06-04 2022-06-04 Telephone WILLIE VinesZANE 1.2.840.114 [id number] Univers 00:00:00 00:00:00 Rico Y HEALTH 350.1.13.10 i ty of [place] CLINICS 4[place]2.7.2.[place] [id number] [facility] [address] 2022-06-03 2022-06-03 Outpatient R JASMYN [facility] [id number] Univers 05:38:00 10:50:00 RICO ity [facility] 2022-06-03 2022-06-03 Hospital [facility] 1.2.840.114 [id number] Univers 05:38:00 10:50:00 Encounter Rico HEALTH 350.1.13.10 ity of [facility] [place].2.7.2.[place] [id number] [facility] [address] ([facility]) 2022-06-03 2022-06-03 Surgery [facility] 1.2.840.114 [id number] Univers 07:00:00 10:21:00 Rico HEALTH 350.1.13.10 it y of [place]2.[place].2.[place] [id number] [facility] [address] ([facility]) 2022-06-03 2022-06-03 Patient [facility] 1.2.840.114 [id number] Univers 00:00:00 00:00:00 Secure Msg Rico HEALTH 350.1.13.10 ity of [place]2.[place].2.[place] [id number] [address] ([facility]) 2022-05-30 2022-05-30 Outpatient Raman VINES [facility] [id number] Univers 15:00:00 15:00:00 RICO ity [facility] 2022-05-30 2022-05-30 Outpatient Raman VINES [facility] [id number] Univers 11:00:00 13:24:00 RICO ity of [facility] 2022-05-30 2022-05-30 Office Jasmyn [facility] 1.2.840.114 [id number] Univers 11:00:00 13:24:00 Visit [facility] HEALTH 350.1.13.10 it y of [place].2.[place].2.[place] [id number] [facility] [address] OFFICE BUILDING 2022-05-30 2022-05-30 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 Draw, [facility] 1.2.8 40.114 [id number] Univers 12:45:00 13:00:00 Visit Jacky Vinesh HEALTH 350.1.13. 10 ity of [place].2.[place].2.[place] [phone] [facility] [address] OFFICE BUILDING 2022-05-30 2022-05-30 Pre-Anesth Call, [facility] 1.2.840.114 [id number] Univers 07:15:00 07:20:00 esia Apa Phone HEALTH 350.1.13.10 ity of [place]2.7.2.686 [place] [phone] [facility] [address] ([facility]) 2022-05-30 2022-05-30 Orders Doctor SARANYA 1.2.840.114 [id number] Univers 00:00:00 00:00:00 Only Unassigned, AYDIN 350.1.13.10 ity of [place] [facility] 4.2.7.2.686 [place] as [phone] [facility] [address] 2022-05-26 2022-05-26 Outpatient R OBDULIA, [facility] [id number] Univers 10:20:00 10:20:00 SERGIO ity of [facility] 2022-05-26 2022-05-26 Telephone JED De La Garza 1.2.840.114 [id number] Univers 00:00:00 00:00:00 Brandan HEALTH 350.1.13.10 i ty of [place] [id number] [facility] [address] 2022-05-26 2022-05-26 Telephone JED De La Garza 1.2.840.114 [id number] Univers 00:00:00 00:00:00 Brandan Y HEALTH 350.1.13.10 i ty of [place] [id number] [address] 2022-05-20 2022-05-20 Outpatient [facility] [id number] Univers 14:30:00 14:30:00 LASHELL [facility] 2022-05-15 2022-05-15 [facility] 1.2.840.114 [id number] Univers 12:09:23 23:59:00 Encounter Lashell SPECIALTY 350.1.13.10 ity of C[place] 4.2.7.2.[place] CENTER AT [id number] [address] 2022-05-15 2022-05-15 Outpatient [facility] [id number] Univers 12:09:00 12:09:00 LASHELL [facility] 2022-05-15 2022-05-15 [facility] 1.2.840.114 [id number] Univers 12:09:00 12:09:00 Encounter Lashell SPECIALTY 350.1.13.10 ity of CARE 4.2.7.2.[place] CENTER AT [id number] [address] 2022-05-07 2022-05-07 Office JED De La Garza 1.2.840.114 [id number] Univers 09:30:00 10:00:00 Visit Brandan HEALTH 350.1.13.10 i ty of [place].7.2.[place] [id number] [address] 2022-05-07 2022-05-07 Outpatient R FREDERIC [facility] [id number] Univers 09:30:00 09:30:00 BRANDAN [facility] 2022-05-03 2022-05-03 Outpatient [facility] [id number] Univers 10:09:16 23:59:00 JACKY [facility] 2022-05-03 2022-05-03 [facility] 1.2.840.114 [id number] Univers 10:09:16 23:59:00 Encounter Rico ANMOL 350.1.13.10 ity of [place] 4.2.7.2.686 [place] [facility] [id number] [facility] [address] 2022-05-01 2022-05-01 Patient Vasyl [facility] 1.2.840.114 [id number] Univers 00:00:00 00:00:00 Secure Msg Madalyn HEALTH 350.1.13.10 ity of [place] 4.2.7.2.686 [place] as LINSEY?BLEA [id number] [address] OFFICE [facility] 2022-04-30 2022-04-30 Outpatient R [facility] [id number] Univers 10:00:00 10:41:39 MADALYN ity of [facility] 2022-04-30 2022-04-30 Office [facility] 1.2.840.114 [id number] Univers 10:00:00 10:41:39 Visit Madalyn HEALTH 350.1.13.10 it y of [place] 4.2.7.2.686 [place] as LINSEY?BLEA [id number] [address] OFFICE [facility] 2022-04-30 2022-04-30 Patient Vasyl [facility] 1.2.840.114 [id number] Univers 00:00:00 00:00:00 Secure Msg Madalyn HEALTH 350.1.13.10 ity of [place] 4.2.7.2.686 [place] as LINSEY?BLEA [id number] [address] OFFICE BUILDING 2022-04-30 2022-04-30 Patient Doctor [facility] 1.2.840.114 [id number] Univers 00:00:00 00:00:00 Secure Msg Unassigned, HEALTH 350.1.13.10 ity of [place].2.7.2.686 [facility] [id number] [facility] MEDICAL [address] OFFICE BUILDING 2022-04-29 2022-04-29 Outpatient [facility] [id number] Univers 13:00:00 13:00:00 RICO italia [facility] 2022-04-29 2022-04-29 Patient Vasyl [facility] 1.2.840.114 [id number] Univers 00:00:00 00:00:00 Secure Msg Madalyn HEALTH 350.1.13.10 ity of [place] [facility] 4.2.7.2.686 [place] LINSEY?BLEA [id number] [place] halina [address] MEDICAL OFFICE [facility] 2022-04-28 2022-04-28 Patient WILLIE De La GarzaIT 1.2.840.114 [id number] Univers 00:00:00 00:00:00 Secure Msg Brandan Marte HEALTH 350.1.13.10 ity of CL[place]ICS 4[place]2.[place]2.[place] [id number] [address] 2022-04-28 2022-04-28 Telephone JED De La Garza 1.2.840.114 [id number] Univers 00:00:00 00:00:00 Brandan Marte HEALTH 350.1.13.10 i ty of CL[place] 4[place]2.[place].2.[place] [id number] [address] 2022-04-23 2022-04-23 Outpatient R VASYL [facility] [id number] Univers 13:30:00 14:31:30 MADALYN echavarria [facility] 2022-04-23 2022-04-23 Office Vasyl [facility] 1.2.840.114 [id number] Univers 13:30:00 14:31:30 Visit Madalyn HEALTH [id number] it y of [facility] 4.2.7.2.686 [place] as LINSEY?BLEA [phone] [address] MEDICAL OFFICE [facility] 2022-04-22 2022-04-22 Outpatient R ASHLEY [facility] [id number] Univers 08:15:00 08:15:00 NARCISO chacha [facility] 2022-04-21 2022-04-21 [facility] 1.2.840.114 [id number] Univers 11:31:44 23:59:00 Encounter Lashell SPECIALTY [id number] ity [id number] [place] halina Conde [facility] 2022-04-21 2022-04-21 Outpatient R GRIS [facility] [id number] Univers 11:31:22 11:30:00 LASHELL ity of [facility] 2022-04-21 2022-04-21 [facility] 1.2.840.114 [id number] Univers 11:30:00 11:30:00 Encounter Lashell SPECIALTY 350.1.13.10 ity of C[place].2.[place].2.686 [place] C[place] AT [phone] [place] halina Conde [facility] 2022-04-21 2022-04-21 Patient [facility] 1.2.840.114 [id number] Univers 00:00:00 00:00:00 Secure Msg Angie Lopez HEALTH 350.1.13.10 ity of [place] 4.2.7.2.686 [place] as LINSEY?BLEA [id number] [address] MEDICAL OFFICE [facility] 2022-04-21 2022-04-21 Patient [facility] 1.2.840.114 [id number] Univers 00:00:00 00:00:00 Secure Msg Angie Lopez HEALTH 350.1.13.10 ity of [place] 4.2.7.2.686 [place] as LINSEY?BLEA [id number] [address] MEDICAL OFFICE [facility] 2022-04-21 2022-04-21 Patient Vasyl [facility] 1.2.840.114 [id number] Univers 00:00:00 00:00:00 Secure Msg Madalyn HEALTH 350.1.13.10 ity of [place] 4.2.7.2.686 [place] as LINSEY?BLEA [id number] [address] MEDICAL OFFICE [facility] 2022-04-21 2022-04-21 Patient Frederic [facility] 1.2.840.114 [id number] Univers 00:00:00 00:00:00 Secure Msg Brandan PRIMARY 350.1.13.10 it[place] of [place] [phone] [address] 2022-04-18 2022-04-18 Outpatient R JASMYN [facility] [id number] Univers 10:00:00 11:56:18 RICO ity of [facility] 2022-04-18 2022-04-18 Office [facility] 1.2.840.114 [id number] Univers 10:00:00 11:56:18 Visit [facility] 350.1.13.10 it y of [place] [id number] [address] OFFICE BUILDING 2022-04-16 2022-04-16 Outpatient R VASYL [facility] [id number] Univers 13:30:00 13:30:00 MADALYN echavarria of [facility] 2022-04-16 2022-04-16 Orders Doctor SARANYA 1.2.840.114 [id number] Univers 00:00:00 00:00:00 Only Unassigned, AYDIN 350.1.13.10 ity of [place] [facility] 4.2.7.2.686 [place] as [phone] [address] 2022-04-15 2022-04-15 Patient Vasyl [facility] 1.2.840.114 [id number] Univers 00:00:00 00:00:00 [facility] 350.1.13.10 ity of [place] 4.2.7.2.686 [place] LINSEY?BLEA [phone] [facility] 044 [facility] OFFICE BUILDING 2022-04-15 2022-04-15 Telephone Jasmyn [facility] 1.2.691.452 [id number] Univers 00:00:00 00:00:00 Rico HEALTH 350.1.13.10 it y of [place] [phone] [address] OFFICE BUILDING 2022-04-14 2022-04-14 Outpatient R MARIANELA PANIAGUA [facility] [id number] Univers 13:00:00 13:00:00 MARIANELA PANIAGUA itchacha [facility] 2022-04-14 2022-04-14 Outpatient R YAJAIRA [facility] [id number] Univers 11:45:00 11:45:00 KENDRICK itchacha [facility] 2022-04-14 2022-04-14 Patient Vasyl [facility] 1.2.840.114 [id number] Univers 00:00:00 00:00:00 Secure Msg Madalyn [facility] 350.1.13.10 ity of [place] [facility] 4.2.7.2.686 [place] LINSEY?BLEA [phone] Tx dical KNEY [address] [place] [address] 2022-04-11 2022-04-11 Patient Gris [facility] 1.2.830.254 [id number] Univers 00:00:00 00:00:00 Secure Msg Lashell WHEELERDEBBI 350.1.13.10 ity of [facility] 4.2.7.2.[place] [phone] Tx dical NAL [address] [place] [address] 2022-04-11 2022-04-11 Patient Lola [facility] 1.2.840.114 [id number] Univers 00:00:00 00:00:00 Secure Msg Jolene COREA 350.1.13.10 ity of [facility] 4.2.7.2.[place] [phone] Tx dical NAL [address] [place] [address] 2022-04-09 2022-04-09 Outpatient R GRIS [facility] [id number] Univers 00:00:00 00:00:00 LASHELL echavarria [facility] 2022-04-09 2022-04-09 Patient Gris [facility] 1.2.651.971 [id number] Univers 00:00:00 00:00:00 Secure Msg Lashell WHEELERDEBBI 350.1.13.10 ity of [facility] 4.2.7.2.[place] [id number] Tx dical NAL [address] [place] [address] 2022-04-08 2022-04-08 Patient Tyree [facility] 1.2.840.114 [id number] Univers 00:00:00 00:00:00 Secure Msg Angie M HEALTH 350.1.13.10 ity of [place] 4.2.7.2.686 [place] as LINSEY?BLEA [phone] Tx dical RAULEY 044 [facility] OFFICE [facility] 2022-04-07 2022-04-07 Ancillary Adina Philip [facility] 1.2.840. 114 [id number] Univers 13:00:00 14:03:49 Visit Narciso Ramirez 350.1.13.10 ity of [facility] 4.2.7.2.[place] [id number] Tx dicmalathi DONNELLY 179 [facility] 2022-04-07 2022-04-07 Patient Frederic, [facility] 1.2.840.114 [id number] Univers 00:00:00 00:00:00 Secure Msg Brandan Marte HEALTH 350.1.13.10 ity of CLIN[place] 4[place]2.[place].2.[place] [id number] [address] 2022-04-07 2022-04-07 Patient Frederic, [facility] 1.2.840.114 [id number] Univers 00:00:00 00:00:00 Secure Msg Brandan Marte HEALTH 350.1.13.10 ity of CL[place] 4[place]2.[place].2.[place] [phone] [address] 2022-04-07 2022-04-07 Patient Frederic, [facility] 1.2.840.114 [id number] Univers 00:00:00 00:00:00 Secure Msg Brandan Marte HEALTH 350.1.13.10 ity of CL[place] 4[place]2.[place].2.[place] [id number] [address] 2022-04-04 2022-04-04 Patient Vasyl [facility] 1.2.840.114 [id number] Univers 00:00:00 00:00:00 Secure Msg Madalyn HEALTH 350.1.13.10 ity of [place] 4.2.7.2.686 [place] LINSEY?BLEA [phone] Tx dical CISCO [address] 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 Aimee, Adc Lab Main [facility] 1.2.8 40.114 [id number] Univers 10:30:00 10:45:00 Visit Brandan De La Garza 350.1.13.10 ity [facility] 4.2.7.2.686 [place] [phone] T[place] dic[address] 2022-04-02 2022-04-02 Outpatient R FREDERIC [facility] [id number] Univers 10:30:00 10:30:00 BRANDAN chacha [facility] 2022-04-02 2022-04-02 Orders Doctor BEAVER 1.2.840.114 [id number] Univers 00:00:00 00:00:00 Only Unassigned, AYDIN 350.1.13.10 it[facility] 4.2.7.2.686 [place] as [phone] [address] 2022-03-31 2022-03-31 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 Aimee, Adc Lab Main [facility] 1.2.8 40.114 [id number] Univers 12:30:00 12:45:00 Visit Del Ribeiro 350.1.13.10 ity of [place] 4.2.7.2.[place] [phone] Tx dic[address] 2022-03-31 2022-03-31 Outpatient [facility] [id number] Univers 12:30:00 12:30:00 DEL chacha [facility] 2022-03-26 2022-03-26 Office MANNIE Edgar [facility] 1.2.840.114 [id number] [place] 11:15:00 12:52:38 Visit Javi GRANDA 350.1.13.58 H [facility] 9.2.7.2.686 [place] [address] [phone] 2022-03-25 2022-03-25 Telephone Gris [facility] 1.2.840.114 [id number] Univers 00:00:00 00:00:00 Lashell COREA 350.1.13.10 i ty of [facility] 4.2.7.2.[place] [id number] Tx dicct NAL 134 [facility] 2022-03-24 2022-03-24 Outpatient [facility] [id number] Univers 10:00:00 10:40:36 LASHELL [facility] 2022-03-24 2022-03-24 Office [facility] 1.2.347.889 [id number] Univers 10:00:00 10:40:36 Visit Lashell COREA 350.1.13.10 i ty of [place] 4.2.7.2.[place] [phone] [address] 2022-03-24 2022-03-24 Outpatient [facility] [id number] Univers 10:00:00 10:00:00 [facility]-22 2022-03-22 Outpatient R [facility] [id number] Univers 11:30:00 11:30:00 BRANDAN [facility] 2022-03-19 2022-03-19 (WEB) STLMLC STLC [id number] Co mmon 00:00:00 00:00:00 [facility] 2022-03-14 2022-03-14 Patient [facility] 1.2.840.114 [id number] Univers 00:00:00 00:00:00 Secure Msg [facility] 350.1.13.10 ity of [place] 4.2.7.2.686 [place] as LINSEY?BLEA [phone] Tx dical RAULMAGNO 044 [facility] OFFICE BUILDING 2022-03-14 2022-03-14 Patient De La Garza, [facility] 1.2.840.114 [id number] Univers 00:00:00 00:00:00 Secure Msg Brandan KEY 350.1.13.10 ity of [facility] 4.2.7.2.686 [place] CENTER AT [phone] Tx dical JOE [address] [place] [address] 2022-03-13 2022-03-13 Outpatient R [facility]AL[facility] [id number] Univers 13:30:00 14:04:01 LASHELL echavarria [facility] 2022-03-13 2022-03-13 Office [facility] 1.2.285.923 [id number] Univers 13:30:00 14:04:01 Visit Lashell COREA 350.1.13.10 i ty of [facility] 4.2.7.2.[place] [phone] Tx dical NAL [address] [place] [address] 2022-03-10 2022-03-10 Office [facility] 1.2.840.114 [id number] Univers 13:30:00 14:40:45 Visit Madalyn MCCULLOUGH 350.1.13.10 it y of [place] [facility] 4.2.7.2.686 [place] as LINSEY?BLEA [phone] Tx dicct KNEY [address] [place] [address] OFFICE [facility] 2022-03-10 2022-03-10 Outpatient R VASYL [facility] [id number] Univers 13:30:00 14:40:45 MADALYN zanechacha [facility] 2022-03-10 2022-03-10 Outpatient R VASYL [facility] [id number] Univers 13:30:00 13:30:00 MADALYN zanechacha [facility] 2022-02-20 2022-02-20 Telephone [facility] 1.2.216.694 [id number] Univers 00:00:00 00:00:00 Madalyn COREA 350.1.13.10 i ty of [facility] 4.2.7.2.[place] [phone] Tx dical NAL [address] [place] [address] 2022-02-18 2022-02-18 Patient Tyree [facility] 1.2.840.114 [id number] Univers 00:00:00 00:00:00 Secure g Angie Lopez ANMOL 350.1.13.10 ity of [facility] 4.2.7.2.[place] [phone] Tx dical NAL [address] [place] [address] 2022-02-17 2022-02-17 Outpatient [facility] [id number] Univers 13:30:00 13:30:00 MADALYN ity of [facility] 2022-02-17 2022-02-17 Orders Doctor SARANYA 1.2.840.114 [id number] Univers 00:00:00 00:00:00 Only Unassigned, AYDIN 350.1.13.10 ity of [place] [facility] 4.2.7.2.686 [place] as [phone] [facility] [address] 2022-02-13 2022-02-13 Patient WILLIE De La GarzaIT 1.2.840.114 [id number] Univers 00:00:00 00:00:00 Secure Msg Brandan Y HEALTH 350.1.13.10 ity of CL[place] 4[place]2.[place].2.[place] [id number] [place] [address] [place] 2022-02-13 2022-02-13 Patient Vasyl [facility] 1.2.840.114 [id number] Univers 00:00:00 00:00:00 Secure Msg Madalyn HEALTH 350.1.13.10 ity of [place] 4.2.7.2.686 [place] LINSEY?BLEA [phone] [address] MEDICAL OFFICE BUILDING 2022-02-13 2022-02-13 Patient WILLIE De La GarzaIT 1.2.840.114 [id number] Univers 00:00:00 00:00:00 Secure Msg Brandan Marte HEALTH 350.1.13.10 ity of [place] 4.2.7.2.[place] [phone] [facility] [address] 2022-02-12 2022-02-12 [facility] 1.2.840.114 [id number] Univers 13:28:26 23:59:00 Encounter Too [facility]a [facility] 350.1.13.10 ity of [place] 4.2.7.2.686 [place] [phone] [facility] [address] 2022-02-12 2022-02-12 Outpatient R [facility] [id number] Univers 13:28:06 13:27:00 TOO ity of [facility] 2022-02-12 2022-02-12 [facility] 1.2.840.114 [id number] Univers 13:00:00 13:27:00 Encounter Too COREA 350.1.13.10 ity of [facility] 4.2.7.2.[place] [phone] [facility] [address] 2022-02-12 2022-02-12 Outpatient [facility] [id number] Univers 10:00:00 10:00:00 MADALYN echavarria [facility] 2022-02-11 2022-02-11 (WEB) STLMLC STLMLC [id number] Co mmon 00:00:00 00:00:00 [facility] 2022-02-10 2022-02-10 (TEL) STLMLC STLMLC [id number] Co mmon 00:00:00 00:00:00 [facility] 2022-02-07 2022-02-07 Outpatient [facility] [id number] Univers 10:00:00 10:48:42 [facility] 2022-02-07 2022-02-07 Office [facility] 1.2.840.114 [id number] Univers 10:00:00 10:48:42 Visit [facility] 350.1.13.10 it y of [place] 4.2.7.2.686 [place] as LINSEY?BLEA [phone] Tx dicmalathi CARTEREY [address] MEDICAL OFFICE BUILDING 2022-02-06 2022-02-06 Patient [facility] 1.2.316.185 [id number] Univers 00:00:00 00:00:00 Secure Msg Lashell COREA 350.1.13.10 ity of [place] 4.2.7.2.686 [place] [facility] [id number] Tx dical [facility] [address] BUILDING 2022-02-06 2022-02-06 (TEL) STLMLC STLMLC [id number] Co mmon 00:00:00 00:00:00 [facility] 2022-02-05 2022-02-05 Office JED De La Garza 1.2.840.114 [id number] Univers 16:00:00 16:30:00 Visit Brandan MCCULLOUGH 350.1.13.10 i ty of [facility] 4.2.7.2.686 [place] [phone] [facility] [address] 2022-02-05 2022-02-05 Outpatient R [facility] [id number] Univers 16:00:00 16:00:00 BRANDAN [facility] 2022-02-05 2022-02-05 Outpatient R [facility] [id number] Univers 16:00:00 16:00:00 BRANDAN [facility] 2022-02-05 2022-02-05 (WEB) STLMLC STLMLC [id number] Co mmon 00:00:00 00:00:00 [facility] 2022-02-05 2022-02-05 (WEB) STLMLC STLMLC [id number] Co mmon 00:00:00 00:00:00 [facility] 2022-02-04 2022-02-04 Outpatient R [facility] [id number] Univers 14:30:00 14:55:35 LASHELL [facility] 2022-02-04 2022-02-04 Office [facility] 1..040.064 [id number] Univers 14:30:00 14:55:35 Visit Lashell COREA 350.1.13.10 i ty of [place] 4.2.7.2.686 [place] [phone] [address] 2022-02-04 2022-02-04 Outpatient R [facility] [id number] Univers 14:30:00 14:55:35 LASHELL [facility] 2022-02-04 2022-02-04 Orders Doctor BEAVER 1.2.840.114 [id number] Univers 00:00:00 00:00:00 Only Unassigned, AYDIN 350.1.13.10 ity of [place] [facility] 4.2.7.2.686 [place] as [id number] [facility] [address] 2022-02-01 2022-02-01 (WEB) STLMLC STLMLC [id number] Co mmon 00:00:00 00:00:00 [facility] 2022-01-29 2022-01-29 (WEB) STLMLC STLMLC [id number] Co mmon 00:00:00 00:00:00 [facility] 2022-01-22 2022-01-22 Outpatient R ALVARO [facility] [id number] Univers 13:30:00 13:30:00 POP ity o f [facility] 2022-01-21 2022-01-21 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 Aimee, Adc Lab Main [facility] 1.2.8 40.114 [id number] Univers 13:30:00 13:45:00 Visit De La GarzaBrandan pitts ANMOL 350.1.13.10 ity [facility] 4.2.7.2.[place] [id number] Me dical NAL 353 [facility] 2022-01-21 2022-01-21 Outpatient R FREDERIC [facility] [id number] Univers 13:30:00 13:30:00 BRANDAN itchacha [facility] 2022-01-21 2022-01-21 Orders Doctor SARANYA 1.2.840.114 [id number] Univers 00:00:00 00:00:00 Only Unassigned, AYDIN 350.1.13.10 ity of [place] [facility] 4.2.7.2.686 [place] as [id number] [address] 2022-01-18 2022-01-18 (WEB) STLMLC STLMLC [id number] Co mmon 00:00:00 00:00:00 [facility] 2022-01-17 2022-01-17 Patient Frederic [facility] 1.2.840.114 [id number] Univers 00:00:00 00:00:00 Secure Msg Avril J PRIMARY 350.1.13.10 ity of [facility] 4.2.7.2.686 [place] [phone] Me dical [address] 2022-01-17 2022-01-17 (WEB) STLMLC STLMLC [id number] Co mmon 00:00:00 00:00:00 [facility] 2022-01-16 2022-01-16 (WEB) STLMLC STLMLC [id number] Co mmon 00:00:00 00:00:00 [facility] 2022-01-16 2022-01-16 (WEB) STLMLC STLMLC [id number] Co mmon 00:00:00 00:00:00 [facility] 2022-01-15 2022-01-15 (TEL) STLMLC STLMLC [id number] Co mmon 00:00:00 00:00:00 [facility] 2022-01-13 2022-01-13 Outpatient Raman LANDRY [facility] [id number] Univers 15:00:00 15:00:00 LASHELL [facility] 2022-01-13 2022-01-13 (WEB) STLMLC STLMLC [id number] Co mmon 00:00:00 00:00:00 [facility] 2022-01-11 2022-01-11 (WEB) STLMLC STLMLC [id number] Co mmon 00:00:00 00:00:00 [facility] 2022-01-11 2022-01-11 (WEB) STLMLC STLMLC [id number] Co mmon 00:00:00 00:00:00 [facility] 2022-01-11 2022-01-11 (WEB) STLMLC STLMLC [id number] Co mmon 00:00:00 00:00:00 [facility] 2022-01-10 2022-01-10 Orders Doctor SARANYA 1.2.840.114 [id number] Univers 00:00:00 00:00:00 Only Unassigned, AYDIN 350.1.13.10 ity of [place] [facility] 4.2.7.2.686 [place] [id number] [place] [address] [address] 2022-01-06 2022-01-06 Patient Frederic [facility] 1.2.840.114 [id number] Univers 00:00:00 00:00:00 Secure Msg Brandan PRIMARY 350.1.13.10 ity of [place].2.[place] [phone] [place] dical [address] 2022-01-03 2022-01-03 Patient Manny Oleary [facility] 1.2.582.103 [id number] Univers 00:00:00 00:00:00 Secure Msg María PRIMARY 350.1.13.10 ity of [place].2.[place] [phone] Tx dical [address] 2022-01-02 2022-01-02 Patient Frederic [facility] 1.2.840.114 [id number] Univers 00:00:00 00:00:00 Secure Msg Brandan PRIMARY 350.1.13.10 ity of [place].2.[place] 425.2510600 [place] dical [address] 2022-01-02 2022-01-02 (WEB) STLMLC STLMLC [id number] Co mmon 00:00:00 00:00:00 [facility] 2022-01-02 2022-01-02 (WEB) STLMLC STLMLC [id number] Co mmon 00:00:00 00:00:00 [facility] 2022-01-02 2022-01-02 (TEL) STLMLC STLMLC [id number] Co mmon 00:00:00 00:00:00 [facility] 2022-01-01 2022-01-01 (WEB) STLMLC STLMLC [id number] Co mmon 00:00:00 00:00:00 [facility] 2021-12-31 2021-12-31 (WEB) STLMLC STLMLC [id number] Co mmon 00:00:00 00:00:00 [facility] 2021-12-31 2021-12-31 (WEB) STLMLC STLMLC [id number] Co mmon 00:00:00 00:00:00 [facility] 2021-12-31 2021-12-31 (WEB) STLMLC STLMLC [id number] Co mmon 00:00:00 00:00:00 [facility] 2021-12-31 2021-12-31 (WEB) STLMLC STLMLC [id number] Co mmon 00:00:00 00:00:00 [facility] 2021-12-31 2021-12-31 (WEB) STLMLC STLMLC [id number] Co mmon 00:00:00 00:00:00 [facility] 2021-12-31 2021-12-31 (WEB) STLMLC STLMLC [id number] Co mmon 00:00:00 00:00:00 [facility] 2021-12-29 2021-12-29 Emergency X NARAYANAN, [facility] ERT [id number] Univers 15:40:00 16:19:00 [facility] 2021-12-29 2021-12-29 Emergency Narayanan, [facility] 1.2.840.114 [id number] Univers 15:40:00 16:19:00 [facility] 350.1.13.10 i [facility] 4.2.7.2.686 [facility] [phone] [address] 2021-12-29 2021-12-29 Emergency X NARAYANAN, [facility] ERT [id number] Univers 15:40:00 16:19:00 [facility] 2021-12-26 2021-12-26 (WEB) STLMLC STLMLC [id number] Co mmon 00:00:00 00:00:00 [facility] 2021-12-23 2021-12-23 Office MANNIE Edgar [facility] 1.2.840.114 [id number] [place] 14:30:00 14:45:00 Visit Javiaaron GRANDA 350.1.13.58 H [facility] 9.2.7.2.686 [place] 9 [id number] 5 2021-12-20 2021-12-20 (WEB) STLMLC STLMLC [id number] Co mmon 00:00:00 00:00:00 [facility] 2021-12-19 2021-12-19 (WEB) STLMLC STLMLC [id number] Co mmon 00:00:00 00:00:00 [facility] 2021-12-16 2021-12-16 Telephone PierceFormerly [facility] [id number] Univers 00:00:00 00:00:00 Lashell COREA [id number] i ty [id number] [id number] [place] [address] 2021-12-13 2021-12-13 (WEB) STLMLC STLMLC [id number] Co mmon 00:00:00 00:00:00 [facility] 2021-12-12 2021-12-12 (WEB) STLMLC STLMLC [id number] Co mmon 00:00:00 00:00:00 [facility] 2021-12-11 2021-12-11 [facility] [id number] [facility] 11:30:00 11:45:10 Visit Lashell COREA [id number] i [id number] [id number] [address] 2021-12-11 2021-12-11 Outpatient Raman [facility] [id number] Univers 11:30[facility] 2021-12-11 Outpatient Raman [facility] [id number] Univers 11:30:00 11:30:[facility]-12-03 2021-12-03 Outpatient Raman [facility] [id number] Univers 16:00:00 16:00:[facility] 2021-11-22 2021-11-22 Outpatient Raman [facility] [id number] Univers 17:08:24 23:59:00 LASHELL ity [facility] 2021-11-22 2021-11-22 [facility] [id number] Univers 17:00:00 23:59:00 Encounter Lashell ANMOL [id number] ity of [place] [id number] [facility] [phone] [facility] [address] 2021-11-20 2021-11-20 SARANYA Bower [id number] Univers 00:00:00 00:00:00 Mirella LOUIEY [id number] it y of [facility] [id number] [facility] [id number] [facility] [address] 2021-11-20 2021-11-20 (WEB) STLMLC STLMLC [id number] Co mmon 00:00:00 00:00:00 [facility] 2021-11-19 2021-11-19 (WEB) STLMLC STLMLC [id number] Co mmon 00:00:00 00:00:00 [facility] 2021-11-19 2021-11-19 (WEB) STLMLC STLMLC [id number] Co mmon 00:00:00 00:00:00 [facility] 2021-11-19 2021-11-19 (WEB) STLMLC STLMLC [id number] Co mmon 00:00:00 00:00:00 [facility] 2021-11-13 2021-11-13 Outpatient Raman [facility] [id number] Univers 00:00:00 00:00:00 LASHELL echavarria [facility] 2021-11-04 2021-11-04 Outpatient Raman [facility] [id number] Univers 15:15:00 15:15:00 LASHELL echavarria [facility] 2021-11-03 2021-11-03 [facility] BOBBY Ribeiro [id number] Univers 08:52:00 23:59:00 Encounter Del Frederick [id number] ity of [facility] 4.2.7.2.686 [place] [id number] [facility] [address] 2021-11-03 2021-11-03 Outpatient Raman RIBEIRO [facility] ACO [id number] Univers 00:00:00 23:59:00 DEL [facility] 2021-10-30 2021-10-30 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 [facility] UNIVERSIT 1.2.840.114 [id number] Univers 15:30:00 15:45:00 Visit De La GarzaBrandan [facility] 350.1.13.10 ity of [facility] [place] [id number] [facility] [address] 2021-10-30 2021-10-30 Outpatient Raman DE LA GARZA [facility] [id number] Univers 15:30:00 15:30:00 BRANDAN [facility] 2021-10-30 2021-10-[address] [facility] 1.2.840.114 [id number] Univers 14:30:00 15:00:00 Visit [facility] 350.1.13.10 i ty of [facility] [place] [phone] [facility] [address] 2021-10-30 2021-10-30 Outpatient Raman DE LA GARZA [facility] [id number] Univers 14:30:00 14:30:00 BRANDAN [facility] 2021-10-28 2021-10-28 Outpatient Raman LANDRY [facility] [id number] Univers 00:00:00 00:00:00 LASHELL [facility] 2021-10-28 2021-10-28 Outpatient Raman LANDRY [facility] [id number] Univers 00:00:00 00:00:00 LASHELL [facility] 2021-10-24 2021-10-24 Office [facility] 1.2.639.949 [id number] Univers 13:30:00 14:00:00 Visit Lashell COREA 350.1.13.10 i ty of [place] [phone] [address] 2021-10-24 2021-10-24 Outpatient Raman LANDRY [facility] [id number] Univers 13:30:00 13:30:00 [facility] 2021-10-24 2021-10-24 Outpatient Raman LANDRY [facility] [id number] Univers 13:30:00 13:30:00 [facility] 2021-10-24 2021-10-24 Outpatient Raman LANDRY [facility] [id number] Univers 13:30:00 13:30:00 [facility] 2021-10-24 2021-10-24 (WEB) STLMLC STLMLC [id number] Co mmon 00:00:00 00:00:00 [facility] 2021-10-24 2021-10-24 (WEB) STLMLC STLMLC [id number] Co mmon 00:00:00 00:00:00 [facility] 2021-10-23 2021-10-23 Outpatient Raman KING [facility] [id number] Univers 13:30:00 14:06:55 JELENA silva [facility] 2021-10-23 2021-10-23 Office Enid Perez [facility] 1.2.840.11 [id number] Univers 13:30:00 14:06:55 Visit [facility]ena [facility] 350.1.13.10 Jose F 4.2.7.2.686 [facility] [phone] [address] [facility] 2021-10-15 2021-10-15 OFFICE STLMLC STLMLC [id number] Co mmon 00:00:00 00:00:00 VISIT [facility] LEVEL 4 [facility] 2021-10-07 2021-10-07 Outpatient Raman LANDRY [facility] [id number] Univers 13:45:00 14:51:02 [facility]-10-07 2021-10-07 Outpatient Rmaan LANDRY [facility] [id number] Univers 13:45:00 14:51:02 [facility] 2021-10-07 2021-10-07 Office [facility] 1.2.659.400 [id number] Univers 13:45:00 14:51:02 Visit Lashell COREA 350.1.13.10 [facility]annette [facility] [place] [phone] [place] dical [address] 2021-10-03 2021-10-03 Day nullFlavo [facility] [id number] Memoria 13:33:00 20:45:00 Surgery r [place] 00 l [facility] 2021-10-03 2021-10-03 Day nullFlavo [facility] [id number] Memoria 13:33:00 20:45:00 Surgery r [place] 00 [facility] 2021-10-03 2021-10-03 Outpatient GAUVAIN, MHBL MHBL 7500 MHBL 08:33:00 15:45:00 JAVI 2021-10-03 2021-10-03 Outpatient Gauvain, MHPL MHPL [id number] 08:33:00 15:45:00 Javi 00 [place] 2021-10-03 2021-10-03 Outpatient Gauvain, MHPL MHPL [id number] 08:33:00 15:45:00 Javi 00 [place] 2021-10-01 2021-10-01 Outpatient Raman [facility] GIE [id number] Univers 10:16:00 14:17:00 BRANDAN echavarria [facility] 2021-10-01 2021-10-01 Hospital [facility] 1.2.840.114 [id number] Univers 10:16:00 14:17:00 Encounter Brandan FOX 350.1.13.10 ity of [place]ENC[place] 4.2.7.2.686 [place] BLD[place] [id number] [address] 2021-10-01 2021-10-01 Surgery [facility] 1.2.840.114 [id number] Univers 11:45:00 12:30:00 Brandan FOX 350.1.13.10 it y of SCIENC[place] 4.2.7.2.686 [place] BLDG [phone] [facility] [address] 2021-10-01 2021-10-01 Laboratory Only, [facility] Test UNIVERSIT 1.2.84 0.114 [id number] Univers 09:30:00 09:45:00 Only De La Garza, Brandan MCCULLOUGH 350.1.13.10 ity of CL[place] [phone] [facility] [address] 2021-10-01 2021-10-01 Orders Doctor SARANYA 1.2.840.114 [id number] Univers 00:00:00 00:00:00 Only Unassigned, AYDIN 350.1.13.10 ity of [place] [facility] 4.2.7.2.686 [place] [phone] [facility] [address] 2021-09-25 2021-09-25 Office MANNIE Edgar [facility] 1.2.840.114 [id number] [place] 11:00:00 12:09:37 Visit Javi [place] 350.1.13.58 H [facility] 9.2.7.2.686 [address] 1 [id number] 5 2021-09-23 2021-09-23 Outpatient Raman LANDRY [facility] [id number] Univers 09:30:00 09:30:00 LASHELL ity [facility] 2021-09-20 2021-09-20 (WEB) STLMLC STLMLC [id number] Co mmon 00:00:00 00:00:00 [facility] 2021-09-18 2021-09-18 Prep For JED De La Garza 1.2.840.114 [id number] Univers 00:00:00 00:00:00 Surgery Brandan MCCULLOUGH 350.1.13.10 i ty of CL[place] [id number] [facility] [address] 2021-09-14 2021-09-14 (WEB) STLMLC STLMLC [id number] Co mmon 00:00:00 00:00:00 [facility] 2021-09-14 2021-09-14 (WEB) STLMLC STLMLC [id number] Co mmon 00:00:00 00:00:00 [facility] 2021-09-13 2021-09-13 Patient Frederic [facility] 1.2.840.114 [id number] Univers 00:00:00 00:00:00 Secure Msg Brandan PRIMARY 350.1.13.10 ity of C[place].2.[place] [phone] [place] dical [address] 2021-09-13 2021-09-13 (WEB) STLMLC STLC [id number] Co mmon 00:00:00 00:00:00 [facility] 2021-09-12 2021-09-12 Emergency X [facility] ERT [id number] Univers 18:42:00 21:43:00 [facility] 2021-09-12 2021-09-12 Emergency [facility] 1.2.765.364 [id number] Univers 18:42:00 21:43:00 [facility] S CAZENOVIA 350.1.13.10 ity [facility] 4.2.7.2.[place] C[place] [phone] [facility] 0[address] 2021-09-12 2021-09-12 Emergency X [facility] ERT [id number] Univers 18:42:00 21:43:00 [facility] ity [facility] 2021-09-12 2021-09-12 Patient Frederic [facility] 1.2.840.114 [id number] Univers 00:00:00 00:00:00 Secure Msg Brandan PRIMARY 350.1.13.10 ity of [place].2.[place] [phone] [place] dical [address] 2021-09-12 2021-09-12 Telephone WILLIE De La GarzaIT 1.2.840.114 [id number] Univers 00:00:00 00:00:00 Brandan HEALTH 350.1.13.10 i ty of [facility] 4.2.7.2.[place] [id number] [facility] [address] 2021-09-12 2021-09-12 (WEB) STLMLC LMLC [id number] Co mmon 00:00:00 00:00:00 Spirit - CHI [facility] 2021-09-06 2021-09-06 Anesthesia Phoebe [facility] 1.2.840.114 [id number] Univers 06:30:41 06:30:41 Event Ronda ICAL 350.1.13.10 it y of [place] 4.2.7.2.686 [place] BLDG [id number] [facility] jermaine [address] [place] 2021-09-05 2021-09-05 Emergency X JAZCAYDEN [facility] ERT 1 [id number] Univers 14:05:00 17:13:00 CAYDEN SEBASTIAN ity of [facility] 2021-09-05 2021-09-05 Emergency Jaz, 1.2.840.7 [id number] Univers 14:05:00 17:13:00 Cayden 14755.1.1 it y of 3.104.2.7 [place] .3.479131 Medica .8 [place] 2021-09-05 2021-09-05 Outpatient R [facility] GIE [id number] Univers 12:45:00 13:50:00 BRANDAN itchacha of [facility] 2021-09-05 2021-09-05 [facility], 1.2.840.3 [id number] Univers 12:45:00 13:50:00 Encounter Brandan 03169.1.1 it y of 3.104.2.7 [place] .3.581313 Medica l .[address] [place] [address] 2021-09-05 2021-09-05 Orders Doctor 1.2.840.6 [id number] Univers 00:00:00 00:00:00 Only Unassigned, 83486.1.1 ity of [place] 3.104.2.7 [place] .3.875781 Medica l .8 [place] 2021-09-05 2021-09-05 Travel 1.2.840.1 1.2.345.007 [id number] Univers 00:00:00 00:00:00 77623.1.1 350.1.13.10 ity of 3.104.2.7 4.[place].7.3.698 [place] .3.547338 084.8 Medica l .8 Branch 2021-09-05 2021-09-05 (WEB) [facility] [id number] Co mmon 00:00:00 00:00:00 [facility] 2021-09-04 2021-09-04 Travel 1.2.840.1 1.2.712.450 [id number] Univers 00:00:00 00:00:00 29908.1.1 350.1.13.10 ity of 3.104.2.7 4.2.7.3.698 [place] .3.164646 084.8 Medica l .8 [place] 2021-09-03 2021-09-03 [facility] [id number] Co mmon 00:00:00 00:00:00 [facility] 2021-09-02 2021-09-02 Laboratory Brandan De La Garza 1.2.840.1 [id number] Univers 13:30:00 13:45:00 Only Only, Adc Test 75843.1.1 ity of 3.104.2.7 [place] .3.204823 Medica l .8 [place] 2021-09-02 2021-09-02 Outpatient R FREDERIC, [facility] [id number] Univers 13:30:00 13:30:00 BRANDAN echavarria [facility] 2021-09-02 2021-09-02 Prep For Frederic, 1.2.840.5 [id number] Univers 00:00:00 00:00:00 Surgery Brandan 38886.1.1 ity of 3.104.2.7 [place] .3.462301 Medica l .8 [place] 2021-08-28 2021-08-28 Outpatient R FREDERIC, [facility] [id number] Univers 10:33:24 23:59:00 BRANDAN echavarria [facility] 2021-08-28 2021-08-28 [facility] Frederic 1.2.840.4 [id number] Univers 10:00:00 23:59:00 Encounter Brandan 81410.1.1 it y of 3.104.2.7 [place] .3.969204 Medica l .8 [place] 2021-08-28 2021-08-28 Outpatient [facility] [id number] Univers 11:00:00 14:48:43 NARCISO ity of [facility] 2021-08-28 2021-08-28 Ancillary Narciso Ramirez Vignesh 1.2.840.1 [id number] Univers 11:00:00 14:48:43 Visit Jenny Moore 96152.1.1 ity of 3.104.2.7 [place] .3.157256 Medica l .8 [place] 2021-08-28 2021-08-28 Travel 1.2.840.1 1.2.629.154 [id number] Univers 00:00:00 00:00:00 67064.1.1 350.1.13.10 ity of 3.104.2.7 4.2.7.3.698 [place] .3.242187 084.8 Medica l .8 [place] 2021-08-26 2021-08-26 OFFICE [facility] [id number] Co mmon 00:00:00 00:00:00 VISIT Jessee [place] PT - CHI LEVEL 4 [facility] 2021-08-23 2021-08-23 Outpatient [facility] [id number] Univers 11:30:00 23:59:00 BRANDAN echavarria [facility] 2021-08-23 2021-08-23 Hospital Frederic, 1.2.840.7 [id number] Univers 11:30:00 23:59:00 Encounter Brandan 11627.1.1 it y of 3.104.2.7 [place] .3.675052 Medica l .8 [place] 2021-08-19 2021-08-19 Telephone Oscar [facility] 1.2.840.114 [id number] Univers 00:00:00 00:00:00 Jenny COREA 350.1.13.10 ity of [place] 4.2.7.2.686 [place] [phone] T[place] dical NAL 145 [facility] 2021-08-19 2021-08-19 Telephone Oscar, 1.2.840.5 [id number] Univers 00:00:00 00:00:00 Jenny 08166.1.1 it y of 3.104.2.7 [place] .3.231431 Medica l .8 [place] 2021-08-19 2021-08-19 Travel 1.2.840.1 1.2.513.538 [id number] Univers 00:00:00 00:00:00 65413.1.1 350.1.13.10 ity of 3.104.2.7 4.2.7.3.698 [place] .3.768964 084.8 Medica l .8 [place] 2021-08-19 2021-08-19 Prep For Frederic, 1.2.840.0 [id number] Univers 00:00:00 00:00:00 Surgery Brandan 51817.1.1 ity of 3.104.2.7 [place] .3.067704 Medica l .8 [place] 2021-08-16 2021-08-16 Patient De La Garza, 1.2.840.6 [id number] Univers 00:00:00 00:00:00 Secure Msg Brandan 04738.1.1 i ty of 3.104.2.7 [place] .3.907232 Medica l .8 [place] 2021-08-15 2021-08-15 Anesthesia Haim, 1.2.840.4 [id number] Univers 23:59:59 23:59:59 Event Lanny 57895.1.1 ity of 3.104.2.7 [place] .3.834839 Medica l .8 [place] 2021-08-14 2021-08-14 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 Brandan De La Garza 1.2.840.1 [id number] Univers 14:30:00 15:06:26 Visit [facility] 20773.1.1 ity of 3.104.2.7 [place] .3.116166 Medica l .8 [place] 2021-08-14 2021-08-14 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 [facility] UNIVERSIT 1.2.840.114 [id number] Univers 14:30:00 14:45:00 Visit Brandan De La Garza 350.1.13.10 ity of CLINICS 4[place] [id number] [facility] 316 [place] 2021-08-14 2021-08-14 Outpatient R DE LA GARZA, [facility] [id number] Univers 14:30:00 14:30:00 BRANDAN chacha [facility] 2021-08-14 2021-08-14 Outpatient R FREDERIC, [facility] [id number] Univers 14:30:00 14:30:00 BRANDAN chacha [facility] 2021-08-14 2021-08-14 Office De La Garza, UNIVERSIT 1.2.840.114 [id number] Univers 13:30:00 14:00:00 Visit Brandan [facility] 350.1.13.10 i ty of CL[place] 4[place].2.[place] [id number] [facility] 071 [place] 2021-08-14 2021-08-14 Office De La Garza, 1.2.840.5 [id number] Univers 13:30:00 14:00:00 Visit Brandan 24402.1.1 ity of 3.104.2.7 [place] .3.750452 Medica l .8 [place] 2021-08-14 2021-08-14 Outpatient R DE LA GARZA, [facility] [id number] Univers 13:30:00 13:30:00 BRANDAN chacha [facility] 2021-08-14 2021-08-14 Outpatient R DE LAG ARZA, [facility] [id number] Univers 13:30:00 13:30:00 BRANDAN chacha [facility] 2021-08-14 2021-08-14 Travel 1.2.840.1 1.2.534.121 [id number] Univers 00:00:00 00:00:00 49915.1.1 350.1.13.10 ity of 3.104.2.7 4.2.7.3.698 [place] .3.213457 084.8 Medica l .8 [place] 2021-08-13 2021-08-13 (TEL) STLMLC STLMLC [id number] Co mmon 00:00:00 00:00:00 [facility] 2021-08-05 2021-08-05 Office [facility] 1.2.356.546 [id number] Univers 10:45:00 11:09:52 Visit Uyen COREA 350.1.13.10 i ty [facility] 4.2.7.2.686 [place] PROFESSIO [phone] Tx dical NAL 188 [facility] 2021-08-05 2021-08-05 Outpatient [facility] [id number] Univers 10:45:00 11:09:52 UYEN echavarria [facility] 2021-08-05 2021-08-05 Office [place], 1.2.840.6 [id number] Univers 10:45:00 11:09:52 Visit Uyen 76650.1.1 ity of 3.104.2.7 [place] .3.430037 Medica l .8 [place] 2021-08-05 2021-08-05 Outpatient [facility] [id number] Univers 10:45:00 10:45:00 UYEN echavarria of [facility] 2021-08-03 2021-08-03 Patient Doctor 1.2.840.8 [id number] Univers 00:00:00 00:00:00 Secure Msg Unassigned, 88414.1.1 ity of [place] 3.104.2.7 [place] .3.554659 Medica l .8 [place] 2021-08-02 2021-08-02 (WEB) STLMLC STLMLC [id number] Co mmon 00:00:00 00:00:00 [facility] 2021-08-01 2021-08-01 [facility] 1.2.840.114 [id number] Univers 08:48:01 23:59:00 Encounter Uyen COREA 350.1.13.10 ity of [facility] 4.2.7.2.686 [facility] [id number] [address] 2021-08-01 2021-08-01 [facility] 1.2.840.1 [id number] Univers 08:48:01 23:59:00 Encounter Uyen 08976.1.1 it y of 3.104.2.7 [place] .3.556044 Medica l .8 [place] 2021-08-01 2021-08-01 Outpatient R [facility] [id number] Univers 08:47:08 08:47:08 UYEN echavarria [facility] 2021-08-01 2021-08-01 [facility] 1.2.840.114 [id number] Univers 08:47:08 08:47:08 Encounter Uyen COREA 350.1.13.10 ity of [place] 4.2.7.2.686 [facility] [id number] [address] 2021-08-01 2021-08-01 [facility], 1.2.840.9 [id number] Univers 08:47:08 08:47:08 Encounter Uyen 42849.1.1 it y of 3.104.2.7 [place] .3.146559 Medica l .8 [place] 2021-08-01 2021-08-01 (WEB) [facility] [id number] Co mmon 00:00:00 00:00:00 [facility] 2021-07-31 2021-07-31 (TEL) [facility] [id number] Co mmon 00:00:00 00:00:00 [facility] 2021-07-23 2021-07-23 Outpatient R [facility] [id number] Univers 16:15:00 16:15:00 UYEN echavarria [facility] 2021-07-20 2021-07-20 Orders Doctor 1.2.840.4 [id number] Univers 00:00:00 00:00:00 Only Unassigned, 27863.1.1 ity of [place] 3.104.2.7 [place] .3.184681 Medica l .8 [place] 2021-07-18 2021-07-18 Outpatient R SHAQUILLE [facility] [id number] Univers 00:00:00 00:00:00 UYEN echavarria [facility] 2021-07-18 2021-07-18 Travel 1.2.840.1 1.2.891.040 [id number] Univers 00:00:00 00:00:00 44579.1.1 350.1.13.10 ity of 3.104.2.7 4.2.7.3.698 [place] .3.743475 084.8 Medica l .8 [place] 2021-07-16 2021-07-16 OFFICE [facility] [id number] Co mmon 00:00:00 00:00:00 VISIT EST Spir it PT LEVEL 3 - CHI [facility] 2021-07-10 2021-07-10 Bessie Li 1.2.840.5 [id number] Univers 00:00:00 00:00:00 (Out) Adelfo Lopez 13109.1.1 ity of 3.104.2.7 [place] .3.961375 Medica l .8 [place] 2021-07-10 2021-07-10 SARANYA Walker 1.2.840.114 [id number] Univers 00:00:00 00:00:00 (Out) Adelfo Lopez AYDIN 350.1.13.10 i ty [facility] 4.2.7.2.686 [place] [id number] [address] 2021-07-09 2021-07-09 Outpatient R SHAQUILLE [facility] [id number] Univers 14:00:00 14:50:54 UYEN echavarria [facility] 2021-07-09 2021-07-09 Office Shaquille 1.2.840.5 [id number] Univers 14:00:00 14:50:54 Visit Uyen 70580.1.1 ity of 3.104.2.7 [place] .3.470153 Medica l .8 [place] 2021-07-09 2021-07-09 Office [facility] 1.2.164.121 [id number] Univers 14:00:00 14:50:54 Visit Uyen ANMOL 350.1.13.10 i ty of [place] 4[place]2.7.2.686 [place] PROFESS[place] [phone] Tx dical NAL 188 [facility] 2021-07-09 2021-07-09 Orders Doctor SARANYA 1.2.840.114 [id number] Univers 00:00:00 00:00:00 Only Unassigned, AYDIN 350.1.13.10 ity of [place] [facility] 4.2.7.2.686 [place] as [phone] [facility] jermaine 009 [place] 2021-07-09 2021-07-09 Orders Doctor 1.2.840.2 [id number] Univers 00:00:00 00:00:00 Only Unassigned, 76130.1.1 ity of [place] 3.104.2.7 [place] .3.977528 Medica l .8 [place] 2021-07-09 2021-07-09 Travel 1.2.840.1 1.2.533.652 [id number] Univers 00:00:00 00:00:00 40504.1.1 350.1.13.10 ity of 3.104.2.7 4.2.7.3.698 [place] .3.613012 084.8 Medica l .8 [place] 2021-07-02 2021-07-02 Orders Doctor 1.2.840.3 [id number] Univers 00:00:00 00:00:00 Only Unassigned, 33282.1.1 ity of [place] 3.104.2.7 [place] .3.635197 Medica l .8 [place] 2021-06-24 2021-06-24 Outpatient R JANEE [facility] [id number] Univers 14:30:00 14:30:00 LAINE echavarria [facility] 2021-06-06 2021-06-06 Outpatient [facility] [id number] Univers 13:30:00 13:30:00 UYEN echavarria [facility] 2021-06-05 2021-06-05 (WEB) STLMLC STLMLC [id number] Co mmon 00:00:00 00:00:00 [facility] 2021-06-05 2021-06-05 (WEB) STLMLC STLMLC [id number] Co mmon 00:00:00 00:00:00 [facility] 2021-06-05 2021-06-05 (WEB) STLMLC STLMLC [id number] Co mmon 00:00:00 00:00:00 [facility] 2021-06-05 2021-06-05 (WEB) STLMLC STLMLC [id number] Co mmon 00:00:00 00:00:00 [facility] 2021-06-05 2021-06-05 (WEB) STLMLC STLMLC [id number] Co mmon 00:00:00 00:00:00 [facility] 2021-06-05 2021-06-05 (WEB) STLMLC STLMLC [id number] Co mmon 00:00:00 00:00:00 [facility] 2021-06-05 2021-06-05 (WEB) STLMLC STLMLC [id number] Co mmon 00:00:00 00:00:00 [facility] 2021-06-03 2021-06-03 (TEL) STLMLC STLMLC [id number] Co mmon 00:00:00 00:00:00 [facility] 2021-06-03 2021-06-03 OFFICE STLMLC STLMLC [id number] Co mmon 00:00:00 00:00:00 VISIT NEW [facility] it PT LEVEL 4 [facility] 2021-05-27 2021-05-27 Orders Doctor SARANYA 1.2.840.114 [id number] Univers 00:00:00 00:00:00 Only Unassigned, AYDIN 350.1.13.10 ity of [place] [facility] 4.2.7.2.686 [place] as [phone] [address] 2021-05-18 2021-05-18 (WEB) STLMLC STLMLC [id number] Co mmon 00:00:00 00:00:00 [facility] 2021-05-18 2021-05-18 (WEB) STLMLC STLMLC [id number] Co mmon 00:00:00 00:00:00 [facility] 2021-05-18 2021-05-18 (WEB) STLMLC STLMLC [id number] Co mmon 00:00:00 00:00:00 [facility] 2021-05-16 2021-05-16 OFFICE STLMLC STLMLC [id number] Co mmon 00:00:00 00:00:00 VISIT [facility] LEVEL 4 [facility] 2021-05-10 2021-05-10 Orders Doctor SARANYA [id number] 00:00:00 00:00:00 Only Unassigned, AYDIN [id number] [facility] [id number] [place] [id number] [place] [address] [address] 2021-05-10 2021-05-10 (WEB) STLMLC STLMLC [id number] Co mmon 00:00:00 00:00:00 [facility] 2021-05-10 2021-05-10 (WEB) STLMLC STLMLC [id number] Co mmon 00:00:00 00:00:00 [facility] 2021-05-09 2021-05-09 (TEL) STLMLC STLMLC [id number] Co mmon 00:00:00 00:00:00 [facility] 2021-05-08 2021-05-08 (WEB) STLMLC STLMLC [id number] Co mmon 00:00:00 00:00:00 [facility] 2021-05-08 2021-05-08 (WEB) STLMLC STLMLC [id number] Co mmon 00:00:00 00:00:00 [facility] 2021-05-08 2021-05-08 (WEB) STLMLC STLMLC [id number] Co mmon 00:00:00 00:00:00 [facility] 2021-05-08 2021-05-08 (WEB) STLMLC STLMLC [id number] Co mmon 00:00:00 00:00:00 [facility] 2021-05-07 2021-05-07 (WEB) STLMLC STLMLC [id number] Co mmon 00:00:00 00:00:00 [facility] 2021-05-04 2021-05-04 (WEB) STLMLC STLMLC [id number] Co mmon 00:00:00 00:00:00 [facility] 2021-05-04 2021-05-04 (WEB) STLMLC STLMLC [id number] Co mmon 00:00:00 00:00:00 [facility] 2021-05-04 2021-05-04 (WEB) STLMLC STLMLC [id number] Co mmon 00:00:00 00:00:00 [facility] 2021-04-15 2021-04-15 PREV VISIT STLMLC STLMLC [id number] Common 00:00:00 00:00:00 NEW AGE [facility] 18-39 [facility] 2020-05-16 2020-05-16 Outpatient G_Papelaina [facility] [id number] [place] 02:44:00 02:44:00 1118 [facility] 2019-03-31 2019-03-31 [place] [facility] [place] [place] - [id number] [place] 00:00:00 00:00:00 [place] 1003 lyudmila Mcclendon MD: [facility] [address], [place] [address] , Ph. [phone] 2019-02-08 2019-02-08 [place] [facility] [place] - [id number] [place] 00:00:00 00:00:00 [facility] 0813 lyudmila MOCTEZUMA: [address] [place] [address] - [address], [place] [address] , Ph. [phone] 2019-02-01 2019-02-01 [place] [facility] [place] - [id number] [place] 00:00:00 00:00:00 [facility] Sh[facility] 0806 lyudmila MD: [address] [place] [address], [facility] [address], [place] [address] , Ph. [phone] 2019-01-18 2019-01-18 [place] - [id number] [place] 00:00:00 00:00:00 [facility] Shayy 0723 lyudmila MD: [address] [place] [address], [place] [address] , Ph. [phone] 2019-01-13 2019-01-13 [place] - [id number] [place] 00:00:00 00:00:00 Del Cordova 0718 lyudmila Mcclendon MD: Medical [facility] [address] [place] [address], General [address], [place] [address] , Ph. [phone] 2019-01-04 2019-01-04 [place] - [id number] [place] 00:00:00 00:00:00 Discovery Shayy 0709 lyudmila MD: [address] [place] [address], [place] [address] , Ph. [phone] 2018-12-07 2018-12-07 [place] - [id number] [place] 00:00:00 00:00:00 Leobardo Cordova 0611 lyudmila [facility] vignesh MD: [address] [place] [address] 101, [place] [address] , Ph. [phone] 2018-11-02 2018-11-02 [place] - [id number] [place] 00:00:00 00:00:00 Discovery Shayy 0507 lyudmila MD: [address] [place] [address], [place] [address] , Ph. [phone] 2018-10-06 2018-10-06 [place] - [id number] [facility] [place] 00:00:00 00:00:00 Discovery Shayy 0410 lyudmila MOCTEZUMA: [address] [place] [address] [employer] Jacquelyn Fisher - [address], [place] [address] , Ph. [phone] Results Test Description Test Time Test Comments Results Result Comments Source SURGICAL PATHOLOGY EXAM 2022-06-04 18:49:20 Test Item Value Reference Range Interpretation Comme nts Case Report (test code = [id number]) Surgical Pathology ?Case: [id number] ? Authorizing Provider: ?Jacky Vines MD ? Collected: ? 06/03/2022 0843 ?Ordering Location: ? ? [facility] Surgical ? ? ? Received: ?06/03/2022 1211 ? Center [facility] ? Pathologist: ? Molina Mccauley MD ?Specimen: ? ?BILATERAL FALLOPIAN TUBES ? Final Diagnosis (test code = [id number]WkHjJmCsAdIx 4077327508) hBVdJBweiwIpOMoruPsbZHJvYAYzNA7vbNitqMu0 fJreLMXxedX0mLZfEEldb1aoIKA9h8txiokiJWVv ORovQh5wbWRzxTppBmIfVVCmZFb1pO05TDSyqP4s oTBwAMjvawMlFNcalaExnkMrCgf1ZZW7fJnkNQOx zmhkIyT3QHzhTEApmiliPRg9UIjlTQDddYS7XTRw dKJoE7MwNPJsTT8kpsi4FSX0RLnxTBHnZbR2PJBi sDZlDACqcTeqMDoul608PFC6QcDuHZNfdnQvkUyw vQ7dRmKgHRskOTFeA8BaCRFtKLLDYDdSLMgYWdQB JJAQYcvyMrhCJXJBLaEUHNWUVVBNDcqTI8RNLCx2 GKHyyhCfHSYzXA8iJrCVBZNNFz0EChNFIDZRLW5H CG1OGQTZQIbZEJjLNvTQEIOHXnTZHUMPINqEZOAH [file] cn19 Clinical Information (test code = Abdominal pain, right lower quadr ant 9190709874) [R10.31]Abdominal pain, right upper quadrant [R10.11] Gross Description (test code = a4uclSAdICPaoYBJYGRlJEDqXI1tcAxvoKh9 cGdw 4912409319) MAGofdA3vEKsBLvyl6gmRCZ9q7rcqqJHRdzlGSQj JAkcVSJozmxzNpH3WSlvYPDhixieYJz1PZevJIQa lFL0HDBmfUCkS0IkRSNwQX0dwpn9WBJ9XUdrMBCu XqM1NDFdZxYjNzxzORc9WODhstN9Qfu4GXYsFSWw sAYeu1L9JSuykfsaAHPyuAUvU934SZtoa8GllVKz MEoyoCIzQQSNZukcWejioLgky3IvrCBaEBziKIQk BCLcBKpngledCOn3LSHsZFyzgBWkLU1sjOljPoxh aJqmf9RhbINdHPohVUYkSBOgJBrjWHCfOZ8WVqEv FJX1KwB9JJBmJFk6LQx5WL9AKfIvTMIvYMhyLQI0 RVDqSTp3UCvoLI3UKFA7HSlfDrCxWzFqBWTiCKXq ECe8TNPxXQvzHOHfjSMzGBaxGiCrOYUhTJieoSVj JI7snHvltCGdgcapygNdEYXFSYSIUGCYIBNhmUOv HW1MJCAmMFfiOKIfdVLXYDE6PI3vKAMUDenmmULn NGIszJvfUUuyiZ6nIG9IMWi2wgBcKTJlDwCaM0Ok P9zyZY5cIWKmvfYvDEUruHMeVAZrptDop9ZfRIuv biBsYWJlbGVkIHdpdGggdGhlIHBhdGllbnQncyBu [file] zLNsRX0xrIkbiV1eAkXxXyAFOf2= Disclaimer (test code = 9549241855) s9ycrYLpOKSip2kyNCWegFFpDkXaUgS cZnRuYmpc bRVtNXgcqwXkRPnmz6CcY2WvShUrNRidawXqVUWw JpdkdtirMKLfPNV8snVjFOOkPPsgSCTuOPnlTt1t gJZvfGfnKsGfVCVcf3nycwQJNRwnZzMqT634ZOYb ZMeii4pcz6FbEFKrlMCum0R2YTLKihhikMm3kWvm B80ny2V5UgcvV3puGMNwJEGkG9ZgMD0kAGDkHkd7 TEM6FHR1NMDhBBBxB0YdHU4jVOLqwWIzZKz5w0am wBacYIKeOQR1t3cbIMhgyoYaBS0wqh4cyCk0g5xk muUlSCRiFBYmoIFAGHUpI9VfxSayWu9fwOu2tMag RvawLDK2Phn9ZQ7ccl21rqk6aJdpNLTrmnvzPkN6 AJzsNEBajmqiYHu6NBhvRXNmlMR0HYQuaWNvM8Oi KTWgKW6wian5TGV1OZedLGTbNhZ9MZKzoSQxLZNm wPrtYPkee090SNF7FaHsMF8kM4Srf6E1qL0wtKTv VHMcfTHxRqUzPYDwdw2rgPRvJYhlr3JtWLQ6bsY8 jURaoECqLOSjCN80Zwyib7XwPaddt3ThH73wlUY3 UEhsp5htXI9oYgC8tgUlXRgbq0eppY9nYvN5ATmv BL3rTW7oFQBnyM4uzuuaMDZcEfOkkruwSAIuyVkq mnUnAb1deLdzEMV7AWduC7ctnN0yYdD0EQwuZ9sb sA6kVGt2WCllkVI7VYZelZ4oWU8zhuyvs8hgDAqb HJunCNKkvaK4qjJ9KAMlePAjH7WiaY1dNCBzXB6b otwgj8liAPV8AFgjXACzSON9PfPzUXUsy6Tckgv0 GbLvw0NnhQTpUJorF53ve042SRGlizSpL4rdlBYy oyeeoFVrixgqHNpwulQ8MPDddzIab9HeTTInVMC0 JTdfQFxmaLAtFUBpdZmsn3qzI7KudUIuPNGcGJql XGYxXGZzMjBcbGFuZzEwMzNcaGljaFxmMVxkYmNo [file] B4bxDfGcuS2yfVdgOPyjBxGxQqPfYMnvWRQ5lS== Embedded Images (test code = 1804477763) [facility] - ONCE Gimrtxp7896-02-70 13:44:35 Test Item Value Reference Range Interpretation Comments ABO & RH (test code A Positive Performe d at [facility] = 20) Laboratory [facility] Blood [place] [address] 4Toll Free: [phone] 266CLIA No. [id number] IAT (test code = Negative Performed a t [facility] 1185) Laboratory [facility] Blood [address] [place] [address] 4Toll Free: [phone] 266CLIA No. [id number] [facility] - ONCE Nawngli1384-05-72 13:44:35 Test Item Value Reference Range Interpretation Comments ABO & RH (test code A Positive Performe d at [facility] = 20) Laboratory [facility] Blood [place] [address] 4Toll Free: [phone] 266CLIA No. [id number] IAT (test code = Negative Performed a t [facility] 1185) Laboratory [facility] Blood [address] [place], [place] [address] 4Toll Free: [phone] 266IA No. [id number] [facility] (NA, K, CL, CO2, GLUCOSE, BUN, CREATININE, CA)2022-06-03 13:04:41 Test Item Value Reference Range Interpretation Comments NA (test code = 139 mmol/L 135-145 9227429282) K (test code = 4.1 mmol/L 3.5-5.0 8422514841) CL (test code = 106 mmol/L 98-108 2631413331) CO2 TOTAL (test code = 28 mmol/L 23-31 3446796814) AGAP (test code = 2-16 4075903357) BUN (test code = 14 mg/dL 7-23 8603461392) GLUCOSE (test code = 99 mg/dL 70-110 6170266397) CREATININE (test code = 0.60 mg/dL 0.50-1.04 9402364358) CALCIUM (test code = 8.5 mg/dL 8.6-10.6 L 9289342255) eGFR (test code = mL/min/1.73m2 6188335024) LITA (test code = LITA) Association of Glomerular Filtration Rate (GFR) and Staging of Kidney Disease* + --+ --+ ------+| GFR (mL/min/1.73 m2) ?| With Kidney Damage ?| ?Without Kidney Damage+ --------+ --------+ +| ?>90 ?| ?Stage one ?| ? Normal ?+ ---+ ---+ -------+| ?60-89 ?| ?Stage two ?| ? Decreased GFR ? + --+ --+ ------+| ?30-59 ?| ?Stage three ?| ? Stage three ? + --+ --+ ------+| ?15-29 ?| ?Stage four ? | ? Stage four ?+ ---+ ---+ -------+| ?<15 (or dialysis) ? ?| ?Stage five ? | ? Stage five ?+ ---+ ---+ -------+ *Each stage assumes the associated GFR level has been in effect for at least three months. ?Stages 1 to 5, with or without kidney disease, indicate chronic kidney disease. Notes: Determination of stages one and two (with eGFR >59mL/min/1.73 m2) requires estimation of kidney damage for at least three months as defined by structural or functional abnormalities of the kidney, manifested by either:Pathological abnormalities or Markers of kidney damage (including abnormalities in the composition of the blood or urine or abnormalities in imaging tests). Lab Interpretation Abnormal (test code = 82797-0) [facility] METABOLIC PANEL (NA, K, CL, CO2, GLUCOSE, BUN, CREATININE, CA)2022-06-03 13:04:41 Test Item Value Reference Range Interpretation Comments NA (test code = 139 mmol/L 135-145 3429221681) K (test code = 4.1 mmol/L 3.5-5.0 0647381712) CL (test code = 106 mmol/L 98-108 5736612667) CO2 TOTAL (test code = 28 mmol/L 23-31 8441323844) AGAP (test code = 2-16 1290518766) BUN (test code = 14 mg/dL 7-23 0291253407) GLUCOSE (test code = 99 mg/dL 70-110 0482250544) CREATININE (test code = 0.60 mg/dL 0.50-1.04 1874636619) CALCIUM (test code = 8.5 mg/dL 8.6-10.6 L 1787524188) eGFR (test code = mL/min/1.73m2 7549716950) LITA (test code = LITA) Association of Glomerular Filtration Rate (GFR) and Staging of Kidney Disease* + --+ --+ ------+| GFR (mL/min/1.73 m2) ?| With Kidney Damage ?| ?Without Kidney Damage+ --------+ --------+ +| ?>90 ?| ?Stage one ?| ? Normal ?+ ---+ ---+ -------+| ?60-89 ?| ?Stage two ?| ? Decreased GFR ? + --+ --+ ------+| ?30-59 ?| ?Stage three ?| ? Stage three ? + --+ --+ ------+| ?15-29 ?| ?Stage four ? | ? Stage four ?+ ---+ ---+ -------+| ?<15 (or dialysis) ? ?| ?Stage five ? | ? Stage five ?+ ---+ ---+ -------+ *Each stage assumes the associated GFR level has been in effect for at least three months. ?Stages 1 to 5, with or without kidney disease, indicate chronic kidney disease. Notes: Determination of stages one and two (with eGFR >59mL/min/1.73 m2) requires estimation of kidney damage for at least three months as defined by structural or functional abnormalities of the kidney, manifested by either:Pathological abnormalities or Markers of kidney damage (including abnormalities in the composition of the blood or urine or abnormalities in imaging tests). Lab Interpretation Abnormal (test code = 28487-4) [facility] [id number] 12:53:03 Test Item Value Reference Range Interpretation Comments WBC (test code = See_Comment [Automated 3090-2) message] The sy stem which generated this result transmitted reference range : 4.30 - 11.10 10*3/?L. The reference range was not used to interpret this result as normal/abnormal . RBC (test code = See_Comment L [Automated 859-8) message] The sy stem which generated this result transmitted reference range : 3.93 - 5.25 10*6/?L. The reference range was not used to interpret this result as normal/abnormal . HGB (test code = 11.5 g/dL 11.6-15.0 L 718-7) HCT (test code = 34.2 % 35.7-45.2 L 4544-3) MCV (test code = 90.2 fL 80.6-95.5 787-2) MCH (test code = 30.3 pg 25.9-32.8 785-6) MCHC (test code = 33.6 g/dL 31.6-35.1 786-4) RDW-SD (test code = 43.3 fL 39.0-49.9 19884-6) RDW-CV (test code = 13.2 % 12.0-15.5 788-0) PLT (test code = See_Comment [Automated 777-3) message] The sy stem which generated this result transmitted reference range : 166 - 358 10*3/ ?L. The reference r tyree was not used to interpret this result as normal/abnormal . MPV (test code = 8.9 fL 9.5-12.9 L 84066-8) NRBC/100 WBC (test See_Comment [Automat ed code = 4421342159) message] The system which generated this result transmitted reference range : 0.0 - 10.0 /100 WBCs. The refer ence range was not u sed to interpret th is result as normal/abnormal . NRBC x10^3 (test code See_Comment [Auto mated = 8003212746) message] The s ystem which generated this result transmitted reference range : 10*3/?L. The reference range was not used to interpret this result as normal/abnormal . GRAN MAT (NEUT) % 52.6 % (test code = 770-8) IMM GRAN % (test code 0.20 % = 0808195364) LYMPH % (test code = 34.7 % 736-9) MONO % (test code = 9.3 % 5905-5) EOS % (test code = 2.3 % 713-8) BASO % (test code = 0.9 % 706-2) GRAN MAT x10^3(ANC) 2.99 10*3/uL 1.88-7.09 (test code = 6297220232) IMM GRAN x10^3 (test 0.00-0.06 code = 8744376067) LYMPH x10^3 (test code 1.97 10*3/uL 1.32-3.29 = 731-0) MONO x10^3 (test code 0.53 10*3/uL 0.33-0.92 = 742-7) EOS x10^3 (test code = 0.13 10*3/uL 0.03-0.39 711-2) BASO x10^3 (test code 0.05 10*3/uL 0.01-0.07 = 704-7) Lab Interpretation Abnormal (test code = 92997-0) [facility] WITH [id number] 12:53:03 Test Item Value Reference Range Interpretation Comments WBC (test code = See_Comment [Automated 6690-2) message] The sy stem which generated this result transmitted reference range : 4.30 - 11.10 10*3/?L. The reference range was not used to interpret this result as normal/abnormal . RBC (test code = See_Comment L [Automated 789-8) message] The sy stem which generated this result transmitted reference range : 3.93 - 5.25 10*6/?L. The reference range was not used to interpret this result as normal/abnormal . HGB (test code = 11.5 g/dL 11.6-15.0 L 718-7) HCT (test code = 34.2 % 35.7-45.2 L 4544-3) MCV (test code = 90.2 fL 80.6-95.5 787-2) MCH (test code = 30.3 pg 25.9-32.8 785-6) MCHC (test code = 33.6 g/dL 31.6-35.1 786-4) RDW-SD (test code = 43.3 fL 39.0-49.9 29231-9) RDW-CV (test code = 13.2 % 12.0-15.5 788-0) PLT (test code = See_Comment [Automated 777-3) message] The sy stem which generated this result transmitted reference range : 166 - 358 10*3/ ?L. The reference r tyree was not used to interpret this result as normal/abnormal . MPV (test code = 8.9 fL 9.5-12.9 L 76952-1) NRBC/100 WBC (test See_Comment [Automat ed code = 7628183050) message] The system which generated this result transmitted reference range : 0.0 - 10.0 /100 WBCs. The refer ence range was not u sed to interpret th is result as normal/abnormal . NRBC x10^3 (test code See_Comment [Auto mated = 6250996782) message] The s ystem which generated this result transmitted reference range : 10*3/?L. The reference range was not used to interpret this result as normal/abnormal . GRAN MAT (NEUT) % 52.6 % (test code = 770-8) IMM GRAN % (test code 0.20 % = 6102068173) LYMPH % (test code = 34.7 % 736-9) MONO % (test code = 9.3 % 5905-5) EOS % (test code = 2.3 % 713-8) BASO % (test code = 0.9 % 706-2) GRAN MAT x10^3(ANC) 2.99 10*3/uL 1.88-7.09 (test code = 3931367860) IMM GRAN x10^3 (test 0.00-0.06 code = 1515937415) LYMPH x10^3 (test code 1.97 10*3/uL 1.32-3.29 = 731-0) MONO x10^3 (test code 0.53 10*3/uL 0.33-0.92 = 742-7) EOS x10^3 (test code = 0.13 10*3/uL 0.03-0.39 711-2) BASO x10^3 (test code 0.05 10*3/uL 0.01-0.07 = 704-7) Lab Interpretation Abnormal (test code = 83955-1) [facility] [id number] 12:30:00 Test Item Value Reference Range Interpretation Comments POCT PREG (test code = 1605) Negative On board controls acceptable with C Yes Line (test code = 3574) POCT PREG LOT # (test code = 3575) POCT PREG TEST DATE (test code = 3576) [facility] [id number] 12:30:00 Test Item Value Reference Range Interpretation Comments POCT PREG (test code = 1605) Negative On board controls acceptable with C Yes Line (test code = 3574) POCT PREG LOT # (test code = 3575) POCT PREG TEST DATE (test code = 3576) [facility] URINALYSIS W SPECIFIC [id number] 19:37:00 Test Item Value Reference Range Interpretation Comments POCT U SP GRAV (test code = 1.015 mg/dl 1.005-1.025 3255) POCT PH U (test code = 3254) 5 mg/dl 5-8 POCT U LEUK EST (test code = trace Negative - Negative 3263) POCT U NIT (test code = neg Negative - Negative 3262) POCT U PROT (test code = trace Negative - Negative 3259) POCT U GLU (test code = neg Negative - Negative 3256) POCT U KETONE (test code = neg Negative - Negative 3258) POCT U UROBILI (test code = neg 0.2-1 3260) POCT U BILI (test code = neg Negative - Negative 3261) POCT U BLD (test code = neg Negative - Negative 3257) POCT U COLOR (test code = light yellow 3266) POCT U APPEAR (test code = clear 3267) [facility] URINALYSIS W SPECIFIC [id number] 19:37:00 Test Item Value Reference Range Interpretation Comments POCT U SP GRAV (test code = 1.015 mg/dl 1.005-1.025 3255) POCT PH U (test code = 3254) 5 mg/dl 5-8 POCT U LEUK EST (test code = trace Negative - Negative 3263) POCT U NIT (test code = neg Negative - Negative 3262) POCT U PROT (test code = trace Negative - Negative 3259) POCT U GLU (test code = neg Negative - Negative 3256) POCT U KETONE (test code = neg Negative - Negative 3258) POCT U UROBILI (test code = neg 0.2-1 3260) POCT U BILI (test code = neg Negative - Negative 3261) POCT U BLD (test code = neg Negative - Negative 3257) POCT U COLOR (test code = light yellow 3266) POCT U APPEAR (test code = clear 3267) [facility] [id number] 15:05:00 Test Item Value Reference Range Interpretation Comments U Preg (test code = U Negative (10/03/21 10:05 Preg) AM) [facility] [id number] 15:05:00 Test Item Value Reference Range Interpretation Comments U Preg (test code = U Negative (10/03/21 10:05 Preg) AM) [facility] [id number] 15:05:00 Test Item Value Reference Range Interpretation Comments U Preg (test code = U Negative (10/03/21 10:05 Preg) AM) [facility] [id number] 15:05:00 Test Item Value Reference Range Interpretation Comments U Preg (test code = U Negative (10/03/21 10:05 Preg) AM) [facility]2022-04-07 15:05:00 Test Item Value Reference Range Interpretation Comments U Preg (test code = U Negative (10/03/21 10:05 Preg) AM) [facility]2022-04-07 15:05:00 Test Item Value Reference Range Interpretation Comments U Preg (test code = U Negative (10/03/21 10:05 Preg) AM) [facility]2022-04-07 15:05:00 Test Item Value Reference Range Interpretation Comments U Preg (test code = U Negative (10/03/21 10:05 Preg) AM) [facility]2022-04-07 15:05:00 Test Item Value Reference Range Interpretation Comments U Preg (test code = U Negative (10/03/21 10:05 Preg) AM) [facility]2022-04-07 15:05:00 Test Item Value Reference Range Interpretation Comments U Preg (test code = U Negative (10/03/21 10:05 Preg) AM) [facility]2022-04-07 15:05:00 Test Item Value Reference Range Interpretation Comments U Preg (test code = U Negative (10/03/21 10:05 Preg) AM) [id number] 13:47:00 Test Item Value Reference Range Interpretation Comments Coronavirus (COVID-19) Not Detected (10/03/21 JOANNE (test code = 8:47 AM) Coronavirus (COVID-19) JOANNE) [facility] CampusRtvixjgLEJZAVRCJZ9107-64-78 13:47:00 Test Item Value Reference Range Interpretation Comments Coronavirus (COVID-19) Not Detected (10/03/21 JOANNE (test code = 8:47 AM) Coronavirus (COVID-19) JOANNE) [facility] CampusSnjjjqdVCIJFFBONF6660-10-05 13:47:00 Test Item Value Reference Range Interpretation Comments Coronavirus (COVID-19) Not Detected (10/03/21 JOANNE (test code = 8:47 AM) Coronavirus (COVID-19) JOANNE) [facility] [id number] 13:47:00 Test Item Value Reference Range Interpretation Comments Coronavirus (COVID-19) Not Detected (10/03/21 JOANNE (test code = 8:47 AM) Coronavirus (COVID-19) JOANNE) [address]04-07 13:47:00 Test Item Value Reference Range Interpretation Comments Coronavirus (COVID-19) Not Detected (10/03/21 JOANNE (test code = 8:47 AM) Coronavirus (COVID-19) OJANNE) [facility] CampusUidzedoXQVBLCQSBX6756-10-15 13:47:00 Test Item Value Reference Range Interpretation Comments Coronavirus (COVID-19) Not Detected (10/03/21 JOANNE (test code = 8:47 AM) Coronavirus (COVID-19) JOANNE) [facility] [id number] 13:47:00 Test Item Value Reference Range Interpretation Comments Coronavirus (COVID-19) Not Detected (10/03/21 JOANNE (test code = 8:47 AM) Coronavirus (COVID-19) JOANNE) [facility] CampusLhaehpkJUPLBXFAYR5482-05-30 13:47:00 Test Item Value Reference Range Interpretation Comments Coronavirus (COVID-19) Not Detected (10/03/21 JOANNE (test code = 8:47 AM) Coronavirus (COVID-19) JOANNE) [facility] C[id number] 13:47:00 Test Item Value Reference Range Interpretation Comments Coronavirus (COVID-19) Not Detected (10/03/21 JOANNE (test code = 8:47 AM) Coronavirus (COVID-19) JOANNE) [facility] [id number] 13:47:00 Test Item Value Reference Range Interpretation Comments Coronavirus (COVID-19) Not Detected (10/03/21 JOANNE (test code = 8:47 AM) Coronavirus (COVID-19) JOANNE) [facility] macro (dipstick) panel - [id number] 16:11:13 Test Item Value Reference Range Interpretation Comments Leukocytes (test code = Leukocytes) Negative Nitrite (test code = Nitrite) negative Urobilinogen (test code = .2 Urobilinogen) Protein (test code = Protein) Negative pH (test code = pH) 7.0 Blood (test code = Blood) Negative Specific [place] (test code = 1.015 Specific [place]) Ketone (test code = Ketone) Negative Bilirubin (test code = Bilirubin) Negative Glucose (test code = Glucose) Negative Appearance (test code = Appearance) Clear Color (test code = Color) [facility] - [id number] 14:59:00 Test Item Value Reference Range Interpretation Comments Leukocytes (test code = Leukocytes) Negative Nitrite (test code = Nitrite) negative Urobilinogen (test code = 1 Urobilinogen) Protein (test code = Protein) Trace pH (test code = pH) 7.0 Blood (test code = Blood) Negative Specific [place] (test code = 1.025 Specific [place]) Ketone (test code = Ketone) Negative Bilirubin (test code = Bilirubin) Small Glucose (test code = Glucose) Negative Appearance (test code = Appearance) Clear Color (test code = Color) Yellow [facility] panel - [id number] 14:59:00 Test Item Value Reference Range Interpretation Comments Leukocytes (test code = Leukocytes) Negative Nitrite (test code = Nitrite) negative Urobilinogen (test code = 1 Urobilinogen) Protein (test code = Protein) Trace pH (test code = pH) 7.0 Blood (test code = Blood) Negative Specific [place] (test code = 1.025 Specific [place]) Ketone (test code = Ketone) Negative Bilirubin (test code = Bilirubin) Small Glucose (test code = Glucose) Negative Appearance (test code = Appearance) Clear Color (test code = Color) Yellow [facility]dipstick) panel - [id number] 14:30:12 Test Item Value Reference Range Interpretation Comments Leukocytes (test code = Leukocytes) Negative Nitrite (test code = Nitrite) negative Urobilinogen (test code = 1 Urobilinogen) Protein (test code = Protein) Trace pH (test code = pH) 7.5 Blood (test code = Blood) Negative Specific [place] (test code = 1.020 Specific [place]) Ketone (test code = Ketone) Negative Bilirubin (test code = Bilirubin) Negative Glucose (test code = Glucose) Negative Appearance (test code = Appearance) Clear Color (test code = Color) Yellow [facility]dipstick) panel - [id number] 14:30:12 Test Item Value Reference Range Interpretation Comments Leukocytes (test code = Leukocytes) Negative Nitrite (test code = Nitrite) negative Urobilinogen (test code = 1 Urobilinogen) Protein (test code = Protein) Trace pH (test code = pH) 7.5 Blood (test code = Blood) Negative Specific [place] (test code = 1.020 Specific [place]) Ketone (test code = Ketone) Negative Bilirubin (test code = Bilirubin) Negative Glucose (test code = Glucose) Negative Appearance (test code = Appearance) Clear Color (test code = Color) Yellow [facility] (dipstick) panel - [id number] 14:30:12 Test Item Value Reference Range Interpretation Comments Leukocytes (test code = Leukocytes) Negative Nitrite (test code = Nitrite) negative Urobilinogen (test code = 1 Urobilinogen) Protein (test code = Protein) Trace pH (test code = pH) 7.5 Blood (test code = Blood) Negative Specific [place] (test code = 1.020 Specific [place]) Ketone (test code = Ketone) Negative Bilirubin (test code = Bilirubin) Negative Glucose (test code = Glucose) Negative Appearance (test code = Appearance) Clear Color (test code = Color) [facility] [id number] 14:30:12 Test Item Value Reference Range Interpretation Comments Leukocytes (test code = Leukocytes) Negative Nitrite (test code = Nitrite) negative Urobilinogen (test code = 1 Urobilinogen) Protein (test code = Protein) Trace pH (test code = pH) 7.5 Blood (test code = Blood) Negative Specific [place] (test code = 1.020 Specific [place]) Ketone (test code = Ketone) Negative Bilirubin (test code = Bilirubin) Negative Glucose (test code = Glucose) Negative Appearance (test code = Appearance) Clear Color (test code = Color) [facility] W Auto Differential panel - [id number] 01:15:00 Test Item Value Reference Range Interpretation Comments white blood count (test code = 8.8 K/uL 4.0-11.5 white blood count) red blood count (test code = red 3.58 M/uL 3.80-5.20 L blood count) hemoglobin (test code = 10.4 g/dL 10.5-15.7 L hemoglobin) hematocrit (test code = 32.8 % 34.0-50.0 L hematocrit) Erythrocyte mean corpuscular 91.6 fL 86-100 volume [Entitic volume] (test code = 74320-9) Erythrocyte mean corpuscular 29.1 pg 26.2-33.4 hemoglobin [Entitic mass] (test code = 78730-8) mean corpuscular HGB conc (test 31.7 g/dL 30-34 code = mean corpuscular HGB conc) red cell distribution width (test 12.9 % 12.0-15.5 code = red cell distribution width) platelet count (test code = 270 K/uL 165-450 platelet count) mean platelet volume (test code = 9.4 fL 9.4-12.6 mean platelet volume) Neutrophils.segmented/100 69.9 % 44.4-80.1 leukocytes in Blood (test code = 50243-3) Ig% (test code = Ig%) 0.3 % 0.0-0.4 lymphocyte% (test code = 19.9 % 10.0-50.0 lymphocyte%) Monocytes/100 leukocytes in Blood 7.7 % 3.6-12.0 by Automated count (test code = 5905-5) Eosinophils/100 leukocytes in 1.9 % 0.0-5.4 Blood by Automated count (test code = 713-8) Basophils/100 leukocytes in 0.3 % 0.1-1.2 Unspecified specimen (test code = 39261-9) absolute neutrophil count (test 6.12 K/uL 1.56-6.13 code = absolute neutrophil count) Ig# (test code = Ig#) 0.0 K/uL 0.0-0.03 Lymphocytes [#/volume] in 1.8 K/uL 1.18-3.74 Unspecified specimen by Automated count (test code = 65926-4) mono # (test code = mono #) 0.68 K/uL 0.24-0.86 eos # (test code = eos #) 0.17 K/uL 0.04-0.36 basophil # (test code = basophil 0.03 K/uL 0.01-0.08 #) NRBC% (test code = NRBC%) 0 /100 WBC 0-0.2 NRBC# (test code = NRBC#) 0 K/uL [facility] W Auto Differential panel - [id number] 01:15:00 Test Item Value Reference Range Interpretation Comments white blood count (test code = 8.8 K/uL 4.0-11.5 white blood count) red blood count (test code = red 3.58 M/uL 3.80-5.20 L blood count) hemoglobin (test code = 10.4 g/dL 10.5-15.7 L hemoglobin) hematocrit (test code = 32.8 % 34.0-50.0 L hematocrit) Erythrocyte mean corpuscular 91.6 fL 86-100 volume [Entitic volume] (test code = 16353-3) Erythrocyte mean corpuscular 29.1 pg 26.2-33.4 hemoglobin [Entitic mass] (test code = 82521-1) mean corpuscular HGB conc (test 31.7 g/dL 30-34 code = mean corpuscular HGB conc) red cell distribution width (test 12.9 % 12.0-15.5 code = red cell distribution width) platelet count (test code = 270 K/uL 165-450 platelet count) mean platelet volume (test code = 9.4 fL 9.4-12.6 mean platelet volume) Neutrophils.segmented/100 69.9 % 44.4-80.1 leukocytes in Blood (test code = 23225-0) Ig% (test code = Ig%) 0.3 % 0.0-0.4 lymphocyte% (test code = 19.9 % 10.0-50.0 lymphocyte%) Monocytes/100 leukocytes in Blood 7.7 % 3.6-12.0 by Automated count (test code = 5905-5) Eosinophils/100 leukocytes in 1.9 % 0.0-5.4 Blood by Automated count (test code = 713-8) Basophils/100 leukocytes in 0.3 % 0.1-1.2 Unspecified specimen (test code = 35435-2) absolute neutrophil count (test 6.12 K/uL 1.56-6.13 code = absolute neutrophil count) Ig# (test code = Ig#) 0.0 K/uL 0.0-0.03 Lymphocytes [#/volume] in 1.8 K/uL 1.18-3.74 Unspecified specimen by Automated count (test code = 44915-8) mono # (test code = mono #) 0.68 K/uL 0.24-0.86 eos # (test code = eos #) 0.17 K/uL 0.04-0.36 basophil # (test code = basophil 0.03 K/uL 0.01-0.08 #) NRBC% (test code = NRBC%) 0 /100 WBC 0-0.2 NRBC# (test code = NRBC#) 0 K/uL [facility] W Auto Differential panel - [id number] 00:00:00 Test Item Value Reference Range Interpretation Comments white blood count (test code = 8.8 K/uL 4.0-11.5 white blood count) red blood count (test code = red 3.58 M/uL 3.80-5.20 L blood count) hemoglobin (test code = 10.4 g/dL 10.5-15.7 L hemoglobin) hematocrit (test code = 32.8 % 34.0-50.0 L hematocrit) Erythrocyte mean corpuscular 91.6 fL 86-100 volume [Entitic volume] (test code = 92728-2) Erythrocyte mean corpuscular 29.1 pg 26.2-33.4 hemoglobin [Entitic mass] (test code = 61924-1) mean corpuscular HGB conc (test 31.7 g/dL 30-34 code = mean corpuscular HGB conc) red cell distribution width (test 12.9 % 12.0-15.5 code = red cell distribution width) platelet count (test code = 270 K/uL 165-450 platelet count) mean platelet volume (test code = 9.4 fL 9.4-12.6 mean platelet volume) Neutrophils.segmented/100 69.9 % 44.4-80.1 leukocytes in Blood (test code = 49126-9) Ig% (test code = Ig%) 0.3 % 0.0-0.4 lymphocyte% (test code = 19.9 % 10.0-50.0 lymphocyte%) Monocytes/100 leukocytes in Blood 7.7 % 3.6-12.0 by Automated count (test code = 5905-5) Eosinophils/100 leukocytes in 1.9 % 0.0-5.4 Blood by Automated count (test code = 713-8) Basophils/100 leukocytes in 0.3 % 0.1-1.2 Unspecified specimen (test code = 81206-4) absolute neutrophil count (test 6.12 K/uL 1.56-6.13 code = absolute neutrophil count) Ig# (test code = Ig#) 0.0 K/uL 0.0-0.03 Lymphocytes [#/volume] in 1.8 K/uL 1.18-3.74 Unspecified specimen by Automated count (test code = 92125-5) mono # (test code = mono #) 0.68 K/uL 0.24-0.86 eos # (test code = eos #) 0.17 K/uL 0.04-0.36 basophil # (test code = basophil 0.03 K/uL 0.01-0.08 #) NRBC% (test code = NRBC%) 0 /100 WBC 0-0.2 NRBC# (test code = NRBC#) 0 K/uL [facility] W Auto Differential panel - [id number] 00:00:00 Test Item Value Reference Range Interpretation Comments white blood count (test code = 8.8 K/uL 4.0-11.5 white blood count) red blood count (test code = red 3.58 M/uL 3.80-5.20 L blood count) hemoglobin (test code = 10.4 g/dL 10.5-15.7 L hemoglobin) hematocrit (test code = 32.8 % 34.0-50.0 L hematocrit) Erythrocyte mean corpuscular 91.6 fL 86-100 volume [Entitic volume] (test code = 65046-2) Erythrocyte mean corpuscular 29.1 pg 26.2-33.4 hemoglobin [Entitic mass] (test code = 19813-6) mean corpuscular HGB conc (test 31.7 g/dL 30-34 code = mean corpuscular HGB conc) red cell distribution width (test 12.9 % 12.0-15.5 code = red cell distribution width) platelet count (test code = 270 K/uL 165-450 platelet count) mean platelet volume (test code = 9.4 fL 9.4-12.6 mean platelet volume) Neutrophils.segmented/100 69.9 % 44.4-80.1 leukocytes in Blood (test code = 99573-1) Ig% (test code = Ig%) 0.3 % 0.0-0.4 lymphocyte% (test code = 19.9 % 10.0-50.0 lymphocyte%) Monocytes/100 leukocytes in Blood 7.7 % 3.6-12.0 by Automated count (test code = 5905-5) Eosinophils/100 leukocytes in 1.9 % 0.0-5.4 Blood by Automated count (test code = 713-8) Basophils/100 leukocytes in 0.3 % 0.1-1.2 Unspecified specimen (test code = 18759-4) absolute neutrophil count (test 6.12 K/uL 1.56-6.13 code = absolute neutrophil count) Ig# (test code = Ig#) 0.0 K/uL 0.0-0.03 Lymphocytes [#/volume] in 1.8 K/uL 1.18-3.74 Unspecified specimen by Automated count (test code = 60803-4) mono # (test code = mono #) 0.68 K/uL 0.24-0.86 eos # (test code = eos #) 0.17 K/uL 0.04-0.36 basophil # (test code = basophil 0.03 K/uL 0.01-0.08 #) NRBC% (test code = NRBC%) 0 /100 WBC 0-0.2 NRBC# (test code = NRBC#) 0 [facility] - [id number] 10:29:43 Test Item Value Reference Range Interpretation Comments Leukocytes (test code = Leukocytes) Negative Nitrite (test code = Nitrite) negative Urobilinogen (test code = .2 Urobilinogen) Protein (test code = Protein) Negative pH (test code = pH) 7.0 Blood (test code = Blood) Negative Specific [place] (test code = 1.015 Specific [place]) Ketone (test code = Ketone) Moderate Bilirubin (test code = Bilirubin) Small Glucose (test code = Glucose) Negative Appearance (test code = Appearance) Clear Color (test code = Color) Yellow [facility] - [id number] 10:29:43 Test Item Value Reference Range Interpretation Comments Leukocytes (test code = Leukocytes) Negative Nitrite (test code = Nitrite) negative Urobilinogen (test code = .2 Urobilinogen) Protein (test code = Protein) Negative pH (test code = pH) 7.0 Blood (test code = Blood) Negative Specific [place] (test code = 1.015 Specific [place]) Ketone (test code = Ketone) Moderate Bilirubin (test code = Bilirubin) Small Glucose (test code = Glucose) Negative Appearance (test code = Appearance) Clear Color (test code = Color) Yellow [facility] panel - [id number] 10:29:43 Test Item Value Reference Range Interpretation Comments Leukocytes (test code = Leukocytes) Negative Nitrite (test code = Nitrite) negative Urobilinogen (test code = .2 Urobilinogen) Protein (test code = Protein) Negative pH (test code = pH) 7.0 Blood (test code = Blood) Negative Specific [place] (test code = 1.015 Specific [place]) Ketone (test code = Ketone) Moderate Bilirubin (test code = Bilirubin) Small Glucose (test code = Glucose) Negative Appearance (test code = Appearance) Clear Color (test code = Color) Yellow [facility] panel - [id number] 10:29:43 Test Item Value Reference Range Interpretation Comments Leukocytes (test code = Leukocytes) Negative Nitrite (test code = Nitrite) negative Urobilinogen (test code = .2 Urobilinogen) Protein (test code = Protein) Negative pH (test code = pH) 7.0 Blood (test code = Blood) Negative Specific [place] (test code = 1.015 Specific [place]) Ketone (test code = Ketone) Moderate Bilirubin (test code = Bilirubin) Small Glucose (test code = Glucose) Negative Appearance (test code = Appearance) Clear Color (test code = Color) Yellow [facility]dipstick[facility] panel - [id number] 10:29:43 Test Item Value Reference Range Interpretation Comments Leukocytes (test code = Leukocytes) Negative Nitrite (test code = Nitrite) negative Urobilinogen (test code = .2 Urobilinogen) Protein (test code = Protein) Negative pH (test code = pH) 7.0 Blood (test code = Blood) Negative Specific [place] (test code = 1.015 Specific [place]) Ketone (test code = Ketone) Moderate Bilirubin (test code = Bilirubin) Small Glucose (test code = Glucose) Negative Appearance (test code = Appearance) Clear Color (test code = Color) Yellow [facility] W Auto Differential panel - [id number] 00:00:00 Test Item Value Reference Range Interpretation [...] fL 78-98 [Entitic volume] (test code = 04280-6) Erythrocyte mean corpuscular 30.7 pg 26.2-33.4 hemoglobin [Entitic mass] (test code = 45100-6) mean corpuscular HGB conc (test 32.7 g/dL 31.5-36.2 code = mean corpuscular HGB conc) red cell distribution width (test 12.0 % 11.5-15.5 code = red cell distribution width) Platelets [#/volume] in Blood (test 239 K/uL 137-338 code = 98039-6) Platelet mean volume [Entitic 6.6 fL 8.4-11.8 L volume] in Blood (test code = 40120-4) Neutrophils.band form/100 70.5 % 44.4-80.1 leukocytes in Blood (test code = 65453-9) Lymphocytes/100 leukocytes in Body 20.9 % 10.0-50.0 fluid (test code = 39616-0) Monocytes/100 leukocytes in Blood 5.2 % 3.6-12.0 by Automated count (test code = 5905-5) Eosinophils/100 leukocytes in Blood 2.4 % 0.0-5.4 by Automated count (test code = 713-8) Basophils/100 leukocytes in 1.0 % 0.0-0.79 H Unspecified specimen (test code = 98662-1) [facility] CenterRe[facility] [Presence] in Serum by [id number] 00:00:00 Test Item Value Reference Range Interpretation Comments Reagin Ab [Presence] in Serum by nonreactive nonreactive RPR (test code = 99999-9) [facility] CenterHIV [facility]+2 Ab [Presence] in [id number] 00:00:00HIV P24 AgHIV-1/2 AbMaG[facility] SystemBlood group antibody screen [Presence] in Serum or [id number] 00:00:00 Test Item Value Reference Range Interpretation Comments Blood group antibody screen negative [Presence] in Serum or Plasma (test code = 890-4) [facility] W Auto Differential panel - [id number] 00:00:00 Test Item Value Reference Range Interpretation [...] fL 78-98 [Entitic volume] (test code = 25706-5) Erythrocyte mean corpuscular 30.7 pg 26.2-33.4 hemoglobin [Entitic mass] (test code = 99829-4) mean corpuscular HGB conc (test 32.7 g/dL 31.5-36.2 code = mean corpuscular HGB conc) red cell distribution width (test 12.0 % 11.5-15.5 code = red cell distribution width) Platelets [#/volume] in Blood (test 239 K/uL 137-338 code = 31744-5) Platelet mean volume [Entitic 6.6 fL 8.4-11.8 L volume] in Blood (test code = 13380-1) Neutrophils.band form/100 70.5 % 44.4-80.1 leukocytes in Blood (test code = 65488-3) Lymphocytes/100 leukocytes in Body 20.9 % 10.0-50.0 fluid (test code = 30221-5) Monocytes/100 leukocytes in Blood 5.2 % 3.6-12.0 by Automated count (test code = 5905-5) Eosinophils/100 leukocytes in Blood 2.4 % 0.0-5.4 by Automated count (test code = 713-8) Basophils/100 leukocytes in 1.0 % 0.0-0.79 H Unspecified specimen (test code = 34756-2) [facility] [Presence] in Serum by [id number] 00:00:00 Test Item Value Reference Range Interpretation Comments Reagin Ab [Presence] in Serum by nonreactive nonreactive RPR (test code = 16094-0) [facility] GroupHIV 1+2 Ab [Presence] in [id number] 00:00:00HIV P24 AgHIV-1/2 AbMaGulf Coast [facility] Care SystemBlood group antibody screen [Presence] in Serum or [id number] 00:00:00 Test Item Value Reference Range Interpretation Comments Blood group antibody screen negative [Presence] in Serum or Plasma (test code = 890-4) [facility] CenterUrinalysis macro (dipstick) panel - [id number] 16:56:26 Test Item Value Reference Range Interpretation Comments Leukocytes (test code = Leukocytes) Negative Nitrite (test code = Nitrite) negative Urobilinogen (test code = .2 Urobilinogen) Protein (test code = Protein) Negative pH (test code = pH) 7.0 Blood (test code = Blood) Negative Specific [place] (test code = 1.015 Specific [place]) Ketone (test code = Ketone) Negative Bilirubin (test code = Bilirubin) Negative Glucose (test code = Glucose) Negative Appearance (test code = Appearance) Clear Color (test code = Color) Yellow [facility] CenterUrinalysis macro (dipstick) panel - [id number] 13:54:59 Test Item Value Reference Range Interpretation Comments Leukocytes (test code = Leukocytes) Negative Nitrite (test code = Nitrite) negative Urobilinogen (test code = .2 Urobilinogen) Protein (test code = Protein) Negative pH (test code = pH) 5.5 Blood (test code = Blood) Negative Specific [place] (test code = 1.020 Specific [place]) Ketone (test code = Ketone) Negative Bilirubin (test code = Bilirubin) Negative Glucose (test code = Glucose) Negative Appearance (test code = Appearance) Clear Color (test code = Color) [facility] - [id number] 13:54:59 Test Item Value Reference Range Interpretation Comments Leukocytes (test code = Leukocytes) Negative Nitrite (test code = Nitrite) negative Urobilinogen (test code = .2 Urobilinogen) Protein (test code = Protein) Negative pH (test code = pH) 5.5 Blood (test code = Blood) Negative Specific [place] (test code = 1.020 Specific [place]) Ketone (test code = Ketone) Negative Bilirubin (test code = Bilirubin) Negative Glucose (test code = Glucose) Negative Appearance (test code = Appearance) Clear Color (test code = Color) [facility] Differential panel - [id number] 00:00:00 Test Item Value Reference Range Interpretation [...] fL 78-98 [Entitic volume] (test code = 38464-5) Erythrocyte mean corpuscular 32.0 pg 26.2-33.4 hemoglobin [Entitic mass] (test code = 92004-8) mean corpuscular HGB conc (test 34.1 g/dL 31.5-36.2 code = mean corpuscular HGB conc) red cell distribution width (test 11.7 % 11.5-15.5 code = red cell distribution width) Platelets [#/volume] in Blood (test 226 K/uL 137-338 code = 62322-4) Platelet mean volume [Entitic 6.0 fL 8.4-11.8 L volume] in Blood (test code = 15420-3) Neutrophils.band form/100 72.8 % 44.4-80.1 leukocytes in Blood (test code = 39135-2) Lymphocytes/100 leukocytes in Body 18.5 % 10.0-50.0 fluid (test code = 20842-0) Monocytes/100 leukocytes in Blood 3.7 % 3.6-12.04 by Automated count (test code = 5905-5) Eosinophils/100 leukocytes in Blood 4.3 % 0.0-5.41 by Automated count (test code = 713-8) Basophils/100 leukocytes in Blood 0.6 % 0.0-0.79 by Automated count (test code = 706-2) [facility] GroupRubella virus Ab [Titer] in [id number] 00:00:00 Test Item Value Reference Range Interpretation Comments Rubella virus IgG Ab 8.80 [IU]/mL [Units/volume] in Serum by Immunoassay (test code = 5334-8) [facility] GroupABO & Rh group [Type] in [id number] 00:00:00 Test Item Value Reference Range Interpretation Comments Rh [Type] in Blood (test code = 4+ 62764-5) ABO and Rh group panel - Blood A positive (test code = 86393-7) [facility] CenterBlood [facility] antibody screen [Presence] in Serum or Plasma 2018-10-06 00:00:00 Test Item Value Reference Range Interpretation Comments Blood group antibody screen negative [Presence] in Serum or Plasma (test code = 890-4) [facility] GroupHIV 1+2 Ab [Presence] in [id number] 00:00:00HIV P24 AgHIV-1/2 AbMatagoSt. Vincent's [facility] GroupBacteria identified in Urine by Culture 2018-10-06 00:00:00 Test Item Value Reference Range Interpretation Comments Bacteria identified in no growth at 2 days Urine by Culture (test code = 630-4) [facility] GroupReagin Ab [Presence] in Serum by [id number] 00:00:00 Test Item Value Reference Range Interpretation Comments Reagin Ab [Presence] in Serum by nonreactive nonreactive RPR (test code = 33644-7) [facility] GroupHepatitis B virus surface Ag [Presence] in Serum 2018-10-06 00:00:00 Test Item Value Reference Range Interpretation Comments .hepatitis B surface antigen (test negative negative code = .hepatitis B surface antigen) [facility] CenterMRI Ankle Left Wo ContMRI Ankle Left Wo Cont
[2023-03-18] MEDS ORDERED: NAPROXEN 250 MG TAB PO ONE (09:00)
[2023-03-18] MEDS ORDERED: METOCLOPRAMIDE 5 MG TAB ONE (09:12)
--- NOTE | 2023-03-18 09:39 | EDPHYS ---
Physician Documentation [facility] Name: Hailee Guy Age: 32 yrs Sex: Female : 1990 Arrival Date: 03/18/2023 Time: 08:19 Bed 7 Private MD: ED Physician Betty Rose HPI: 03/18 08:40 This 32 yrs old Female presents to ER via Ambulatory with complaints of Flu Symptoms. ci 08:40 Patient is a 32-year-old female with PMH sinusitis who presents to the ED with flulike ci symptoms that began 2 days ago. She endorses generalized body aches, congestion, headache, fever, nausea, diarrhea, sore throat. Patient had to leave work early on Thursday, requesting work note for yesterday and today. She reports nausea and sore throat resolved, thinks she had bad stomach flu. Denies chest pain, shortness of breath.. Historical: - Allergies: 08:32 Morphine; ll1 08:32 Antelope; ll1 - PMHx: 08:32 Sinusitis; ll1 - PSHx: 08:32 Adenoid excision; Tonsillectomy; ll1 - Immunization history:: Client reports receiving the 2nd dose of the Covid vaccine. - Social history:: Smoking status: Patient reports the use of cigarette tobacco products, denies chronic smoking, but will smoke occasionally, Reported history of juuling and/or vaping. ROS: 08:40 Constitutional: Positive for body aches, chills, fatigue, fever, ci 08:40 Cardiovascular: Negative for chest pain, edema, orthopnea, palpitations, 08:40 Respiratory: Negative for cough, shortness of breath, wheezing, 08:40 Abdomen/GI: Positive for nausea, diarrhea, 08:40 Neuro: Positive for headache, Negative for altered mental status, dizziness, syncope, 08:40 All other systems are negative, Exam: 08:40 Constitutional: This is a well developed, well nourished patient who is awake, alert, ci and in no acute distress. Head/Face: Normocephalic, atraumatic. Eyes: Pupils equal round and reactive to light, extra-ocular motions intact. Lids and lashes normal. Conjunctiva and sclera are non-icteric and not injected. Cornea within normal limits. Periorbital areas with no swelling, redness, or edema. ENT: Nares patent. No nasal discharge, no septal abnormalities noted. Tympanic membranes are normal and external auditory canals are clear. Oropharynx with no redness, swelling, or masses, exudates, or evidence of obstruction, uvula midline, patient has had a tonsillectomy. Mucous membranes moist. Neck: Trachea midline, no thyromegaly or masses palpated, and no cervical lymphadenopathy. Supple, full range of motion without nuchal rigidity, or vertebral point tenderness. No Meningismus. Chest/axilla: Normal chest wall appearance and motion. Nontender with no deformity. No lesions are appreciated. Cardiovascular: Regular rate and rhythm with a normal S1 and S2. No gallops, murmurs, or rubs. No JVD. No pulse deficits. Respiratory: Lungs have equal breath sounds bilaterally, clear to auscultation and percussion. No rales, rhonchi or wheezes noted. No increased work of breathing, no retractions or nasal flaring. Abdomen/GI: Soft, non-tender, with normal bowel sounds. No distension or tympany. No guarding or rebound. No evidence of tenderness throughout. Back: No spinal tenderness. No costovertebral tenderness. Full range of motion. Skin: Warm, dry with normal turgor. Normal color with no rashes, no lesions, and no evidence of cellulitis. MS/ Extremity: Pulses equal, no cyanosis. Neurovascular intact. Full, normal range of motion. Neuro: Awake and alert, GCS 15, oriented to person, place, time, and situation. Cranial nerves II-XII grossly intact. Motor strength 5/5 in all extremities. Sensory grossly intact. Cerebellar exam normal. Normal gait. Psych: Awake, alert, with orientation to person, place and time. Behavior, mood, and affect are within normal limits. Vital Signs: 08:33 BP 109 / 76; Pulse 73; Resp 16; Temp 98; Pulse Ox 100% ; Weight 51.71 kg; Height 5 ft. ll1 3 in. ; Pain 7/10; 09:56 BP 111 / 58; Pulse 75; Resp 16; Pulse Ox 99% ; ko1 08:33 Body Mass Index 20.19 (51.71 kg, 160.02 cm) ll1 08:33 Pain Scale: Adult ll1 MDM: 08:27 Patient medically screened. ci 08:40 Differential Diagnosis flu, COVID-19, viral syndrome, influenza, gastroenteritis. Data ci reviewed: vital signs, nurses notes, old medical records. External Records Reviewed: Outpatient record: ED visit February 2022 for similar complaints.. 08:40 ED course: Patient is nontoxic-appearing, vital signs stable. She has no pharyngeal ci erythema, uvula is midline, no BIN CLEANER, low suspicion for pharyngitis. Lungs are clear bilaterally, respirations are even and unlabored, low suspicion for pneumonia. Symptoms concerning for viral infection, will obtain COVID and influenza. Patient reports she took Tylenol PM, denies any pain at this time.. 08:48 I considered the following discharge prescriptions or medication management in the ci emergency department Medications were administered in the Emergency Department. See AUG. 09:35 ED course: Flu B+, will start on Tamiflu.. ci 03/18 08:38 Order name: Flu; Complete Time: 09:35 ci 03/18 09:35 Interpretation: Abnormal: FLUB FLU B ----- POSITIVE for FLU B protein antigen. ci 03/18 08:41 Order name: COVID-19 SARS RT PCR; Complete Time: 09:35 aa5 03/18 09:35 Interpretation: Within normal limits: SARSCOV2 RT PCR NEGATIVE. ci Administered Medications: 09:15 Drug: MetoCLOPramide PO 10 mg PO once Route: PO; aa5 09:15 Drug: Naproxen PO 500 mg PO once Route: PO; aa5 Disposition Summary: 03/18/23 09:38 Discharge Ordered Notes: Location: Home ci Condition: Stable ci Diagnosis - Influenza due to identified novel influenza A virus ci Followup: ci - With: Private Physician - When: 2 - 3 days - Reason: Recheck today's complaints, Re-evaluation by your physician Discharge Instructions: - Discharge Summary Sheet ci - Influenza, Adult, [id number] ci - Preventing Influenza, Adult ci Forms: - Work release form ko1 - Medication Reconciliation Form ci - Thank You Letter ci - Antibiotic Education ci - Prescription Opioid Use ci - Patient Portal Instructions ci - Leadership Thank You Letter ci Prescriptions: - Tamiflu 75 mg Oral capsule - take 1 capsule ORAL route 2 times per day for 5 days; 10 capsule; Refills: 0, ci Product Selection Permitted Signatures: Dispatcher [employer] Erin Pierre, RN RN aa5 Aidan Jorge RN RN ll1 Betty Rose Corrections: (The following items were deleted from the chart) 08:44 08:39 COVID-19/FLU A+B+[id number] ordered. EDMS EDMS
--- NOTE | 2023-03-18 09:39 | ER ---
Nurse's Notes [facility] Name: Hailee Guy Age: 32 yrs Sex: Female : 1990 Arrival Date: 03/18/2023 Time: 08:19 Bed 7 Private MD: Diagnosis: Influenza due to identified novel influenza A virus Presentation: 03/18 08:33 Chief complaint: Patient states: Sore throat started Thursday night. Had to leave work on ll1 Thursday for fever, fatigue, body aches, abdominal pains with N/V/D. 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 Coronavirus screen: Vaccine status: Patient reports receiving the 2nd dose of the covid vaccine. Client denies travel out of the [place] in the last 14 days. chills, diarrhea, fatigue, fever, headache, muscle pain, nausea, shaking with chills, sore throat, vomiting. Client presents with at least one sign or symptom that may indicate coronavirus-19. Standard/surgical mask placed on the client. Ebola Screen: Patient denies travel to an Ebola-affected area in the 21 days before illness onset. Initial Sepsis Screen: Does the patient meet any 2 criteria? No. Patient's initial sepsis screen is negative. Does the patient have a suspected source of infection? Yes: Acute abdominal pain. Risk Assessment: Do you want to hurt yourself or someone else? Patient reports no desire to harm self or others. Onset of symptoms was March 16, 2023. 08:33 Method Of Arrival: Ambulatory ll1 08:33 Acuity: TANISHA 3 ll1 Historical: - Allergies: 08:32 Morphine; ll1 08:32 [place]; ll1 - PMHx: 08:32 Sinusitis; ll1 - PSHx: 08:32 Adenoid excision; Tonsillectomy; ll1 - Immunization history:: Client reports receiving the 2nd dose of the Covid vaccine. - Social history:: Smoking status: Patient reports the use of cigarette tobacco products, denies chronic smoking, but will smoke occasionally, Reported history of juuling and/or vaping. Screenin:35 [facility] ED Fall Risk Assessment (Adult) History of falling in the last 3 months, aa5 including since admission No falls in past 3 months (0 pts) Confusion or Disorientation No (0 pts) Intoxicated or Sedated No (0 pts) Impaired Gait No (0 pts) Mobility Assist Device Used No (0 pt) Altered Elimination No (0 pt) Score/Fall Risk Level 0 - 2 = Low Risk Oriented to surroundings, Maintained a safe environment, Educated pt \T\ family on fall prevention, incl call for assistance when getting out of bed. Abuse screen: Denies threats or abuse. Nutritional screening: No deficits noted. Tuberculosis screening: No symptoms or risk factors identified. Assessment: 08:35 General: Appears comfortable, Behavior is calm, cooperative. Pain: Complains of pain in aa5 abdomen and whole body Quality of pain is described as aching, Is intermittent. Neuro: Level of Consciousness is awake, alert, obeys commands, Oriented to person, place, time, situation. Cardiovascular: Patient's skin is warm and dry. Respiratory: Airway is patent Respiratory effort is even, unlabored, Respiratory pattern is regular, symmetrical, Denies cough, shortness of breath. GI: Abdomen is flat, non-distended, Bowel sounds present X 4 quads. Abd is soft and non tender X 4 quads. Reports lower abdominal pain, upper abdominal pain, diarrhea, nausea, vomiting. : No signs and/or symptoms were reported regarding the genitourinary system. EENT: Reports sore throat. Denies nasal congestion, nasal discharge. Derm: Skin is pink, warm \T\ dry. 08:45 Reassessment: Pt requesting medication for headache, was notified. . aa5 Vital Signs: 08:33 BP 109 / 76; Pulse 73; Resp 16; Temp 98; Pulse Ox 100% ; Weight 51.71 kg; Height 5 ft. ll1 3 in. ; Pain 7/10; 09:56 BP 111 / 58; Pulse 75; Resp 16; Pulse Ox 99% ; ko1 08:33 Body Mass Index 20.19 (51.71 kg, 160.02 cm) ll1 08:33 Pain Scale: Adult ll1 ED Course: 08:23 Patient arrived in ED. mg5 08:26 Betty Rose is Attending Physician. ci 08:27 Arm band placed on Patient placed in an exam room, on a stretcher. ll1 08:35 Triage completed. ll1 08:35 Patient has correct armband on for positive identification. Bed in low position. Call aa5 light in reach. Side rails up X 1. 08:40 Erin Peterson, RN is Primary Nurse. aa5 08:44 COVID swab sent to lab. Flu and/or RSV swab sent to lab. aa5 08:59 COVID-19 SARS RT PCR Sent. cp4 08:59 Flu Sent. cp4 09:56 Provided Education on: na. ko1 09:56 No provider procedures requiring assistance completed. Patient did not have IV access ko1 during this emergency room visit. Administered Medications: 09:15 Drug: MetoCLOPramide PO 10 mg PO once Route: PO; aa5 09:15 Drug: Naproxen PO 500 mg PO once Route: PO; aa5 Medication: 09:56 VIS not applicable for this client. ko1 Outcome: 09:38 Discharge ordered by . ci 09:56 Discharged to home ambulatory, ko1 09:56 Condition: stable 09:56 Discharge instructions given to patient, Instructed on discharge instructions, follow up and referral plans. medication usage, Demonstrated understanding of instructions, follow-up care, medications, Prescriptions given X 1, 09:58 Patient left the ED. ko1 Signatures: Erin Peterson, RN RN aa5 Aidan Jorge RN RN ll1 Danelle Avendaño RN RN ko1 Cecy King 5 Emy Guerrero 4 Betty Rose
[2023-03-18 10:05] VITALS: TEMP 98
[2023-03-18 10:07] VITALS: BP 111/58; O2SAT 99
== END 2023-03-18 09:58 | disposition home or self-care (01) ==
LOC: ER 08:19
DX: J10.1 Influenza due to other identified influenza virus with other respiratory manifestations (principal); F17.210 Nicotine dependence, cigarettes, uncomplicated; Z20.822 Contact with and (suspected) exposure to COVID-19; Z88.5 Allergy status to narcotic agent
CPT/HCPCS: 87635; 87804

== ENCOUNTER 2024-06-30 23:53 | Emergency (ER) | payer OTHER, SELFPAY ==
[2024-07-01] MEDS ORDERED: DIPHENHYDRAMINE 25 MG TAB/CAP ONE (01:15)
[2024-07-01] MEDS ORDERED: ACETAMINOPHEN 500 MG TAB ONE (01:15)
[2024-07-01] MEDS ORDERED: IBUPROFEN 400 MG TAB ONE (01:15)
[2024-07-01] MEDS ORDERED: methocarbamoL 750 MG TAB ONE (01:15)
[2024-07-01] MEDS ORDERED: ONDANSETRON 4 MG (ODT) TAB ONE (03:22)
[2024-07-01] MEDS ORDERED: TRAMADOL HCL 50 MG TAB ONE (03:22)
--- NOTE | 2024-07-01 03:30 | EDPHYS ---
Physician Documentation [facility] Name: Hailee Guy Age: 33 yrs Sex: Female : 1990 Arrival Date: 06/30/2024 Time: 23:53 Bed 7 Private MD: ED Physician Bowen Turpin HPI: 07/01 00:29 This 33 yrs old Female presents to ER via Unassigned with complaints of Foot sp4 Injury. 06:25 33-year-old female presents with complaint of the subacute Right foot injury. Patient sp4 states that 1 week ago she sustained crushing foot injury on the right side. Since then patient developed right foot discoloration.. 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 - Infectious Disease History:: Denies. - Social history:: Smoking status: Patient reports the use of cigarette tobacco products, denies chronic smoking, but will smoke occasionally, Reported history of juuling and/or vaping. - Family history:: not pertinent. ROS: 06:25 Constitutional: Positive right foot pain and discoloration sp4 06:25 All other systems are negative, Exam: 06:25 Constitutional: This is a well developed, well nourished patient who is awake, alert, sp4 and in no acute distress. Head/Face: Normocephalic, atraumatic. Eyes: Pupils equal round and reactive to light, extra-ocular motions intact. Lids and lashes normal. Conjunctiva and sclera are not injected. Cornea within normal limits. Periorbital areas with no swelling, redness, or edema. ENT: Nares patent. No nasal discharge, no septal abnormalities noted. Tympanic membranes are normal and external auditory canals are clear. Oropharynx with no redness, swelling, or masses, exudates, or evidence of obstruction, uvula midline. Mucous membranes moist. Neck: Trachea midline, no thyromegaly or masses palpated, and no cervical lymphadenopathy. Supple, full range of motion without nuchal rigidity, or vertebral point tenderness. Chest/axilla: Normal chest wall appearance and motion. Nontender with no deformity. No lesions are appreciated. Cardiovascular: Regular rate and rhythm with a normal S1 and S2. No gallops, murmurs, or rubs. Normal PMI, no JVD. No pulse deficits. Respiratory: Lungs have equal breath sounds bilaterally, clear to auscultation and percussion. No rales, rhonchi or wheezes noted. No increased work of breathing, no retractions or nasal flaring. Abdomen/GI: Soft, with normal bowel sounds. No distension or tympany. No guarding or rebound. No evidence of tenderness throughout. Back: No spinal tenderness. No costovertebral tenderness. Skin: Warm, dry with normal turgor. Normal color with no rashes, no lesions, and no evidence of cellulitis. MS/ Extremity: Pulses equal, no cyanosis. Neurovascular intact. Full, normal range of motion. There is right foot discoloration secondary to subacute injury, preserved peripheral pulses, normal range of motion. There is mild right foot swelling. No deformity Neuro: Awake and alert, GCS 15, oriented to person, place, time, and situation. Cranial nerves II-XII grossly intact. Motor strength 5/5 in all extremities. Sensory grossly intact. Psych: Awake, alert, with orientation to person, place and time. Behavior, mood, and affect are within normal limits Vital Signs: 00:28 Weight 49.9 kg; Height 5 ft. 4 in. ; Pain 3/10; vc1 00:33 BP 131 / 85; Pulse 81; Resp 14; Temp 98.6; Pulse Ox 99% ; vc1 02:23 BP 127 / 84; Pulse 77; Resp 16 S; Pulse Ox 99% on R/A; lg3 03:45 BP 127 / 81; Pulse 79; Resp 15 S; Pulse Ox 100% on R/A; lg3 00:28 Body Mass Index 18.88 (49.90 kg, 162.56 cm) vc1 00:28 Pain Scale: Adult vc1 [place] Coma Score: 06:25 Eye Response: spontaneous(4). Motor Response: obeys commands(6). Verbal Response: sp4 oriented(5). Total: 15. Procedures: 06:25 Splinting: Splint applied to right calf, right Achilles and right heel using Ortho 3D sp4 boot, applied by myself. Examined by me, post splint application: neurovascular intact, 2+ distal pulses palpable, brisk capillary refill noted, Patient tolerated well, Crutches provided advised no weightbearing for the next 6 weeks. MDM: 00:30 Medical Screening Exam initiated sp4 03:06 ED course: EXAM DESCRIPTION: Foot Right 3 View (accession [id number]), Ankle Right 3 sp4 View (accession [id number]) RadLex: XR FOOT 3 OR MORE VIEWS RIGHT, XR ANKLE 3 OR MORE VIEWS RIGHT CLINICAL HISTORY: 33 years Female, PAIN COMPARISON: None. FINDINGS: 3 views of the right foot and 3 views of the right ankle were obtained. Acute mildly displaced and comminuted fracture at the base of the second metatarsal. There appears to be an acute nondisplaced fracture at the base of the first metatarsal. No joint dislocation. There is some soft tissue edema along the dorsal aspect of the foot. No radiopaque foreign body. No other acute fracture at the level of the ankle. IMPRESSION: 1. Acute mildly displaced and comminuted fracture at the base of the second metatarsal. 2. Acute nondisplaced fracture at the base of the first metatarsal. Electronically signed by: Savanna Paz MD 07/01/2024 02:53 AM . 06:25 Differential diagnosis: fracture, sprain, arthritis, gout, cellulitis. Data reviewed: sp4 vital signs, nurses notes, [facility] records, radiologic studies, plain films. Consideration of Admission/Observation Escalation of care including admission/observation considered. ED course: Right ortho boot was applied. Patient stable for discharge home. Will refer to orthopedist for outpatient follow-up.. 07/01 00:29 Order name: Foot Right 3 View XRAY sp4 07/01 00:29 Order name: Ankle Right 3 View XRAY sp4 07/01 03:05 Order name: Orthopedic shoe: Right foot ortho boot; Complete Time: 03:24 sp4 07/01 03:06 Order name: Crutches; Complete Time: 03:24 sp4 Administered Medications: 01:19 Drug: Acetaminophen PO 1000 mg PO once Route: PO; lg3 02:24 Follow up: Response: No adverse reaction lg3 01:19 Drug: Ibuprofen PO 800 mg PO once Route: PO; lg3 02:24 Follow up: Response: No adverse reaction lg3 01:19 Drug: diphenhydrAMINE PO 25 mg PO once Route: PO; lg3 02:24 Follow up: Response: No adverse reaction lg3 01:19 Drug: Methocarbamol PO 750 mg PO once Route: PO; lg3 02:24 Follow up: Response: No adverse reaction lg3 03:24 Drug: traMADol PO 50 mg PO once Route: PO; lg3 03:45 Follow up: Response: No adverse reaction lg3 03:24 Drug: Ondansetron PO 4 mg PO once Route: PO; lg3 03:44 Follow up: Response: No adverse reaction lg3 Disposition: 06:28 Chart complete. sp4 Disposition Summary: 07/01/24 03:30 Discharge Ordered Problem: new sp4 Symptoms: have improved sp4 Condition: Stable sp4 Diagnosis - Acute right first metatarsal fracture at the base without displacement, acute right sp4 second metatarsal fracture at the base with mild displacement, initial encounter Followup: sp4 - With: William Adair MD - When: 7 - 10 days - Reason: Recheck today's complaints Discharge Instructions: - Discharge Summary Sheet sp4 - Metatarsal Fracture sp4 Forms: - Work release form sp4 - Patient Portal Instructions sp4 Prescriptions: - Tramadol 50 mg Oral tablet - take 1 tablet ORAL route every 8 hours PRN pain; 20 tablet; Refills: 0, Product sp4 Selection Permitted Signatures: Dispatcher [employer] EDLynn Cotter RN RN lg3 Lucrecia Tong RN RN vc1 Bowen Turpin MD MD sp4 Corrections: (The following items were deleted from the chart) 00:29 00:29 Foot Right 3 View+RAD.RAD.BRZ ordered. EDMS EDMS 00:29 00:29 Ankle Right 3 View+RAD.RAD.BRZ ordered. EDMS EDMS 00:30 00:29 Allergies: Morphine; vc1 vc1 00:30 00:29 Allergies: [place]; vc1 vc1
--- NOTE | 2024-07-01 03:30 | ER ---
Nurse's Notes [facility] Name: Hailee Guy Age: 33 yrs Sex: Female : 1990 Arrival Date: 06/30/2024 Time: 23:53 Bed 7 Private MD: Diagnosis: Acute right first metatarsal fracture at the base without displacement, acute right second metatarsal fracture at the base with mild displacement, initial encounter Presentation: 07/01 00:28 Chief complaint: Patient states: right foot pain, and allergy from cat. Chief vc1 complaint: Patient states: fell backwards on foot felt a snap. Coronavirus screen: Client denies travel out of the [place] in the last 14 days. At this time, the client does not indicate any symptoms associated with coronavirus-19. Ebola Screen: Patient negative for fever greater than or equal to 101.5 degrees Fahrenheit, and additional compatible Ebola Virus Disease symptoms Patient denies exposure to infectious person. Patient denies travel to an Ebola-affected area in the 21 days before illness onset. No symptoms or risks identified at this time. Initial Sepsis Screen: Does the patient meet any 2 criteria? No. Patient's initial sepsis screen is negative. Does the patient have a suspected source of infection? No. Patient's initial sepsis screen is negative. Risk Assessment: Do you want to hurt yourself or someone else? Patient reports no desire to harm self or others. Onset of symptoms was July 01, 2024. Care prior to arrival: None. Activity prior to arrival: None. Mechanism of Injury: No Mechanism of Injury. Transition of care: patient was not received from another setting of care. 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 - Infectious Disease History:: Denies. - Social history:: Smoking status: Patient reports the use of cigarette tobacco products, denies chronic smoking, but will smoke occasionally, Reported history of juuling and/or vaping. - Family history:: not pertinent. Screenin:31 [facility] ED Fall Risk Assessment (Adult) History of falling in the last 3 months, vc1 including since admission Yes- physiologic fall (2 pts) Confusion or Disorientation No (0 pts) Intoxicated or Sedated No (0 pts) Impaired Gait Yes (1 pt) Mobility Assist Device Used No (0 pt) Altered Elimination No (0 pt) Score/Fall Risk Level 3 or more points = High Risk Oriented to surroundings, Maintained a safe environment, Educated pt \T\ family on fall prevention, incl call for assistance when getting out of bed, Hourly rounding (assess needs \T\ fall precautionary measures) done, Utilized family, sitter, or virtual 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 Abuse screen: Denies threats or abuse. Nutritional screening: No deficits noted. Tuberculosis screening: No symptoms or risk factors identified. Assessment: 01:18 General: Appears in no apparent distress. comfortable, Behavior is calm, cooperative. lg3 Pain: Complains of pain in right foot Pain does not radiate. Pain currently is 4 out of 10 on a pain scale. Neuro: No deficits noted. Valadez Agitation-Sedation Scale (RASS): 0 - Alert and Calm Level of Consciousness is awake, alert, obeys commands, Oriented to person, place, time, situation. Cardiovascular: No deficits noted. Denies chest pain, shortness of breath, Capillary refill < 3 seconds Clubbing of nail beds is absent JVD is absent Patient's skin is warm and dry. Respiratory: No deficits noted. Airway is patent Respiratory effort is even, unlabored, Respiratory pattern is regular, symmetrical. GI: No deficits noted. No signs and/or symptoms were reported involving the gastrointestinal system. : No signs and/or symptoms were reported regarding the genitourinary system. EENT: No deficits noted. No signs and/or symptoms were reported regarding the EENT system. Derm: No deficits noted. Skin is intact, is healthy with good turgor, Skin is dry, Skin is normal, Skin temperature is warm. Musculoskeletal: Circulation, motion, and sensation intact. Range of motion: intact in all extremities, Reports pain in right foot. 02:23 Reassessment: Patient appears in no apparent distress at this time. No changes from lg3 previously documented assessment. Patient and/or family updated on plan of care and expected duration. Pain level reassessed. Patient is alert, oriented x 3, equal unlabored respirations, skin warm/dry/pink. Vital Signs: 00:28 Weight 49.9 kg; Height 5 ft. 4 in. ; Pain 3/10; vc1 00:33 BP 131 / 85; Pulse 81; Resp 14; Temp 98.6; Pulse Ox 99% ; vc1 02:23 BP 127 / 84; Pulse 77; Resp 16 S; Pulse Ox 99% on R/A; lg3 03:45 BP 127 / 81; Pulse 79; Resp 15 S; Pulse Ox 100% on R/A; lg3 00:28 Body Mass Index 18.88 (49.90 kg, 162.56 cm) vc1 00:28 Pain Scale: Adult vc1 [place] Coma Score: 06:25 Eye Response: spontaneous(4). Motor Response: obeys commands(6). Verbal Response: sp4 oriented(5). Total: 15. ED Course: 06/30 23:57 Patient arrived in ED. gm2 07/01 00:25 Bowen Turpin MD is Attending Physician. sp4 00:29 Triage completed. vc1 00:31 Arm band placed on right wrist. vc1 00:34 Patient notified of wait time. vc1 01:14 Foot Right 3 View XRAY In Process Unspecified. EDMS 01:14 Ankle Right 3 View XRAY In Process Unspecified. EDMS 01:18 Lynn Mares, [place] is Primary Nurse. lg3 01:18 Patient has correct armband on for positive identification. Bed in low position. Call lg3 light in reach. Side rails up X 1. Client placed on continuous cardiac and pulse oximetry monitoring. NIBP monitoring applied. Door closed. Noise minimized. Warm blanket given. Pillow given. Family accompanied patient. 03:28 William Adair MD is Referral Physician. sp4 03:45 No provider procedures requiring assistance completed. Patient did not have IV access lg3 during this emergency room visit. Crutch training done. Administered Medications: 01:19 Drug: Acetaminophen PO 1000 mg PO once Route: PO; lg3 02:24 Follow up: Response: No adverse reaction lg3 01:19 Drug: Ibuprofen PO 800 mg PO once Route: PO; lg3 02:24 Follow up: Response: No adverse reaction lg3 01:19 Drug: diphenhydrAMINE PO 25 mg PO once Route: PO; lg3 02:24 Follow up: Response: No adverse reaction lg3 01:19 Drug: Methocarbamol PO 750 mg PO once Route: PO; lg3 02:24 Follow up: Response: No adverse reaction lg3 03:24 Drug: traMADol PO 50 mg PO once Route: PO; lg3 03:45 Follow up: Response: No adverse reaction lg3 03:24 Drug: Ondansetron PO 4 mg PO once Route: PO; lg3 03:44 Follow up: Response: No adverse reaction lg3 Medication: 00:32 VIS not applicable for this client. vc1 Outcome: 03:30 Discharge ordered by . jeannie 03:45 Discharged to home via wheelchair, with crutches, with friend, lg3 03:45 Condition: stable 03:45 Discharge instructions given to patient, Instructed on discharge instructions, follow up and referral plans. medication usage, crutch walking, Demonstrated understanding of instructions, follow-up care, medications, crutch walking, Prescriptions given X 1, 03:46 Patient left the ED. lg3 Signatures: Dispatcher [employer] EDMS Lynn Mares RN RN lg3 Lucrecia Tong RN RN vc1 Bowen Turpin MD MD sp4 Mera Stoddard gm2 Corrections: (The following items were deleted from the chart) 00:30 00:29 Allergies: Morphine; vc1 vc1 00:30 00:29 Allergies: [place]; vc1 vc1
--- NOTE | 2024-07-01 05:49 | RAD REPORT ---
EXAM DESCRIPTION: Foot Right 3 View (accession [id number]), Ankle Right 3 View (accession [id number]) RadLex: XR FOOT 3 OR MORE VIEWS RIGHT, XR ANKLE 3 OR MORE VIEWS RIGHT CLINICAL HISTORY: 33 years Female, PAIN COMPARISON: None. FINDINGS: 3 views of the right foot and 3 views of the right ankle were obtained. Acute mildly displaced and co mminuted fracture at the base of the second metatarsal. There appears to be an acute nondisplaced fracture at the base of the first metatarsal. No joint dislocation. There is some soft tissue edema a long the dorsal aspect of the foot. No radiopaque foreign body. No other acute fracture at the level of the ankle. IMPRESSION: 1. Acute mildly displaced and comminuted fracture at the base of the second metatarsal. 2. Acute nondisplaced fracture at the base of the first metatarsal. Electronically signed by: Savanna Paz MD 07/01/2024 02:53 AM [facility] Due to temporary technical issues with the [email or web address] reporting system, reports are being elise d by the in-house radiologist without review as a courtesy to ensure prompt reporting the interpreting radiologist is fully responsible for the content of the report. Transcribed Date/Time: 07/01/2024 5:49 AM
--- NOTE | 2024-07-01 05:49 | RAD REPORT ---
EXAM DESCRIPTION: Foot Right 3 View (accession [id number]), Ankle Right 3 View (accession [id number]) RadLex: XR FOOT 3 OR MORE VIEWS RIGHT, XR ANKLE 3 OR MORE VIEWS RIGHT CLINICAL HISTORY: 33 years Female, PAIN COMPARISON: None. FINDINGS: 3 views of the right foot and 3 views of the right ankle were obtained. Acute mildly displaced and co mminuted fracture at the base of the second metatarsal. There appears to be an acute nondisplaced fracture at the base of the first metatarsal. No joint dislocation. There is some soft tissue edema a long the dorsal aspect of the foot. No radiopaque foreign body. No other acute fracture at the level of the ankle. IMPRESSION: 1. Acute mildly displaced and comminuted fracture at the base of the second metatarsal. 2. Acute nondisplaced fracture at the base of the first metatarsal. Electronically signed by: Savanna Paz MD 07/01/2024 02:53 AM [facility] Due to temporary technical issues with the PACS/[employer] reporting system, reports are being elise d by the in-house radiologist without review as a courtesy to ensure prompt reporting the interpreting radiologist is fully responsible for the content of the report. Transcribed Date/Time: 07/01/2024 5:49 AM
[2024-07-01 11:49] VITALS: TEMP 98.6
[2024-07-01 11:52] VITALS: BP 127/81; O2SAT 100
== END 2024-07-01 03:46 | disposition home or self-care (01) ==
LOC: ER 23:53
DX: S92.314A Nondisplaced fracture of first metatarsal bone, right foot, initial encounter for closed fracture (principal); S92.321A Displaced fracture of second metatarsal bone, right foot, initial encounter for closed fracture
CPT/HCPCS: 99284; Q0162

== ENCOUNTER 2024-10-07 13:47 | Emergency (ER) | payer SELFPAY ==
--- OUTSIDE RECORDS SUMMARY | 2024-10-07 13:56 | XMS REPORT | Continuity of Care Document ---
Author Name Unknown Address [address] [facility] [place]. [address] [place] [address] [facility] Address [address] [facility] [place] [place] [address] Care Team Providers Care Housing Court Judge Name Role Phone Adelfo Li Primary Care Physician + [phone] Adelfo Li Attending Clinician Unavailable JAVI EDGAR Attending Clinician Unavailable BRANDAN DE LA GARZA Attending Clinician Unavailable MARIANELA PANIAGUA Attending Clinician Unavailable MARIANELA PANIAGUA Attending Clinician Unavailable EMMANUELLE COLBERT Attending Clinician UnavailBALTAZAR Gibbs Attending Clinician Unavailable JACKY VINES Attending Clinician Unavail able MATT RAJPUT Attending Clinician Unavailable ANUPAMA HURLEY Attending Clinician Unavail able MADALYN FALLON Attending Clinician Unavailable Madalyn Baker Attending Clinician [phone] Doctor Unassigned, [place] Attending Clinician U krissailMatt Johnson Attending Clinician [phone] [facility] Attending Clinician Unavailable DEL BROWNING Attending Clinician Unavail Jacky Martinez MD Attending Clinician Brandan De La Garza MD Attending Clinician Draw, [facility] Attending Clinician Unavailabl e Call, [facility] Phone Attending Clinician Unavail able UYEN CORBIN Attending Clinician Unavailable SERGIO STEINER Attending Clinician UnavailLASHELL Mitchell Attending Clinician Unavailable Lashell Landry PA-C Attending Clinician [phone] TAO KHAN Attending Clinician Unavailable NARCISO RAMIREZ Attending Clinician UnavailNas CARLN, Angie Lopez Attending Clinician Uyen Mcintosh MD Attending Clinician [phone] KENDRICK GATES Attending Clinician Unavailabl perla Davila RN, Jolene Attending Clinician Unavail able Cedrick MCGRATH, Adina Starr Attending Clinician Unavailab Narciso Stevens MD Attending Clinician [phone] Po, [facility] Main Attending Clinician Unavailjose Ribeiro MD, Del Attending Clinician [phone] DEL RIBEIRO Attending Clinician Unavailabl Too Perez MD Attending Clinician [phone] TOO RAPHAEL Attending Clinician Unavailab POP Barrera Attending Clinician UnavailAvril Erwin Attending Clinician [phone] Manny Oleary MD Attending Clinician [phone] BHAKTI NARAYANAN Attending Clinician Unavailable Bhakti Zuleta Attending Clinician [phone] Mirella Barbosa Attending Clinician Unavailable JELENA KING Attending Clinician Unavailable Enid Perez MD Attending Clinician [phone] Jelena King MD Attending Clinician [phone] JAVI EDGAR Attending Clinician Unav ailable Only, [facility] Test Attending Clinician Unavailable DEBBIE ARNDT Attending Clinician Unavailable Debbie Arndt MD Attending Clinician [phone] Ronda Sandhu MD Attending Clinician [phone] CAYDEN SEBASTIAN Attending Clinician Unavailable CAYDEN SEBASTIAN Attending Clinician Unavailable Cayden Sebastian DO Attending Clinician [phone] Only, [facility] Test Attending Clinician Unavailable Jenny Jacob Attending Clinician Tang Whitmore RN, Lanny Attending Clinician Adelfo Mccoy Attending Clinician [phone] Prabhjot6 LAINE WELLER Attending Clinician Unavailable Ro_Pappas Attending Clinician Unavailable BRANDAN DE LA GARZA Admitting Clinician Unavailable MATT RAJPUT Admitting Clinician Unavailable JACKY VINES Admitting Clinician Unavail able Jasmyn MOCTEZUMA, Jacky Mercado Admitting Clinician LASHELL LANDRY Admitting Clinician Unavailable DEL RIBEIRO Admitting Clinician Unavailjose De La Garza MD, Brandan Admitting Clinician DEBBIE ARNDT Admitting Clinician Unavailable CAYDEN SEBASTIAN Admitting Clinician Unavailable G_Pappas Admitting Clinician Unavailable Payers Payer Name Policy Type Policy Number Effective Date Expirati on Date Source [facility] MED[facility] STAR [id number] 2021 00:00:00 [facility] MED[facility] [id number] 2015 00:00:00 MEDICAID [id number] 2021 00:00:00 [facility] MEDICAID MC [id number] 2021 00:00:00 [facility] MEDICAID MC [id number] 2021 00:00:00 [facility] MEDICAID MC [id number] 2021 00:00:00 [facility] MEDICAID MC [id number] 2021 00:00:00 [facility] MEDICAID MC [id number] 2021 00:00:00 [facility] MEDICAID MC [id number] 2021 00:00:00 [facility] MEDICAID MC [id number] 2021 00:00:00 [facility] MEDICAID MC [id number] 2021 00:00:00 [facility] MEDICAID MC [id number] 2021 00:00:00 [facility] MEDICAID MC [id number] 2021 00:00:00 [facility] MEDICAID MC [id number] 2021 00:00:00 [facility] MEDICAID MC [id number] 2021 00:00:00 [facility] MEDICAID MC [id number] 2021 00:00:00 [facility] MEDICAID MC [id number] 2021 00:00:00 [facility] MEDICAID MC [id number] 2021 00:00:00 [facility] (MEDICAID REPLACEMENT - HMO) [id number] 2018 00:00:00 Problems Condition Name Condition Details Condition Category Status Onset Date Resolution Date Last Treatment Date Treating Clinician Comments Source Cervicalgi a Cervicalgi a Disease Active 2021-06 00:00: 00 [facility] Urethral pain Urethral pain Disease Active 2021-06 0 00:00: 00 [facility] Dysuria Dysuria Disease Active 2021-06 0 00:00: 00 [facility] Concern about infectious disease without diagnosis Concern about infectious disease without diagnosis Disease Active 2021-06 0 00:00: 00 [facility] Abdominal pain, right lower quadrant Abdominal pain, right lower quadrant Disease Active 2021-06 0 00:00: 00 Overview: Formattin g of this note might be different from the original. Added automatic ally from request for surgery [id number] [facility] Abdominal pain, right upper quadrant Abdominal pain, right upper quadrant Disease Active 2021-06 0 00:00: 00 Overview: Formattin g of this note might be different from the original. Added automatic ally from request for surgery [id number] [facility] Mold exposure Mold exposure Disease Active - 00:00: 00 [facility] Pelvic pain Pelvic pain Disease Active 03-10 00:00: 00 [facility] Petechiae Petechiae Disease Active 9-12 00:00: 00 [facility] Hutchins hemangioma Hutchins hemangioma Disease Active 9-12 00:00: 00 [facility] Pruritus Pruritus Disease Active 9-12 00:00: 00 [facility] Need for vaccinatio n Need for vaccinatio n Disease Active 9-12 00:00: 00 [facility] Pruritus Pruritus Disease Active 9-12 00:00: 00 [facility] Pityriasis capitis Pityriasis capitis Disease Active 8-12 00:00: 00 [facility] POST OP LEFT ANKLE POST OP LEFT ANKLE Active 12/24/2021 [facility] Diagnosis Active 12-24 08:00: 00 2022-01-06 13:28:00 Josiah Guy 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) Disease Active 4- 00:00: 00 [facility] Acute left ankle pain Acute left ankle pain Disease Active 4- 00:00: 00 [facility] UNK UNK Active 09/27/2021 Jonathan Guy Diagnosis Active 4- 00:00: 00 2021-10-02 08:49:00 Josiah Guy ANKLE ARTHROSCOP Y /DEBRIDEME NT, EXCISION ANKLE ARTHROSCOP Y /DEBRIDEME NT, EXCISION Active 09/27/2021 Jonathan Guy Diagnosis Active 4- 00:00: 00 2021-10-03 08:42:00 Josiah Guy Anemia of Anemia of Problem Active 12-07 00:00: 00 [facility] Mild hyperemesi s-not delivered Mild Hyperemesi s-not Delivered Problem Active 11-02 00:00: 00 [facility] Iron deficiency anemia of Iron Deficiency Anemia of Problem Active 11-02 00:00: 00 [facility] Uterine scar from previous surgery in , childbirth and the puerperium with problem Uterine Scar from Previous Surgery in , Childbirth and the Puerperium with Problem Problem Active 10-07 00:00: 00 [facility] Chronic sinusitis Chronic sinusitis Disease Active 01-07 00:00: 00 [facility] Anxiety and depression Anxiety and depression Disease Active 01-07 00:00: 00 [facility] ADHD (attention deficit hyperactiv ity disorder) ADHD (attention deficit hyperactiv ity disorder) Disease Active 01-07 00:00: 00 [facility] PTSD (post-trau matic stress disorder) PTSD (post-trau matic stress disorder) Disease Active 01-07 00:00: 00 [facility] Contracept steve management Contracept steve management Disease Active 01-03 00:00: 00 [facility] Hiatal hernia Hiatal Hernia Problem Active [facility] [id number] SANAM (generaliz ed anxiety disorder) Problem [facility] [id number] Moderate major depression , single episode Problem [facility] [id number] Dysphagia, unspecifie d type Problem [facility] [id number] GERD without esophagiti s Problem [facility] [id number] Unable to concentrat e Problem [facility] [id number] Mixed hyperlipid emia Problem [facility] Chronic pain syndrome Chronic pain syndrome Problem [facility] [id number] Anxiety Problem [facility] [id number] Allergic rhinitis, unspecifie d seasonalit y, unspecifie d trigger Problem [facility] History of Past Illness Condition Name Condition Details Condition Category Status Onset Date Resolution Date Last Treatment Date Treating Clinician Comments Source Villonodul ar synovitis (pigmented ), left ankle and foot Villonodul ar synovitis (pigmented ), left ankle and foot 10/03/2021 10/07/2021 [place] Problem 10-03 13:03: 00 2021-10-07 09:29:53 2021-10-07 09:29:53 Josiah Guy Allergies, Adverse Reactions, Alerts Allergy Name Allergy Type Status Severity Reaction(s) Onset Date Inactive Date Treating Clinician Comments Source HYDROCOD ONE-ACET AMINOPHE N DRUG Active Rash 01-07 00:00: 00 [facility] Hydrocod one-Acet aminophe n Propensi ty to adverse reaction s Active Rash 01-07 00:00: 00 [facility] morphine morphine Active Unknown Commo n [facility] NO KNOWN ALLERGIE S Drug Class Active [facility] Morphine Allergy to substanc e Active Hives [facility] Social History Social Habit Start Date Stop Date Quantity Comments Source [facility] SD[facility] Alcohol Std Drinks [facility] History SDOH Alcohol Binge [facility] Sex Assigned At [facility] Exposure to SARS-CoV-2 (event) 2022-07-22 00:00:00 2022-08-01 11:31:[address] [facility] [place] [place] History of Social function 2022-06-03 00:00:00 2022-06-03 00:00:[address] [facility] [place] [place] Alcohol Comment 2022-03-26 00:00:00 2022-03-26 00:00:00 Drank when I was younger. Don't drink at all now. [facility] Tobacco Comment 2022-03-26 00:00:00 2022-03-26 00:00:00 Grew up with many smoking family members [facility] Tobacco use and exposure 2022-03-26 00:00:00 2022-03-26 00:00:00 Smokeless tobacco non-user [facility] Alcohol intake 2022-03-26 00:00:00 2022-03-26 00:00:00 Ex-drinker (finding) [facility] Social History 2021-09-30 15:26:12 2021-09-30 15:26:12 [facility] History SDOH Alcohol Frequency 2021-09-25 00:00:00 2021-09-25 00:00:00 1 [facility] History of tobacco use 2005-06-29 00:00:00 2012-06-29 00:00:00 Cigarette Smoker [facility] Smoking Status Start Date Stop Date Source Ex-smoker 2022-05-07 00:00:00 2022-05-07 00:00:[address] [facility] [place] [place] Never smoked tobacco [facility] Occasional tobacco smoker 2021-07-09 00:00:[address] [facility] [place] [place] Medications Ordered Medication Name Filled Medication Name Start Date Stop Date Current Medication? Ordering Clinician Indication Dosage Frequency Signature (SIG) Comments Components Source tiZANidine 2 mg capsule 08-01 00:00: 00 Yes [id number] 2mg Take 1 capsule by mouth in the morning and 1 capsule at noon and 1 capsule in the evening. [facility] No known medications 2021-06 14:02: 10 No No known medication s [facility] No known medications 2021-06 16:44: 37 No No known medication s [facility] ONDANSETRON 4 mg tablet 2021-06 00:00: 00 Yes [id number] TAKE ONE (1) TABLET(S) BY MOUTH EVERY EIGHT HOURS NEEDED FOR NAUSEA AND VOMITING OR IF UNRESPONSI VE TO PROMETHAZI NE. [facility] lactated ringers IV infusion 1,000 mL 2021-06 15:30: 00 Yes 1000mL at 75 mL/hr, 1,000 mL, IV Infusion, CONTINUOUS , Starting on Thu06/03/22 at 0930, Until Discontinu ed, Routine, PACU [facility] HYDROcodone -acetaminop hen (NORCO 5) 5-325 mg tablet 1 tablet 2021-06 15:30: 00 06-03 15:36 :00 No 1{tbl} 1 tablet, Oral, ONCE, 1 dose, On Thu06/03/22 at 0930, Routine, PACU [facility] HYDROcodone -acetaminop hen (NORCO) 10-325 mg tablet 1 tablet 2021-06 15:15: 36 Yes 1{tbl} 1 tablet, Oral, PRN, 1 dose, Starting on Thu06/03/22 at 0915, Until Discontinu ed, Routine, Pain (scale 7-10), DSU Recovery [facility] HYDROcodone -acetaminop hen (NORCO 5) 5-325 mg tablet 1 tablet 2022-1 2-06 15:15: 36 Yes 1{tbl} 1 tablet, Oral, PRN, 1 dose, Starting on Thu06/03/22 at 0915, Until Discontinu ed, Routine, Pain (scale 4-6), DSU Recovery [facility] ibuprofen (IBU) tablet 800 mg 2021-06 15:15: 36 Yes 800mg 800 mg, Oral, PRN, 1 dose, Starting on Thu06/03/22 at 0915, Until Discontinu ed, Routine, Pain (scale 1-3), DSU Recovery [facility] morpHINE (4 mg/mL) injection 4 mg 2021-06 15:15: 33 Yes 4mg 4 mg, Slow IV Push, Q5MIN PRN, 2 doses, Starting on Thu06/03/22 at 0915, Until Discontinu ed, Routine, Pain (scale 7-10), PACU [facility] FENTanyl PF (SUBLIMAZE (PF)) injection 25 mcg 2021-06 15:15: 33 Yes 25ug 25 mcg, Slow IV Push, Q5MIN PRN, 4 doses, Starting on Thu06/03/22 at 0915, Until Discontinu ed, Routine, Pain (scale 4-6), PACU [facility] ondansetron (ZOFRAN (PF)) injection 4 mg 2021-06 15:15: 33 06-03 15:36 :00 No 4mg 4 mg, Slow IV Push, PRN, 1 dose, Starting on Thu06/03/22 at 0915, Until Thu06/03/22 at 0936, Routine, Nausea and Vomiting (N/V), PACU [facility] bupivacaine (preserv free) (SENSORCAIN E MPF) 0.25 % (2.5 mg/mL) injection 2021-06 14:10: 00 06-03 15:13 :20 No PRN, Starting on Thu06/03/22 at 0810, Until Thu06/03/22 at 0913, Routine, Intra-op [facility] gabapentin (NEURONTIN) capsule 300 mg 2021-06 12:00: 06-03 12:19 :00 No 300mg 300 mg, Oral, ONCE, 1 dose, On Thu06/03/22 at 0600, Routine, DSU Pre-op [facility] celecoxib (CELEBREX) capsule 400 mg 2021-06 12:00: 00 06-03 12:19 :00 No 400mg 400 mg, Oral, ONCE, 1 dose, On Thu06/03/22 at 0600, Routine, DSU Pre-op [facility] acetaminoph en (TYLENOL) tablet 1,000 mg 2021-06 12:00: 00 06-03 12:19 :00 No 1000mg 1,000 mg, Oral, ONCE, 1 dose, On Thu06/03/22 at 0600, Routine, DSU Pre-op [facility] No known medications 2021-06 07:05: 42 No No known medication s [facility] Magnesium 250 mg Tab 2021-06 11:35: 23 Yes 330mg Take 330 mg by mouth. [facility] chlorhexidi ne 4 % external liquid 2021-06 00:00: 00 Yes [id number] Apply to area(s) once daily as needed for Wound care. [facility] ondansetron (ZOFRAN) 4 mg tablet 2021-06 00:00: 00 Yes [id number] 4mg Take 1 tablet by mouth every 8 (eight) hours as needed for Nausea and Vomiting (N/V) or N/V unresponsi ve to Promethazi ne. [facility] docusate (COLACE) 100 mg capsule 2021-06 00:00: 00 Yes [id number] 100mg Take 1 capsule by mouth in the morning and 1 capsule in the evening. [facility] traMADoL 50 mg tablet 2021-06 00:00: 00 06-07 05:59 :00 No [id number] 50mg Take 1 tablet by mouth every 6 (six) hours as needed for Pain (scale 4-6) for up to 7 days. Indication s: acute pain [facility] acetaminoph en-codeine (TYLENOL-CO DEINE #3) 300-30 mg tablet 2021-06 2- 00:00: 00 06-07 05:59 :00 No [id number] 1{tbl} Take 1 tablet by mouth every 4 (four) hours as needed for Pain (scale 7-10) for up to 7 days. Indication s: acute pain [facility] ketoconazol e 2 % shampoo 2021-06- 00:00: 00 06-03 00:00 :00 No [id number] Apply to area(s) once daily as needed for Itching. [facility] buPROPion 75 mg tablet 03-25 00:00: 00 06-03 00:00 :00 No 75mg 75 mg. [facility] triamcinolo ne acetonide 0.1 % cream 03-10 00:00: 00 06-03 00:00 :00 No [id number] Apply to area(s) 2 (two) times daily. [facility] ketoconazol e 2 % shampoo 02-07 00:00: 00 06-03 00:00 :00 No [id number] Apply to area(s) once daily as needed for Itching. [facility] Methylcellu lose, with Sugar, (CITRUCEL, SUCROSE,) powder 02-05 00:00: 00 06-03 00:00 :00 No [id number] 17g Take 17 g by mouth daily. [facility] elagolix (ORILISSA) 200 mg Tab 02-04 00:00: 00 06-03 00:00 :00 No [id number] 1{tbl} Take 1 tablet by mouth 2 (two) times daily. [facility] norelgestro min-ethinyl estradiol (XULANE) 150-35 mcg/24 hr patch 8- 00:00: 00 04-30 00:00 :00 No [id number] 1{patch } Apply 1 Patch to skin weekly. [facility] Cyclobenzap rine HCl 5 MG Cyclobenzap rine HCl 5 MG 10-25 00:00: 00 12-19 00:00 :00 No 1{table t_at_be dtime_a s_neede d} QD Cyclobenza darion HCl 5 MG Cyclobenzap rine HCl 5 MG Cyclobenzap rine HCl 5 MG 10-25 00:00: 00 11-24 00:00 :00 No 1{table t_at_be dtime_a s_neede d} QD Cyclobenza darion HCl 5 MG ANES hydrALAZINE 10-03 19:21: 00 No Notes: (Same as: Apresoline ) Push over 5 minutes Memoria vignesh LOCO oxyCODONE 5 mg immediate release tablet 10-03 19:21: 00 No Notes: (Same as: Roxicodone ) Memoria vignesh LOCO fentaNYL 10-03 19:21: 00 No Notes: (Same as: Sublimaze) Preservati ve free. Memoria vignesh [facility] HYDROmorpho ne 10-03 19:21: 00 No Notes: Same as: Dilaudid Memoria vignesh SIMSS flumazenil 10-03 19:21: 00 No Notes: (Same as: Romazicon) Memoria l Brooks [facility] naloxone 10-03 19:21: 00 No Notes: Same as Narcan Memoria vignesh LOCO albuterol 0.083% inhalation solution 10-03 19:21: 00 No Notes: SEE RT DOCUMENTAT ION (Same as: Proventil) [facility] diphenhydrA MINE 10-03 19:21: 00 No Notes: (Same as: Benadryl) [facility] meperidine 10-03 19:21: 00 No Notes: (Same as: Demerol) "Use Precaution in Elderly, Seizure disorders, and Renal impairment " Memoria vignesh [facility]SS ondansetron 10-03 19:21: 00 No Notes: (Same as: Zofran) MEDICATION WASTE Product Size: 4 mg Product Wasted: ___ mg Josiah LOCO promethazin e 10-03 19:21: 00 No 6.25 mg, Route: IVPB, ONCE, Dosing Weight 49.864, kg, PRN Nausea & Vomiting, Start date: 10/03/21 14:21:00 CDT Josiah Guy LEVICurtis scopolamine 1 mg/72 hr transdermal film, extended release 10-03 19:21: 00 No Notes: Remove old patch before applicatio n of new patch Change patch every 72 hours (Same as: Transderm- Scop) Memmacarena Guy ceFAZolin (ANES) 10-03 18:23: 00 No Route: IV, Drug form: INJ, ONCE, Stop date: 10/03/21 13:23:00 CDT Josiah Guy ondansetron (ANES) 10-03 18:23: 00 No Route: IV, Drug form: INJ, ONCE, Stop date: 10/03/21 13:23:00 CDT Memmacarena Guy dexamethaso ne (ANES) 10-03 18:23: 00 No Route: IV, Drug form: INJ, ONCE, Stop date: 10/03/21 13:23:00 CDT Josiah Guy midazolam (ANES) 10-03 18:13: 00 No Route: IV, Drug form: SOLN, ONCE, Stop date: 10/03/21 13:13:00 CDT Memmacarena Guy fentaNYL (ANES) 10-03 18:13: 00 No Route: IV, Drug form: INJ, ONCE, Stop date: 10/03/21 13:13:00 CDT Memmacarena vignesh Brooks lidocaine (ANES) 10-03 18:13: 00 No Route: IV, Drug form: INJ, ONCE, Stop date: 10/03/21 13:13:00 CDT Memmacarena vignesh [place] propofol (ANES) 10-03 18:13: 00 No Route: IV, Drug form: INJ, ONCE, Stop date: 10/03/21 13:13:00 CDT Memmacarena Guy Lactated Ringers Injection IV (ANES) 1000 mL 10-03 17:27: 00 No Route: IV, Total Volume: 1,000, Start date: 10/03/21 12:27:00 CDT, Stop date: 10/03/21 13:27:00 CDT Annemacarena vignesh Guy ondansetron ODT (Zofran-ODT ) disintegrat ing tablet 8 mg 10-02 17:12: 37 Yes 1998 8mg [facility] fluticasone 93 mcg/inh nasal spray 09-30 15:45: 00 Yes BID, 0 Refill(s) Annemacarena vignesh Brooks Fish Oil 09-30 15:44: 00 Yes PO, 0 Refill(s) Annemacarena vignesh Guy Milk Thistle 09-30 15:44: 00 Yes 0 Refill(s) Josiah Guy trazodone 09-30 15:43: 00 Yes PO, Bedtime, 0 Refill(s) Annemacarena vignesh Guy fluticasone (Flonase) 50 MCG/ACT nasal spray 09-20 00:00: 00 Yes INSTILL TWO (2) SPRAY(S) INTO EACH NOSTRIL ONCE DAILY. [facility] traZODone (Desyrel) 50 MG tablet 09-13 00:00: 00 Yes TAKE ONE (1) OR TWO (2) TABLET(S) BY MOUTH AT BEDTIME NEEDED FOR INSOMNIA. [facility] buPROPion (Wellbutrin ) 75 MG tablet 07-29 00:00: 00 Yes 75mg Take 75 mg by mouth. [facility] Amitriptyli ne HCl 25 MG Amitriptyli ne HCl 25 MG 2020-06 00:00: 00 No QD Amitriptyl ine HCl 25 MG Amitriptyli ne HCl 25 MG Amitriptyli ne HCl 25 MG 2020-06 00:00: 00 No QD Amitriptyl ine HCl 25 MG Amitriptyli ne HCl 25 MG Amitriptyli ne HCl 25 MG 2020-06 00:00: 00 No QD Amitriptyl ine HCl 25 MG Dicyclomine HCl 10 MG Dicyclomine HCl 10 MG 2020-06 00:00: 00 06-07 00:00 :00 No 1{capsu les_as_ needed} TID Dicyclomine HCl 10 MG Dicyclomine HCl 10 MG 2020-06 00:00: 00 06-07 00:00 :00 No 1{capsu les_as_ needed} TID Dicyclomine HCl 10 MG Dicyclomine HCl 10 MG 2020-06 00:00: 00 06-07 00:00 :00 No 1{capsu les_as_ needed} TID Dicyclomin e HCl 10 MG Ondansetron 4 MG Ondansetron 4 MG 2020-06 00:00: 00 No 1{table t_on_ e_tongu e_and_a llow_to _dissol ve} QD Ondansetro n 4 MG Ondansetron 4 MG Ondansetron 4 MG 2020-06 00:00: 00 No 1{table t_on_ e_tongu e_and_a llow_to _dissol ve} Ondansetro n 4 MG Ondansetron 4 MG Ondansetron 4 MG 2020-06 00:00: 00 No 1{table t_on_ e_tongu e_and_a llow_to _dissol ve} Ondansetro n 4 MG Ondansetron 4 MG Ondansetron 4 MG 2020-06 00:00: 00 No 1{table t_on_ e_tongu e_and_a llow_to _dissol ve} QD Ondansetro n 4 MG Ondansetron 4 MG Ondansetron 4 MG 2020-06 00:00: 00 No 1{table t_on_th e_tongu e_and_a llow_to _dissol ve} QD Ondansetro n 4 MG Ondansetron 4 MG Ondansetron 4 MG 2020-06 00:00: 00 No 1{table t_on_th e_tongu e_and_a llow_to _dissol ve} QD Ondansetro n 4 MG Ondansetron 4 MG Ondansetron 4 MG 2020-06 00:00: 00 No 1{table t_on_ e_tongu e_and_a llow_to _dissol ve} QD Ondansetro n 4 MG Ondansetron 4 MG Ondansetron 4 MG 2020-06 00:00: 00 No 1{table t_on_ e_tongu e_and_a llow_to _dissol ve} QD Ondansetro n 4 MG Ondansetron 4 MG Ondansetron 4 MG 2020-06 00:00: 00 No 1{table t_on_ e_tongu e_and_a llow_to _dissol ve} QD Ondansetro n 4 MG 1 daily 1 daily No [facility] Vitamin D Vitamin D No Vitamin D Omeprazole Omeprazole No Omeprazole Omeprazole Omeprazole No Omeprazole Vitamin D Vitamin D No Vitamin D Buprenorphi ne Buprenorphi ne No Buprenorph ine Vitamin D Vitamin D No Vitamin D Vitamin D Vitamin D No Vitamin D Vitamin D Vitamin D No Vitamin D Vitamin D Vitamin D No Vitamin D Immunizations Ordered Immunization Name Filled Immunization Name Date Status Comments Source Influenza Virus Vaccine Quad IM, Preserv and ABX Free 6 MO-64 YRS 2022-03-10 00:00:[address] [facility] [place] [place] Influenza Virus Vaccine Quad IM, Preserv and ABX Free 6 MO-64 YRS 2022-03-10 00:00:[address] [facility] [place], [place] Influenza Virus Vaccine Quad IM, Preserv and ABX Free 6 MO-64 YRS 2022-03-10 00:00:[address] [facility] [place] Influenza Virus Vaccine Quad IM, Preserv and ABX Free 6 MO-64 YRS 2022-03-10 00:00:[address] [facility] [place] Influenza Virus Vaccine Quad IM, Preserv and ABX Free 6 MO-64 YRS 2022-03-10 00:00:[address] [facility] [place] Influenza Virus Vaccine Quad IM, Preserv and ABX Free 6 MO-64 YRS 2022-03-10 00:00:[address] [facility] [place] Influenza Virus Vaccine Quad IM, Preserv and ABX Free 6 MO-64 YRS 2022-03-10 00:00:[address] [facility] [place] Influenza Virus Vaccine Quad IM, Preserv and ABX Free 6 MO-64 YRS 2022-03-10 00:00:[address] [facility] [place] Influenza Virus Vaccine Quad IM, Preserv and ABX Free 6 MO-64 YRS 2022-03-10 00:00:[address] [facility] [place] Influenza Virus Vaccine Quad IM, Preserv and ABX Free 6 MO-64 YRS 2022-03-10 00:00:[address] [facility] [place] Influenza Virus Vaccine Quad IM, Preserv and ABX Free 6 MO-64 YRS 2022-03-10 00:00:[address] [facility] [place] Influenza Virus Vaccine Quad IM, Preserv and ABX Free 6 MO-64 YRS 2022-03-10 00:00:[address] [facility] [place] Influenza Virus Vaccine Quad IM, Preserv and ABX Free 6 MO-64 YRS 2022-03-10 00:00:[address] [facility] [place] Influenza Virus Vaccine Quad IM, Preserv and ABX Free 6 MO-64 YRS 2022-03-10 00:00:[address] [facility] [place] Influenza Virus Vaccine Quad IM, Preserv and ABX Free 6 MO-64 YRS 2022-03-10 00:00:[address] [facility] [place] Influenza Virus Vaccine Quad IM, Preserv and ABX Free 6 MO-64 YRS 2022-03-10 00:00:[address] [facility] [place] Influenza Virus Vaccine Quad IM, Preserv and ABX Free 6 MO-64 YRS 2022-03-10 00:00:[address] [facility] [place] Influenza Virus Vaccine Quad IM, Preserv and ABX Free 6 MO-64 YRS 2022-03-10 00:00:[address] [facility] [place] Influenza Virus Vaccine Quad IM, Preserv and ABX Free 6 MO-64 YRS 2022-03-10 00:00:[address] [facility] [place] Influenza Virus Vaccine Quad IM, Preserv and ABX Free 6 MO-64 YRS 2022-03-10 00:00:[address] [facility] [place] Influenza Virus Vaccine Quad IM, Preserv and ABX Free 6 MO-64 YRS 2022-03-10 00:00:[address] [facility] [place] Influenza Virus Vaccine Quad IM, Preserv and ABX Free 6 MO-64 YRS 2022-03-10 00:00:[address] [facility] [place] Influenza Virus Vaccine Quad IM, Preserv and ABX Free 6 MO-64 YRS 2022-03-10 00:00:[address] [facility] [place] Influenza Virus Vaccine Quad IM, Preserv and ABX Free 6 MO-64 YRS 2022-03-10 00:00:[address] [facility] [place] Influenza Virus Vaccine Quad IM, Preserv and ABX Free 6 MO-64 YRS 2022-03-10 00:00:[address] [facility] [place] Influenza Virus Vaccine Quad IM, Preserv and ABX Free 6 MO-64 YRS 2022-03-10 00:00:[address] [facility] [place] Influenza Virus Vaccine Quad IM, Preserv and ABX Free 6 MO-64 YRS 2022-03-10 00:00:[address] [facility] [place] Influenza Virus Vaccine Quad IM, Preserv and ABX Free 6 MO-64 YRS 2022-03-10 00:00:[address] [facility] [place] Influenza Virus Vaccine Quad IM, Preserv and ABX Free 6 MO-64 YRS 2022-03-10 00:00:[address] [facility] [place] Influenza Virus Vaccine Quad IM, Preserv and ABX Free 6 MO-64 YRS 2022-03-10 00:00:[address] [facility] [place] Influenza Virus Vaccine Quad IM, Preserv and ABX Free 6 MO-64 YRS 2022-03-10 00:00:[address] [facility] [place] Influenza Virus Vaccine Quad IM, Preserv and ABX Free 6 MO-64 YRS 2022-03-10 00:00:[address] [facility] [place] Influenza Virus Vaccine Quad IM, Preserv and ABX Free 6 MO-64 YRS 2022-03-10 00:00:[address] [facility] [place] Influenza Virus Vaccine Quad IM, Preserv and ABX Free 6 MO-64 YRS 2022-03-10 00:00:[address] [facility] [place] Influenza Virus Vaccine Quad IM, Preserv and ABX Free 6 MO-64 YRS 2022-03-10 00:00:[address] [facility] [place] Influenza Virus Vaccine Quad IM, Preserv and ABX Free 6 MO-64 YRS 2022-03-10 00:00:[address] [facility] [place] Influenza Virus Vaccine Quad IM, Preserv and ABX Free 6 MO-64 YRS 2022-03-10 00:00:[address] [facility] [place] Influenza Virus Vaccine Quad IM, Preserv and ABX Free 6 MO-64 YRS 2022-03-10 00:00:[address] [facility] [place] Influenza Virus Vaccine Quad IM, Preserv and ABX Free 6 MO-64 YRS 2022-03-10 00:00:[address] [facility] [place] Influenza Virus Vaccine Quad IM, Preserv and ABX Free 6 MO-64 YRS 2022-03-10 00:00:[address] [facility] [place] Influenza Virus Vaccine Quad IM, Preserv and ABX Free 6 MO-64 YRS 2022-03-10 00:00:[address] [facility] [place] Influenza Virus Vaccine Quad IM, Preserv and ABX Free 6 MO-64 YRS 2022-03-10 00:00:[address] [facility] [place] Influenza Virus Vaccine Quad IM, Preserv and ABX Free 6 MO-64 YRS 2022-03-10 00:00:[address] [facility] [place] Influenza Virus Vaccine Quad IM, Preserv and ABX Free 6 MO-64 YRS 2022-03-10 00:00:[address] [facility] [place] Influenza Virus Vaccine Quad IM, Preserv and ABX Free 6 MO-64 YRS 2022-03-10 00:00:[address] [facility] [place] Influenza Virus Vaccine Quad IM, Preserv and ABX Free 6 MO-64 YRS 2022-03-10 00:00:[address] [facility] [place] Influenza Virus Vaccine Quad IM, Preserv and ABX Free 6 MO-64 YRS 2022-03-10 00:00:[address] [facility] [place] Influenza Virus Vaccine Quad IM, Preserv and ABX Free 6 MO-64 YRS 2022-03-10 00:00:[address] [facility] [place] Influenza Virus Vaccine Quad IM, Preserv and ABX Free 6 MO-64 YRS 2022-03-10 00:00:[address] [facility] [place] Influenza Virus Vaccine Quad IM, Preserv and ABX Free 6 MO-64 YRS 2022-03-10 00:00:[address] [facility] [place] Influenza Virus Vaccine Quad IM, Preserv and ABX Free 6 MO-64 YRS 2022-03-10 00:00:[address] [facility] [place] Influenza Virus Vaccine Quad IM, Preserv and ABX Free 6 MO-64 YRS 2022-03-10 00:00:[address] [facility] [place] Influenza Virus Vaccine Quad IM, Preserv and ABX Free 6 MO-64 YRS 2022-03-10 00:00:[address] [facility] [place] Influenza Virus Vaccine Quad IM, Preserv and ABX Free 6 MO-64 YRS 2022-03-10 00:00:[address] [facility] [place] Influenza Virus Vaccine Quad IM, Preserv and ABX Free 6 MO-64 YRS 2022-03-10 00:00:[address] [facility] [place] Influenza Virus Vaccine Quad IM, Preserv and ABX Free 6 MO-64 YRS 2022-03-10 00:00:[address] [facility] [place] Influenza Virus Vaccine Quad IM, Preserv and ABX Free 6 MO-64 YRS 2022-03-10 00:00:[address] [facility] [place] Influenza Virus Vaccine Quad IM, Preserv and ABX Free 6 MO-64 YRS 2022-03-10 00:00:[address] [facility] [place] Influenza Virus Vaccine Quad IM, Preserv and ABX Free 6 MO-64 YRS 2022-03-10 00:00:[address] [facility] [place] Influenza Virus Vaccine Quad IM, Preserv and ABX Free 6 MO-64 YRS 2022-03-10 00:00:[address] [facility] [place] Influenza Virus Vaccine Quad IM, Preserv and ABX Free 6 MO-64 YRS 2022-03-10 00:00:[address] [facility] [place] Varicella (varivax)(chicken pox) 2016-01-04 00:00:[address] [facility] [place] HPV9 2016-01-04 00:00:[address] [facility] [place] Varicella (varivax)(chicken pox) 2016-01-04 00:00:[address] [facility] [place] HPV9 2016-01-04 00:00:[address] [facility] [place] Varicella (varivax)(chicken pox) 2016-01-04 00:00:[address] [facility] [place] HPV9 2016-01-04 00:00:[address] [facility] [place] Varicella (varivax)(chicken pox) 2016-01-04 00:00:[address] [facility] [place] HPV9 2016-01-04 00:00:[address] [facility] [place] Varicella (varivax)(chicken pox) 2016-01-04 00:00:00 Completed [facility] 2016-01-04 00:00:[address] [facility] [place] Varicella (varivax)(chicken pox) 2016-01-04 00:00:00 Completed [facility] 2016-01-04 00:00:[address] [facility] [place] Varicella (varivax)(chicken pox) 2016-01-04 00:00:00 Completed [facility] 2016-01-04 00:00:[address] [facility] [place] Varicella (varivax)(chicken pox) 2016-01-04 00:00:00 Completed [facility] 2016-01-04 00:00:[address] [facility] [place] Varicella (varivax)(chicken pox) 2016-01-04 00:00:00 Completed [facility] 2016-01-04 00:00:[address] [facility] [place] Varicella (varivax)(chicken pox) 2016-01-04 00:00:00 Completed [facility] 2016-01-04 00:00:[address] [facility] [place] Varicella (varivax)(chicken pox) 2016-01-04 00:00:00 Completed [facility] 2016-01-04 00:00:[address] [facility] [place] Varicella (varivax)(chicken pox) 2016-01-04 00:00:00 Completed [facility] 2016-01-04 00:00:[address] [facility] [place] Varicella (varivax)(chicken pox) 2016-01-04 00:00:00 Completed [facility] 2016-01-04 00:00:[address] [facility] [place] Varicella (varivax)(chicken pox) 2016-01-04 00:00:00 Completed [facility] 2016-01-04 00:00:[address] [facility] [place] Varicella (varivax)(chicken pox) 2016-01-04 00:00:00 Completed [facility] 2016-01-04 00:00:[address] [facility] [place] Varicella (varivax)(chicken pox) 2016-01-04 00:00:00 Completed [facility] 2016-01-04 00:00:[address] [facility] [place] Varicella (varivax)(chicken pox) 2016-01-04 00:00:00 Completed [facility] 2016-01-04 00:00:[address] [facility] [place] Varicella (varivax)(chicken pox) 2016-01-04 00:00:00 Completed [facility] 2016-01-04 00:00:[address] [facility] [place] Varicella (varivax)(chicken pox) 2016-01-04 00:00:00 Completed [facility] 2016-01-04 00:00:[address] [facility] [place] Varicella (varivax)(chicken pox) 2016-01-04 00:00:00 Completed [facility] 2016-01-04 00:00:[address] [facility] [place] Varicella (varivax)(chicken pox) 2016-01-04 00:00:00 Completed [facility] 2016-01-04 00:00:[address] [facility] [place] Varicella (varivax)(chicken pox) 2016-01-04 00:00:00 Completed [facility] 2016-01-04 00:00:[address] [facility] [place] Varicella (varivax)(chicken pox) 2016-01-04 00:00:00 Completed [facility] 2016-01-04 00:00:[address] [facility] [place] Varicella (varivax)(chicken pox) 2016-01-04 00:00:00 Completed [facility] 2016-01-04 00:00:[address] [facility] [place] Varicella (varivax)(chicken pox) 2016-01-04 00:00:00 Completed [facility] 2016-01-04 00:00:[address] [facility] [place] Varicella (varivax)(chicken pox) 2016-01-04 00:00:00 Completed [facility] 2016-01-04 00:00:[address] [facility] [place] Varicella (varivax)(chicken pox) 2016-01-04 00:00:[address] [facility] [place] HPV9 2016-01-04 00:00:[address] [facility] [place] Varicella (varivax)(chicken pox) 2016-01-04 00:00:[address] [facility] [place] HPV9 2016-01-04 00:00:[address] [facility] [place] Varicella (varivax)(chicken pox) 2016-01-04 00:00:00 Completed [facility] 2016-01-04 00:00:[address] [facility] [place] Varicella (varivax)(chicken pox) 2016-01-04 00:00:00 Completed [facility] 2016-01-04 00:00:[address] [facility] [place] Varicella (varivax)(chicken pox) 2016-01-04 00:00:00 Completed [facility] 2016-01-04 00:00:[address] [facility] [place] Varicella (varivax)(chicken pox) 2016-01-04 00:00:00 Completed [facility] 2016-01-04 00:00:[address] [facility] [place] Varicella (varivax)(chicken pox) 2016-01-04 00:00:00 Completed [facility] 2016-01-04 00:00:[address] [facility] [place] Varicella (varivax)(chicken pox) 2016-01-04 00:00:00 Completed [facility] 2016-01-04 00:00:[address] [facility] [place] Varicella (varivax)(chicken pox) 2016-01-04 00:00:[address] [facility] [place] HPV9 2016-01-04 00:00:[address] [facility] [place] Varicella (varivax)(chicken pox) 2016-01-04 00:00:00 Completed [facility] 2016-01-04 00:00:[address] [facility] [place] Varicella (varivax)(chicken pox) 2016-01-04 00:00:[address] [facility] [place] HPV9 2016-01-04 00:00:[address] [facility] [place] Varicella (varivax)(chicken pox) 2016-01-04 00:00:[address] [facility] [place] HPV9 2016-01-04 00:00:[address] [facility] [place] Varicella (varivax)(chicken pox) 2016-01-04 00:00:[address] [facility] [place] HPV9 2016-01-04 00:00:[address] [facility] [place] Varicella (varivax)(chicken pox) 2016-01-04 00:00:00 Completed [facility] 2016-01-04 00:00:[address] [facility] [place] Varicella (varivax)(chicken pox) 2016-01-04 00:00:00 Completed [facility] 2016-01-04 00:00:[address] [facility] [place] Varicella (varivax)(chicken pox) 2016-01-04 00:00:00 Completed [facility] 2016-01-04 00:00:[address] [facility] [place] Varicella (varivax)(chicken pox) 2016-01-04 00:00:00 Completed [facility] 2016-01-04 00:00:[address] [facility] [place] Varicella (varivax)(chicken pox) 2016-01-04 00:00:00 Completed [facility] 2016-01-04 00:00:[address] [facility] [place] Varicella (varivax)(chicken pox) 2016-01-04 00:00:00 Completed [facility] 2016-01-04 00:00:[address] [facility] [place] Varicella (varivax)(chicken pox) 2016-01-04 00:00:00 Completed [facility] 2016-01-04 00:00:[address] [facility] [place] Varicella (varivax)(chicken pox) 2016-01-04 00:00:00 Completed [facility] 2016-01-04 00:00:[address] [facility] [place] Varicella (varivax)(chicken pox) 2016-01-04 00:00:00 Completed [facility] 2016-01-04 00:00:[address] [facility] [place] Varicella (varivax)(chicken pox) 2016-01-04 00:00:00 Completed [facility] 2016-01-04 00:00:[address] [facility] [place] Varicella (varivax)(chicken pox) 2016-01-04 00:00:00 Completed [facility] 2016-01-04 00:00:[address] [facility] [place] Varicella (varivax)(chicken pox) 2016-01-04 00:00:00 Completed [facility] 2016-01-04 00:00:[address] [facility] [place] Varicella (varivax)(chicken pox) 2016-01-04 00:00:00 Completed [facility] 2016-01-04 00:00:[address] [facility] [place] Varicella (varivax)(chicken pox) 2016-01-04 00:00:00 Completed [facility] 2016-01-04 00:00:[address] [facility] [place] Varicella (varivax)(chicken pox) 2016-01-04 00:00:00 Completed [facility] 2016-01-04 00:00:[address] [facility] [place] Varicella (varivax)(chicken pox) 2016-01-04 00:00:00 Completed [facility] 2016-01-04 00:00:[address] [facility] [place] Varicella (varivax)(chicken pox) 2016-01-04 00:00:00 Completed [facility] 2016-01-04 00:00:[address] [facility] [place] Varicella (varivax)(chicken pox) 2016-01-04 00:00:00 Completed [facility] 2016-01-04 00:00:[address] [facility] [place] Varicella (varivax)(chicken pox) 2016-01-04 00:00:00 Completed [facility] 2016-01-04 00:00:[address] [facility] [place] Varicella (varivax)(chicken pox) 2016-01-04 00:00:00 Completed [facility] 2016-01-04 00:00:[address] [facility] [place] Varicella (varivax)(chicken pox) 2016-01-04 00:00:00 Completed [facility] 2016-01-04 00:00:[address] [facility] [place] Varicella (varivax)(chicken pox) 2016-01-04 00:00:[address] [facility] [place] HPV9 2016-01-04 00:00:[address] [facility] [place] Varicella (varivax)(chicken pox) 2015-11-22 00:00:[address] [facility] [place] Varicella (varivax)(chicken pox) 2015-11-22 00:00:[address] [facility] [place] Varicella (varivax)(chicken pox) 2015-11-22 00:00:[address] [facility] [place] Varicella (varivax)(chicken pox) 2015-11-22 00:00:[address] [facility] [place] Varicella (varivax)(chicken pox) 2015-11-22 00:00:[address] [facility] [place] Varicella (varivax)(chicken pox) 2015-11-22 00:00:[address] [facility] [place] Varicella (varivax)(chicken pox) 2015-11-22 00:00:[address] [facility] [place] Varicella (varivax)(chicken pox) 2015-11-22 00:00:[address] [facility] [place] Varicella (varivax)(chicken pox) 2015-11-22 00:00:[address] [facility] [place] Varicella (varivax)(chicken pox) 2015-11-22 00:00:[address] [facility] [place] Varicella (varivax)(chicken pox) 2015-11-22 00:00:[address] [facility] [place] Varicella (varivax)(chicken pox) 2015-11-22 00:00:[address] [facility] [place] Varicella (varivax)(chicken pox) 2015-11-22 00:00:[address] [facility] [place] Varicella (varivax)(chicken pox) 2015-11-22 00:00:[address] [facility] [place] Varicella (varivax)(chicken pox) 2015-11-22 00:00:[address] [facility] [place] Varicella (varivax)(chicken pox) 2015-11-22 00:00:[address] [facility] [place] Varicella (varivax)(chicken pox) 2015-11-22 00:00:[address] [facility] [place] Varicella (varivax)(chicken pox) 2015-11-22 00:00:[address] [facility] [place] Varicella (varivax)(chicken pox) 2015-11-22 00:00:[address] [facility] [place] Varicella (varivax)(chicken pox) 2015-11-22 00:00:[address] [facility] [place] Varicella (varivax)(chicken pox) 2015-11-22 00:00:[address] [facility] [place] Varicella (varivax)(chicken pox) 2015-11-22 00:00:[address] [facility] [place] Varicella (varivax)(chicken pox) 2015-11-22 00:00:[address] [facility] [place] Varicella (varivax)(chicken pox) 2015-11-22 00:00:[address] [facility] [place] Varicella (varivax)(chicken pox) 2015-11-22 00:00:[address] [facility] [place] Varicella (varivax)(chicken pox) 2015-11-22 00:00:[address] [facility] [place] Varicella (varivax)(chicken pox) 2015-11-22 00:00:[address] [facility] [place] Varicella (varivax)(chicken pox) 2015-11-22 00:00:[address] [facility] [place] Varicella (varivax)(chicken pox) 2015-11-22 00:00:[address] [facility] [place] Varicella (varivax)(chicken pox) 2015-11-22 00:00:[address] [facility] [place] Varicella (varivax)(chicken pox) 2015-11-22 00:00:[address] [facility] [place] Varicella (varivax)(chicken pox) 2015-11-22 00:00:[address] [facility] [place] Varicella (varivax)(chicken pox) 2015-11-22 00:00:[address] [facility] [place] Varicella (varivax)(chicken pox) 2015-11-22 00:00:[address] [facility] [place] Varicella (varivax)(chicken pox) 2015-11-22 00:00:[address] [facility] [place] Varicella (varivax)(chicken pox) 2015-11-22 00:00:[address] [facility] [place] Varicella (varivax)(chicken pox) 2015-11-22 00:00:[address] [facility] [place] Varicella (varivax)(chicken pox) 2015-11-22 00:00:[address] [facility] [place] [place] Varicella (varivax)(chicken pox) 2015-11-22 00:00:[address] [facility] [place] Varicella (varivax)(chicken pox) 2015-11-22 00:00:[address] [facility] [place] Varicella (varivax)(chicken pox) 2015-11-22 00:00:[address] [facility] [place] Varicella (varivax)(chicken pox) 2015-11-22 00:00:[address] [facility] [place] Varicella (varivax)(chicken pox) 2015-11-22 00:00:[address] [facility] [place] Varicella (varivax)(chicken pox) 2015-11-22 00:00:[address] [facility] [place] Varicella (varivax)(chicken pox) 2015-11-22 00:00:[address] [facility] [place] Varicella (varivax)(chicken pox) 2015-11-22 00:00:[address] [facility] [place] Varicella (varivax)(chicken pox) 2015-11-22 00:00:[address] [facility] [place] Varicella (varivax)(chicken pox) 2015-11-22 00:00:[address] [facility] [place] Varicella (varivax)(chicken pox) 2015-11-22 00:00:[address] [facility] [place] Varicella (varivax)(chicken pox) 2015-11-22 00:00:[address] [facility] [place] Varicella (varivax)(chicken pox) 2015-11-22 00:00:[address] [facility] [place] Varicella (varivax)(chicken pox) 2015-11-22 00:00:[address] [facility] [place] Varicella (varivax)(chicken pox) 2015-11-22 00:00:[address] [facility] [place] Varicella (varivax)(chicken pox) 2015-11-22 00:00:[address] [facility] [place] Varicella (varivax)(chicken pox) 2015-11-22 00:00:[address] [facility] [place] Varicella (varivax)(chicken pox) 2015-11-22 00:00:[address] [facility] [place] Varicella (varivax)(chicken pox) 2015-11-22 00:00:[address] [facility] [place] Varicella (varivax)(chicken pox) 2015-11-22 00:00:[address] [facility] [place] Varicella (varivax)(chicken pox) 2015-11-22 00:00:[address] [facility] [place] Varicella (varivax)(chicken pox) 2015-11-22 00:00:[address] [facility] [place] Varicella (varivax)(chicken pox) 2015-11-22 00:00:[address] [facility] [place] TDAP 2015-09-21 00:00:[address] [facility] [place] TDAP 2015-09-21 00:00:[address] [facility] [place] TDAP 2015-09-21 00:00:[address] [facility] [place] TDAP 2015-09-21 00:00:[address] [facility] [place] TDAP 2015-09-21 00:00:[address] [facility] [place] TDAP 2015-09-21 00:00:[address] [facility] [place] TDAP 2015-09-21 00:00:[address] [facility] [place] TDAP 2015-09-21 00:00:[address] [facility] [place] TDAP 2015-09-21 00:00:[address] [facility] [place] TDAP 2015-09-21 00:00:[address] [facility] [place] TDAP 2015-09-21 00:00:[address] [facility] [place] TDAP 2015-09-21 00:00:[address] [facility] [place] TDAP 2015-09-21 00:00:[address] [facility] [place] TDAP 2015-09-21 00:00:[address] [facility] [place] TDAP 2015-09-21 00:00:[address] [facility] [place] TDAP 2015-09-21 00:00:[address] [facility] [place] TDAP 2015-09-21 00:00:[address] [facility] [place] TDAP 2015-09-21 00:00:[address] [facility] [place] TDAP 2015-09-21 00:00:[address] [facility] [place] TDAP 2015-09-21 00:00:[address] [facility] [place] TDAP 2015-09-21 00:00:[address] [facility] [place] TDAP 2015-09-21 00:00:[address] [facility] [place] TDAP 2015-09-21 00:00:[address] [facility] [place] TDAP 2015-09-21 00:00:[address] [facility] [place] TDAP 2015-09-21 00:00:[address] [facility] [place] TDAP 2015-09-21 00:00:[address] [facility] [place] TDAP 2015-09-21 00:00:[address] [facility] [place] TDAP 2015-09-21 00:00:[address] [facility] [place] TDAP 2015-09-21 00:00:[address] [facility] [place] TDAP 2015-09-21 00:00:[address] [facility] [place] TDAP 2015-09-21 00:00:[address] [facility] [place] TDAP 2015-09-21 00:00:[address] [facility] [place] TDAP 2015-09-21 00:00:[address] [facility] [place] TDAP 2015-09-21 00:00:[address] [facility] [place] TDAP 2015-09-21 00:00:[address] [facility] [place] TDAP 2015-09-21 00:00:[address] [facility] [place] TDAP 2015-09-21 00:00:[address] [facility] [place] TDAP 2015-09-21 00:00:[address] [facility] [place] TDAP 2015-09-21 00:00:[address] [facility] [place] TDAP 2015-09-21 00:00:[address] [facility] [place] TDAP 2015-09-21 00:00:[address] [facility] [place] TDAP 2015-09-21 00:00:[address] [facility] [place] TDAP 2015-09-21 00:00:[address] [facility] [place] TDAP 2015-09-21 00:00:[address] [facility] [place] TDAP 2015-09-21 00:00:[address] [facility] [place] TDAP 2015-09-21 00:00:[address] [facility] [place] TDAP 2015-09-21 00:00:[address] [facility] [place] TDAP 2015-09-21 00:00:[address] [facility] [place] TDAP 2015-09-21 00:00:[address] [facility] [place] TDAP 2015-09-21 00:00:[address] [facility] [place] TDAP 2015-09-21 00:00:[address] [facility] [place] TDAP 2015-09-21 00:00:[address] [facility] [place] TDAP 2015-09-21 00:00:[address] [facility] [place] TDAP 2015-09-21 00:00:[address] [facility] [place] TDAP 2015-09-21 00:00:[address] [facility] [place] TDAP 2015-09-21 00:00:[address] [facility] [place] TDAP 2015-09-21 00:00:[address] [facility] [place] TDAP 2015-09-21 00:00:[address] [facility] [place] TDAP 2015-09-21 00:00:[address] [facility] [place] TDAP 2015-09-21 00:00:[address] [facility] [place] TDAP 2015-09-21 00:00:[address] [facility] [place] TDAP Unknown Completed [facility] [place] Varicella (varivax)(chicken pox) Unknown Completed [facility] [place] HPV9 Unknown Completed [facility] [place] Influenza Virus Vaccine Quad IM, Preserv and ABX Free 6 MO-64 YRS (FLUCELVAX) Unknown Completed [facility] [place] SARS-COV-2 COVID-19 VACCINE - (MODERNA) Unknown Completed [facility] TDAP Unknown Completed [facility] [place] Varicella (varivax)(chicken pox) Unknown Completed [facility] [place] HPV9 Unknown Completed [facility] [place] Influenza Virus Vaccine Quad IM, Preserv and ABX Free 6 MO-64 YRS (FLUCELVAX) Unknown Completed [facility] [place] SARS-COV-2 COVID-19 VACCINE - (MODERNA) Unknown Completed [facility] TDAP Unknown Completed [facility] [place] Varicella (varivax)(chicken pox) Unknown Completed [facility] [place] HPV9 Unknown Completed [facility] [place] Influenza Virus Vaccine Quad IM, Preserv and ABX Free 6 MO-64 YRS (FLUCELVAX) Unknown Completed [facility] [place] SARS-COV-2 COVID-19 VACCINE - (MODERNA) Unknown [facility] Completed [facility] [place] Varicella (varivax)(chicken pox) Unknown Completed [facility] [place] HPV9 Unknown Completed [facility] [place] Influenza Virus Vaccine Quad IM, Preserv and ABX Free 6 MO-64 YRS (FLUCELVAX) Unknown Completed [facility] [place] SARS-COV-2 COVID-19 VACCINE - (MODERNA) Unknown Completed [facility] TDAP Unknown Completed [facility] [place] Varicella (varivax)(chicken pox) Unknown Completed [facility] [place] HPV9 Unknown Completed [facility] [place] Influenza Virus Vaccine Quad IM, Preserv and ABX Free 6 MO-64 YRS (FLUCELVAX) Unknown Completed [facility] [place] SARS-COV-2 COVID-19 VACCINE - (MODERNA) Unknown Completed [facility] TDAP Unknown Completed [facility] [place] Varicella (varivax)(chicken pox) Unknown Completed [facility] [place] HPV9 Unknown Completed [facility] [place] Influenza Virus Vaccine Quad IM, Preserv and ABX Free 6 MO-64 YRS (FLUCELVAX) Unknown Completed [facility] [place] SARS-COV-2 COVID-19 VACCINE - (MODERNA) Unknown Completed [facility] TDAP Unknown Completed [facility] [place] Varicella (varivax)(chicken pox) Unknown Completed [facility] [place] HPV9 Unknown Completed [facility] [place] Influenza Virus Vaccine Quad IM, Preserv and ABX Free 6 MO-64 YRS (FLUCELVAX) Unknown Completed [facility] [place] SARS-COV-2 COVID-19 VACCINE - (MODERNA) Unknown Completed [facility] TDAP Unknown Completed [facility] [place] Varicella (varivax)(chicken pox) Unknown Completed [facility] [place] HPV9 Unknown Completed [facility] [place] Influenza Virus Vaccine Quad IM, Preserv and ABX Free 6 MO-64 YRS (FLUCELVAX) Unknown Completed [facility] [place] SARS-COV-2 COVID-19 VACCINE - (MODERNA) Unknown Completed [facility] TDAP Unknown Completed [facility] [place] Varicella (varivax)(chicken pox) Unknown Completed [facility] [place] HPV9 Unknown Completed [facility] [place] Influenza Virus Vaccine Quad IM, Preserv and ABX Free 6 MO-64 YRS (FLUCELVAX) Unknown Completed [facility] [place] SARS-COV-2 COVID-19 VACCINE - (MODERNA) Unknown Completed [facility] TDAP Unknown Completed [facility] [place] Varicella (varivax)(chicken pox) Unknown Completed [facility] [place] HPV9 Unknown Completed [facility] [place] Influenza Virus Vaccine Quad IM, Preserv and ABX Free 6 MO-64 YRS (FLUCELVAX) Unknown Completed [facility] [place] SARS-COV-2 COVID-19 VACCINE - (MODERNA) Unknown Completed [facility] TDAP Unknown Completed [facility] [place] Varicella (varivax)(chicken pox) Unknown Completed [facility] [place] HPV9 Unknown Completed [facility] [place] SARS-COV-2 COVID-19 VACCINE - (MODERNA) Unknown Completed [facility] Vital Signs Vital Name Observation Time Observation Value Comments S ource Systolic blood pressure 2022-08-01 17:37:00 115 mm[Hg] [facility] Diastolic blood pressure 2022-08-01 17:37:00 78 mm[Hg] [facility] Heart rate 2022-08-01 17:37:00 83 /min [facility] Body temperature 2022-08-01 17:37:[address] [facility] [place] [place] Body height 2022-08-01 17:37:00 160 cm [facility] Body weight 2022-08-01 17:37:00 50.485 kg [facility] BMI 2022-08-01 17:37:00 19.72 kg/m2 [facility] Oxygen saturation in Arterial blood by Pulse oximetry 2022-08-01 17:37:00 99 /min [facility] Systolic blood pressure 2022-06-25 19:46:00 111 mm[Hg] [facility] Diastolic blood pressure 2022-06-25 19:46:00 70 mm[Hg] [facility] Heart rate 2022-06-25 19:46:00 82 /min [facility] Body temperature 2022-06-25 19:46:[address] [facility] [place] [place] Body height 2022-06-25 19:46:00 160 cm [facility] Body weight 2022-06-25 19:46:00 48.807 kg [facility] BMI 2022-06-25 19:46:00 19.06 kg/m2 [facility] Systolic blood pressure 2022-06-16 22:36:00 114 mm[Hg] [facility] Diastolic blood pressure 2022-06-16 22:36:00 75 mm[Hg] [facility] Heart rate 2022-06-16 22:36:00 71 /min [facility] Body temperature 2022-06-16 22:36:[address] [facility] [place] [place] Body height 2022-06-16 22:36:00 160 cm [facility] Body weight 2022-06-16 22:36:00 48.535 kg [facility] BMI 2022-06-16 22:36:00 18.95 kg/m2 [facility] Respiratory rate 2022-06-03 15:22:00 16 /min [facility] [place] [place] Systolic blood pressure 2022-06-03 15:07:00 111 mm[Hg] [facility] Diastolic blood pressure 2022-06-03 15:07:00 73 mm[Hg] [facility] Heart rate 2022-06-03 15:07:00 61 /min [facility] Body temperature 2022-06-03 15:07:[address] [facility] [place] [place] Oxygen saturation in Arterial blood by Pulse oximetry 2022-06-03 15:07:00 100 /min [facility] Body height 2022-06-03 12:08:00 160 cm [facility] Body weight 2022-06-03 12:08:00 48.9 kg [facility] BMI 2022-06-03 12:08:00 19.10 kg/m2 [facility] Respiratory rate 2022-06-03 15:22:00 16 /min [facility] [place] [place] Systolic blood pressure 2022-06-03 15:07:00 111 mm[Hg] [facility] Diastolic blood pressure 2022-06-03 15:07:00 73 mm[Hg] [facility] Heart rate 2022-06-03 15:07:00 61 /min [facility] Body temperature 2022-06-03 15:07:[address] [facility] [place] [place] Oxygen saturation in Arterial blood by Pulse oximetry 2022-06-03 15:07:00 100 /min [facility] Body height 2022-06-03 12:08:00 160 cm [facility] Body weight 2022-06-03 12:08:00 48.9 kg [facility] BMI 2022-06-03 12:08:00 19.10 kg/m2 [facility] Systolic blood pressure 2022-05-30 17:32:00 117 mm[Hg] [facility] Diastolic blood pressure 2022-05-30 17:32:00 73 mm[Hg] [facility] Heart rate 2022-05-30 17:32:00 60 /min [facility] Body height 2022-05-30 17:32:00 160 cm [facility] Body weight 2022-05-30 17:32:00 48.535 kg [facility] BMI 2022-05-30 17:32:00 18.95 kg/m2 [facility] Body height 2022-05-30 13:12:00 160 cm [facility] Body weight 2022-05-30 13:12:00 48.127 kg [facility] BMI 2022-05-30 13:12:00 18.79 kg/m2 [facility] Systolic blood pressure 2022-05-07 15:39:00 105 mm[Hg] [facility] Diastolic blood pressure 2022-05-07 15:39:00 61 mm[Hg] [facility] Heart rate 2022-05-07 15:39:00 77 /min [facility] Body temperature 2022-05-07 15:39:[address] [facility] [place] [place] Body height 2022-05-07 15:39:00 160 [facility] 2022-05-07 15:39:00 48.127 kg [facility] BMI 2022-05-07 15:39:00 18.79 kg/m2 [facility] Systolic blood pressure 2022-04-30 15:07:00 110 mm[Hg] [facility] Diastolic blood pressure 2022-04-30 15:07:00 77 mm[Hg] [facility] Heart rate 2022-04-30 15:07:00 78 /min [facility] Body temperature 2022-04-30 15:07:[address] [facility] [place] [place] Body height 2022-04-30 15:07:00 160 [facility] 2022-04-30 15:07:00 46.72 kg [facility] BMI 2022-04-30 15:07:00 18.25 kg/m2 [facility] Oxygen saturation in Arterial blood by Pulse oximetry 2022-04-30 15:07:00 100 /min [facility] Systolic blood pressure 2022-04-23 19:03:00 113 mm[Hg] [facility] Diastolic blood pressure 2022-04-23 19:03:00 73 mm[Hg] [facility] Heart rate 2022-04-23 19:03:00 72 /min [facility] Body temperature 2022-04-23 19:03:[address] [facility] [place] [place] Body height 2022-04-23 19:03:00 160 cm [facility] Body weight 2022-04-23 19:03:00 46.539 kg [facility] BMI 2022-04-23 19:03:00 18.17 kg/m2 [facility] Oxygen saturation in Arterial blood by Pulse oximetry 2022-04-23 19:03:00 97 /min [facility] Systolic blood pressure 2022-04-18 15:00:00 120 mm[Hg] [facility] Diastolic blood pressure 2022-04-18 15:00:00 82 mm[Hg] [facility] Heart rate 2022-04-18 15:00:00 75 /min [facility] Body height 2022-04-18 15:00:00 160 cm [facility] Body weight 2022-04-18 15:00:00 46.267 kg [facility] BMI 2022-04-18 15:00:00 18.07 kg/m2 [facility] Systolic blood pressure 2022-03-24 15:26:00 110 mm[Hg] [facility] Diastolic blood pressure 2022-03-24 15:26:00 72 mm[Hg] [facility] Heart rate 2022-03-24 15:26:00 96 /min [facility] Body temperature 2022-03-24 15:26:[address] [facility] [place] [place] Respiratory rate 2022-03-24 15:26:00 18 /min [facility] [place] [place] Body height 2022-03-24 15:26:00 160 cm [facility] Body weight 2022-03-24 15:26:00 48.081 kg [facility] BMI 2022-03-24 15:26:00 18.78 kg/m2 [facility] Systolic blood pressure 2022-03-13 18:17:00 114 mm[Hg] [facility] Diastolic blood pressure 2022-03-13 18:17:00 79 mm[Hg] [facility] Heart rate 2022-03-13 18:17:00 66 /min [facility] Body temperature 2022-03-13 18:17:[address] [facility] [place] [place] Respiratory rate 2022-03-13 18:17:00 18 /min [facility] [place] [place] Body height 2022-03-13 18:17:00 160 cm [facility] Body weight 2022-03-13 18:17:00 46.72 kg [facility] BMI 2022-03-13 18:17:00 18.25 kg/m2 [facility] height 2021-10-15 14:00:00 66 [in_i] Commo n [facility] weight 2021-10-15 14:00:00 106 [lb_av] Comm on [facility] temperature 2021-10-15 14:00:00 98 [degF] Comm on [facility] bmi 2021-10-15 14:00:00 17.11 kg/m2 Comm on [facility] Body height 2021-09-25 16:20:00 157.5 cm [facility] Body weight 2021-09-25 16:20:00 49.896 kg [facility] BMI 2021-09-25 16:20:00 20.12 kg/m2 [facility] height 2021-08-26 14:30:00 66 [in_i] Commo n [facility] weight 2021-08-26 14:30:00 114 [lb_av] Comm on [facility] temperature 2021-08-26 14:30:00 98.0 [degF] Com mon [facility] bmi 2021-08-26 14:30:00 18.4 kg/m2 Commo n [facility] blood pressure systolic 2021-08-26 14:30:00 110 mm[Hg] Common [facility] blood pressure diastolic 2021-08-26 14:30:00 68 mm[Hg] Common [facility] height 2021-07-16 14:50:00 66 [in_i] Commo n [facility] weight 2021-07-16 14:50:00 112 [lb_av] Comm on [facility] temperature 2021-07-16 14:50:00 97 [degF] Comm on [facility] bmi 2021-07-16 14:50:00 18.08 kg/m2 Comm on [facility] height 2021-06-03 13:00:00 66 [in_i] Commo n [facility] weight 2021-06-03 13:00:00 114.7 [lb_av] Co mmon [facility] temperature 2021-06-03 13:00:00 98.3 [degF] Com mon [facility] bmi 2021-06-03 13:00:00 18.51 kg/m2 Comm on [facility] blood pressure systolic 2021-06-03 13:00:00 100 mm[Hg] [facility] blood pressure diastolic 2021-06-03 13:00:00 60 mm[Hg] [facility] height 2021-05-16 11:20:00 66 [in_i] Commo n [facility] weight 2021-05-16 11:20:00 122 [lb_av] Comm on [facility] temperature 2021-05-16 11:20:00 98 [degF] Comm on [facility] bmi 2021-05-16 11:20:00 19.69 kg/m2 Comm on [facility] height 2021-04-15 15:30:00 66 [in_i] Commo n [facility] weight 2021-04-15 15:30:00 121.8 [lb_av] Co mmon [facility] temperature 2021-04-15 15:30:00 98.1 [degF] Com mon [facility] bmi 2021-04-15 15:30:00 19.66 kg/m2 Comm on [facility] oximetry 2021-04-15 15:30:00 99 % Commo n [facility] respiratory rate 2021-04-15 15:30:00 16 /min Common [facility] blood pressure systolic 2021-04-15 15:30:00 97 mm[Hg] [facility] blood pressure diastolic 2021-04-15 15:30:00 54 mm[Hg] [facility] BP Diastolic 2019-03-31 00:00:00 60 mm[Hg] [facility] Height 2019-03-31 00:00:00 61 [in_i] [facility] BMI (Body Mass Index) 2019-03-31 00:00:00 24.6 kg/m2 [facility] BP Systolic 2019-03-31 00:00:00 110 mm[Hg] [facility] Body Weight 2019-03-31 00:00:00 130.2 [lb_av] [facility] BP Diastolic 2019-02-08 00:00:00 58 mm[Hg] [facility] Height 2019-02-08 00:00:00 61 [in_i] [facility] BMI (Body Mass Index) 2019-02-08 00:00:00 26.3 kg/m2 [facility] BP Systolic 2019-02-08 00:00:00 77 mm[Hg] [facility] Body Weight 2019-02-08 00:00:00 139 [lb_av] [facility] BP Diastolic 2019-02-01 00:00:00 83 mm[Hg] [facility] Height 2019-02-01 00:00:00 61 [in_i] [facility] BMI (Body Mass Index) 2019-02-01 00:00:00 26.5 kg/m2 [facility] BP Systolic 2019-02-01 00:00:00 126 mm[Hg] [facility] Body Weight 2019-02-01 00:00:00 140 [lb_av] [facility] BP Diastolic 2019-01-18 00:00:00 62 mm[Hg] [facility] Height 2019-01-18 00:00:00 61 [in_i] [facility] BMI (Body Mass Index) 2019-01-18 00:00:00 26.5 kg/m2 [facility] BP Systolic 2019-01-18 00:00:00 111 mm[Hg] [facility] Body Weight 2019-01-18 00:00:00 140.5 [lb_av] [facility] BP Diastolic 2019-01-13 00:00:00 68 mm[Hg] [facility] Height 2019-01-13 00:00:00 61 [in_i] [facility] BMI (Body Mass Index) 2019-01-13 00:00:00 26.5 kg/m2 [facility] BP Systolic 2019-01-13 00:00:00 132 mm[Hg] [facility] Body Weight 2019-01-13 00:00:00 140 [lb_av] [facility] BP Diastolic 2019-01-04 00:00:00 67 mm[Hg] [facility] Height 2019-01-04 00:00:00 61 [in_i] [facility] BMI (Body Mass Index) 2019-01-04 00:00:00 26.5 kg/m2 [facility] BP Systolic 2019-01-04 00:00:00 125 mm[Hg] [facility] Body Weight 2019-01-04 00:00:00 140 [lb_av] [facility] BP Diastolic 2018-12-07 00:00:00 66 mm[Hg] [facility] Height 2018-12-07 00:00:00 61 [in_i] [facility] BMI (Body Mass Index) 2018-12-07 00:00:00 27.8 kg/m2 [facility] BP Systolic 2018-12-07 00:00:00 119 mm[Hg] [facility] Body Weight 2018-12-07 00:00:00 147 [lb_av] [facility] BP Diastolic 2018-11-02 00:00:00 63 mm[Hg] [facility] Height 2018-11-02 00:00:00 61 [in_i] [facility] BP Systolic 2018-11-02 00:00:00 107 mm[Hg] [facility] BP Diastolic 2018-10-06 00:00:00 74 mm[Hg] [facility] Height 2018-10-06 00:00:00 61 [in_i] [facility] BMI (Body Mass Index) 2018-10-06 00:00:00 27.2 kg/m2 [facility] BP Systolic 2018-10-06 00:00:00 128 mm[Hg] [facility] Body Weight 2018-10-06 00:00:00 144 [lb_av] [facility] Systolic (mm Hg) 2021-10-03 20:45:00 [facility] Diastolic (mm Hg) 2021-10-03 20:45:00 [facility] Respitory Rate 2021-10-03 20:45:00 [facility] Respitory Rate 2021-10-03 20:15:00 [facility] Systolic (mm Hg) 2021-10-03 20:15:00 [facility] Diastolic (mm Hg) 2021-10-03 20:15:00 [facility] Respitory Rate 2021-10-03 20:00:00 [facility] Systolic (mm Hg) 2021-10-03 20:00:00 [facility] Diastolic (mm Hg) 2021-10-03 20:00:00 [facility] Height 2021-10-03 13:47:00 157.48 cm [facility] Weight 2021-10-03 13:47:00 [facility] BMI Calculated 2021-10-03 13:47:00 [facility] Height 2021-09-30 15:17:00 157.48 cm [facility] Weight 2021-09-30 15:17:00 [facility] BMI Calculated 2021-09-30 15:17:00 [facility] Procedures Procedure Date / Time Performed Performing Clinician Source ASSIGNMENT OF BENEFITS 2022-08-01 17:31:56 Doctor Unassigned, [place] [facility] [place] [place] US ABDOMEN LIMITED 2022-07-04 20:17:[address] [facility] [place] [place] ASSIGNMENT OF BENEFITS 2022-07-04 19:30:18 Doctor Unassigned, [place] [facility] [place] [place] SURGICAL PATHOLOGY EXAM 2022-06-03 14:43:[address] [facility] [place] DIAGNOSTIC LAPAROSCOPY 2022-06-03 13:17:[address] [facility] [place] [place] LAPAROSCOPIC SALPINGECTOMY 2022-06-03 13:17:[address] [facility] [place] [place] HB ABO GROUPING 2022-06-03 12:34:[address] [facility] [place] [place] HB ABO GROUPING 2022-06-03 12:34:[address] [facility] [place] [place] BASIC METABOLIC PANEL (NA, K , CL, CO2, GLUCOSE, BUN, CREATININE, CA) 2022-06-03 [facility] 2022-[facility]-03 12:33:00 Jacky Vines [facility] BASIC METABOLIC PANEL (NA, K , CL, CO2, GLUCOSE, BUN, CREATININE, CA) 2022-06-03 12:33:00 Jacky Vines [facility] CBC WITH DIFF 2022-06-03 12:33:00 Jacky Vines [facility] POCT TEST 2022-06-03 12:25:00 Naila [facility] POCT TEST 2022-06-03 12:25:00 Naila [facility] DISCLOSURE AND CONSENT, MEDI VIJAYA AND SURGICAL PROCEDURES 2022-05-30 06:01:00 Doctor Unassigned, [place] [facility] [place] [place] BI BREAST CYST ASPIRATION LEFT 2022-04-29 7 19:43:00 Gris [facility] PELVIS COMPLETE WITH TRANSVAGINAL 2022-05-03 16:35:40 Jacky Vines [facility] POCT URINALYSIS 2022-04-23 00:00:[address] [facility] [place] [place] BI ULTRASOUND BREAST COMPLET E BILATERAL 2022-04-21 17:49:[address] [facility] [place] [place] BI DIAGNOSTIC TOMOSYNTHESIS BILATERAL 2022-04-21 17:20:[address] [facility] [place] INSURANCE CORRESPONDENCE 2022-04-16 05:01:00 Doctor Unassigned, [place] [facility] [place] CONSENT/REFUSAL FOR DIAGNOSI S AND TREATMENT 2022-04-02 14:56:31 Doctor Unassigned, [place] [facility] [place] [place] ASSIGNMENT OF BENEFITS 2022-04-02 14:56:19 Doctor Unassigned, [place] [facility] [place] [place] unlisted imaging order 2019-03-31 00:00:00 [facility] US, obstetric, limited 2019-02-01 00:00:00 [facility] unlisted imaging order 2019-01-13 00:00:00 [facility] US, obstetric, limited 2019-01-04 00:00:00 [facility] ULTRASOUND REPEAT 2018-12-07 00:00:00 [facility] XR, ankle 2018-12-07 00:00:00 [facility] US, obstetric, limited 2018-11-02 00:00:00 [facility] ULTRASOUND, UTERUS REAL TIME WITH IMAGE DOC, AND MATERNAL EVAL PLUS DETAILED ANATOMIC EXAMINATION, TRANSABDOMINAL APPROACH; SINGLE OR FIRST GESTATION 2018-10-06 00:00:00 [facility] Section 2015-11-20 00:00:00 [facility] Section 2013-09-29 00:00:00 [facility] Remove Tonsils and Adenoids [facility] section [facility] EGD - Esophagogastroduodenoscopy [facility] Nasal operation [facility] Tonsillectomy and adenoidectomy [facility] Encounters Start Date/Time End Date/Time Encounter Type Admission Type Attending Clinicians Care Facility Care Department Encounter ID Source 2021-12-26 14:59:02 [facility] [id number] [facility] 2021-09-23 12:45:02 [facility] [id number] [facility] 2021-09-06 09:08:18 Outpatient JAVI EDGAR [facility] [id number] [facility] 2021-08-27 08:55:34 Outpatient Raman DE LA GARZA [facility] [id number] [facility] 2021-08-19 07:22:45 Outpatient Raman DE LA GARZA [facility] [id number] [facility] 2021-08-15 10:07:37 Outpatient Raman DE LA GARZA [facility] [id number] [facility] 2021-07-24 14:21:07 [facility] [id number] [facility] 2021-07-24 14:14:28 [id number] 2021-07-24 14:12:42 [id number] 2021-07-24 14:02:16 [id number] 2021-07-24 14:01:57 [facility] [id number] [facility] 2023-11-02 15:07:41 2023-11-02 15:07:41 Outpatient SFA [facility] [id number] Gerardo Mendiola 2023-03-04 10:30:00 2023-03-04 10:30:00 Outpatient R MARIANELA PANIAGUA YU [facility] [id number] [facility] 2022-10-13 11:00:00 2022-10-13 11:00:00 Outpatient R JACKY VINES [facility] [id number] [facility] 2022-08-01 11:30:00 2022-08-01 12:05:01 Outpatient R MADALYN FALLON [facility] [id number] [facility] 2022-08-01 11:30:00 2022-08-01 12:05:01 Office Visit Madalyn Fallon [facility] 1..840.114 350.1.13.10 4.2.7.2.686 [id number] [facility] 2022-08-01 00:00:00 2022-08-01 00:00:00 Orders Only Doctor Unassigned, [place] [facility] 1..840.114 350.1.13.10 4.2.7.2.686 [id number] [facility] 2022-07-29 13:30:00 2022-07-29 13:30:00 Outpatient MADALYN MONTGOMERY [facility] [id number] [facility] 2022-07-21 13:00:00 2022-07-21 13:00:00 Outpatient R ARCELIAMARIANELA YU [facility] [id number] [facility] 2022-07-21 10:00:00 2022-07-21 10:00:00 Outpatient R MARIANELA PANIAGUA [facility] [id number] [facility] 2022-07-10 00:00:00 2022-07-10 00:00:00 Patient Secure Msg Madalyn Fallon [facility] 1..840.114 350.1.13.10 4.2.7.2.686 [id number] [facility] 2022-07-04 13:30:42 2022-07-04 23:59:00 Outpatient MATT ROBBINS [facility] [id number] [facility] 2022-07-04 13:30:42 2022-07-04 23:59:00 Hospital Encounter Matt Rajput [facility] 1..840.114 350.1.13.10 4.2.7.2.686 [id number] [facility] 2022-07-04 00:00:00 2022-07-04 00:00:00 Orders Only Doctor Unassigned, [place] [facility] 1..840.114 350.1.13.10 4.2.7.2.686 [id number] [facility] 2022-07-02 13:30:00 2022-07-02 13:30:00 Outpatient R MARIANELA PANIAGUA [facility] [id number] [facility] 2022-06-25 15:00:00 2022-06-25 15:15:00 Kit Assembler [facility] [place], [place] [facility] 1..114 350.1.13.10 4.2.7.2.686 [id number] [facility] 2022-06-25 14:00:00 2022-06-25 15:00:00 [facility] 1.0.114 350.1.13.10 4.2.7.2.686 [id number] [facility] 2022-06-25 14:00:00 2022-06-25 14:00:00 Outpatient R MATT RAJPUT [facility] [id number] [facility] 2022-06-21 00:00:00 2022-06-21 00:00:00 Patient Secure Msg Doctor Unassigned, [place] [facility] 1.0.114 350.1.13.10 4.2.7.2.686 [id number] [facility] 2022-06-18 09:15:00 2022-06-18 09:15:00 Outpatient R DEL BROWNING [facility] [id number] [facility] 2022-06-16 16:20:00 2022-06-16 16:40:00 Office Visit [facility] 1..114 350.1.13.10 4.2.7.2.686 [id number] [facility] 2022-06-16 16:20:00 2022-06-16 16:20:00 Outpatient R JACKY VINES [facility] [id number] [facility] 2022-06-12 00:00:00 2022-06-12 00:00[facility]114 350.1.13.10 4.2.7.2.686 [id number] [facility] 2022-06-12 00:00:00 2022-06-12 00:00:00 Patient Secure Msg Brandan De La Garza [facility] 1.84.114 350.1.13.10 4.2.7.2.686 [id number] [facility] 2022-06-06 16:00:00 2022-06-06 16:00:00 Outpatient JACKY MERRITT [facility] [id number] [facility] 2022-06-06 00:00:00 2022-06-06 00:00:00 Telephone [facility] 1.840.114 350.1.13.10 4.2.7.2.686 [id number] [facility] 2022-06-05 00:00:00 2022-06-05 00:00:00 Patient Secure Msg Doctor Unassigned, [place] [facility] 1.84.114 350.1.13.10 4.2.7.2.686 [id number] [facility] 2022-06-04 11:15:00 2022-06-04 11:15:00 Outpatient DEL SPENCER [facility] [id number] [facility] 2022-06-04 00:00:00 2022-06-04 00:00:00 Telephone [facility] 1.840.114 350.1.13.10 4.2.7.2.686 [id number] [facility] 2022-06-03 05:38:00 2022-06-03 10:50:00 Outpatient R [facility] VARIETY ARTIST [id number] [facility] 2022-06-03 05:38:00 2022-06-03 10:50:00 Hospital Encounter Jacky Vines [facility] ([facility]) 1.2.840.114 350.1.13.10 4.2.7.2.686 [id number] [facility] 2022-06-03 07:00:00 2022-06-03 10:21:00 Surgery Jasmyn [facility] ([facility]) 1.2.840.114 350.1.13.10 4.2.7.2.686 [id number] [facility] 2022-06-03 00:00:00 2022-06-03 00:00:00 Patient Secure Msg [facility] ([facility]) 1.2.840.114 350.1.13.10 4.2.7.2.686 [id number] [facility] 2022-05-30 15:00:00 2022-05-30 15:00:00 Outpatient R [facility]ASMYN [facility] [id number] [facility] 2022-05-30 11:00:00 2022-05-30 13:24:00 Outpatient R JASMYN [facility] [id number] [facility] 2022-05-30 11:00:00 2022-05-30 13:24:00 Office Visit Jasmyn [facility] 1.2840.114 350.1.13.10 4.2.7.2.686 [id number] [facility] 2022-05-30 12:45:00 2022-05-30 13:00:00 Kit Assembler Visit Draw, [facility] Vines [facility] 1.2.840.114 350.1.13.10 4.2.7.2.686 [id number] [facility] 2022-05-30 07:15:00 2022-05-30 07:20:00 Pre-Anesth esia Evaluation Call, [facility] Apa Phone [facility] ([facility]) 1.2840.114 350.1.13.10 4.2.7.2.686 [id number] [facility] 2022-05-30 00:00:00 2022-05-30 00:00:00 Orders Only Doctor Unassigned, [place] [facility] 1.2840.114 350.1.13.10 4.2.7.2.686 [id number] [facility] 2022-05-26 10:20:00 2022-05-26 10:20:00 Outpatient SERGIO GRACE [facility] [id number] [facility] 2022-05-26 00:00:00 2022-05-26 00:00:00 Telephone De La Garza, [facility] 1.840.114 350.1.13.10 4.2.7.2.686 [id number] [facility] 2022-05-26 00:00:00 2022-05-26 00:00:00 Telephone De La Garza, [facility] 1.2840.114 350.1.13.10 4.2.7.2.686 [id number] [facility] 2022-05-20 14:30:00 2022-05-20 14:30:00 Outpatient LASHELL PIERRE [facility] [id number] [facility] 2022-05-15 12:09:23 2022-05-15 23:59:00 Hospital Encounter Lashell Landry [facility] 1..114 350.1.13.10 4.2.7.2.686 [id number] [facility] 2022-05-15 12:09:00 2022-05-15 12:09:00 Outpatient LASHELL PIERRE [facility] [id number] [facility] 2022-05-15 12:09:00 2022-05-15 12:09:00 Hospital Encounter Gris Lashell [facility] 1.0.114 350.1.13.10 4.2.7.2.686 [id number] [facility] 2022-05-13 00:00:00 2022-05-13 00:00:00 Patient Secure Msg Doctor Unassigned, [place] [facility] 1.0.114 350.1.13.10 4.2.7.2.686 [id number] [facility] 2022-05-07 09:30:00 2022-05-07 10:00:00 [facility] 1.0.114 350.1.13.10 4.2.7.2.686 [id number] [facility] 2022-05-07 09:30:00 2022-05-07 09:30:00 Outpatient R BRANDAN DE LA GARZA [facility] [id number] [facility] 2022-05-03 10:09:16 2022-05-03 23:59:00 Outpatient R JACKY VINES [facility] [id number] [facility] 2022-05-03 10:09:16 2022-05-03 23:59:00 Hospital Encounter Jacky Vines [facility] 1..114 350.1.13.10 4.2.7.2.686 [id number] [facility] 2022-05-01 00:00:00 2022-05-01 00:00:00 Patient Secure Msg Madalyn Fallon [facility] 1..114 350.1.13.10 4.2.7.2.686 [id number] [facility] 2022-04-30 10:00:00 2022-04-30 10:41:39 Outpatient R MADALYN FALLON [facility] [id number] [facility] 2022-04-30 10:00:00 2022-04-30 10:41:39 Office Visit Madalyn Fallon [facility] 1.2840.114 350.1.13.10 4.2.7.2.686 [id number] [facility] 2022-04-30 00:00:00 2022-04-30 00:00:00 Patient Secure Msg Madalyn Fallon [facility] 1.284.114 350.1.13.10 4.2.7.2.686 [id number] [facility] 2022-04-30 00:00:00 2022-04-30 00:00:00 Patient Secure Msg Doctor Unassigned, [place] [facility] 1.84114 350.1.13.10 4.2.7.2.686 [id number] [facility] 2022-04-29 13:00:00 2022-04-29 13:00:00 Outpatient R VINESROQUE BAKERNG [facility] [id number] [facility] 2022-04-29 00:00:00 2022-04-29 00:00:00 Patient Secure Msg Madalyn Fallon [facility] 1.84.114 350.1.13.10 4.2.7.2.686 [id number] [facility] 2022-04-28 00:00:00 2022-04-28 00:00:00 Patient Secure Msg Brandan De La Garza [facility] 1..114 350.1.13.10 4.2.7.2.686 [id number] [facility] 2022-04-28 00:00:00 2022-04-28 00:00:00 Telephone LuizBrandan [facility] 1.840.114 350.1.13.10 4.2.7.2.686 [id number] [facility] 2022-04-23 13:30:00 2022-04-23 14:31:30 Outpatient R MADALYN FALLON [facility] [id number] [facility] 2022-04-23 13:30:00 2022-04-23 14:31:30 Office Visit Madalyn Fallon [facility] 1..840.114 350.1.13.10 4.2.7.2.686 [id number] [facility] 2022-04-22 08:15:00 2022-04-22 08:15:00 Outpatient R NARCISO RAMIREZ [facility] [id number] [facility] 2022-04-21 11:31:44 2022-04-21 23:59:00 Hospital Encounter Gris Lashell [facility] 1..840.114 350.1.13.10 4.2.7.2.686 [id number] [facility] 2022-04-21 11:31:22 2022-04-21 11:30:00 Outpatient R GRIS LASHELL [facility] [id number] [facility] 2022-04-21 11:30:00 2022-04-21 11:30:00 [facility] 1..840.114 350.1.13.10 4.2.7.2.686 [id number] [facility] 2022-04-21 00:00:00 2022-04-21 00:00:00 Patient Secure Angie Perez M [facility] 1.2840.114 350.1.13.10 4.2.7.2.686 [id number] [facility] 2022-04-21 00:00:00 2022-04-21 00:00:00 Patient Secure Msg Angie Clements [facility] 1.2840.114 350.1.13.10 4.2.7.2.686 [id number] [facility] 2022-04-21 00:00:00 2022-04-21 00:00:00 Patient Secure Msg Madalyn Fallon [facility] 1.2840.114 350.1.13.10 4.2.7.2.686 [id number] [facility] 2022-04-21 00:00:00 2022-04-21 00:00:00 Patient Secure Msg Brandan De La Garza [facility] 1.2840.114 350.1.13.10 4.2.7.2.686 [id number] [facility] 2022-04-21 00:00:00 2022-04-21 00:00:00 Patient Secure Msg Madalyn Fallon [facility] 1.2840.114 350.1.13.10 4.2.7.2.686 [id number] [facility] 2022-04-21 00:00:00 2022-04-21 00:00:00 Patient Secure Msg Madalyn Fallon [facility] 1.2840.114 350.1.13.10 4.2.7.2.686 [id number] [facility] 2022-04-18 10:00:00 2022-04-18 11:56:18 Outpatient R JACKY VINES [facility] [id number] [facility] 2022-04-18 10:00:00 2022-04-18 11:56:18 Office Visit [facility] MEDICAL OFFICE BUILDING 1.2.840.114 350.1.13.10 4.2.7.2.686 [id number] [facility] 2022-04-16 13:30:00 2022-04-16 13:30:00 Outpatient R MADALYN FALLON [facility] [id number] [facility] 2022-04-16 00:00:00 2022-04-16 00:00:00 Orders Only Doctor Unassigned, [place] [facility] 1.2.840.114 350.1.13.10 4.2.7.2.686 [id number] [facility] 2022-04-16 00:00:00 2022-04-16 00:00:00 Patient Secure Msg Uyen Corbin [facility] BUILDING 1.2.840.114 350.1.13.10 4.2.7.2.686 [id number] [facility] 2022-04-15 00:00:00 2022-04-15 00:00:00 Patient Secure Msg Madalyn Fallon [facility] 1.2.840.114 350.1.13.10 4.2.7.2.686 [id number] [facility] 2022-04-15 00:00:00 2022-04-15 00:00:00 Telephone [facility] MEDICAL OFFICE BUILDING 1.2.840.114 350.1.13.10 4.2.7.2.686 [id number] [facility] 2022-04-14 13:00:00 2022-04-14 13:00:00 Outpatient Raman PANIAGUA MARIANELA ARCELIAMARIANELA [facility] [id number] [facility] 2022-04-14 11:45:00 2022-04-14 11:45:00 Outpatient Raman IVORYGATES KENDRICK [facility] [id number] [facility] 2022-04-14 00:00:00 2022-04-14 00:00:00 Patient Secure Msg Madalyn Fallon [facility] 1.2.840.114 350.1.13.10 4.2.7.2.686 [id number] [facility] 2022-04-11 00:00:00 2022-04-11 00:00:00 Patient Secure Msg Gris [facility] BUILDING 1.2.840.114 350.1.13.10 4.2.7.2.686 [id number] [facility] 2022-04-11 00:00:00 2022-04-11 00:00:00 Patient Secure Msg Jolene Davila [facility] N[facility] BUILDING 1.2.840.114 350.1.13.10 4.2.7.2.686 [id number] [facility] 2022-04-09 00:00:00 2022-04-09 00:00:00 Outpatient Raman LANDRY [facility] [id number] [facility] 2022-04-09 00:00:00 2022-04-09 00:00:00 Patient Secure Msg Gris [facility] BUILDING 1.2.840.114 350.1.13.10 4.2.7.2.686 [id number] [facility] 2022-04-08 00:00:00 2022-04-08 00:00:00 Patient Secure Msg Angie Clements [facility] 1..114 350.1.13.10 4.2.7.2.686 [id number] 044 [id number] [facility] 2022-04-07 13:00:00 2022-04-07 14:03:49 Ancillary Visit Adina Philip Craig L [facility] NAL BUILDING 1.114 350.1.13.10 4.2.7.2.686 [id number] [facility] 2022-04-07 00:00:00 2022-04-07 00:00:00 [facility] 1.0.114 350.1.13.10 4.2.7.2.686 [id number] [id number] [facility] 2022-04-07 00:00:00 2022-04-07 00:00:00 Patient Secure Msg De La Garza, [facility] 1.0.114 350.1.13.10 4.2.7.2.686 [id number] [id number] [facility] 2022-04-07 00:00:00 2022-04-07 00:00:00 Patient Secure Msg De La Garza, [facility] 1.20.114 350.1.13.10 4.2.7.2.686 [id number] 071 [id number] [facility] 2022-04-04 00:00:00 2022-04-04 00:00:00 Patient Secure Msg Madalyn Fallon [facility] 1..114 350.1.13.10 4.2.7.2.686 [id number] 044 [id number] [facility] 2022-04-04 00:00:00 2022-04-04 00:00:00 Patient Secure Msg Vasyl Madalyn [facility] 1.2840.114 350.1.13.10 4.2.7.2.686 [id number] 044 [id number] [facility] 2022-04-03 16:00:00 2022-04-03 16:00:00 Outpatient UYEN EDUARDO [facility] [id number] [facility] 2022-04-02 10:30:00 2022-04-02 10:45:00 Kit Assembler Visit Alexis, [facility] Brandan De La Garza [facility] BUILDING 1.2840.114 350.1.13.10 4.2.7.2.686 [id number] [facility] 2022-04-02 10:30:00 2022-04-02 10:30:00 Outpatient BRANDAN ALVES [facility] [id number] [facility] 2022-04-02 00:00:00 2022-04-02 00:00:00 Orders Only Doctor Unassigned, [place] [facility] 1.840.114 350.1.13.10 4.2.7.2.686 [id number] [facility] 2022-03-31 12:30:00 2022-03-31 12:45:00 Kit Assembler Visit Po, Adc Lab Main BogdanrajendraDel shaikh [facility] BUILDING 1.284.114 350.1.13.10 4.2.7.2.686 [id number] [facility] 2022-03-31 12:30:00 2022-03-31 12:30:00 Outpatient Raman ALISTAIR DEL [facility] [id number] [facility] 2022-03-26 11:15:00 2022-03-26 12:52:38 Office Visit Javi Edgar [facility] 1 1.284.114 350.1.13.58 9.2.7.2.686 [id number] [facility] 2022-03-25 00:00:00 2022-03-25 00:00:00 Telephone Lashell Landry [facility] 1.2.840.114 350.1.13.10 4.2.7.2.686 [id number] [facility] 2022-03-24 10:00:00 2022-03-24 10:40:36 Outpatient R GRIS [facility] [id number] [facility] 2022-03-24 10:00:00 2022-03-24 10:40:36 Office Visit Gris [facility] 1.2.840.114 350.1.13.10 4.2.7.2.686 [id number] [facility] 2022-03-24 10:00:00 2022-03-24 10:00:00 Outpatient R GRIS [facility] [id number] [facility] 2022-03-22 11:30:00 2022-03-22 11:30:00 Outpatient R BRANDAN DE LA GARZA [facility] [id number] [facility] 2022-03-19 00:00:00 2022-03-19 00:00:00 [facility] STLMLC STLMLC [id number] [facility] 2022-03-14 00:00:00 2022-03-14 00:00:00 Patient Secure Msg Angie Clements [facility] 1..840.114 350.1.13.10 4.2.7.2.686 [id number] [id number] [facility] 2022-03-14 00:00:00 2022-03-14 00:00:00 Patient Secure Msg Brandan De La Garza [facility] 1.2.840.114 350.1.13.10 4.2.7.2.686 [id number] [facility] 2022-03-14 00:00:00 2022-03-14 00:00:00 Patient Secure Msg Madalyn Fallon [facility] 1.2840.114 350.1.13.10 4.2.7.2.686 [id number] [facility] 2022-03-13 13:30:00 2022-03-13 14:04:01 Outpatient R ASHLEESAIRA [facility] [id number] [facility] 2022-03-13 13:30:00 2022-03-13 14:04:01 Office Visit Gris [facility] BUILDING 1.0.114 350.1.13.10 4.2.7.2.686 [id number] [facility] 2022-03-11 00:00:00 2022-03-11 00:00:00 Patient Secure Msg Doctor Unassigned, [place] [facility] 1.840.114 350.1.13.10 4.2.7.2.686 [id number] [facility] 2022-03-11 00:00:00 2022-03-11 00:00:00 Patient Secure Msg Gris [facility] BUILDING 1.2840.114 350.1.13.10 4.2.7.2.686 [id number] [facility] 2022-03-10 13:30:00 2022-03-10 14:40:45 Office Visit Madalyn Fallon [facility] 1.2840.114 350.1.13.10 4.2.7.2.686 [id number] [id number] [facility] 2022-03-10 13:30:00 2022-03-10 14:40:45 Outpatient R MADALYN FALLON [facility] [id number] [facility] 2022-03-10 13:30:00 2022-03-10 13:30:00 Outpatient R MADALYN FALLON [facility] [id number] [facility] 2022-02-20 00:00:00 2022-02-20 00:00:00 Telephone Madalyn Fallon [facility] 1.840.114 350.1.13.10 4.2.7.2.686 [id number] [facility] 2022-02-18 00:00:00 2022-02-18 00:00:00 Patient Secure Msg Angie Clements [facility] 1.840.114 350.1.13.10 4.2.7.2.686 [id number] [facility] 2022-02-17 13:30:00 2022-02-17 13:30:00 Outpatient R MADALYN FALLON [facility] [id number] [facility] 2022-02-17 00:00:00 2022-02-17 00:00:00 Orders Only Doctor Unassigned, [place] [facility] 1.84.114 350.1.13.10 4.2.7.2.686 [id number] [facility] 2022-02-13 00:00:00 2022-02-13 00:00:00 Patient Secure Msg Brandan De La Garza [facility] 1.114 350.1.13.10 4.2.7.2.686 [id number] 071 [id number] [facility] 2022-02-13 00:00:00 2022-02-13 00:00:00 Patient Secure Msg Gianna Fallonie [facility] 1.2.840.114 350.1.13.10 4.2.7.2.686 [id number] [facility] 2022-02-13 00:00:00 2022-02-13 00:00:00 Patient Secure Brandan Blount [facility] 1.2.840.114 350.1.13.10 4.2.7.2.686 [id number] [facility] 2022-02-12 13:28:26 2022-02-12 23:59:00 Hospital Encounter Too Raphael [facility] 1.2.840.114 350.1.13.10 4.2.7.2.686 [id number] [facility] 2022-02-12 13:28:06 2022-02-12 13:27:00 Outpatient TOO SANDERS [facility] [id number] [facility] 2022-02-12 13:00:00 2022-02-12 13:27:00 Hospital Encounter Too Raphael [facility] 1.2.840.114 350.1.13.10 4.2.7.2.686 [id number] [facility] 2022-02-12 10:00:00 2022-02-12 10:00:00 Outpatient MADALYN MONTGOMERY [facility] [id number] [facility] 2022-02-11 00:00:00 2022-02-11 00:00:00 (WEB) STLC STLC [id number] [facility] 2022-02-10 00:00:00 2022-02-10 00:00:00 (TEL) STLMLC STLMLC [id number] [facility] 2022-02-07 10:00:00 2022-02-07 10:48:42 Outpatient MADALYN MONTGOMERY [facility] [id number] [facility] 2022-02-07 10:00:00 2022-02-07 10:48:42 Office Visit Madalyn Fallon [facility] 1..840.114 350.1.13.10 4.2.7.2.686 [id number] [facility] 2022-02-06 00:00:00 2022-02-06 00:00:00 (TEL) STLMLC STLMLC [id number] [facility] 2022-02-06 00:00:00 2022-02-06 00:00:00 Patient Secure Lashell Rivera [facility] 1..840.114 350.1.13.10 4.2.7.2.686 [id number] [facility] 2022-02-05 16:00:00 2022-02-05 16:30:00 Office Visit Brandan De La Garza [facility] 1..840.114 350.1.13.10 4.2.7.2.686 [id number] [facility] 2022-02-05 16:00:00 2022-02-05 16:00:00 Outpatient BRANDAN ALVES [facility] [id number] [facility] 2022-02-05 16:00:00 2022-02-05 16:00:00 Outpatient BRANDAN ALVES [facility] [id number] [facility] 2022-02-05 00:00:00 2022-02-05 00:00:00 (WEB) STLMLC STLMLC [id number] [facility] 2022-02-05 00:00:00 2022-02-05 00:00:00 (WEB) STLMLC STLMLC [id number] [facility] 2022-02-04 14:30:00 2022-02-04 14:55:35 Outpatient R LASHELL LANDRY [facility] [id number] [facility] 2022-02-04 14:30:00 2022-02-04 14:55:35 Office Visit Lashell Landry [facility] BUILDING 1..840.114 350.1.13.10 4.2.7.2.686 [id number] [facility] 2022-02-04 14:30:00 2022-02-04 14:55:35 Outpatient R GRIS [facility] [id number] [facility] 2022-02-04 00:00:00 2022-02-04 00:00:00 Orders Only Doctor Unassigned, [place] [facility] 1..840.114 350.1.13.10 4.2.7.2.686 [id number] [facility] 2022-02-01 00:00:00 2022-02-01 00:00:00 [facility] [id number] 2022-01-29 00:00:00 2022-01-29 00:00:00 (WEB) STLMLC STLMLC [id number] [facility] 2022-01-22 13:30:00 2022-01-22 13:30:00 Outpatient POP BOYD [facility] [id number] [facility] 2022-01-21 13:30:00 2022-01-21 13:45:00 Kit Assembler Visit Pob, Adc Lab Main De La GarzaBrandan pitts [facility] BUILDING ..840.114 350.1.13.10 4.2.7.2.686 [id number] [facility] 2022-01-21 13:30:00 2022-01-21 13:30:00 Outpatient Raman DE LA GARZA [facility] [id number] [facility] 2022-01-21 00:00:00 2022-01-21 00:00:00 Orders Only Doctor Unassigned, [place] [facility] 1.2.840.114 350.1.13.10 4.2.7.2.686 [id number] [facility] 2022-01-18 00:00:00 2022-01-18 00:00:00 (WEB) STLMLC STLMLC [id number] [facility] 2022-01-17 00:00:00 2022-01-17 00:00:00 (WEB) STLMLC STLMLC [id number] [facility] 2022-01-17 00:00:00 2022-01-17 00:00:00 Patient Secure Avril Blount [facility] 1.2.840.114 350.1.13.10 4.2.7.2.686 [id number] [facility] 2022-01-16 00:00:00 2022-01-16 00:00:00 (WEB) STLMLC STLMLC [id number] [facility] 2022-01-16 00:00:00 2022-01-16 00:00:00 (WEB) STLMLC STLMLC [id number] [facility] 2022-01-15 00:00:00 2022-01-15 00:00:00 (TEL) STLMLC STLMLC [id number] [facility] 2022-01-13 15:00:00 2022-01-13 15:00:00 Outpatient LASHELL PIERRE [facility] [id number] [facility] 2022-01-13 00:00:00 2022-01-13 00:00:00 (WEB) STLMLC STLMLC [id number] [facility] 2022-01-11 00:00:00 2022-01-11 00:00:00 (WEB) STLMLC STLMLC [id number] [facility] 2022-01-11 00:00:00 2022-01-11 00:00:00 (WEB) STLMLC STLMLC [id number] [facility] 2022-01-11 00:00:00 2022-01-11 00:00:00 (WEB) STLMLC STLMLC [id number] [facility] 2022-01-10 00:00:00 2022-01-10 00:00:00 Orders Only Doctor Unassigned, [place] [facility] 1.2.840.114 350.1.13.10 4.2.7.2.686 [id number] [facility] 2022-01-06 00:00:00 2022-01-06 00:00:00 Patient Secure Msg De La GarzaBrandan [facility] 1.2.840.114 350.1.13.10 4.2.7.2.686 [id number] [facility] 2022-01-03 00:00:00 2022-01-03 00:00:00 Patient Secure Msg Manny Oleary [facility] 1.2.840.114 350.1.13.10 4.2.7.2.686 [id number] [facility] 2022-01-02 00:00:00 2022-01-02 00:00:00 (WEB) STLMLC STLMLC [id number] [facility] 2022-01-02 00:00:00 2022-01-02 00:00:00 (WEB) STLMLC STLMLC [id number] [facility] 2022-01-02 00:00:00 2022-01-02 00:00:00 (TEL) STLMLC STLMLC [id number] [facility] 2022-01-02 00:00:00 2022-01-02 00:00:00 Patient Secure Msg LuizBrandan [facility] 1.2.840.114 350.1.13.10 4.2.7.2.686 [id number] [facility] 2022-01-01 00:00:00 2022-01-01 00:00:00 (WEB) STLMLC STLMLC [id number] [facility] 2021-12-31 00:00:00 2021-12-31 00:00:00 (WEB) STLMLC STLMLC [id number] [facility] 2021-12-31 00:00:00 2021-12-31 00:00:00 (WEB) STLMLC STLMLC [id number] [facility] 2021-12-31 00:00:00 2021-12-31 00:00:00 (WEB) STLMLC STLMLC [id number] [facility] 2021-12-31 00:00:00 2021-12-31 00:00:00 (WEB) STLMLC STLMLC [id number] [facility] 2021-12-31 00:00:00 2021-12-31 00:00:00 (WEB) STLMLC STLMLC [id number] [facility] 2021-12-31 00:00:00 2021-12-31 00:00:00 (WEB) STLMLC STLMLC [id number] [facility] 2021-12-29 15:40:00 2021-12-29 16:19:00 Emergency X BHAKTI NARAYANAN [facility] [id number] [facility] 2021-12-29 15:40:00 2021-12-29 16:19:00 Emergency Bhakti Narayanan [facility] 1..840.114 350.1.13.10 4.2.7.2.686 [id number] [facility] 2021-12-29 15:40:00 2021-12-29 16:19:00 Emergency X BHAKTI NARAYANAN [facility] ERT [id number] [facility] 2021-12-26 00:00:00 2021-12-26 00:00:00 (WEB) STLMLC STLMLC [id number] [facility] 2021-12-23 14:30:00 2021-12-23 14:45:00 Office Visit Javi Edgar [facility] 1 1.2.840.114 350.1.13.58 9.2.7.2.686 [id number] [facility] 2021-12-20 00:00:00 2021-12-20 00:00:00 (WEB) STLMLC STLMLC [id number] [facility] 2021-12-19 00:00:00 2021-12-19 00:00:00 (WEB) STLMLC STLMLC [id number] [facility] 2021-12-16 00:00:00 2021-12-16 00:00:00 Telephone Lashell Landry [facility] 1.2.840.114 350.1.13.10 4.2.7.2.686 [id number] 134 [id number] [facility] 2021-12-13 00:00:00 2021-12-13 00:00:00 (WEB) STLMLC STLMLC [id number] [facility] 2021-12-12 00:00:00 2021-12-12 00:00:00 (WEB) STLMLC STLMLC [id number] [facility] 2021-12-11 11:30:00 2021-12-11 11:45:10 Office Visit Lashell Landry [facility] 1.2.840.114 350.1.13.10 4.2.7.2.686 [id number] [facility] 2021-12-11 11:30:00 2021-12-11 11:45:10 Outpatient R LASHELL LANDRY [facility] [id number] [facility] 2021-12-11 11:30:00 2021-12-11 11:30:00 Outpatient Raman LANDRY LASHELL [facility] [id number] [facility] 2021-12-03 16:00:00 2021-12-03 16:00:00 [facility] [id number] 2021-11-22 17:08:24 2021-11-22 23:59:00 Outpatient Raman LANDRY [facility] [id number] [facility] 2021-11-22 17:00:00 2021-11-22 23:59:00 Hospital Lashell Lambert [facility] 1.2.840.114 350.1.13.10 4.2.7.2.686 [id number] [facility] 2021-11-20 00:00:00 2021-11-20 00:00:00 (WEB) STLMLC STLMLC [id number] [facility] 2021-11-20 00:00:00 2021-11-20 00:00:00 Mirella Bower [facility] 1.2.840.114 350.1.13.10 4.2.7.2.686 [id number] [facility] 2021-11-19 00:00:00 2021-11-19 00:00:00 (WEB) STLMLC STLMLC [id number] [facility] 2021-11-19 00:00:00 2021-11-19 00:00:00 (WEB) STLMLC STLMLC [id number] [facility] 2021-11-19 00:00:00 2021-11-19 00:00:00 (WEB) STLMLC STLMLC [id number] [facility] 2021-11-13 00:00:00 2021-11-13 00:00:00 Outpatient Raman LANDRY LASHELL [facility] [id number] [facility] 2021-11-04 15:15:00 2021-11-04 15:15:00 [facility] [id number] [facility] 2021-11-03 08:52:00 2021-11-03 23:59:00 Hospital Encounter Del Ribeiro [facility] 1.2.840.114 350.1.13.10 4.2.7.2.686 [id number] [facility] 2021-11-03 00:00:00 2021-11-03 23:59:00 Outpatient Raman RIBEIRO DEL [facility] ACO [id number] [facility] 2021-10-30 15:30:00 2021-10-30 15:45:00 Kit Assembler [facility] Lu[facility] 1..840.114 350.1.13.10 4.2.7.2.686 [id number] [facility] 2021-10-30 15:30:00 2021-10-30 15:30:00 Outpatient Raman JOHNDE LA GARZABRANDAN [facility] [id number] [facility] 2021-10-30 14:30:00 2021-10-30 15:00:00 Office Visit Luiz [facility] 1..840.114 350.1.13.10 4.2.7.2.686 [id number] [facility] 2021-10-30 14:30:00 2021-10-30 14:30:00 Outpatient Raman DE LA GARZA BRANDAN [facility] [id number] [facility] 2021-10-28 00:00:00 2021-10-28 00:00:00 Outpatient Raman [facility] [id number] [facility] 2021-10-28 00:00:00 2021-10-28 00:00:00 Outpatient LASHELL PIERRE [facility] [id number] [facility] 2021-10-24 13:30:00 2021-10-24 14:00:00 Office Visit Lashell Landry [facility] 1..840.114 350.1.13.10 4.2.7.2.686 [id number] [facility] 2021-10-24 13:30:00 2021-10-24 13:30:00 Outpatient Raman LANDRY [facility] [id number] [facility] 2021-10-24 13:30:00 2021-10-24 13:30:00 [facility] [id number] [facility] 2021-10-24 13:30:00 2021-10-24 13:30:00 [facility] [id number] [facility] 2021-10-24 00:00:00 2021-10-24 00:00:00 (WEB) STLMLC STLMLC [id number] [facility] 2021-10-24 00:00:00 2021-10-24 00:00:00 (WEB) STLMLC STLMLC [id number] [facility] 2021-10-23 13:30:00 2021-10-23 14:06:55 Outpatient JELENA DAVIS [facility] [id number] [facility] 2021-10-23 13:30:00 2021-10-23 14:06:55 Office Visit Enid Perez Kathleen [facility] 1..840.114 350.1.13.10 4.2.7.2.686 [id number] [facility] 2021-10-15 00:00:00 2021-10-15 00:00:00 OFFICE VISIT ESTAB PT LEVEL 4 STLMLC STLMLC [id number] [facility] 2021-10-07 13:45:00 2021-10-07 14:51:02 Outpatient R LASHELL LANDRY [facility] [id number] [facility] 2021-10-07 13:45:00 2021-10-07 14:51:02 [facility] [id number] 2021-10-07 13:45:00 2021-10-07 14:51:02 [facility] ..840.114 350.1.13.10 4.2.7.2.686 [id number] [facility] 2021-10-03 13:33:00 2021-10-03 20:45:00 Day Surgery nullFlavo r [facility] [id number] [facility] 2021-10-03 08:33:00 2021-10-03 15:45:00 Outpatient JAVI EDGAR BL BL 7500 BL 2021-10-01 10:16:00 2021-10-01 14:17:00 Outpatient BRANDAN ALVES [facility] [id number] [facility] 2021-10-01 10:16:00 2021-10-01 14:17:00 Hospital Encounter Brandan De La Garza [facility] 1..840.114 350.1.13.10 4.2.7.2.686 [id number] [facility] 2021-10-01 11:45:00 2021-10-01 12:30:00 Surgery De La GarzaBrandan [facility] 1..840.114 350.1.13.10 4.2.7.2.686 [id number] [facility] 2021-10-01 09:30:00 2021-10-01 09:45:00 [facility] Only Only[facility] Lu[facility] 1.2.840.114 350.1.13.10 4.2.7.2.686 [id number] [facility] 2021-10-01 00:00:00 2021-10-01 00:00:00 Orders Only Doctor Unassigned, [place] [facility] 1.2.840.114 350.1.13.10 4.2.7.2.686 [id number] [facility] 2021-09-25 11:00:00 2021-09-25 12:09:37 Office Visit Javi Edgar [facility] 1 1.2840.114 350.1.13.58 9.2.7.2.686 [id number] [facility] 2021-09-23 09:30:00 2021-09-23 09:30:00 Outpatient LASHELL PIERRE [facility] [id number] [facility] 2021-09-20 00:00:00 2021-09-20 00:00:00 (WEB) STLMLC STLMLC [id number] [facility] 2021-09-18 00:00:00 2021-09-18 00:00:00 [facility].2840.114 350.1.13.10 4.2.7.2.686 [id number] [facility] 2021-09-14 00:00:00 2021-09-14 00:00:00 (WEB) STLMLC STLMLC [id number] [facility] 2021-09-14 00:00:00 2021-09-14 00:00:00 (WEB) STLMLC STLMLC [id number] [facility] 2021-09-13 00:00:00 2021-09-13 00:00:00 (WEB) STLMLC STLMLC [id number] [facility] 2021-09-13 00:00:00 2021-09-13 00:00:00 Patient Secure Msg Brandan De La Garza [facility] 1.284.114 350.1.13.10 4.2.7.2.686 [id number] [facility] 2021-09-12 18:42:00 2021-09-12 21:43:00 Emergency X DEBBIE ARNDT [facility] E[facility] [id number] [facility] 2021-09-12 18:42:00 2021-09-12 21:43:00 Emergency Debbie Arndt [facility] 1.84.114 350.1.13.10 4.2.7.2.686 [id number] [facility] 2021-09-12 18:42:00 2021-09-12 21:43:00 Emergency X DEBBIE ARNDT [facility] ERT [id number] [facility] 2021-09-12 00:00:00 2021-09-12 00:00:00 [facility] [id number] 2021-09-12 00:00:00 2021-09-12 00:00:00 Patient Secure Msg Brandan De La Garza [facility] 1.84.114 350.1.13.10 4.2.7.2.686 [id number] [facility] 2021-09-12 00:00:00 2021-09-12 00:00:00 Telephone Brandan De La Garza [facility] 1.84.114 350.1.13.10 4.2.7.2.686 [id number] [facility] 2021-09-06 06:30:41 2021-09-06 06:30:41 Anesthesia Event Ronda Sandhu [facility] 1.2.840.114 350.1.13.10 4.2.7.2.686 [id number] [facility] 2021-09-05 14:05:00 2021-09-05 17:13:00 Emergency X CAYDEN SEBASTIAN HEE-KWANG [facility] ERT [id number] [facility] 2021-09-05 14:05:00 2021-09-05 17:13:00 Emergency Cayden Sebastian 1.2.840.1 24048.1.1 3.104.2.7 .3.894125 .8 [id number] [facility] 2021-09-05 12:45:00 2021-09-05 13:50:00 Outpatient R BRANDAN DE LA GARZA [facility] GIE [id number] [facility] 2021-09-05 12:45:00 2021-09-05 13:50:00 Hospital Encounter De La GarzaBrandan 1.2.840.1 31735.1.1 3.104.2.7 .3.526670 .8 [id number] [facility] 2021-09-05 00:00:00 2021-09-05 00:00:00 (WEB) STLMLC STLMLC [id number] [facility] 2021-09-05 00:00:00 2021-09-05 00:00:00 Orders Only Doctor Unassigned, [place] 1.2.840.1 11882.1.1 3.104.2.7 .3.693885 .8 [id number] [facility] 2021-09-05 00:00:00 2021-09-05 00:00:00 Travel 1.2.840.1 96091.1.1 3.104.2.7 .3.792982 .8 1.2.840.114 350.1.13.10 4.2.7.3.698 084.8 [id number] [facility] 2021-09-04 00:00:00 2021-09-04 00:00:00 Travel 1.2.840.1 53517.1.1 3.104.2.7 .3.108581 .8 1.2.840.114 350.1.13.10 4.2.7.3.698 084.8 [id number] [facility] 2021-09-03 00:00:00 2021-09-03 00:00:00 (TEL[facility] [id number] 2021-09-02 13:30:00 2021-09-02 13:45:00 Laboratory Only Brandan De La Garza, Adc Test 1.2.840.1 51662.1.1 3.104.2.7 .3.675109 .8 [id number] [facility] 2021-09-02 13:30:00 2021-09-02 13:30:00 Outpatient R BRANDAN DE LA GARZA [facility] [id number] [facility] 2021-09-02 00:00:00 2021-09-02 00:00:00 Prep For Surgery Brandan De La Garza 1.2.840.1 53207.1.1 3.104.2.7 .3.749221 .8 [id number] [facility] 2021-08-28 10:33:24 2021-08-28 23:59:00 Outpatient R BRANDAN DE LA GARZA [facility] [id number] [facility] 2021-08-28 10:00:00 2021-08-28 23:59:00 Hospital Encounter Brandan De La Garza 1.2.840.1 86621.1.1 3.104.2.7 .3.748737 .8 [id number] [facility] 2021-08-28 11:00:00 2021-08-28 14:48:43 Outpatient R NARCISO RAMIREZ [facility] [id number] [facility] 2021-08-28 11:00:00 2021-08-28 14:48:43 Ancillary Visit RamirezNarciso Alexandra 1.2.840.1 98882.1.1 3.104.2.7 .3.229066 .8 [id number] [facility] 2021-08-28 00:00:00 2021-08-28 00:00:00 Travel 1.2.840.1 25410.1.1 3.104.2.7 .3.409955 .8 1.2.840.114 350.1.13.10 4.2.7.3.698 084.8 [id number] [facility] 2021-08-26 00:00:00 2021-08-26 00:00:00 OFFICE VISIT ESTAB PT LEVEL 4 STLMLC STLMLC [id number] [facility] 2021-08-23 11:30:00 2021-08-23 23:59:00 Outpatient R BRANDAN DE LA GARZA [facility] [id number] [facility] 2021-08-23 11:30:00 2021-08-23 23:59:00 Hospital Encounter Brandan De La Garza 1.2.840.1 91590.1.1 3.104.2.7 .3.984719 .8 [id number] [facility] 2021-08-19 00:00:00 2021-08-19 00:00:00 Telephone Jenny Moore [facility] 1.2.840.114 350.1.13.10 4.2.7.2.686 [id number] [facility] 2021-08-19 00:00:00 2021-08-19 00:00:00 Telephone Jenny Moore 1.2.840.1 51549.1.1 3.104.2.7 .3.812578 .8 [id number] [facility] 2021-08-19 00:00:00 2021-08-19 00:00:00 Travel 1.2.840.1 68001.1.1 3.104.2.7 .3.129884 .8 1.2.840.114 350.1.13.10 4.2.7.3.698 084.8 [id number] [facility] 2021-08-19 00:00:00 2021-08-19 00:00:00 Prep For Surgery Brandan De La Garza 1.2.840.1 85063.1.1 3.104.2.7 .3.965354 .8 [id number] [facility] 2021-08-16 00:00:00 2021-08-16 00:00:00 Patient Secure Msg Brandan De La Garza 1.2.840.1 80997.1.1 3.104.2.7 .3.145771 .8 [id number] [facility] 2021-08-15 23:59:59 2021-08-15 23:59:59 Anesthesia Event Lanny Whitmore 1.2.840.1 04769.1.1 3.104.2.7 .3.233506 .8 [id number] [facility] 2021-08-14 14:30:00 2021-08-14 15:06:26 Kit Assembler Visit Brandan De La Garza [facility] 1.2.840.1 16149.1.1 3.104.2.7 .3.347074 .8 [id number] [facility] 2021-08-14 14:30:00 2021-08-14 14:45:00 Kit Assembler [facility] Brandan De La Garza [facility] 1.2.840.114 350.1.13.10 4.2.7.2.686 [id number] [facility] 2021-08-14 14:30:00 2021-08-14 14:30:00 Outpatient R BRANDAN DE LA GARZA [facility] [id number] [facility] 2021-08-14 14:30:00 2021-08-14 14:30:00 Outpatient R BRANDAN DE LA GARZA [facility] [id number] [facility] 2021-08-14 13:30:00 2021-08-14 14:00:00 Office Visit Brandan De La Garza [facility] 1.2.840.114 350.1.13.10 4.2.7.2.686 [id number] [facility] 2021-08-14 13:30:00 2021-08-14 14:00:00 Office Visit Brandan De La Garza 1.2.840.1 25500.1.1 3.104.2.7 .3.807006 .8 [id number] [facility] 2021-08-14 13:30:00 2021-08-14 13:30:00 Outpatient R BRANDAN DE LA GARZA [facility] [id number] [facility] 2021-08-14 13:30:00 2021-08-14 13:30:00 Outpatient R BRANDAN DE LA GARZA [facility] [id number] [facility] 2021-08-14 00:00:00 2021-08-14 00:00:00 Travel 1.2.840.1 92822.1.1 3.104.2.7 .3.691260 .8 1.20.114 350.1.13.10 4.2.7.3.698 084.8 [id number] [facility] 2021-08-13 00:00:00 2021-08-13 00:00:00 (TEL) STLMLC STLMLC [id number] [facility] 2021-08-05 10:45:00 2021-08-05 11:09:52 Office Visit Uyen Corbin [facility] 1.2.840.114 350.1.13.10 4.2.7.2.686 [id number] [facility] 2021-08-05 10:45:00 2021-08-05 11:09:52 Outpatient R UYEN CORBIN [facility] [id number] [facility] 2021-08-05 10:45:00 2021-08-05 11:09:52 Office Visit Uyen Corbin 1.2.840.1 04068.1.1 3.104.2.7 .3.529244 .8 [id number] [facility] 2021-08-05 10:45:00 2021-08-05 10:45:00 Outpatient R UYEN CORBIN [facility] [id number] [facility] 2021-08-03 00:00:00 2021-08-03 00:00:00 Patient Secure Msg Doctor Unassigned, [place] [facility] 1..840.114 350.1.13.10 4.2.7.2.686 [id number] [facility] 2021-08-02 00:00:00 2021-08-02 00:00:00 (WEB) STLMLC STLMLC [id number] [facility] 2021-08-01 08:48:01 2021-08-01 23:59:00 Hospital Encounter Uyen Corbin [facility] 1..840.114 350.1.13.10 4.2.7.2.686 [id number] [facility] 2021-08-01 08:48:01 2021-08-01 23:59:00 Hospital Encounter Uyen Corbin 1.2.840.1 24178.1.1 3.104.2.7 .3.101617 .8 [id number] [facility] 2021-08-01 08:47:08 2021-08-01 08:47:08 Outpatient R UYEN CORBIN [facility] [id number] [facility] 2021-08-01 08:47:08 2021-08-01 08:47:08 Hospital Encounter Uyen Corbin [facility] 1.2.840.114 350.1.13.10 4.2.7.2.686 [id number] [facility] 2021-08-01 08:47:08 2021-08-01 08:47:08 Hospital Encounter Uyen Corbin 1.2.840.1 01775.1.1 3.104.2.7 .3.292356 .8 [id number] [facility] 2021-08-01 00:00:00 2021-08-01 00:00:00 (WEB) [facility] [id number] [facility] 2021-07-31 00:00:00 2021-07-31 00:00:00 (TEL) [facility] [id number] [facility] 2021-07-23 16:15:00 2021-07-23 16:15:00 Outpatient R UYEN CORBIN [facility] [id number] [facility] 2021-07-20 00:00:00 2021-07-20 00:00:00 Orders Only Doctor Unassigned, [place] 1.2.840.1 80501.1.1 3.104.2.7 .3.919279 .8 [id number] [facility] 2021-07-18 00:00:00 2021-07-18 00:00:00 Outpatient R UYEN CORBIN [facility] [id number] [facility] 2021-07-18 00:00:00 2021-07-18 00:00:00 Travel 1.2.840.1 58861.1.1 3.104.2.7 .3.526410 .8 1.2.840.114 350.1.13.10 4.2.7.3.698 084.8 [id number] [facility] 2021-07-16 00:00:00 2021-07-16 00:00:00 OFFICE VISIT EST PT LEVEL 3 STLMLC STLMLC [id number] [facility] 2021-07-10 00:00:00 2021-07-10 00:00:00 Letter (Out) Adelfo Li 1.2.840.1 40197.1.1 3.104.2.7 .3.175473 .8 [id number] [facility] 2021-07-10 00:00:00 2021-07-10 00:00:00 Letter (Out) Adelfo Li [facility] 1.2840.114 350.1.13.10 4.2.7.2.686 [id number] [facility] 2021-07-09 14:00:00 2021-07-09 14:50:54 Outpatient R UYEN CORBIN [facility] [id number] [facility] 2021-07-09 14:00:00 2021-07-09 14:50:54 Office Visit Uyen Corbin 1.2.840.1 72594.1.1 3.104.2.7 .3.925344 .8 [id number] [facility] 2021-07-09 14:00:00 2021-07-09 14:50:54 Office Visit Uyen Corbin [facility] 1.2840.114 350.1.13.10 4.2.7.2.686 [id number] [facility] 2021-07-09 00:00:00 2021-07-09 00:00:00 Orders Only Doctor Unassigned, [place] [facility] 1.2.840.114 350.1.13.10 4.2.7.2.686 [id number] [facility] 2021-07-09 00:00:00 2021-07-09 00:00:00 Orders Only Doctor Unassigned, [place] 1.2.840.1 55267.1.1 3.104.2.7 .3.839731 .8 [id number] [facility] 2021-07-09 00:00:00 2021-07-09 00:00:00 Travel 1.2.840.1 08522.1.1 3.104.2.7 .3.581293 .8 1.2.840.114 350.1.13.10 4.2.7.3.698 084.8 [id number] [facility] 2021-07-02 00:00:00 2021-07-02 00:00:00 Orders Only Doctor Unassigned, [place] 1.2.840.1 93998.1.1 3.104.2.7 .3.751516 .8 [id number] [facility] 2021-06-24 14:30:00 2021-06-24 14:30:00 Outpatient LAINE CASTRO [facility] [id number] [facility] 2021-06-06 13:30:00 2021-06-06 13:30:00 Outpatient UYEN EDUARDO [facility] [id number] [facility] 2021-06-05 00:00:00 2021-06-05 00:00:00 (WEB) STLC STLC [id number] [facility] 2021-06-05 00:00:00 2021-06-05 00:00:00 (WEB) STLMLC STLMLC [id number] [facility] 2021-06-05 00:00:00 2021-06-05 00:00:00 (WEB) STLMLC STLMLC [id number] [facility] 2021-06-05 00:00:00 2021-06-05 00:00:00 (WEB) STLMLC STLMLC [id number] [facility] 2021-06-05 00:00:00 2021-06-05 00:00:00 (WEB) STLMLC STLMLC [id number] [facility] 2021-06-05 00:00:00 2021-06-05 00:00:00 (WEB) STLMLC STLMLC [id number] [facility] 2021-06-05 00:00:00 2021-06-05 00:00:00 (WEB) STLMLC STLMLC [id number] [facility] 2021-06-03 00:00:00 2021-06-03 00:00:00 (TEL) STLMLC STLMLC [id number] [facility] 2021-06-03 00:00:00 2021-06-03 00:00:00 OFFICE VISIT NEW PT LEVEL 4 STLMLC STLMLC [id number] [facility] 2021-05-27 00:00:00 2021-05-27 00:00:00 Orders Only Doctor Unassigned, [place] [facility] 1.2.840.114 350.1.13.10 4.2.7.2.686 [id number] [facility] 2021-05-18 00:00:00 2021-05-18 00:00:00 (WEB) STLMLC STLMLC [id number] [facility] 2021-05-18 00:00:00 2021-05-18 00:00:00 (WEB) STLMLC STLMLC [id number] [facility] 2021-05-18 00:00:00 2021-05-18 00:00:00 (WEB) STLMLC STLMLC [id number] [facility] 2021-05-16 00:00:00 2021-05-16 00:00:00 OFFICE VISIT ESTAB PT LEVEL 4 STLMLC STLMLC [id number] [facility] 2021-05-10 00:00:00 2021-05-10 00:00:00 (WEB) STLMLC STLMLC [id number] [facility] 2021-05-10 00:00:00 2021-05-10 00:00:00 (WEB) STLMLC STLMLC [id number] [facility] 2021-05-10 00:00:00 2021-05-10 00:00:00 Orders Only Doctor Unassigned, [place] [facility] 1.2.840.114 350.1.13.10 4.2.7.2.686 [id number] [facility] 2021-05-09 00:00:00 2021-05-09 00:00:00 (TEL) STLMLC STLMLC [id number] [facility] 2021-05-08 00:00:00 2021-05-08 00:00:00 (WEB) STLMLC STLMLC [id number] [facility] 2021-05-08 00:00:00 2021-05-08 00:00:00 (WEB) STLMLC STLMLC [id number] [facility] 2021-05-08 00:00:00 2021-05-08 00:00:00 (WEB) STLMLC STLMLC [id number] [facility] 2021-05-08 00:00:00 2021-05-08 00:00:00 (WEB) STLMLC STLMLC [id number] [facility] 2021-05-07 00:00:00 2021-05-07 00:00:00 (WEB) STLMLC STLMLC [id number] [facility] 2021-05-04 00:00:00 2021-05-04 00:00:00 (WEB) STLMLC STLMLC [id number] [facility] 2021-05-04 00:00:00 2021-05-04 00:00:00 (WEB) STLMLC STLMLC [id number] [facility] 2021-05-04 00:00:00 2021-05-04 00:00:00 (WEB) STLMLC STLMLC [id number] [facility] 2021-04-15 00:00:00 2021-04-15 00:00:00 PREV VISIT NEW AGE 18-39 STLM STLC [id number] [facility] 2020-05-16 02:44:00 2020-05-16 02:44:00 Outpatient NelsonShrutielaina [facility] 1118 [facility] 2019-03-31 00:00:00 2019-03-31 00:00:00 David Mcclendon MD: [address], [place] [address] , Ph. [phone] [facility] 1003 [facility] 2019-02-08 00:00:00 2019-02-08 00:00:00 German Lucas MD: [address], [address], [place] [address] , Ph. [phone] [facility] 0813 [facility] 2019-02-01 00:00:00 2019-02-01 00:00:00 German Lucas MD: [address], [address], [place] [address] , Ph. [phone] [facility] 0806 [facility] 2019-01-18 00:00:00 2019-01-18 00:00:00 German Lucas MD: [address], [address], [place] [address] , Ph. [phone] [facility] 0723 [facility] 2019-01-13 00:00:00 2019-01-13 00:00:00 David Mcclendon MD: [address], [address], [place] [address] , Ph. [phone] [facility] 0718 [facility] 2019-01-04 00:00:00 2019-01-04 00:00:00 German Lucas MD: [address], [address], [place] [address] , Ph. [phone] [facility] [address] 0709 [facility] 2018-12-07 00:00:00 2018-12-07 00:00:00 Nikia Grant MD: [address], [address], [place] [address] , Ph. [phone] [facility] [address] 0611 [facility] 2018-11-02 00:00:00 2018-11-02 00:00:00 German Lucas MD: [address], [address], [place] [address] , Ph. [phone] [facility] [address] 0507 [facility] 2018-10-06 00:00:00 2018-10-06 00:00:00 German Lucas MD: [address], [address], [place] [address] , Ph. [phone] [facility] [address] 0410 [facility] Results Test Description Test Time Test Comments Results Result Co mments Source [facility] [place] [id number] 13:44:35* Test Item Value Reference Range Interpretation Comme nts ABO & RH (test code = 20) A Positive Performed at [facility] Laboratory Services - [facility] Blood [address] [place] [address]Toll Free: [phone] No. [id number] IAT (test code = 1185) Negative Performed at [facility] Laboratory Services - [facility] Blood [address] [place], [place] [phone] Free: [phone] No. [id number] [facility] [place] - ONCE [id number] 13:44:35* Test Item Value Reference Range Interpretation Comme nts ABO & RH (test code = 20) A Positive Performed at [facility] Laboratory Services - [facility] Blood [address] [place] [address]Zqbu Free: [phone] No. [id number] IAT (test code = 1185) Negative Performed at [facility] Laboratory Services - [facility] Blood [address] [place], [place] [phone] Free: [phone] No. [id number] [facility] (NA, K, CL, CO2, GLUCOSE, BUN, CREATININE, CA)2022-06-03 13:04:41* Test Item Value Reference Range Interpretation Comme [facility] NA (test code = 7227027360) 139 mmol/L 135-145 K (test code = 4033825441) 4.1 mmol/L 3.5-5.0 CL (test code = 6605526799) 106 mmol/L 98-108 CO2 TOTAL (test code = 9037381384) 28 mmol/L 23-31 AGAP (test code = 6639798994) 2-16 BUN (test code = 9811634420) 14 mg/dL 7-23 GLUCOSE (test code = 4839720968) 99 mg/dL 70-110 CREATININE (test code = 2330998564) 0.60 mg/dL 0.50-1.04 CALCIUM (test code = 2213477922) 8.5 mg/dL 8.6-10.6 L eGFR (test code = 2235544642) mL/min/1.73m2 LITA (test code = LITA) Association of [...] or abnormalities in imaging tests). Lab Interpretation (test code = 31259-5) Abnormal [facility] METABOLIC PANEL (NA, K, CL, CO2, GLUCOSE, BUN, CREATININE, CA)2022-06-03 13:04:41* Test Item Value Reference Range Interpretation Comme nts NA (test code = 8848339053) 139 mmol/L 135-145 K (test code = 7032592277) 4.1 mmol/L 3.5-5.0 CL (test code = 8021259791) 106 mmol/L 98-108 CO2 TOTAL (test code = 7284040522) 28 mmol/L 23-31 AGAP (test code = 8986525408) 2-16 BUN (test code = 8914922024) 14 mg/dL 7-23 GLUCOSE (test code = 4321909384) 99 mg/dL 70-110 CREATININE (test code = 2968287503) 0.60 mg/dL 0.50-1.04 CALCIUM (test code = 3698183258) 8.5 mg/dL 8.6-10.6 L eGFR (test code = 8643034701) mL/min/1.73m2 LITA (test code = LITA) Association of [...] or abnormalities in imaging tests). Lab Interpretation (test code = 25221-4) Abnormal [facility] WITH [id number] 12:53:03* Test Item Value Reference Range Interpretation Comme nts WBC (test code = 6690-2) See_Comment [[place]] The system which generated this result transmitted reference range: 4.30 - 11.10 10*3/?L. The reference range was not used to interpret this result as normal/abnormal. RBC (test code = 789-8) See_Comment L [[place]] The system which generated this result transmitted reference range: 3.93 - 5.25 10*6/?L. The reference range was not used to interpret this result as normal/abnormal. HGB (test code = 718-7) 11.5 g/dL 11.6-15.0 L HCT (test code = 4544-3) 34.2 % 35.7-45.2 L MCV (test code = 787-2) 90.2 fL 80.6-95.5 MCH (test code = 785-6) 30.3 pg 25.9-32.8 MCHC (test code = 786-4) 33.6 g/dL 31.6-35.1 RDW-SD (test code = 10850-6) 43.3 fL 39.0-49.9 RDW-CV (test code = 788-0) 13.2 % 12.0-15.5 PLT (test code = 777-3) See_Comment [Automated messa ge] The system which generated this result transmitted reference range: 166 - 358 10*3/?L. The reference range was not used to interpret this result as normal/abnormal. MPV (test code = 86438-9) 8.9 fL 9.5-12.9 L NRBC/100 WBC (test code = 7770239052) See_Comment [Automated me ssage] The system which generated this result transmitted reference range: 0.0 - 10.0 /100 WBCs. The reference range was not used to interpret this result as normal/abnormal. NRBC x10^3 (test code = 6006354697) See_Comment [Automated messa ge] The system which generated this result transmitted reference range: 10*3/?L. The reference range was not used to interpret this result as normal/abnormal. GRAN MAT (NEUT) % (test code = 770-8) 52.6 % IMM GRAN % (test code = 9192457729) 0.20 % LYMPH % (test code = 736-9) 34.7 % MONO % (test code = 5905-5) 9.3 % EOS % (test code = 713-8) 2.3 % BASO % (test code = 706-2) 0.9 % GRAN MAT x10^3(ANC) (test code = 8383323675) 2.99 10*3/uL 1.88-7.09 IMM GRAN x10^3 (test code = 0566496932) 0.00-0.06 LYMPH x10^3 (test code = 731-0) 1.97 10*3/uL 1.32-3.29 MONO x10^3 (test code = 742-7) 0.53 10*3/uL 0.33-0.92 EOS x10^3 (test code = 711-2) 0.13 10*3/uL 0.03-0.39 BASO x10^3 (test code = 704-7) 0.05 10*3/uL 0.01-0.07 Lab Interpretation (test code = 72889-6) Abnormal [facility] WITH [id number] 12:53:03* Test Item Value Reference Range Interpretation Comme nts WBC (test code = 6690-2) See_Comment [Automated messa ge] The system which generated this result transmitted reference range: 4.30 - 11.10 10*3/?L. The reference range was not used to interpret this result as normal/abnormal. RBC (test code = 789-8) See_Comment L [Automated messa ge] The system which generated this result transmitted reference range: 3.93 - 5.25 10*6/?L. The reference range was not used to interpret this result as normal/abnormal. HGB (test code = 718-7) 11.5 g/dL 11.6-15.0 L HCT (test code = 4544-3) 34.2 % 35.7-45.2 L MCV (test code = 787-2) 90.2 fL 80.6-95.5 MCH (test code = 785-6) 30.3 pg 25.9-32.8 MCHC (test code = 786-4) 33.6 g/dL 31.6-35.1 RDW-SD (test code = 52527-9) 43.3 fL 39.0-49.9 RDW-CV (test code = 788-0) 13.2 % 12.0-15.5 PLT (test code = 777-3) See_Comment [Automated messa ge] The system which generated this result transmitted reference range: 166 - 358 10*3/?L. The reference range was not used to interpret this result as normal/abnormal. MPV (test code = 75157-4) 8.9 fL 9.5-12.9 L NRBC/100 WBC (test code = 0405024050) See_Comment [Automated Voxel ssage] The system which generated this result transmitted reference range: 0.0 - 10.0 /100 WBCs. The reference range was not used to interpret this result as normal/abnormal. NRBC x10^3 (test code = 3283882121) See_Comment [Automated messa ge] The system which generated this result transmitted reference range: 10*3/?L. The reference range was not used to interpret this result as normal/abnormal. GRAN MAT (NEUT) % (test code = 770-8) 52.6 % IMM GRAN % (test code = 0103131925) 0.20 % LYMPH % (test code = 736-9) 34.7 % MONO % (test code = 5905-5) 9.3 % EOS % (test code = 713-8) 2.3 % BASO % (test code = 706-2) 0.9 % GRAN MAT x10^3(ANC) (test code = 8608851878) 2.99 10*3/uL 1.88-7.09 IMM GRAN x10^3 (test code = 3767524312) 0.00-0.06 LYMPH x10^3 (test code = 731-0) 1.97 10*3/uL 1.32-3.29 MONO x10^3 (test code = 742-7) 0.53 10*3/uL 0.33-0.92 EOS x10^3 (test code = 711-2) 0.13 10*3/uL 0.03-0.39 BASO x10^3 (test code = 704-7) 0.05 10*3/uL 0.01-0.07 Lab Interpretation (test code = 52883-7) Abnormal [facility] [id number] 12:30:00* Test Item Value Reference Range Interpretation Comme nts POCT PREG (test code = 1605) Negative On board controls acceptable with C Line (test code = 3574) Yes POCT PREG LOT # (test code = 3575) POCT PREG TEST DATE ( test code = 3576) [facility] [id number] 12:30:00* Test Item Value Reference Range Interpretation Comme nts POCT PREG (test code = 1605) Negative On board controls acceptable with C Line (test code = 3574) Yes POCT PREG LOT # (test code = 3575) POCT PREG TEST DATE ( test code = 3576) [facility] URINALYSIS W SPECIFIC [id number] 19:37:00* Test Item Value Reference Range Interpretation Comme nts POCT U SP GRAV (test code = 3255) 1.015 mg/dl 1.005-1.025 POCT PH U (test code = 3254) 5 mg/dl 5-8 POCT U LEUK EST (test code = 3263) trace Negative - Negative POCT U NIT (test code = 3262) neg Negative - Negative POCT U PROT (test code = 3259) trace Negative - Negative POCT U GLU (test code = 3256) neg Negative - Negative POCT U KETONE (test code = 3258) neg Negative - Negative POCT U UROBILI (test code = 3260) neg 0.2-1 POCT U BILI (test code = 3261) neg Negative - Negative POCT U BLD (test code = 3257) neg Negative - Negative POCT U COLOR (test code = 3266) light yellow POCT U APPEAR (test code = 3267) clear [facility] [place], TXPOCT URINALYSIS W SPECIFIC [id number] 19:37:00* Test Item Value Reference Range Interpretation Comme nts POCT U SP GRAV (test code = 3255) 1.015 mg/dl 1.005-1.025 POCT PH U (test code = 3254) 5 mg/dl 5-8 POCT U LEUK EST (test code = 3263) trace Negative - Negative POCT U NIT (test code = 3262) neg Negative - Negative POCT U PROT (test code = 3259) trace Negative - Negative POCT U GLU (test code = 3256) neg Negative - Negative POCT U KETONE (test code = 3258) neg Negative - Negative POCT U UROBILI (test code = 3260) neg 0.2-1 POCT U BILI (test code = 3261) neg Negative - Negative POCT U BLD (test code = 3257) neg Negative - Negative POCT U COLOR (test code = 3266) light yellow POCT U APPEAR (test code = 3267) clear [facility] [place], TXURINE [id number] 15:05:00* Test Item Value Reference Range Interpretation Comme nts U Preg (test code = U Preg) Negative (10/03/21 10:05 AM) [id number] 13:47:00* Test Item Value Reference Range Interpretation Comme nts Coronavirus (COVID-19) JOANNE (test code = Coronavirus (COVID-19) JOANNE) Not Detected (10/03/21 8:47 AM) [facility] - [id number] 16:11:13* Test Item Value Reference Range Interpretation Comme nts Leukocytes (test code = Leukocytes) Negative Nitrite (test code = Nitrite) negative Urobilinogen (test code = Urobilinogen) .2 Protein (test code = Protein) Negative pH (test code = pH) 7.0 Blood (test code = Blood) Negative Specific [place] (test code = Specific [place]) 1.015 Ketone (test code = Ketone) Negative Bilirubin (test code = Bilirubin) Negative Glucose (test code = Glucose) Negative Appearance (test code = Appearance) Clear Color (test code = Color) Yellow [facility] - [id number] 14:59:00* Test Item Value Reference Range Interpretation Comme nts Leukocytes (test code = Leukocytes) Negative Nitrite (test code = Nitrite) negative Urobilinogen (test code = Urobilinogen) 1 Protein (test code = Protein) Trace pH (test code = pH) 7.0 Blood (test code = Blood) Negative Specific [place] (test code = Specific [place]) 1.025 Ketone (test code = Ketone) Negative Bilirubin (test code = Bilirubin) Small Glucose (test code = Glucose) Negative Appearance (test code = Appearance) Clear Color (test code = Color) Yellow [facility]stick[facility] panel - [id number] 14:30:12* Test Item Value Reference Range Interpretation Comme nts Leukocytes (test code = Leukocytes) Negative Nitrite (test code = Nitrite) negative Urobilinogen (test code = Urobilinogen) 1 Protein (test code = Protein) Trace pH (test code = pH) 7.5 Blood (test code = Blood) Negative Specific [place] (test code = Specific [place]) 1.020 Ketone (test code = Ketone) Negative Bilirubin (test code = Bilirubin) Negative Glucose (test code = Glucose) Negative Appearance (test code = Appearance) Clear Color (test code = Color) [facility] Differential panel - [id number] 00:00:00 * Test Item Value Reference Range Interpretation Comme nts white blood count (test code = white blood count) 8.8 K/uL 4.0-11.5 red blood count (test code = red blood count) 3.58 M/uL 3.80-5.20 L hemoglobin (test code = hemoglobin) 10.4 g/dL 10.5-15.7 L hematocrit (test code = hematocrit) 32.8 % 34.0-50.0 L Erythrocyte mean corpuscular volume [Entitic volume] (test code = 53148-6) 91.6 fL 86-100 Erythrocyte mean corpuscular hemoglobin [Entitic mass] (test code = 27091-3) 29.1 pg 26.2-33.4 mean corpuscular HGB conc (t est code = mean corpuscular HGB conc) 31.7 g/dL 30-34 red cell distribution width (test code = red cell distribution width) 12.9 % 12.0-15.5 platelet count (test code = platelet count) 270 K/uL 165-450 mean platelet volume (test c ode = mean platelet volume) 9.4 fL 9.4-12.6 Neutrophils.segmented/100 leukocytes in Blood (test code = 96210-3) 69.9 % 44.4-80.1 Ig% (test code = Ig%) 0.3 % 0.0-0.4 lymphocyte% (test code = lymphocyte%) 19.9 % 10.0-50.0 Monocytes/100 leukocytes in Blood by Automated count (test code = 5905-5) 7.7 % 3.6-12.0 Eosinophils/100 leukocytes i n Blood by Automated count (test code = 713-8) 1.9 % 0.0-5.4 Basophils/100 leukocytes in Unspecified specimen (test code = 07796-9) 0.3 % 0.1-1.2 absolute neutrophil count (t est code = absolute neutrophil count) 6.12 K/uL 1.56-6.13 Ig# (test code = Ig#) 0.0 K/uL 0.0-0.03 Lymphocytes [#/volume] in Unspecified specimen by Automated count (test code = 95861-6) 1.8 K/uL 1.18-3.74 mono # (test code = mono #) 0.68 K/uL 0.24-0.86 eos # (test code = eos #) 0.17 K/uL 0.04-0.36 basophil # (test code = baso brianna #) 0.03 K/uL 0.01-0.08 NRBC% (test code = NRBC%) 0 /100 WBC 0-0.2 NRBC# (test code = NRBC#) 0 K/uL [facility]dipstick[facility] panel - [id number] 10:29:43* Test Item Value Reference Range Interpretation Comme nts Leukocytes (test code = Leukocytes) Negative Nitrite (test code = Nitrite) negative Urobilinogen (test code = Urobilinogen) .2 Protein (test code = Protein) Negative pH (test code = pH) 7.0 Blood (test code = Blood) Negative Specific [place] (test code = Specific [place]) 1.015 Ketone (test code = Ketone) Moderate Bilirubin (test code = Bilirubin) Small Glucose (test code = Glucose) Negative Appearance (test code = Appearance) Clear Color (test code = Color) Yellow [facility] Auto Differential panel - [id number] 00:00:00 * Test Item Value Reference Range Interpretation Comme nts white blood count (test code = white blood count) 11.3 K/uL 4.0-11.5 red blood count (test code = red blood count) 3.35 M/uL 3.80-5.20 L Hemoglobin [Mass/volume] in Blood (test code = 718-7) 10.3 g/dL 10.5-15.7 L hematocrit (test code = hematocrit) 31.4 % 34.0-50.0 L Erythrocyte mean corpuscular volume [Entitic volume] (test code = 70159-1) 94.0 fL 78-98 Erythrocyte mean corpuscular hemoglobin [Entitic mass] (test code = 73854-7) 30.7 pg 26.2-33.4 mean corpuscular HGB conc (t est code = mean corpuscular HGB conc) 32.7 g/dL 31.5-36.2 red cell distribution width (test code = red cell distribution width) 12.0 % 11.5-15.5 Platelets [#/volume] in Bloo d (test code = 13094-1) 239 K/uL 137-338 Platelet mean volume [Entiti c volume] in Blood (test code = 64749-4) 6.6 fL 8.4-11.8 L Neutrophils.band form/100 leukocytes in Blood (test code = 52181-2) 70.5 % 44.4-80.1 Lymphocytes/100 leukocytes i n Body fluid (test code = 01081-4) 20.9 % 10.0-50.0 Monocytes/100 leukocytes in Blood by Automated count (test code = 5905-5) 5.2 % 3.6-12.0 Eosinophils/100 leukocytes i n Blood by Automated count (test code = 713-8) 2.4 % 0.0-5.4 Basophils/100 leukocytes in Unspecified specimen (test code = 23671-7) 1.0 % 0.0-0.79 [facility] GroupReagin Ab [Presence] in Serum by [id number] 00:00:00* Test Item Value Reference Range Interpretation Comme nts Reagin Ab [Presence] in Seru m by RPR (test code = 25521-3) nonreactive nonreactive [facility] GroupHIV 1+2 Ab [Presence] in [id number] 00:00:00HIV P24 AgHIV-1/2 AbMatagoL.V. [facility] GroupBlood group antibody screen [Presence] in Serum or [id number] 00:00:00* Test Item Value Reference Range Interpretation Comme nts Blood group antibody screen [Presence] in Serum or Plasma (test code = 890-4) negative [facility] GroupUrinalysis macro (dipstick) panel - [id number] 16:56:26* Test Item Value Reference Range Interpretation Comme nts Leukocytes (test code = Leukocytes) Negative Nitrite (test code = Nitrite) negative Urobilinogen (test code = Urobilinogen) .2 Protein (test code = Protein) Negative pH (test code = pH) 7.0 Blood (test code = Blood) Negative Specific [place] (test code = Specific [place]) 1.015 Ketone (test code = Ketone) Negative Bilirubin (test code = Bilirubin) Negative Glucose (test code = Glucose) Negative Appearance (test code = Appearance) Clear Color (test code = Color) Yellow [facility] GroupUrinalysis macro (dipstick) panel - [id number] 13:54:59* Test Item Value Reference Range Interpretation Comme nts Leukocytes (test code = Leukocytes) Negative Nitrite (test code = Nitrite) negative Urobilinogen (test code = Urobilinogen) .2 Protein (test code = Protein) Negative pH (test code = pH) 5.5 Blood (test code = Blood) Negative Specific [place] (test code = Specific [place]) 1.020 Ketone (test code = Ketone) Negative Bilirubin (test code = Bilirubin) Negative Glucose (test code = Glucose) Negative Appearance (test code = Appearance) Clear Color (test code = Color) Yellow [facility] W Auto Differential panel - [id number] 00:00:00 * Test Item Value Reference Range Interpretation Comme nts white blood count (test code = white blood count) 13.1 K/uL 4.0-11.5 H red blood count (test code = red blood count) 3.23 M/uL 3.80-5.20 L Hemoglobin [Mass/volume] in Blood (test code = 718-7) 10.4 g/dL 10.5-15.7 L hematocrit (test code = hematocrit) 30.4 % 34.0-50.0 L Erythrocyte mean corpuscular volume [Entitic volume] (test code = 21971-2) 94.1 fL 78-98 Erythrocyte mean corpuscular hemoglobin [Entitic mass] (test code = 01110-7) 32.0 pg 26.2-33.4 mean corpuscular HGB conc (t est code = mean corpuscular HGB conc) 34.1 g/dL 31.5-36.2 red cell distribution width (test code = red cell distribution width) 11.7 % 11.5-15.5 Platelets [#/volume] in Bloo d (test code = 29625-7) 226 K/uL 137-338 Platelet mean volume [Entiti c volume] in Blood (test code = 08830-3) 6.0 fL 8.4-11.8 L Neutrophils.band form/100 leukocytes in Blood (test code = 07239-0) 72.8 % 44.4-80.1 Lymphocytes/100 leukocytes i n Body fluid (test code = 06071-6) 18.5 % 10.0-50.0 Monocytes/100 leukocytes in Blood by Automated count (test code = 5905-5) 3.7 % 3.6-12.04 Eosinophils/100 leukocytes i n Blood by Automated count (test code = 713-8) 4.3 % 0.0-5.41 Basophils/100 leukocytes in Blood by Automated count (test code = 706-2) 0.6 % 0.0-0.79 [facility] GroupRubella virus Ab [Titer] in [id number] 00:00:00* Test Item Value Reference Range Interpretation Comme nts Rubella virus IgG Ab [Units/volume] in Serum by Immunoassay (test code = 5334-8) 8.80 [IU]/mL [facility] GroupABO & Rh group [Type] in [id number] 00:00:00* Test Item Value Reference Range Interpretation Comme nts Rh [Type] in Blood (test cod e = 97181-3) 4+ ABO and Rh group panel - Blo od (test code = 87415-3) A positive [facility] GroupBlood group antibody screen [Presence] in Serum or Plasma 2018-10-06 00:00:00* Test Item Value Reference Range Interpretation Comme nts Blood group antibody screen [Presence] in Serum or Plasma (test code = 890-4) negative [facility] GroupHIV 1+2 Ab [Presence] in [id number] 00:00:00HIV P24 AgHIV-1/2 AbMatagorda Medical GroupBacteria identified in Urine by Culture 2018-10-06 00:00:00* Test Item Value Reference Range Interpretation Comme nts Bacteria identified in Urine by Culture (test code = 630-4) no growth at 2 days [facility] GroupReagin Ab [Presence] in Serum by [id number] 00:00:00* Test Item Value Reference Range Interpretation Comme nts Reagin Ab [Presence] in Seru m by RPR (test code = 55604-1) nonreactive nonreactive [facility] GroupHepatitis B virus surface Ag [Presence] in Serum 2018-10-06 00:00:00* Test Item Value Reference Range Interpretation Comme nts .hepatitis B surface antigen (test code = .hepatitis B surface antigen) negative negative [facility] CenterMRI Ankle Left Wo ContMRI Ankle Left Wo Cont
--- NOTE | 2024-10-07 14:57 | RAD REPORT ---
EXAM: CT brain without contrast HISTORY: Headache;Pain COMPARISON: None TECHNIQUE: Multiple contiguous axial images were obtained and a CT of the brain without contrast. Sag ittal and coronal reformats were performed. One or more of the following dose reduction techniques were used: Automated exposure control, adjust ment of the mA and/or kV according to patient size, and/or iterative reconstruction. FINDINGS: No evidence of hydrocephalus, intracranial hemorrhage, or extra-axial fluid collection. The brain is normal in morphology. No evidence of midline shift or areas of brain edema. The calvarium is intact. The visualized paranasal sinuses and mastoid air cells are essentially clear . IMPRESSION: No evidence of acute intracranial abnormality. EXAM: CT of the cervical spine without contrast HISTORY: Neck pain, injury Headache;Pain TECHNIQUE: Multiple contiguous axial images were obtained in a CT of the cervical spine without contr ast. Sagittal and coronal reformats were performed. FINDINGS: The vertebral bodies demonstrate normal height and alignment. No evidence of acute fracture or subluxation.. Mild lower cervical spondylosis seen. No prevertebral soft tissue swelling is seen. The posterior facets are well aligned. Normal alignment of the skull base with the cervical spine is seen. The lung apices are unremarkable. IMPRESSION: No evidence of acute osseous abnormality of the cervical spine.
[2024-10-07] MEDS ORDERED: KETOROLAC 30 MG/ML INJ ONE (16:24)
[2024-10-07] MEDS ORDERED: DIPHENHYDRAMINE 50 MG/ML VIAL ONE (16:24)
[2024-10-07] MEDS ORDERED: ONDANSETRON 4 MG/2 ML VIAL ONE (16:24)
[2024-10-07] MEDS ORDERED: NA CHLORIDE 0.9% 1,000 ML ONE (16:25)
[2024-10-07 16:31] LABS: Absolute Basophils 0.1 K/uL (0-0.5); Absolute Eosinophils 0.1 K/uL (0-0.5); Absolute Monocytes 0.9 K/uL (0.1-1.3); Absolute Neutrophil 4.8 K/uL (1.8-8.0); Basophils % 0.7 % (0-1.3); Eosinophils % 0.9 % (0-4.4); Hematocrit 37.2 % (36.0-45.0); Hemoglobin 12.6 g/dL (12.0-15.0); Lymphocytes % 25.1 % (15.3-44.8); MCH 28.6 pg (27.0-35.0); MCV 84.1 fL (80-100); MPV 7.7 fL (7.6-11.3); Monocytes % 11.4 % (3.3-12.3); Neutrophils % 61.9 % (41.7-73.7); Platelets 376 thou/uL (152-406); RBC Red Blood Cell Count 4.42 M/uL (3.86-4.86); Red Cell Distribution Width 17.9 % (12.1-15.2)
[2024-10-07 16:33] LABS: Sqamous Epithelial <5 /HPF (None Seen); Urine Bacteria <20 /HPF (<20); Urine Bilirubin NEGATIVE (Negative); Urine Blood Negative (Negative); Urine Clarity Turbid (Clear); Urine Color Light-Yellow (Yellow); Urine Culture Reflex Order NOT NEEDED; Urine Glucose NEGATIVE (Negative); Urine Ketones 2+ (Negative); Urine Microscopic Reflex YN ORDER UMIC; Urine Mucus 2+ /HPF (None Seen); Urine Nitrite NEGATIVE (Negative); Urine Protein NEGATIVE (Negative); Urine RBC <5 /HPF (None Seen); Urine Urobilinogen Normal (Normal); Urine WBC <5 /HPF (<5); Urine Yeast (Budding) Trace /HPF (None Seen); Urine pH 6.5 (5.0-7.0)
[2024-10-07 16:44] LABS: Anion Gap 9.1 mEq/L (5.0-15.0); Magnesium 1.8 mg/dL (1.6-2.4); Potassium 3.1 mEq/L (3.5-5.1)
--- NOTE | 2024-10-07 17:27 | EDPHYS ---
Physician Documentation [facility] Name: Hailee Guy Age: 34 yrs Sex: Female : 1990 Arrival Date: 10/07/2024 Time: 13:47 Bed 7 Private MD: ED Physician Jose Martin Avelar HPI: 10/07 15:26 This 34 yrs old Female presents to ER via Ambulatory with complaints of dr5 Blurred Vision, Headache, Dizziness, Numbness. 15:26 Onset: The symptoms/episode began/occurred acutely. Patient is a 34-year-old female dr5 with history of sinusitis coming in with 1 week of headache that has gotten worse. Patient has been taking aspirin and Tylenol with moderate relief of symptoms. Patient states she has had intermittent visual disturbances. Patient reports mild headache to the back of her head. Patient denies loss of consciousness, fever, chest pain, shortness of breath, or abdominal pain.. 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 - Infectious Disease History:: Denies. - Social history:: Smoking status: Reported history of juuling and/or vaping. ROS: 15:26 Constitutional: as per hpi dr5 Exam: 15:26 Radiologist reports: No acute abnormality. dr5 15:26 Constitutional: This is a well developed, well nourished patient who is awake, alert, and in no acute distress. 15:26 Constitutional: The patient appears in no acute distress, 15:26 Head/face: Exam is negative for acute changes, 15:26 Eyes: Exam is negative for acute changes, 15:26 Neck: Exam negative for dr5 15:26 Chest/axilla: Exam negative for acute changes, 15:26 Cardiovascular: Exam negative for acute changes, 15:26 Respiratory: Exam negative for acute changes, 15:26 Back: Exam negative for 15:26 Skin: Exam negative for abrasion, acute changes, 15:26 Neuro: Orientation: is normal, appropriate for stated age, Mentation: is normal, appropriate for stated age, Memory: is normal, appropriate for stated age, Cranial nerves: is grossly normal based on the patient's age, CN II- XII are normal as tested, Cerebellar function: is grossly normal, Motor: is normal, Sensation: is normal, 16:11 Eyes: Pupils equal round and reactive to light, extra-ocular motions intact. Lids and dr5 lashes normal. Conjunctiva and sclera are non-icteric and not injected. Cornea within normal limits. Periorbital areas with no swelling, redness, or edema. ENT: Nares patent. No nasal discharge, no septal abnormalities noted. Tympanic membranes are normal and external auditory canals are clear. Oropharynx with no redness, swelling, or masses, exudates, or evidence of obstruction, uvula midline. Mucous membranes moist. Chest/axilla: Normal chest wall appearance and motion. Nontender with no deformity. No lesions are appreciated. Cardiovascular: Regular rate and rhythm with a normal S1 and S2. Normal PMI, no JVD. No pulse deficits. Respiratory: Lungs have equal breath sounds bilaterally, clear to auscultation. No rales, rhonchi or wheezes noted. No increased work of breathing, no retractions or nasal flaring. Back: No spinal tenderness. No costovertebral tenderness. Full range of motion. Skin: Warm, dry with normal turgor. Normal color with no rashes, no lesions, and no evidence of cellulitis. Neuro: Awake and alert, GCS 15, oriented to person, place, time, and situation. Cranial nerves II-XII grossly intact. Motor strength 5/5 in all extremities. Sensory grossly intact. Cerebellar exam normal. Normal gait. Vital Signs: 13:55 BP 120 / 79; Pulse 83; Resp 16; Temp 98.4(O); Pulse Ox 100% on R/A; Weight 54.43 kg; hb Height 5 ft. 4 in. ; Pain 8/10; 16:49 BP 118 / 97; Pulse 68; Resp 18; Pulse Ox 100% on R/A; ld1 13:55 Body Mass Index 20.60 (54.43 kg, 162.56 cm) hb 13:55 Pain Scale: Adult hb MDM: 13:50 Medical Screening Exam initiated dr5 17:31 Differential diagnosis: metabolic disorder, Electrolyte Abnormality, Dehydration, ICH. dr5 Data reviewed: vital signs, nurses notes. I considered the following discharge prescriptions or medication management in the emergency department Medications were administered in the Emergency Department. See MAR. Care significantly affected by the following chronic conditions: Sinusitis. Care significantly affected by the following Social Determinants of Health: Poor access to healthcare and/or lack of insurance, Poor access to transportation, Problems related to employment. Counseling: I had a detailed discussion with the patient and/or guardian regarding the historical points, exam findings, and any diagnostic results supporting the discharge/admit diagnosis, the presence of at least one elevated blood pressure reading (>120/80) during this emergency department visit, lab results, radiology results, the need for outpatient follow up, for definitive care, a family practitioner, to return to the emergency department if symptoms worsen or persist or if there are any questions or concerns that arise at home. Medication response: Christine Kaur NS. Response to treatment: the patient's symptoms have resolved after treatment, the patient's condition has returned to base line. ED course: Patient reports she is feeling much better. Patient restates that she does not have a primary care doctor to follow-up with. All labs and CT results printed out and put in patient's discharge paperwork. Will treat Anila with one-time dose of Diflucan 150 mg. Recommended patient establish care with primary care doctor for further management. Strict ER precautions given.. 10/07 14:04 Order name: Basic Metabolic Panel; Complete Time: 17:12 10/07 14:04 Order name: CBC with Diff; Complete Time: 16:38 10/07 14:04 Order name: Magnesium; Complete Time: 17:12 10/07 14:04 Order name: Test, Urine; Complete Time: 16:38 10/07 14:04 Order name: Urinalysis w/ reflexes; Complete Time: 16:38 10/07 14:04 Order name: CT Head C Spine; Complete Time: 14:58 dr5 Administered Medications: 16:30 Drug: NS 0.9% IV 1000 ml IV at 1000 ml once; to be given as a bolus over 60 minutes ld1 Route: IV; Rate: 1000 ml; Site: right antecubital; 17:56 Follow up: IV Status: Completed infusion; IV Intake: 1000ml aa5 16:30 Drug: Ketorolac IVP 15 mg IVP once Route: IVP; Site: right antecubital; ld1 17:56 Follow up: Response: No adverse reaction aa5 16:30 Drug: Ondansetron IVP 4 mg IVP once; over 2 minutes Route: IVP; Site: right antecubital;ld1 17:56 Follow up: Response: No adverse reaction aa5 16:30 Drug: diphenhydrAMINE IVP 12.5 mg IVP once Route: IVP; Site: right antecubital; ld1 17:56 Follow up: Response: No adverse reaction aa5 17:56 Drug: Potassium Chloride PO 40 mEq PO once Route: PO; aa5 17:56 Follow up: Response: No adverse reaction aa5 Disposition Summary: 10/07/24 17:27 Discharge Ordered Notes: Location: Home dr5 Condition: Stable dr5 Diagnosis - Tension-type headache dr5 - Candidiasis, unspecified dr5 - Dehydration dr5 Followup: dr5 - With: Emergency Department - When: As needed - Reason: Worsening of condition Followup: dr5 - With: Private Physician - When: 1 - 2 days - Reason: Recheck today's complaints, Continuance of care, Re-evaluation by your physician Discharge Instructions: - Discharge Summary Sheet dr5 - Dehydration, Adult dr5 - General Headache Without Cause dr5 - Vaginal Yeast Infection, Adult dr5 Forms: - Medication Reconciliation Form dr5 - Patient Portal Instructions dr5 - Leadership Thank You Letter dr5 Prescriptions: - Diflucan 150 mg Oral Tablet - take 1 tablet ORAL route one time for 1 day; 1 tablet; Refills: 0, Product dr5 Selection Permitted Signatures: Dispatcher [employer] EDAZ Erin Peterson RN RN aa5 Saumya Guadarrama RN RN Tricia Amor RN RN ld1 Jose Alberto Gage, OXYGEN EQUIPMENT PREPARER-C OXYGEN EQUIPMENT PREPARER-Cdr5 Corrections: (The following items were deleted from the chart) 14:04 14:04 Head C Spine MPR Wo Con+CT.RAD.BRZ ordered. EDMS EDMS 14:04 14:04 BASIC METABOLIC PANEL+C.LAB.BRZ ordered. EDMS EDMS 14:04 14:04 CBC+H.LAB.BRZ ordered. EDMS EDMS 14:04 14:04 MAGNESIUM+C.LAB.BRZ ordered. EDMS EDMS 14:04 14:04 Test, Urine+UC.LAB.BRZ ordered. EDMS EDMS 14:04 14:04 Urinalysis+U.LAB.BRZ ordered. EDMS EDMS
--- NOTE | 2024-10-07 17:27 | ER ---
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 Coronavirus screen: At this time, the client does not indicate any symptoms associated with coronavirus-19. Ebola Screen: No symptoms or risks identified at this time. Initial Sepsis Screen: Does the patient meet any 2 criteria? No. Patient's initial sepsis screen is negative. Does the patient have a suspected source of infection? No. Patient's initial sepsis screen is negative. Risk Assessment: Do you want to hurt yourself or someone else? Patient reports no desire to harm self or others. Onset of symptoms was September 30, 2024. 13:55 Method Of Arrival: Ambulatory hb 13:55 Acuity: TANISHA 3 hb Triage Assessment: 13:58 Headache History: Denies prior headaches. 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 - Infectious Disease History:: Denies. - Social history:: Smoking status: Reported history of juuling and/or vaping. Screenin:49 [facility] ED Fall Risk Assessment (Adult) History of falling in the last 3 months, ld1 including since admission No falls in past 3 months (0 pts) Confusion or Disorientation No (0 pts) Intoxicated or Sedated No (0 pts) Impaired Gait No (0 pts) Mobility Assist Device Used No (0 pt) Altered Elimination No (0 pt) Score/Fall Risk Level 0 - 2 = Low Risk Oriented to surroundings, Hourly rounding (assess needs \T\ fall precautionary measures) done. Abuse screen: Denies threats or abuse. Denies injuries from another. Nutritional screening: No deficits noted. Tuberculosis screening: No symptoms or risk factors identified. Assessment: 16:49 General: Appears in no apparent distress. comfortable, Behavior is cooperative, ld1 anxious. Pain: Denies pain. Neuro: Level of Consciousness is awake, alert, obeys commands, Oriented to person, place, time, situation. Cardiovascular: Capillary refill < 3 seconds Patient's skin is warm and dry. Respiratory: Airway is patent Respiratory effort is even, unlabored. GI: Abdomen is flat, non-distended. : No signs and/or symptoms were reported regarding the genitourinary system. EENT: No signs and/or symptoms were reported regarding the EENT system. Derm: No signs and/or symptoms reported regarding the dermatologic system. Musculoskeletal: No signs and/or symptoms reported regarding the musculoskeletal system. 17:57 Reassessment: Patient is alert, oriented x 3, equal unlabored respirations, skin aa5 warm/dry/pink. Vital Signs: 13:55 BP 120 / 79; Pulse 83; Resp 16; Temp 98.4(O); Pulse Ox 100% on R/A; Weight 54.43 kg; hb Height 5 ft. 4 in. ; Pain 8/10; 16:49 BP 118 / 97; Pulse 68; Resp 18; Pulse Ox 100% on R/A; ld1 13:55 Body Mass Index 20.60 (54.43 kg, 162.56 cm) hb 13:55 Pain Scale: Adult hb ED Course: 13:49 Patient arrived in ED. im 13:49 [facility] 13:49 Jose Martin Avelar MD is Attending Physician. dr5 13:57 Triage completed. hb 13:58 Arm band placed on. hb 14:43 CT Head C Spine In Process Unspecified. EDMS 16:20 Urine collected: clean catch specimen, sent to lab. aa5 16:22 Celestina Lomas, [place] is Primary Nurse. ap3 16:22 Initial lab(s) drawn, by sd, sent to lab. Inserted saline lock: 22 gauge antecubital aa5 area, using aseptic technique. Blood collected. Flushed with 10 mL NS. 16:49 Patient has correct armband on for positive identification. Placed in gown. Bed in low ld1 position. Call light in reach. Side rails up X2. Pulse ox on. NIBP on. Door closed. Noise minimized. Warm blanket given. 16:49 No provider procedures requiring assistance completed. ld1 17:57 IV discontinued, intact, bleeding controlled, No redness/swelling at site. Pressure aa5 dressing applied. Administered Medications: 16:30 Drug: NS 0.9% IV 1000 ml IV at 1000 ml once; to be given as a bolus over 60 minutes ld1 Route: IV; Rate: 1000 ml; Site: right antecubital; 17:56 Follow up: IV Status: Completed infusion; IV Intake: 1000ml aa5 16:30 Drug: Ketorolac IVP 15 mg IVP once Route: IVP; Site: right antecubital; ld1 17:56 Follow up: Response: No adverse reaction aa5 16:30 Drug: Ondansetron IVP 4 mg IVP once; over 2 minutes Route: IVP; Site: right antecubital;ld1 17:56 Follow up: Response: No adverse reaction aa5 16:30 Drug: diphenhydrAMINE IVP 12.5 mg IVP once Route: IVP; Site: right antecubital; ld1 17:56 Follow up: Response: No adverse reaction aa5 17:56 Drug: Potassium Chloride PO 40 mEq PO once Route: PO; aa5 17:56 Follow up: Response: No adverse reaction aa5 Medication: 16:49 VIS not applicable for this client. ld1 Intake: 17:56 IV: 1000ml; Total: 1000ml. aa5 Outcome: 17:27 Discharge ordered by . dr5 17:57 Discharged to home ambulatory, aa5 17:57 Condition: stable 17:57 Discharge instructions given to patient, Instructed on discharge instructions, follow up and referral plans. medication usage, Demonstrated understanding of instructions, follow-up care, medications, Prescriptions given X 1, 17:57 Patient left the ED. aa5 Signatures: Dispatcher [employer] EDFL Erin Peterson RN RN aa5 Saumya Guadarrama RN RN Celestina Lomas RN RN ap3 Tricia Amor RN RN ld1 Bettie Almodovar Dustin, SHEET IRONWORKER-C SHEET IRONWORKER-Cdr5 Corrections: (The following items were deleted from the chart) 13:59 13:55 BP 120 / 79; Pulse 83bpm; Resp 16bpm; Pulse Ox 100% RA; Temp 98.4F Oral; Pain hb 8/10, Adult; hb
[2024-10-07] MEDS ORDERED: POTASSIUM CL SA 10 MEQ TAB PO ONE (17:52)
[2024-10-07 18:22] VITALS: TEMP 98.4; O2SAT 100
[2024-10-07 18:23] VITALS: BP 118/97
== END 2024-10-07 17:57 | disposition home or self-care (01) ==
LOC: ER 13:47
DX: G44.209 Tension-type headache, unspecified, not intractable (principal); E86.0 Dehydration; B37.9 Candidiasis, unspecified
CPT/HCPCS: 36415; 70450; 72125; 80048; 81001; 81025; 83735; 85025; 96361; 96374; 96375; 99284; J1200; J2405; J7030